=== PATIENT | female | born 1960 | race Caucasian/White ===

== ENCOUNTER 2017-02-11 13:47 | Outpatient (CLI) | payer MEDICARE, MEDICAID ==
--- NOTE | 2017-02-11 17:38 | Ultrasound Report ---
RIGHT BREAST ULTRASOUND: 02/11/2017 CLINICAL INDICATION: Right breast mass. TECHNIQUE: Real-time scanning was performed with compliance representative static images obtained. Ultrasound of the palpable abnormality in the right breast was performed. There is a large, heteroge neous mass, measuring greater than 5 cm in length. It demonstrates peripheral vascularity and hand kiss setter ior acoustic shadowing. There is overlying skin thickening, suspicious for dermal involvement. Scan wendy of the right axilla demonstrates multiple enlarged lymph nodes. IMPRESSION: LARGE RIGHT BREAST MASS WITH RIGHT AXILLARY ADENOPATHY, HIGHLY SUGGESTIVE OF MALIGNANCY. RECOMMENDATION: SURGICAL CONSULTATION FOR TREATMENT PLANNING. IF PREOPERATIVE CHEMOTHERAPY IS PLANN ED, BIOPSY COULD BE PERFORMED. BIRADS CATEGORY: 5, HIGHLY SUGGESTIVE OF MALIGNANCY. Results and recommendations discussed with the patient and her caregiver at the time of the examinati on, and called to Dr. Pack's office on 02/11/2017. JOB #: [id number] EXT JOB #:[id number]
--- NOTE | 2017-02-11 17:41 | Mammography Report ---
DIGITAL DIAGNOSTIC BILATERAL MAMMOGRAM: 02/11/2017 CLINICAL INDICATION: Right breast mass. TECHNIQUE: Bilateral CC and MLO views, right true lateral view. Positioning is markedly limited by the patient's general condition, with posterior breast tissue excluded on both sides. The breasts demonstrate scattered fibroglandular densities bilaterally. There is an approximately 13 cm mass in the right upper-outer quadrant, with pleomorphic calcifications within the mass. There i s overlying skin thickening as well. No suspicious masses, clustered microcalcifications, or regions of architectural distortion are identified within the left breast, in the imaged portions. Please a lso refer to right breast ultrasound of the same day. IMPRESSION: FINDINGS HIGHLY SUGGESTIVE OF MALIGNANCY, WITH A LARGE MASS ON ULTRASOUND CORRELATING WI TH THE MAMMOGRAPHIC ABNORMALITY, RIGHT AXILLARY ADENOPATHY ON ULTRASOUND, AND SKIN THICKENING SUSPICI OUS FOR DERMAL INVOLVEMENT. RECOMMENDATION: SURGICAL CONSULTATION FOR COORDINATION OF CARE. IF PREOPERATIVE CHEMOTHERAPY IS MERA NNED, WE WOULD BE HAPPY TO PERFORM A BIOPSY FOR TISSUE DIAGNOSIS. BIRADS CATEGORY: 5, HIGHLY SUGGESTIVE OF MALIGNANCY. Results and recommendations discussed with the patient and her caregiver at the time of the examinati on, and called to the office of Dr. Pack on 02/11/2017. STANDARD QUALIFYING STATEMENTS 1. This examination was reviewed with the aid of Computed-Aided Detection (CAD). 2. A negative or benign imaging report should not delay biopsy if clinically suspicious findings are present. Consider surgical consultation if warranted. More than 5% of cancers are not identified b y imaging. 3. Dense breasts may obscure an underlying neoplasm. JOB #: [id number] EXT JOB #:[id number]
== END 2017-02-11 13:48 | disposition home or self-care (01) ==
LOC: DI 13:47
PROVIDERS: ATTEND Internal Medicine
DX: N63 Unspecified lump in breast (principal); R59.0 Localized enlarged lymph nodes; R23.4 Changes in skin texture
CPT/HCPCS: 76642; G0204; 77066

== ENCOUNTER 2017-02-18 10:58 | Outpatient (CLI) | payer MEDICARE, MEDICAID | END 2017-02-18 10:59 | disposition critical access hospital (66) | LOC: EMS 10:58 | PROVIDERS: ATTEND Surgery | DX: M25.511 Pain in right shoulder (principal) | CPT/HCPCS: A0425; A0427 ==

== ENCOUNTER 2017-02-18 11:21 | Emergency (ER) | payer MEDICARE, MEDICAID ==
[2017-02-18] MEDS ORDERED: SODIUM CHLORIDE 0.9% 1,000 ML IV ONE ×2 (12:10→14:05)
[2017-02-18] MEDS ORDERED: BUPIVACAINE 0.5%-EPI 1:200000 PF 30 ML VIAL ONE (12:16)
--- NOTE | 2017-02-18 12:21 | ED Physician Documentation ---
History of Present Illness - Stated complaint Stated Complaint: SHOULDER INJ - Chief complaint Chief Complaint: General - History obtained from History obtained from: Patient, EMS - History of Present Illness Timing: Other (57-year-old woman with history of cerebral palsy with visiting caregivers. Last night I guess her wheelchair had been put away funny and she went to get it and slipped out from under her and she injured her Right shoulder. She does not have a history of right shoulder problems. She does have significant pain in the right shoulder but no other injuries. 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 - Present Medications Home Medications: Ambulatory Orders Medication Instructions Recorded Confirmed Ibuprofen [Motrin] 15 ml PO Q6H PRN #1 bottle 11/07/12 Baclofen 10 mg PO DAILY 06/30/13 06/30/13 raNITIdine [Zantac] 150 mg PO BID #30 tablet 06/30/13 - Allergies Allergies/Adverse Reactions: Allergies Allergy/AdvReac Type Severity Reaction Status Date / Time No Known Drug Allergies Allergy Verified 06/30/13 08:11 - Social History Does the pt smoke?: Yes Smoking Status: Former smoker Does the pt drink ETOH?: Yes Does the pt have substance abuse?: No - Family History Family history: reports: Non contributory - Immunizations Immunizations are current?: No - POLST Patient has POLST: No PD ED PE NORMAL - Vitals Vital signs reviewed: Yes - General General: Alert and oriented X 3, No acute distress - Neck Neck: Supple, no meningeal sign, No bony TTP - Cardiac Cardiac: RRR, No murmur - Respiratory Respiratory: No respiratory distress, Clear bilaterally - Abdomen Abdomen: Soft, Non tender - Extremities Extremities: Other (Right shoulder is obviously deformed with a divot in the glenohumeral joint and no range of motion. She does have normal sensation over the deltoid and in the hand with good radial pulses.) - Neuro Neuro: Alert and oriented X 3, Normal speech - Psych Psych: Normal mood, Normal affect Results - Vitals Vitals: Vital Signs - 24 hr 02/18/17 02/18/17 02/18/17 11:29 13:11 13:13 Temperature 36.7 C Heart Rate 89 70 70 Respiratory 16 100 H 17 Rate Blood Pressure 156/72 H 171/96 H 137/82 H O2 Saturation 100 15 L 100 02/18/17 02/18/17 02/18/17 13:15 13:18 13:21 Temperature Heart Rate 80 79 86 Respiratory 14 21 20 Rate Blood Pressure 145/98 H 154/88 H O2 Saturation 99 98 02/18/17 02/18/17 02/18/17 13:24 13:27 13:35 Temperature Heart Rate 86 80 82 Respiratory 18 20 21 Rate Blood Pressure 142/85 H 142/87 H 154/96 H O2 Saturation 98 100 100 02/18/17 02/18/17 02/18/17 13:45 13:50 13:57 Temperature Heart Rate 77 70 81 Respiratory 20 16 22 Rate Blood Pressure 156/90 H 149/86 H 153/96 H O2 Saturation 100 100 99 02/18/17 02/18/17 02/18/17 14:00 14:09 14:31 Temperature Heart Rate 72 72 82 Respiratory 17 14 18 Rate Blood Pressure 156/96 H 140/89 H 147/100 H O2 Saturation 100 100 100 02/18/17 02/18/17 19:51 21:39 Temperature 37.1 C Heart Rate 107 H 116 H Respiratory 22 Rate Blood Pressure 108/68 O2 Saturation 100 95 Oxygen O2 Source Room air - Labs Labs: Laboratory Tests 02/18/17 02/18/17 02/18/17 12:18 12:18 12:18 WBC 12.7 H RBC 4.80 Hgb 14.7 Hct 42.5 MCV 88.4 MCH 30.6 MCHC 34.6 RDW 12.9 Plt Count 274 MPV 7.6 L Neut # 11.0 H Lymph # 0.8 L Bladen # 0.9 Eos # 0.0 Baso # 0.0 Absolute Nucleated RBC 0.01 Nucleated RBCs 0.1 Sodium 140 Potassium 3.7 Chloride 105 Carbon Dioxide 25 Anion Gap 10.0 BUN 13 Creatinine 0.6 Estimated GFR (MDRD) 104 Glucose 115 H Calcium 9.2 Total Bilirubin 0.8 AST 56 H ALT 20 Alkaline Phosphatase 59 Total Creatine Kinase 1691 H* Total Protein 7.9 Albumin 4.2 Globulin 3.7 Albumin/Globulin Ratio 1.1 Lipase 21 L - Rads (name of study) R shoulder Radiology: EMP read contemporaneously (anterior dislocation with lg hill sachs) Procedures - Reduction Body part reduced: Right, Shoulder Fracture or dislocation: Dislocation Anesthesia: Marcaine (enter cc) (10ml), Conscious sedation Shoulder reduction technique: [place] / ext rotation Reduction aftercare: NV intact, Sling - Procedural sedation Sedation prep: Informed consent, Time out completed, AHA 2 - mild disease Sedation medications: propofol (50 then 20mg IVP) Patient status during sedation: Unresponsive, Vitals remained stable, Maintained airway. No: Hypoxia Sedation recovery: Recovered uneventfully PD MEDICAL DECISION MAKING - ED course ED course: 57-year-old woman with cerebral palsy presents with an anterior shoulder dislocation on the right, it was noted to be quite floppy during reduction, and easily popped in and out with a large Hill-Sachs deformity. She was successfully reduced so and placed in a sling. She does have very mild rhabdomyolysis which was treated with 2 L of IV fluids, this should be sufficient for this level of CK. Her caregiver arrived and they have concerns about her going home, she is alone most of the time and her usual locomotion is basically by crawling and she will be unable to do that now. Social work became involved and we are exploring the possibility of sending her to a [facility] for respite stay. I spoke with her primary care physician, Dr. Pack as a service I wrote the admission orders/transition orders for the [facility] as they are certainly not complicated, she is actually on no home medications right now. [facility] was unable to accept her that late in the day though in the current plan was for her to go in the morning. She will board in the ER until then. Departure - Departure Disposition: 01 Home, Self Care Clinical Impression: Anterior shoulder dislocation Qualifiers: Encounter type: initial encounter Laterality: right Qualified Code(s): S43.014A - Anterior dislocation of right humerus, initial encounter Rhabdomyolysis Qualifiers: Rhabdomyolysis type: non-traumatic Qualified Code(s): M62.82 - Rhabdomyolysis Condition: Good Record reviewed to determine appropriate education?: Yes Instructions: ED Dislocation Shoulder Redu, ED Rhabdomyolysis Follow-Up: [facility] [Provider Group] - Within 1 week Comments: Tylenol per package instructions as needed for pain. Return if worse. Drink plenty of fluids. Follow up with the orthopedic surgeon for reevaluation, keep the sling on until then. Follow-up within the week. Your blood pressure was elevated today on check into the emergency department. This does not mean that you have hypertension, it is a common phenomenon to come to the emergency department and have elevated blood pressure. I recommend that she see your primary care physician within the week to have it rechecked when you are feeling better.
[2017-02-18 12:23] LABS: BASOPHILS % (AUTO) 0.3 %; HCT - HEMATOCRIT 42.5 % (37.0-47.0); HGB - HEMOGLOBIN 14.7 g/dL (12.0-16.0); LYMPHOCYTES # (AUTO) 0.8 10^3/uL (1.5-3.5); MEAN CORPUSCULAR HEMOGLOBIN 30.6 pg (27.0-31.0); MEAN CORPUSCULAR HGB CONC 34.6 g/dL (32.0-36.0); MEAN CORPUSCULAR VOLUME 88.4 fL (81.0-99.0); MEAN PLATELET VOLUME 7.6 fL (7.9-10.8); MONOCYTES # (AUTO) 0.9 10^3/uL (0.0-1.0); MONOCYTES % (AUTO) 6.7 %; NUCLEATED RED BLOOD CELLS AUTO 0.1 /100WBC; RED CELL DISTRIBUTION WIDTH 12.9 % (12.0-15.0); UNCORRECTED WHITE BLOOD COUNT 12.7 x10^3/uL; WHITE BLOOD COUNT 12.7 x10^3/uL (4.8-10.8)
[2017-02-18] MEDS: HYDROmorphone 1 MG/ML SYRINGE IVP STA (12:23)
[2017-02-18] MEDS ORDERED: SODIUM CHLORIDE FLUSH 0.9% 10 ML SYRINGE IVP ONE (12:25)
[2017-02-18] MEDS ORDERED: HYDROmorphone 1 MG/ML SYRINGE ONE (12:25)
--- NOTE | 2017-02-18 12:32 | XRAY Preliminary Report ---
Exam: XR Shoulder 2 View RT IMPRESSION: 1. Acute anterior shoulder dislocation with associated large Hill-Sachs defect. [facility] SITE ID: [id number]
--- NOTE | 2017-02-18 12:34 | XRAY Report ---
EXAM: RIGHT SHOULDER RADIOGRAPHY EXAM DATE: 02/18/2017 12:13 PM. CLINICAL HISTORY: Limited ROM with pain after fall. COMPARISON: 11/07/2012. TECHNIQUE: 2 views. FINDINGS: Bones: Large Hill-Sachs defect. Joints: Interval anterior subcoracoid dislocation. Unremarkable acromioclavicular joint. Soft tissues: No periarticular calcification. IMPRESSION: 1. Acute anterior shoulder dislocation with associated large Hill-Sachs defect. [facility] Referring Provider Line: [phone] SITE ID: [id number]
[2017-02-18 12:36] LABS: ALBUMIN/GLOBULIN RATIO 1.1 (1.0-2.2); BILIRUBIN,TOTAL 0.8 mg/dL (0.2-1.0); CALCIUM 9.2 mg/dL (8.5-10.3); CREATININE 0.6 mg/dL (0.4-1.0); POTASSIUM 3.7 mmol/L (3.5-5.0); TOTAL PROTEIN 7.9 g/dL (6.7-8.2)
[2017-02-18] MEDS ORDERED: PROPOFOL 200 MG/20 ML VIAL IVP ONE (13:01)
[2017-02-18] MEDS: PROPOFOL 200 MG/20 ML VIAL IVP STA ×2 (14:00→14:01)
--- NOTE | 2017-02-18 14:21 | XRAY Preliminary Report ---
Exam: XR Shoulder 2 View RT IMPRESSION: The glenohumeral joint is in anatomic alignment status post reduction. [facility] SITE ID: [id number]
--- NOTE | 2017-02-18 14:24 | XRAY Report ---
EXAM: RIGHT SHOULDER RADIOGRAPHY EXAM DATE: 02/18/2017 01:54 PM. CLINICAL HISTORY: Post reduction. COMPARISON: Right shoulder radiograph dated 02/18/2017. TECHNIQUE: 2 views. FINDINGS: Bones: Hill-Sachs deformity along the posterior aspect of the right humeral head. Joints: The glenohumeral joint is in anatomic alignment. Soft tissues: The visualized hemithorax is unremarkable. No soft tissue swelling. IMPRESSION: The glenohumeral joint is in anatomic alignment status post reduction. NARGISA Referring Provider Line: [phone] SITE ID: [id number]
[2017-02-19] MEDS ORDERED: ACETAMINOPHEN 325 MG TABLET PO STA (12:00)
[2017-02-19] MEDS ORDERED: ACETAMINOPHEN 160 MG/5 ML SUSP UDC PO STA (12:23)
[2017-02-19] MEDS ORDERED: ACETAMINOPHEN 160 MG/5 ML SUSP UDC ONE (13:55)
[2017-02-19 14:15] VITALS: BP 129/86
== END 2017-02-19 13:55 | disposition home or self-care (01) ==
LOC: EDBD → EDUNIT# → ED 11:21
DX: S43.014A Anterior dislocation of right humerus, initial encounter (principal); W05.0XXA Fall from non-moving wheelchair, initial encounter; Y92.019 Unspecified place in single-family (private) house as the place of occurrence of the external cause; M62.82 Rhabdomyolysis; G80.9 Cerebral palsy, unspecified; Z98.2 Presence of cerebrospinal fluid drainage device; Z87.891 Personal history of nicotine dependence; R03.0 Elevated blood-pressure reading, without diagnosis of hypertension
CPT/HCPCS: 23650; 36415; 73030; 80053; 82550; 83690; 85025; 94770; 96361; 96374; 99152; 99284; 99285; A9270; J1170

== ENCOUNTER 2017-03-02 10:08 | Day surgery (SDC) | payer MEDICARE, MEDICAID ==
[2017-03-02] MEDS ORDERED: ceFAZolin 3 GM/20 ML SYRINGE IVP ONE (10:30)
[2017-03-02] MEDS ORDERED: LACTATED RINGERS 1,000 ML IV ONE ×2 (11:21→16:08)
[2017-03-02] MEDS ORDERED: ePHEDrine 50 MG/ML VIAL IVP ONE (14:45)
[2017-03-02] MEDS ORDERED: DEXAMETHASONE 4 MG/ML VIAL IVP ONE (14:45)
[2017-03-02] MEDS ORDERED: LIDOCAINE-MPF 2% 5 ML VIAL IM ONE (14:45)
[2017-03-02] MEDS ORDERED: ACETAMINOPHEN 1,000 MG/100 ML 100 ML IV ONE (14:45)
[2017-03-02] MEDS ORDERED: PROPOFOL 200 MG/20 ML VIAL IVP ONE (14:45)
[2017-03-02] MEDS ORDERED: KETOROLAC 30 MG/ML VIAL IVP ONE (14:45)
[2017-03-02] MEDS ORDERED: fentaNYL 100 MCG/2 ML VIAL IVP ONE (14:45)
[2017-03-02] MEDS ORDERED: MIDAZOLAM 2 MG/2 ML VIAL IVP ONE (14:45)
[2017-03-02] MEDS ORDERED: ONDANSETRON 4 MG/2 ML VIAL IVP ONE (14:45)
--- NOTE | 2017-03-02 16:19 | OPERATIVE REPORT ---
Operative Report - General Procedure Date: 03/02/17 Planned Procedure: Right modified radical mastectomy Pre-Op Diagnosis: Large right breast mass, strongly suspect cancer Procedure Performed: Right modified radical mastectomy Post Op Diagnosis: Same. - Procedure Note Primary Surgeon: Nathaniel Mao MD Anesthesia Provider: Demar Ayon Anesthesia Technique: General ET tube, Local (30 mL of half percent Marcaine) IV Fluids (mL): 1,600 Estimated Blood Loss (mL): 75 Drain/Tube Type: Marcelo drain (2 1 across chest wall and one in the axilla) Complications: None. - Other Other Information/Narrative: OPERATIVE DESCRIPTION/REPORT: After verbal and written informed consent was obtained detailing the risks of infection, bleeding requiring transfusion with its risks, nerve injury, and , and after I met with the patient confirming the surgery and the site of the surgery and after initialing the site of the surgery with a surgical marker , the patient was brought to the operative suite and placed supine on the operating table. Great care was taken to avoid pressure points to prevent pressure necrosis or nerve injury. Monitoring devices were applied along with TEDs and pneumatic compressive stockings (to prevent DVT). The patient received preoperative antibiotics for surgical prophylaxis. Demar Ayon sedated and anethetized the patient for the entire procedure. The patient was prepped and draped in the usual sterile manner. With the patient draped my initials were clearly visible. A "time in" then confirmed that the patient was identified with 3 identifiers (name, birthdate and medical record number), the history and physical was in the chart, the signed consent confirming the procedure was in the chart, the patient was in the correct position, the aforementioned prophylactic measures were in place or given, we had the correct personel and equipment to complete the procedure and that anesthesia, surgery and nursing were given an opportunity to express any concerns. With the agreement of everyone in the room, we proceeded with the operation. Great care was taken to ensure that the arm was placed in a relaxed manner away from the body to facilitate exposure and to avoid nerve injury. This was made difficult by the patient's previous shoulder injury but we did the best we could. An elliptical incision was made to incorporate the nipple-areolar complex as well as the peau d'orange in the area where the likely cancer eroded through the skin. This necessitated making the incision much larger than I normally make it. The skin incision was carried down to the subcutaneous fat, but no further. Using traction and counter traction, the upper flap was dissected from the chest wall, medially to the sternal border, superiorly to the clavicle , laterally to the anterior border of the latissimus dorsi muscle, and superolaterally to the insertion of the pectoralis major muscle. The lower flap was dissected in a similar manner down to the insertion of the pectoralis fascia overlying the fifth rib medially and laterally out to the latissimus dorsi. Bovie electrocautery was used for the majority of the dissection and hemostasis, tying only the large vessels with 2-0 Vicryl. The breast was dissected from the pectoralis muscle beginning medially and progressing laterally, removing the pectoralis fascia entirely. Once the lateral border of the pectoralis major muscle was identified, the pectoralis muscle was retracted medially and the interpectoral fat was removed with the specimen. The axillary dissection is then begun by incising the fascia overlying axilla proper, allowing visualization of the axillary vein. The axilla was then cleared of its contents by sharp dissection. The axilla was cleared down to the chest wall and dissection was continued laterally to the subscapular vein. The long thoracic nerve was clearly identified lying against the chest was and carefully preserved. The long thoracic nerve represented the posterior most aspect of the dissection. As the axillary contents were dissected in the posterolateral axilla the thoracodorsal nerve was identified and carefully preserved. The dissection continued caudally until the entire specimen was freed and delivered from the operative field. Copious water lavage was used to remove any debris, and meticulous hemostasis was obtained with Bovie electrocautery. Two Marcelo drains were inserted through separate stab incision below the initial incision and cut to fit. The most posterior of the two was directed into the axilla and the other directed anteriorly across the pectoralis major. These were secured to the skin using 3-0 Nylon which was Bebo-sandaled about each drain. The skin incision was approximated with 4-0 Monocryl in a running subcuticular manner. The incision in both drain sites were injected with half percent Marcaine for postoperative pain management. A dressing was applied. The drains were placed on ``grenade suction. At this point a time out was performed that confirmed that all the counts were correct, the procedure that was performed, the blood loss, the urine output, the IV fluids administered, and the patients condition. Having tolerated the procedure well, the patient was subsequently extubated and taken to recovery room in good and stable condition. Dragon disclaimer: This document was created in part using voice recognition technology. Because of the inherent limitations of the system ([employer]'s [employer] user manual states that the licensee understands that speech recognition is a statistical process and that recognition errors are inherent in the process), occasional same sounding word substitutions and grammatical errors do occur and persist despite proofreading. Please read this document for context.
[2017-03-02] MEDS ORDERED: HYDROmorphone 1 MG/ML CARPUJECT ONE (17:03)
[2017-03-02] MEDS ORDERED: HYDROcod/ACETAM 10 MG/325 MG TABLET PO PRN (19:55)
[2017-03-02] MEDS ORDERED: ONDANSETRON 4 MG/2 ML VIAL IVP PRN (19:55)
[2017-03-02] MEDS ORDERED: HYDROmorphone 1 MG/ML CARPUJECT IVP PRN ×2 (19:57→19:58)
[2017-03-03] MEDS: LACTATED RINGERS 1,000 ML IV SCH ×2 (03:24→08:33)
[2017-03-03 04:20] VITALS: BP 117/67
--- NOTE | 2017-03-03 13:05 | PROVIDER PROGRESS NOTE ---
Subjective - General Procedure Date: 03/02/17 Post Op Days: 1 Procedure Performed: Right modified radical mastectomy - Review of Systems Wound/Incisions: positive: Healing well Drain Type: 19 Fr Marcelo x2 Drain Output Description: Serosanguinous becoming more serous General: positive: No symptoms HEENT: positive: No symptoms Pulmonary: positive: No symptoms Cardiovascular: positive: No symptoms Gastrointestinal: positive: No symptoms Genitourinary: positive: No symptoms Musculoskeletal: positive: Shoulder pain (As a result of her right shoulder dislocation (pre-existing).) Skin: positive: No symptoms Psychiatric: positive: No symptoms Objective - Patient Data Reviewed Vital Signs: Yes Weight: Weight 03/01/17 03/02/17 03/03/17 23:59 23:59 23:59 Weight (kg) 65 kg Intake & Output: Intake and Output Totals x24h 03/01/17 03/02/17 03/03/17 23:59 23:59 23:59 Intake Total 1600 Output Total 450 Balance 1150 - Current Medications Current Medications: Current Medications Generic Name Dose Route Start Last Admin Trade Name Freq PRN Reason Stop Dose Admin Hydromorphone HCl 0.2 mg 03/02/17 19:57 03/03/17 00:47 Dilaudid Inj IVP 0.2 mg Q30M PRN Administration BREAKTHROUGH PAIN Lactated Ringer's 1,000 mls @ 83 mls/hr 03/02/17 20:00 03/03/17 08:33 Lr IV 83.3 mls/hr .Q12H3M BALBIR Administration - Physical Exam Wound/Incisions: positive: Healing well, Drainage (Coming through the 2 Marcelo drains is becoming more serous.) General Appearance: positive: No acute distress Eyes Bilateral: positive: No lid inflammation, Conjunctivae nml, No scleral icterus, Other (Continued episodic nystagmus.) Neck: positive: Trachea midline Respiratory: positive: Chest non-tender, No respiratory distress, Breath sounds nml Cardiovascular: positive: Regular rate & rhythm Skin: positive: Color nml Neurologic/Psychiatric: positive: Oriented x3 Impression/Plan - Problem List Problem List: D1 s/p RIGHT modified radical mastectomy for what will undoubtedly come back as advanced RIGHT breast cancer Discharge to [facility] with drains in place. Drain care (stripping and measuring output should be done every 8 hours but if not then AT LEAST every 12 hours) must be continued at [facility]. No tape on wound. Binder with soft gauze beneath to be changed as needed. No restrictions regarding diet. Follow up with me this Wednesday or earlier if necessary. Should also follow up with [facility] soon after she sees me and pathology is confirmed.
--- NOTE | 2017-03-03 13:23 | Discharge Plan ---
Discharge Plan Disposition: 03 [facility] DC/Xfer Prescriptions: Hydrocodone/Acetaminophen [Hydrocodon-Acetamin 7.5-325/15] 15 ml PO Q4HR PRN # 240 solution PRN Reason: Pain Diet: Regular Activity Restrictions: No Restrictions Shower Restrictions: No Driving Restrictions: Yes Assistance Devices: Wheelchair Weight Bearing: Other (As before.) Additional Instructions or Follow Up instructions: Drain stripping every 8 hours and record output and appearance of fluids. No tape on wound only fluffs and abdominal binder. No Smoking: If you smoke, Please STOP! Call for help. Follow-up with: Patricia Pack MD [Primary Care Provider] - Nathaniel Mao MD [Provider Admit Priv/Credential] -
== END 2017-03-03 15:06 ==
LOC: SDS 10:08 → OBS 18:43 → SDS 03-03 15:06
PROVIDERS: ATTEND Surgery
PROC: 07T50ZZ Resection of Right Axillary Lymphatic, Open Approach (ICD-10-PCS; 2017-03-02)
PROC: 0HTT0ZZ Resection of Right Breast, Open Approach (ICD-10-PCS; principal; 2017-03-02 11:45)
DX: C50.911 Malignant neoplasm of unspecified site of right female breast (principal); C77.3 Secondary and unspecified malignant neoplasm of axilla and upper limb lymph nodes; Z17.0 Estrogen receptor positive status [ER+]; F41.9 Anxiety disorder, unspecified; G80.9 Cerebral palsy, unspecified; Z87.891 Personal history of nicotine dependence
CPT/HCPCS: 19307; 93005; J0131; J1170; J7120

== ENCOUNTER 2017-03-23 08:21 | Outpatient (CLI) | payer MEDICARE, MEDICAID ==
--- NOTE | 2017-03-23 14:39 | Nuclear Medicine Report ---
EXAM: BONE SCAN EXAM DATE: 03/23/2017 12:33 PM. CLINICAL HISTORY: New diagnosis of very large right breast cancer. COMPARISON: None. TECHNIQUE: Following the intravenous administration of 32.6 mCi of technetium 99m MDP and an appropri ate delay, a whole-body scan was performed in anterior and posterior projections. Site-specific spot views of the region of interest were obtained in various projections. The patient was wearing a diaper, and refused to remove it. FINDINGS: Exam Quality: Normal overall osseous radiotracer uptake. Physiological tracer uptake in bilateral col lecting systems. Skull: No focal uptake. Thorax: There is no abnormal tracer uptake in the sternum, ribs or scapula. There is moderately increased tracer uptake in the right humeral head in keeping with the prior x-ray suggesting a fracture. Pelvis: No region of focal tracer uptake seen to suggest metastatic disease. The pelvis is partially obscured by the diaper. Spine: No focal uptake in the cervical or thoracic or lumbar spine. Moderately increased tracer uptake in the left knee consistent with osteoarthritis. IMPRESSION: 1. No evidence of metastatic disease. 2. Tracer uptake in the right humeral head consistent with the prior diagnosis of a fracture. [facility] Referring Provider Line: [phone] SITE ID: [id number]
== END 2017-03-23 08:22 | disposition home or self-care (01) ==
LOC: DI 08:21
PROVIDERS: ATTEND Surgery
DX: C50.911 Malignant neoplasm of unspecified site of right female breast (principal)
CPT/HCPCS: 78306; A9503

== ENCOUNTER 2017-03-24 07:40 | Outpatient (CLI) | payer MEDICARE, MEDICAID ==
[~2017-03-24 07:40] MED LIST: IOPAMIDOL-300 100 ML VIAL ONE; IOPAMIDOL-300 50 ML VIAL ONE
[2017-03-24 08:12] LABS: CREATININE 0.4 mg/dL (0.4-1.0)
[2017-03-24] MEDS ORDERED: IOPAMIDOL-300 50 ML VIAL PO ONE (09:28)
[2017-03-24] MEDS ORDERED: IOPAMIDOL-300 100 ML VIAL IVP ONE ×2 (09:28)
--- NOTE | 2017-03-24 10:08 | CT Report ---
CT OF THE CHEST WITH CONTRAST: 03/24/2017 CLINICAL INDICATION: Breast cancer. TECHNIQUE: Axial CT images of the chest were obtained with 90 mL of Isovue-300 intravenously. No prev ious chest CT is available for comparison. FINDINGS: The heart and great vessels are unremarkable. There is a moderate hiatal hernia present. N o hilar or mediastinal lymphadenopathy is seen. A [employer] shunt catheter is noted in the anterior subcutan eous fat of the left chest. Postoperative changes of right mastectomy and axillary node dissection ar e present. The lungs are clear. No effusion or pneumothorax is present. The osseous structures demons trate degenerative changes. IMPRESSION: NO EVIDENCE OF THORACIC METASTATIC DISEASE. In accordance with CT protocol optimization, one or more of the following dose reduction techniques w ere utilized for this exam: automated exposure control, adjustment of mA and/or KV based on patient size, or use of iterative reconstructive technique. :9 JOB #: [id number] EXT JOB #:[id number]
--- NOTE | 2017-03-24 10:10 | CT Report ---
CT ABDOMEN AND PELVIS WITH CONTRAST: 03/24/2017 CLINICAL INDICATION: Breast cancer staging. TECHNIQUE: Axial CT images of the abdomen and pelvis were obtained with 90 mL Isovue-300 intravenous ly as well as oral contrast. No previous CT is available for comparison. Please also refer to separate CT of the chest of the same day. FINDINGS: ABDOMEN: The liver, spleen, pancreas, kidneys and adrenal glands appear unremarkable. The gallbladd er is not dilated. CLIENT EXPERIENCE ADMINISTRATOR shunt catheter terminates in the upper mid abdomen. No bowel dilatation, free gas, or free fluid is present. No abdominal adenopathy is seen. PELVIS: The uterus is enlarged, with fluid and heterogeneous material within the endometrial canal. Assuming a negative test, the appearance is highly suspicious for endometrial cancer. Add itionally, there is a soft tissue mass with calcifications posterior to the distal rectum/anus, measu ring 7.5 x 3.7 x 4.8 cm. This may represent ovarian neoplasm, or possibly direct extension of an adina/rectal cancer. There is prominence of the rectum, filled with stool, suggestive of partial distal obstruction. Osseous structures demonstrate degenerative changes. IMPRESSION: 1. ENLARGED UTERUS, WITH HETEROGENEOUS MATERIAL WITHIN THE ENDOMETRIAL CANAL. ASSUMING A NEGATIVE P REGNANCY TEST, THE APPEARANCE IS SUSPICIOUS FOR ENDOMETRIAL CANCER. 2. SOFT TISSUE MASS POSTERIOR TO AND SURROUNDING THE DISTAL RECTUM/ANUS, SUSPICIOUS FOR NEOPLASM. 3. NO EVIDENCE OF HEPATIC OR ISABELL METASTATIC DISEASE. In accordance with CT protocol optimization, one or more of the following dose reduction techniques w ere utilized for this exam: automated exposure control, adjustment of mA and/or KV based on patient size, or use of iterative reconstructive technique. JOB #: [id number] EXT JOB #:[id number]
== END 2017-03-24 07:41 | disposition home or self-care (01) ==
LOC: DI 07:40
PROVIDERS: ATTEND Surgery
DX: C50.911 Malignant neoplasm of unspecified site of right female breast (principal); N85.2 Hypertrophy of uterus; K62.89 Other specified diseases of anus and rectum
CPT/HCPCS: 36415; 71260; 74177; 82565; Q9967

== ENCOUNTER 2017-04-26 08:20 | Day surgery (SDC) | payer MEDICARE, MEDICAID ==
--- NOTE | 2017-04-08 15:37 | PREOP HISTORY & PHYSICAL ---
DATE OF ADMISSION/SURGERY: 04/26/2017. IDENTIFICATION: A 57-year-old G1, P0-0-1-0. HISTORY OF PRESENT ILLNESS: This is a patient of Dr. Nathaniel Mao with whom I have been consulted on. She unfortunately was recently diagnosed with right breast cancer. She and her caretakers have been noticing that she was having an enlargement of her right breast over a year's time period. She underwent, on , a right modified radical mastectomy. Pathology revealed invasive adenocarcinoma with lobular growth pattern, intermediate grade. The base of cancer itself measured 13.6 x 9.8 x 5.9 cm, and 7/12 nodes were positive. She is also ER and TX positive. Further workup for metastasis showed a 03/23/2017 bone scan without any evidence of metastatic disease. However, a 03/24/2017 CT of the abdomen and pelvis showed a uterus that was enlarged with fluid and heterogeneous material within the endometrial canal. Initially soft tissue mass with calcifications posterior to the distal rectum/anus measuring 7.5 x 3.7 x 4.8 cm. Prominence of the rectum filled with stool suggestive of partial distal obstruction. She presents today for gynecological consultation. She currently denies any vaginal bleeding or specific pelvic pain. She does have urinary incontinence and consistently wears a diaper. She is not thrilled to be here today and would like to go home as soon as possible. Otherwise, she is denying any nausea, vomiting, fevers, chills, diarrhea or constipation. She is currently accompanied today by 2 caretakers, as well as her father figure, Nathaniel. PAST MEDICAL HISTORY 1. Cerebral palsy. 2. GERD. 3. Chronic musculoskeletal pain. 4. Anxiety. 5. Recent rhabdomyolysis secondary to the recent fall on her right shoulder. 6. Pathology proven, 02/21/2017. PAST SURGICAL HISTORY 1. ventriculoperitoneal shunt. 2. Multiple leg surgeries bilaterally. MEDICATIONS 1. Motrin 15 mL. 2. Baclofen 10 mg. 3. Zantac 150 mg b.i.d. Her pharmacy of choice is [facility] in [place]. ALLERGIES: NO KNOWN DRUG ALLERGIES. SOCIAL HISTORY: She is a former smoker. She does reside in her own household, but because of her recuperation from her recent mastectomy, is recovering at [facility]. She does have a sales promotion representative who occasionally visits her. She is wheelchair bound. PAST OBSTETRICAL HISTORY: One spontaneous . PAST GYNECOLOGICAL HISTORY: She denies any current vaginal bleeding. She denies any history of abnormal Pap smears, but does not have routine Pap smears. REVIEW OF SYSTEMS: Negative unless otherwise stated. OBJECTIVE VITAL SIGNS: Weight 189 pounds. Height is 63 inches. Vital signs are stable. She is afebrile. GENERAL: She is a female who does appear to have cerebral palsy with multiple contractures. She is wheelchair bound, but her mentation is intact and she is able to verbalize without difficulty. She does appear to be older than her stated age. HEENT: Within normal limits. CARDIOVASCULAR: Rate is regular, no murmurs or rubs. PULMONARY: Lungs clear to auscultation bilaterally. GENITOURINARY: Female EGBUS atrophic, but within normal limits. Vagina is atrophic. She does have a long vagina measuring approximately 7 cm. It is redundant. Cervix is nulliparous in the midline and mildly positioned to the left of the patient's pelvis. Uterus examination deferred. ASSESSMENT 1. A 57-year-old G1, P0-0-1-0 with right breast carcinoma and a pelvic mass, most likely coming from the intestines. 2. Enlarged uterus, very suspicious for endometrial carcinoma. She is very concerning for having Lara II. 3. Cerebral palsy. 4. Anxiety. PLAN 1. I discussed with the patient that we need a definitive diagnosis via endometrial biopsy. Although a passer has been obtained, this is not diagnostic of the endometrium. I discussed with her, she may even be able to return to see me here in the clinic and do another attempt of an endometrial biopsy or we may also proceed to biopsy under sedation. She stated that she was actually scheduled for a colonoscopy with Dr. Mao in order to evaluate the CT suggestion of a partial obstruction in her intestines. I have briefly spoken to Dr. Mao who is amenable for the patient having an endometrial biopsy, as well as the colonoscopy at the same time. We will go ahead and coordinate our plans to do this, hopefully on 04/26/2017. I will try to have the patient go at the beginning of Dr. Mao' surgical line-up in order to help facilitate this. I discussed with her the risks, benefits, alternatives, indications and expectations of endometrial biopsy. All of her questions were answered to her satisfaction. She verbalized her desire to proceed with surgery. Consents have been signed today. We will send over paperwork in order to get this procedure scheduled. 2. The patient is to see me for followup of her test results. I would anticipate sending her to Gynecological Oncology for further treatment as she does have a high risk for carcinoma. JOB #: [id number] EXT JOB #:[id number] MTDNorman
[2017-04-26] MEDS ORDERED: LACTATED RINGERS 1,000 ML IV ONE (09:37)
[2017-04-26] MEDS ORDERED: PROPOFOL 200 MG/20 ML VIAL IVP ONE (10:40)
[2017-04-26] MEDS ORDERED: fentaNYL 100 MCG/2 ML VIAL IVP ONE (10:40)
[2017-04-26] MEDS ORDERED: MIDAZOLAM 2 MG/2 ML VIAL IVP ONE (10:40)
[2017-04-26] MEDS ORDERED: ONDANSETRON 4 MG/2 ML VIAL IVP ONE (10:40)
[2017-04-26] MEDS ORDERED: LIDOCAINE-MPF 2% 5 ML VIAL IM ONE (10:40)
--- NOTE | 2017-04-26 10:55 | OPERATIVE REPORT ---
Operative Report - Other Other Information/Narrative: Date of Operation: 04/26/2017 Surgeon: Antonina Rizzo DO FACOG Cassandra Architect: None Hand Heel Seat Fitter: Dayne Sheppard CRNA Anesthesia: MAC Pre-op Dx: 1. 57 yo G0 2. Enlarged uterus Post-op Dx: 1. 57 yo G0 2. Enlarged uterus Procedure: Endometrial biopsy Findings: Normal atrophic vulva, vagina and cervix. Specimens: Endometrial biopsy Drains: None EBL: None Complications: None Dictation #: [id number]
[2017-04-26 12:14] VITALS: BP 140/93
--- NOTE | 2017-04-26 17:31 | OPERATIVE REPORT ---
DATE OF SURGERY: 04/26/2017 00:00:00 PREOPERATIVE DIAGNOSIS: 1. A 57-year-old G0. 2. Enlarged uterus. POSTOPERATIVE DIAGNOSIS: 1. A 57-year-old G0. 2. Enlarged uterus. NAME OF PROCEDURE: Endometrial biopsy. SURGEON: Antonina Rizzo DO ANESTHESIA: MAC. GROUND TRANSPORTATION OPERATOR: Horacio Sheppard CRNA FINDINGS: Normal atrophic vulva, vagina and cervix. SPECIMENS: Endometrial biopsy. DRAINS: None. ESTIMATED BLOOD LOSS: None. COMPLICATIONS: None. BRIEF HISTORY: This is a patient of Dr. Nathaniel Mao' office who unfortunately was diagnosed recentl y with right breast cancer. Workup for metastatic breast disease revealed that she had a pelvic mass which is suspected to come from the rectal area. With respect to the reproductive system, her uterus was found to be enlarged. Dr. Mao has asked me to evaluate her for uterine carcinoma. I saw the patient at [facility] on 04/08/2017. Though I was able to obtain a satisfactory Pap smear, due to the patient's cerebral palsy, she could not tolerate an endometrial biopsy. Because the patient was scheduled for a colonoscopy, I took the opportunity to perform an endometrial biopsy so that the patient would be comfortable. I did explain to the patient my recommendation to undergo an endometrial biopsy. I discussed with her that this procedure would be done in order to rule out endometrial carcinoma. I discussed with the p atient the risks, benefits, alternatives, indications and expectations of an endometrial biopsy. Afte r all her questions were answered to her satisfaction, she verbalized her desire to proceed with endo metrial biopsy. Consent forms have been signed. OPERATION IN DETAIL: The patient was taken to the operating room where IV access was already in place . She was then transferred to the operating room table where she was given satisfactory MAC anesthesi a per Horacio Sheppard. A timeout was performed, which correctly identified the patient, site of procedu re and procedure itself. The patient was frog-legged. An open-sided speculum was placed in the vagina. A single toothed tenacu lum was placed on the anterior lip of the cervix. Her cervix was then dilated with a 5-Wolof dilator . With a pipelle, a satisfactory endometrial biopsy was obtained after 2 passes. There was a small am ount of tissue coming out from the external cervical os, consistent grossly with endometrial polyp. T his specimen was grasped with ring forceps and then placed into the formalin bottle, along with the r est of the endometrial sampling. At this point in time, the procedure had been completed. All instrum ents were removed out of the vagina, and hemostasis was noted. Dr. Mao then proceeded with the c olonoscopy. Please see his documentation for further information. The patient is to see me at [facility] for followup. JOB #: [id number] EXT JOB #:[id number]
== END 2017-04-26 08:21 | disposition home or self-care (01) ==
LOC: SDS 08:20
PROVIDERS: ATTEND Surgery
PROC: 0UDB7ZX Extraction of Endometrium, Via Natural or Artificial Opening, Diagnostic (ICD-10-PCS; principal; 2017-04-26 07:30)
DX: N85.2 Hypertrophy of uterus (principal); C50.911 Malignant neoplasm of unspecified site of right female breast; Z17.0 Estrogen receptor positive status [ER+]; G80.9 Cerebral palsy, unspecified; F41.9 Anxiety disorder, unspecified
CPT/HCPCS: 58100; J7120

== ENCOUNTER 2017-05-27 07:21 | Day surgery (SDC) | payer MEDICARE, MEDICAID ==
[2017-05-27] MEDS ORDERED: LACTATED RINGERS 1,000 ML IV ONE (07:31)
[2017-05-27] MEDS ORDERED: ONDANSETRON 4 MG/2 ML VIAL IVP ONE (09:09)
[2017-05-27] MEDS ORDERED: fentaNYL 100 MCG/2 ML VIAL IVP ONE (09:09)
[2017-05-27] MEDS ORDERED: MIDAZOLAM 2 MG/2 ML VIAL IVP ONE (09:09)
[2017-05-27 09:43] VITALS: BP 102/85
== END 2017-05-27 07:22 | disposition home or self-care (01) ==
LOC: SDS 07:21
PROVIDERS: ATTEND Surgery
PROC: 0DJD8ZZ Inspection of Lower Intestinal Tract, Via Natural or Artificial Opening Endoscopic (ICD-10-PCS; principal; 2017-05-27 08:15)
DX: K57.30 Diverticulosis of large intestine without perforation or abscess without bleeding (principal); K64.8 Other hemorrhoids
CPT/HCPCS: 45378; J7120

== ENCOUNTER 2017-07-06 07:52 | Day surgery (SDC) | payer MEDICARE, MEDICAID ==
[~2017-07-06 07:52] MED LIST changes: -IOPAMIDOL-300 100 ML VIAL ONE; -IOPAMIDOL-300 50 ML VIAL ONE; +ceFAZolin 2 GM/50 ML 2 GM/50 ML BAG IV ONE
[2017-07-06] MEDS ORDERED: LACTATED RINGERS 1,000 ML IV ONE (08:45)
[2017-07-06] MEDS ORDERED: ceFAZolin 2 GM/50 ML 2 GM/50 ML BAG IV ONE (08:49)
[2017-07-06] MEDS ORDERED: PROPOFOL 200 MG/20 ML VIAL IVP ONE (09:30)
[2017-07-06] MEDS ORDERED: LIDOCAINE-MPF 2% 5 ML VIAL IM ONE (09:30)
[2017-07-06] MEDS ORDERED: BUPIVACAINE 0.5% PF 30 ML VIAL SUBQ ONE ×2 (09:31)
[2017-07-06] MEDS ORDERED: ACETAMINOPHEN 1,000 MG/100 ML 100 ML IV ONE (10:12)
[2017-07-06 11:52] VITALS: BP 144/97
--- NOTE | 2017-07-06 18:07 | XRAY Report ---
DATE OF SERVICE: 07/06/2017 FRONTAL CHEST: 07/06/2017 CLINICAL INDICATION: Port placement. Supine frontal view of the chest demonstrates a left subclavian port terminating in the right atrium. Left greater than right atelectasis is present. No pneumothorax is seen on the supine view. IMPRESSION: Left subclavian port tip in the right atrium. TD: 07/06/2017 19:06
== END 2017-07-06 07:53 | disposition home or self-care (01) ==
LOC: SDS 07:52
PROVIDERS: ATTEND Surgery
PROC: 05H633Z Insertion of Infusion Device into Left Subclavian Vein, Percutaneous Approach (ICD-10-PCS; principal; 2017-07-06 09:30)
DX: C50.911 Malignant neoplasm of unspecified site of right female breast (principal); C79.9 Secondary malignant neoplasm of unspecified site; Z87.891 Personal history of nicotine dependence
CPT/HCPCS: 36561; C1788; J0131; J0690; J7120; 93306

== ENCOUNTER 2017-07-06 15:22 | Outpatient (CLI) | payer MEDICARE, MEDICAID ==
--- NOTE | 2017-07-06 09:53 | OPERATIVE REPORT ---
Operative Report - General Procedure Date: 07/06/17 Planned Procedure: Portacath placement Pre-Op Diagnosis: Metastatic breast cancer Procedure Performed: LEFt subclavian Portacath placement Post Op Diagnosis: Same - Procedure Note Primary Surgeon: Nathaniel Mao MD Anesthesia Provider: Nathaniel Olivares MD Anesthesia Technique: Local (10 mL 1/2% marcaine), MAC IV Fluids (mL): 300 Estimated Blood Loss (mL): 2 Complications: None. - Other Other Information/Narrative: OPERATIVE DESCRIPTION/REPORT: After verbal and written informed consent was obtained detailing the risks of infection, bleeding requiring transfusion with its risks, nerve injury, and , and after I met with the patient confirming the surgery and the site of the surgery and after initialing the site of the surgery with a surgical marker , the patient was brought to the operative suite and placed supine on the operating table. Great care was taken to avoid pressure points to prevent pressure necrosis or nerve injury. Monitoring devices were applied along with TEDs and pneumatic compressive stockings (to prevent DVT). The patient received preoperative antibiotics for surgical prophylaxis. Dr. Nathaniel Olivares sedated and anethetized the patient for the entire procedure. The patient was prepped and draped in the usual sterile manner. With the patient draped my initials were clearly visible. A "time in" then confirmed that the patient was identified with 3 identifiers (name, date and medical record number), the history and physical was in the chart, the signed consent confirming the procedure was in the chart, the patient was in the correct position, the aforementioned prophylactic measures were in place or given, we had the correct personnel and equipment to complete the procedure and that anesthesia, surgery and nursing were given an opportunity to express any concerns. With the agreement of everyone in the room, we proceeded with the operation. After the subclavian region was anesthetized using % marcaine and the patient placed in Trendelenberg position, an Angiodynamics Smartport kit ( Catalog #[id number], Lot #[id number]) was opened. The finder needle was inserted into the subclavian vein taking great care to place it just under the clavicle in order to minimize the risk of pneumothorax. When good venous blood return was obtained, the wire was placed through the needle and into the vein without difficulty. Cardiac irritability confirmed that the catheter was correctly going down towards the heart. Below and lateral to the needle insertion site, the area was anesthetized again using % marcaine and a transverse incision was made just large enough to accommodate the port. This incision was taken down to the fascia using sharp dissection and the area for the port was created using blunt downward dissection. Meticulous hemostasis was obtained using Bovie electrocautery. A knife was inserted along the wire to widen the insertion site and this was further dilated using a Jenna. The port was flushed with heparinized saline and placed in the pouch and the catheter was then passed to the needle opening using the passer. The catheter was then measured against the patients anterior chest and cut so that the tip would lie 2 cm below the manubrial-sternal junction. The port was secured to the fascia using a 3-0 Prolene on the side of the opening of the port. The catheter was then wiped and wrapped with a heparinized soaked 4x4. The dilator and sheath were then carefully inserted over the wire and the dilator and wire withdrawn. The catheter was then inserted into the sheath and the sheath was broken away from the catheter leaving the catheter in place in the vein. An X-ray confirmed placement of the catheter tip in the right atrium/supracardiac vena cava without pneumothorax. Using a Hueber needle the port was accessed and good blood return as well as easy flush was noted. The subcutaneous tissue was approximated using 3-0 Vicryl and the skin incisions were approximated with 4-0 Monocryl in a subcuticular fashion. The skin prep was washed off and prepped with benzoin. Steristrips were applied. At this point a time out was performed that confirmed that all the counts were correct, the procedure that was performed, the blood loss, the IV fluids administered, and the patients condition. A dressing was placed on the wound. Having tolerated the procedure well, the patient was taken to short stay in good and stable condition. The patient was instructed that the Portacath could be used immediately. Stem disclaimer: This document was created in part using voice recognition technology. Because of the inherent limitations of the system ([employer]'s St[employer] Dictate user manual states that the licensee understands that speech recognition is a statistical process and that recognition errors are inherent in the process), occasional same sounding word substitutions and grammatical errors do occur and persist despite proofreading. Please read this document for context.
== END 2017-07-06 15:23 | disposition home or self-care (01) ==
LOC: DI 15:22
PROVIDERS: ATTEND Internal Medicine Hematology & Oncology
DX: C50.911 Malignant neoplasm of unspecified site of right female breast (principal)
CPT/HCPCS: 93306

== ENCOUNTER 2017-07-19 08:00 | Outpatient (CLI) | payer MEDICARE, MEDICAID ==
[2017-07-20 01:57] LABS: HGB - HEMOGLOBIN 13.7 g/dL (12.0-16.0); MEAN CORPUSCULAR HEMOGLOBIN 29.6 pg (27.0-31.0); MEAN CORPUSCULAR HGB CONC 34.1 g/dL (32.0-36.0); MEAN CORPUSCULAR VOLUME 86.9 fL (81.0-99.0); MEAN PLATELET VOLUME 8.4 fL (7.9-10.8); NEUTROPHILS % (AUTO) 64.7 %; RED BLOOD COUNT 4.63 10^6/uL (4.20-5.40); RED CELL DISTRIBUTION WIDTH 14.6 % (12.0-15.0); WHITE BLOOD COUNT 10.8 x10^3/uL (4.8-10.8)
[2017-07-20 02:07] LABS: ALBUMIN 4.1 g/dL (3.2-5.5); ALBUMIN/GLOBULIN RATIO 1.2 (1.0-2.2); BILIRUBIN,TOTAL 0.6 mg/dL (0.2-1.0); CALCIUM 9.6 mg/dL (8.5-10.3); CREATININE 0.6 mg/dL (0.4-1.0); TOTAL PROTEIN 7.4 g/dL (6.7-8.2)
== END 2017-07-19 23:59 | disposition home or self-care (01) ==
LOC: LAB.R 08:00
DX: C50.911 Malignant neoplasm of unspecified site of right female breast (principal)
CPT/HCPCS: 80053; 85027

== ENCOUNTER 2017-08-05 15:27 | Outpatient (CLI) | payer MEDICARE, MEDICAID | END 2017-08-05 15:28 | disposition critical access hospital (66) | LOC: EMS 15:27 | PROVIDERS: ATTEND Surgery | DX: R10.10 Upper abdominal pain, unspecified (principal); R11.2 Nausea with vomiting, unspecified; R06.02 Shortness of breath | CPT/HCPCS: A0425; A0429 ==

== ENCOUNTER 2017-08-05 15:33 | Inpatient (IN) | payer MEDICARE, MEDICAID ==
[2017-08-05] MEDS ORDERED: HYDROmorphone 1 MG/ML SYRINGE IVP STA (15:49)
[2017-08-05] MEDS ORDERED: SODIUM CHLORIDE 0.9% 1,000 ML IV ONE (15:49)
[2017-08-05] MEDS ORDERED: ONDANSETRON 4 MG/2 ML VIAL IVP STA (15:49)
--- NOTE | 2017-08-05 15:53 | ED Physician Documentation ---
PD HPI ABD PAIN - Stated complaint Stated Complaint: ABD PX - Chief complaint Chief Complaint: Abd Pain - History obtained from History obtained from: Patient, EMS - History of Present Illness Timing - onset: Other (This is a 57-year-old woman with history of cerebral palsy, FUNCTIONAL TESTER TYPEWRITERS shunt in place, and undergoing chemotherapy for breast cancer who presents with vomiting since yesterday which preceded upper abdominal pain which is now severe associated with a fever to 100.7 at the detention.) Review of Systems Ten Systems: 10 systems reviewed and negative Constitutional: reports: Fever, Chills Nose: denies: Rhinorrhea / runny nose, Congestion Cardiac: denies: Chest pain / pressure Respiratory: reports: Dyspnea GI: reports: Abdominal Pain, Nausea, Vomiting, Constipation (Chronically, her usual is that she poops every third day.). denies: Diarrhea Neurologic: denies: Headache PD PAST MEDICAL HISTORY - Past Medical History Cardiovascular: None Respiratory: None Neuro: Cerebral palsy Endocrine/Autoimmune: Other GI: GERD : Incontinence HEENT: Chronic vision loss Psych: Anxiety Musculoskeletal: Other Derm: Other - Past Surgical History Past Surgical History: Yes General: Colonoscopy Ortho: Other Neuro: FUNCTIONAL TESTER TYPEWRITERS shunt - Present Medications Home Medications: Ambulatory Orders Medication Instructions Recorded Confirmed Calcium Carbonate [Tums (Calcium 1,000 mg PO AC PRN 04/02/17 07/02/17 Carbonate 500mg)] Dexamethasone 2 tab PO DAILY #24 tablet 06/17/17 07/06/17 LORazepam [Lorazepam] 0.5 mg PO Q6H PRN #30 tablet 06/17/17 07/06/17 Omeprazole [PriLOSEC] 20 mg PO DAILY #1 capsule 06/17/17 07/06/17 Ondansetron [Zofran Odt] 8 mg PO Q8H PRN #30 tab.rapdis 06/17/17 07/02/17 Prochlorperazine Maleate 10 mg PO Q6H PRN #30 tablet 06/17/17 07/06/17 [Compazine] Calcium Carbonate 600 mg PO DAILY 07/02/17 07/06/17 Cholecalciferol (Vitamin D3) 4,000 unit PO DAILY 07/02/17 07/06/17 [Vitamin D3] - Allergies Allergies/Adverse Reactions: Allergies Allergy/AdvReac Type Severity Reaction Status Date / Time No Known Drug Allergies Allergy Verified 07/02/17 13:11 - Social History Does the pt smoke?: Yes Smoking Status: Former smoker Does the pt drink ETOH?: Yes Does the pt have substance abuse?: No - Immunizations Immunizations are current?: No - POLST Patient has POLST: No PD ED PE NORMAL - Vitals Vital signs reviewed: Yes - General General: Alert and oriented X 3, No acute distress - HEENT HEENT: PERRL, Other (Chronic nystagmus from cerebral palsy) - Neck Neck: Supple, no meningeal sign, No bony TTP - Cardiac Cardiac: RRR (Tachycardic but no murmur) - Respiratory Respiratory: No respiratory distress, Clear bilaterally - Abdomen Abdomen: Other (Quite tender in the upper abdomen with diminished but not absent bowel tones, no surgical signs.) - Derm Derm: Normal color, Warm and dry - Extremities Extremities: No edema, No calf tenderness / cord - Neuro Neuro: Alert and oriented X 3, Normal speech - Psych Psych: Normal mood, Normal affect Results - Vitals Vitals: Vital Signs - 24 hr 08/05/17 08/05/17 08/05/17 15:51 16:26 19:27 Temperature 37.3 C Heart Rate 108 H 97 113 H Respiratory 24 20 16 Rate Blood Pressure 107/89 H 95/50 L 142/91 H O2 Saturation 96 96 96 Oxygen O2 Source Room air Oxygen Flow Rate 3 - EKG (time done) 1609 Rate: Rate (enter#) (103) Rhythm: Sinus tachycardia Murray: Normal Intervals: Normal TX QRS: Normal Ischemia: Normal ST segments Computer interpretation: Agree with computer - Labs Labs: Laboratory Tests 08/05/17 08/05/17 08/05/17 15:55 15:55 15:55 WBC 24.3 H RBC 4.74 Hgb 13.5 Hct 40.7 MCV 85.8 MCH 28.6 MCHC 33.3 RDW 13.8 Plt Count 349 MPV 6.9 L Neut # Not Reportable Lymph # Not Reportable Elliott # Not Reportable Eos # Not Reportable Baso # Not Reportable Absolute Nucleated RBC Not Reportable Total Counted 100 Band Neuts % (Manual) 1 Abnorm Lymph % (Manual) 0 Nucleated RBC % Not Reportable Neutrophils # (Manual) 21.9 H Lymphocytes # (Manual) 1.2 L Monocytes # (Manual) 0.7 Eosinophils # (Manual) 0.0 Basophils # (Manual) 0.5 H Differential Comment MANUAL DIFFERENTIAL Platelet Estimate NORMAL (130-450,000) Platelet Morphology 1+ LARGE PLATELETS RBC Morph Micro Appear NORMAL APPEARANCE PT INR Sodium 134 L Potassium 3.4 L Chloride 100 L Carbon Dioxide 21 Anion Gap 13.0 BUN 7 Creatinine 0.4 Estimated GFR (MDRD) 166 Glucose 163 H Lactic Acid Calcium 9.3 Total Bilirubin 1.6 H AST 158 H ALT 150 H Alkaline Phosphatase 180 H Troponin I < 0.04 Total Protein 7.6 Albumin 3.7 Globulin 3.9 Albumin/Globulin Ratio 0.9 L Lipase 16 L 08/05/17 08/05/17 15:55 15:55 WBC RBC Hgb Hct MCV MCH MCHC RDW Plt Count MPV Neut # Lymph # Elliott # Eos # Baso # Absolute Nucleated RBC Total Counted Band Neuts % (Manual) Abnorm Lymph % (Manual) Nucleated RBC % Neutrophils # (Manual) Lymphocytes # (Manual) Monocytes # (Manual) Eosinophils # (Manual) Basophils # (Manual) Differential Comment Platelet Estimate Platelet Morphology RBC Morph Micro Appear PT 13.2 H INR 1.2 Sodium Potassium Chloride Carbon Dioxide Anion Gap BUN Creatinine Estimated GFR (MDRD) Glucose Lactic Acid 1.5 Calcium Total Bilirubin AST ALT Alkaline Phosphatase Troponin I Total Protein Albumin Globulin Albumin/Globulin Ratio Lipase - Rads (name of study) CT Angio chest and A/P Radiology: EMP read contemporaneously (No PE, BLL consolidation. Dilated gallbladder with gallstones and thickening suspicious for acute cholecystitis and intra-and extrahepatic biliary dilatation. There is a new T12 vertebral body sclerotic lesion and perianal mass and uterine mass.) Abd sono Radiology: EMP read contemporaneously (Consistent with cholecystitis, 9 mm common duct without obvious choledocholithiasis.) PD MEDICAL DECISION MAKING - ED course ED course: 57-year-old woman presents with acute abdominal pain. She is pretty tender, has a history of cerebral palsy. CT imaging shows pretty ugly looking gallbladder. Dr. Mao was consulted. He recommends admission to medicine on [facility] for an MRCP in the morning. Spoke with Dr. Garcia for admission at 7:56 PM. Departure - Departure Disposition: [facility] DC/Xfer Clinical Impression: Cholecystitis Breast cancer Qualifiers: Breast location: unspecified site of breast Estrogen receptor status: unspecified Patient sex: female Laterality: unspecified laterality Qualified Code(s): C50.919 - Malignant neoplasm of unspecified site of unspecified female breast Condition: Serious
[2017-08-05 16:06] LABS: BASOPHILS % (AUTO) 0.3 %; HGB - HEMOGLOBIN 13.5 g/dL (12.0-16.0); LYMPHOCYTES % (AUTO) 2.9 %; MEAN CORPUSCULAR HEMOGLOBIN 28.6 pg (27.0-31.0); MEAN CORPUSCULAR HGB CONC 33.3 g/dL (32.0-36.0); MEAN CORPUSCULAR VOLUME 85.8 fL (81.0-99.0); MEAN PLATELET VOLUME 6.9 fL (7.9-10.8); MONOCYTES % (AUTO) 6.7 %; NEUTROPHILS % (AUTO) 90.1 %; PLT - PLATELET COUNT 349 10^3/uL (130-450); RED BLOOD COUNT 4.74 10^6/uL (4.20-5.40); RED CELL DISTRIBUTION WIDTH 13.8 % (12.0-15.0); WHITE BLOOD COUNT 24.3 x10^3/uL (4.8-10.8)
[2017-08-05] MEDS ORDERED: IOPAMIDOL-300 100 ML VIAL ONE (16:09)
[2017-08-05 16:19] LABS: ALBUMIN 3.7 g/dL (3.2-5.5); ALBUMIN/GLOBULIN RATIO 0.9 (1.0-2.2); BILIRUBIN,TOTAL 1.6 mg/dL (0.2-1.0); CALCIUM 9.3 mg/dL (8.5-10.3); CREATININE 0.4 mg/dL (0.4-1.0); TOTAL PROTEIN 7.6 g/dL (6.7-8.2)
[2017-08-05 16:28] LABS: ABNORMAL LYMPHS % (MANUAL) 0 %
[2017-08-05 16:30] LABS: BAND NEUTROPHILS % (MANUAL) 1 %; BASOPHILS # (MANUAL) 0.5 10^3/uL (0-0.1); BASOPHILS % (MANUAL) 2 %; LYMPHOCYTES # (MANUAL) 1.2 10^3/uL (1.5-3.5); LYMPHOCYTES % (MANUAL) 5 %; MONOCYTES # (MANUAL) 0.7 10^3/uL (0.0-1.0); NEUTROPHILS # (MANUAL) 21.9 10^3/uL (1.5-6.6); NEUTROPHILS % (MANUAL) 89 %
[2017-08-05 16:32] LABS: PLATELET MORPHOLOGY 1+ LARGE PLATELETS (NORMAL); RBC MORPHOLOGY (MULTIPLE) NORMAL APPEARANCE (NORMAL)
[2017-08-05 16:33] LABS: DIFFERENTIAL COMMENT MANUAL DIFFERENTIAL; PLATELET ESTIMATE, MANUAL NORMAL (130-450,000) (NORMAL)
[2017-08-05] MEDS ORDERED: IOPAMIDOL-300 100 ML VIAL IVP ONE (18:09)
--- NOTE | 2017-08-05 18:27 | CT Preliminary Report ---
Exam: CT CHEST ANGIO (PE) IMPRESSION: 1. Negative for acute pulmonary embolism. 2. Low lung volumes with bilateral lower lobe consolidation. Differential includes dependent atelecta sis, dependent edema, or basilar pneumonia. 3. Moderate-sized hiatal hernia. RADIA SITE ID: [id number]
--- NOTE | 2017-08-05 18:27 | CT Report ---
EXAM: CT ANGIOGRAM CHEST EXAM DATE: 08/05/2017 05:40 PM. CLINICAL HISTORY: DYSPNEA. COMPARISON: 03/24/2017. TECHNIQUE: Routine helical imaging was performed through the chest in the pulmonary arterial phase. I V Contrast: 100 cc Isovue-370 IV. Reconstructions: Maximum intensity projection and MPR..Sagittal and coronal. In accordance with CT protocol optimization, one or more of the following dose reduction techniques w ere utilized for this exam: automated exposure control, adjustment of mA and/or KV based on patient s ize, or use of iterative reconstructive technique. FINDINGS: Pulmonary Arteries: Diagnostic quality: Adequate through the segmental arteries. No evidence for acute or chronic pulmona ry emboli. Lungs/Pleura: There is consolidation with air bronchograms in the right lower lobe. There is left low er lobe consolidation associated with volume loss. Lung volumes are low. Negative for pneumothorax. Mediastinum: There is a moderate to large hiatal hernia. Heart size is normal. No pericardial effusio n. The esophagus is gas-filled and mildly dilated. Thoracic Aorta: Unremarkable. Upper Abdomen: Dictated in a separate report. Other: None. IMPRESSION: 1. Negative for acute pulmonary embolism. 2. Low lung volumes with bilateral lower lobe consolidation. Differential includes dependent atelecta sis, dependent edema, or basilar pneumonia. 3. Moderate-sized hiatal hernia. [facility] Referring Provider Line: [phone] SITE ID: [id number]
[2017-08-05] MEDS ORDERED: AMPICILLIN/SULBACTAM 3 GM in SODIUM CHLORIDE 0.9% MINIBAG 100 ML IV STA (18:35)
[2017-08-05 18:42] LABS: INR 1.2 (0.8-1.2); PT - PROTHROMBIN TIME 13.2 secs (9.9-12.6)
--- NOTE | 2017-08-05 18:45 | CT Report ---
EXAM: CT ABDOMEN AND PELVIS EXAM DATE: 08/05/2017 06:06 PM. CLINICAL HISTORY: ABD PAIN, IV ONLY. COMPARISONS: 03/24/2017. TECHNIQUE: Routine helical CT imaging was performed through the abdomen and pelvis. IV contrast: 100 ML ISOVUE 300. Enteric contrast: No. Reconstructions: Coronal and sagittal. In accordance with CT protocol optimization, one or more of the following dose reduction techniques w ere utilized for this exam: automated exposure control, adjustment of mA and/or KV based on patient s ize, or use of iterative reconstructive technique. FINDINGS: Lung Bases: There are bilateral lower lobe consolidative opacities without pleural effusion. Liver: There is moderate intrahepatic biliary dilatation. There is no focal liver mass identified. Th e liver vessels are patent. Gallbladder/Bile Ducts: The gallbladder appears distended. There is pericholecystic fluid versus gall bladder thickening. There are ill-defined stones in the gallbladder. The common bile duct is dilated. At the pancreatic head that common bile duct measures up to 13 mm and is dilated down to the level o f the ampulla. There is fat stranding in the right upper quadrant. Spleen: Normal. Pancreas: No pancreatic head mass visualized. Adrenal Glands: Normal. Kidneys: No renal mass or hydronephrosis. Peritoneal Cavity/Bowel: No dilated bowel or bowel obstruction. No abnormal fluid or gas collection. Pelvic Organs: There is a heterogeneously enhancing mass in the fundus of the uterus measuring 5.6 x 5 x 6.2 cm. There is a soft tissue mass containing calcifications in the low pelvis surrounding the d istal rectum and anus which appears without significant change in size. This mass measures 7.3 cm tra nsverse by 4.2 cm AP by 4.7 cm cranial caudal. Vasculature: No aneurysms or other significant abnormality. Bones: There is a new sclerotic lesion in the left T12 vertebral body measuring 1.6 cm in diameter. Other: None. IMPRESSION: 1. Dilated gallbladder with gallstones and thickened gallbladder wall with surrounding inflammation. Suspicious for acute cholecystitis. 2. Intrahepatic and extrahepatic biliary dilatation concerning for distal biliary obstruction such as choledocholithiasis. 3. New T12 vertebral body sclerotic lesion, concerning for sclerotic metastasis. 4. Heterogeneously enhancing uterine fundal mass may represent fibroid or malignancy, similar to prev ious. 5. Bulky low pelvic perirectal perianal mass appears similar to previous exam, suspicious for maligna ncy. Not significantly changed. [facility] Referring Provider Line: [phone] SITE ID: [id number]
--- NOTE | 2017-08-05 19:46 | Ultrasound Report ---
EXAM: ABDOMEN ULTRASOUND LIMITED, RUQ EXAM DATE: 08/05/2017 07:35 PM. CLINICAL HISTORY: Cholecystitis. COMPARISON: None. TECHNIQUE: Real-time scanning was performed with static images obtained. FINDINGS: Liver: Normal in size and echotexture. 14.4 cm. Main portal vein flow: Hepatopetal. Gallbladder: There is a stone in the neck of the gallbladder. There is gallbladder wall thickening me asuring up to 9 mm and pericholecystic fluid present. Patient was medicated so the presence of a sono graphic Penn sign could not be evaluated. Biliary System: CBD measures 9 mm. There is extrahepatic and intrahepatic biliary ductal dilatation. Other: There is a possible 4 mm stone in the mid right kidney with no hydronephrosis. IMPRESSION: 1. Findings consistent with acute cholecystitis. 2. Nonobstructing 4 mm stone in the right kidney. [facility] Referring Provider Line: [phone] SITE ID: [id number]
[2017-08-05] MEDS ORDERED: LORazepam 0.5 MG TABLET PO PRN (20:21)
[2017-08-05] MEDS ORDERED: PROCHLORPERAZINE 5 MG TABLET PO PRN (20:26)
[2017-08-05] MEDS ORDERED: ONDANSETRON ODT 4 MG TABLET PO PRN (20:26)
[2017-08-05] MEDS: D5.45NS W/20 MEQ KCL 1,000 ML IV SCH (21:13)
[2017-08-05] MEDS: SODIUM CHLORIDE FLUSH 0.9% 10 ML SYRINGE IVP PRN (21:13)
--- NOTE | 2017-08-05 22:54 | HISTORY & PHYSICAL EXAMINATION ---
Chief Complaint - Chief Complaint Chief Complaint: Abdominal pain History of Present Illness - Admitted From Admitted From:: home - History Obtained From Records Reviewed: yes History obtained from: patient, Dr Belcher - History of Present Illness HPI Comment/Other: Ms. Kim Tran is a pleasant 57-year-old female with multiple medical issues including cerebral palsy and breast cancer. She has been having upper abdominal pain and shortness of breath and so came to the [facility] emergency department where she was found to have white blood cell count of 24, 000 and subsequent testing found the patient having acute cholecystitis. She will be admitted to medical surgical bed and given IV antibiotics and her comorbidities will be treated as well. 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 Living arrangement: group home Living Situation: With caregiver(s) - Substance History Use: Uses substance without health or social issues: NONE Abuse: Recurrent use of substance despite neg consequences: NONE Dependence: Experiences withdrawal or developed tolerances: NONE - POLST Patient has POLST: No POLST Status: Full Code Meds/Allgy - Home Medications Home Medications: Ambulatory Orders Medication Instructions Recorded Confirmed Calcium Carbonate [Tums (Calcium 1,000 mg PO AC PRN 04/02/17 07/02/17 Carbonate 500mg)] Dexamethasone 2 tab PO DAILY #24 tablet 06/17/17 07/06/17 LORazepam [Lorazepam] 0.5 mg PO Q6H PRN #30 tablet 06/17/17 07/06/17 Omeprazole [PriLOSEC] 20 mg PO DAILY #1 capsule 06/17/17 07/06/17 Ondansetron [Zofran Odt] 8 mg PO Q8H PRN #30 tab.rapdis 06/17/17 07/02/17 Prochlorperazine Maleate 10 mg PO Q6H PRN #30 tablet 06/17/17 07/06/17 [Compazine] Calcium Carbonate 600 mg PO DAILY 07/02/17 07/06/17 Cholecalciferol (Vitamin D3) 4,000 unit PO DAILY 07/02/17 07/06/17 [Vitamin D3] - Allergies Allergies/Adverse Reactions: Allergies Allergy/AdvReac Type Severity Reaction Status Date / Time No Known Drug Allergies Allergy Verified 07/02/17 13:11 Review of Systems - Constitutional Constitutional: reports: Weakness, Poor appetite. denies: Fatigue, Fever, Chills, Night sweats - Eyes Eyes: reports: Vision loss. denies: Pain, Irritation, Blurred vision, Dipolpia - Ears, Nose & Throat Ears, Nose & Throat: denies: Ear pain, Hearing loss, Hearing aids, Tinnitus, Vertigo, Nosebleeds, Dentures - Cardiovascular Cariovascular: denies: Irregular heart rate, Palpitations, Chest pain, Edema, Syncope - Gastrointestinal Gastrointestinal: denies: Abdominal pain, Abdominal distention, Constipation, Diarrhea, Change in bowel habits, Rectal bleeding - Genitourinary Genitourinary: denies: Dysuria, Frequency, Urgency, Hematuria - Musculoskeletal Musculoskeletal: reports: Back pain. denies: Muscle pain, Muscle aches, Stiffness - Integumentary Integumentary: denies: Rash, Pruritis, Lesions, Dryness - Neurological Neurological: denies: General weakness, Focal weakness, Headache, Dizziness - Psychiatric Psychiatric: reports: Depression, Anxiety. denies: Suicidal, Hallucinations - Endocrine Endocrine: denies: Polyuria, Polydypsia, Polyphagia - Hematologic/Lymphatic Hematologic/Lymphatic: denies: Anemia, Bruising, Lymphadenopathy - All Other Systems All Other Systems: reports: Reviewed and negative Exam - Vital Signs Reviewed Vital Signs: Yes Vital Signs: Vital Signs x48h Temp Pulse Pulse Resp BP BP Pulse Ox 08/05/17 21:07 36.7 C 115 H 20 121/84 H 96 08/05/17 20:29 37.4 C 117 H 24 147/96 H 93 - Physical Exam General Appearance: positive: Alert, Mild distress Eyes Bilateral: positive: Normal inspection, PERRL, EOMI, No lid inflammation, Conjunctivae nml, No scleral icterus ENT: positive: ENT inspection nml, Pharynx nml, No signs of dehydration Neck: positive: Nml inspection, Thyroid nml, No JVD, Trachea midline. negative : Thyromegaly Respiratory: positive: Chest non-tender, No respiratory distress, Breath sounds nml. negative: Wheezes, Rales, Rhonchi Cardiovascular: positive: Regular rate & rhythm, No murmur, No gallop Peripheral Pulses: positive: 2+ Abdomen: positive: No organomegaly, Nml bowel sounds, No distention, Tenderness , Guarding. negative: Rebound Back: positive: Nml inspection. negative: CVA tenderness (R), CVA tenderness (L ) Skin: positive: Color nml, No rash, Warm, Dry. negative: Cyanosis Extremities: positive: Non-tender. negative: Full ROM, Nml appearance Neurologic/Psychiatric: positive: Oriented x3, CN's nml (2-12), Motor nml, Sensation nml, Mood/affect nml Conclusion/Plan - Problem List (1) Cholecystitis Conclusion/Plan: The patient has acute cholecystitis. We will start her on Zosyn and Flagyl and try to cool down her belly before she has surgery. I have discussed the case at length with Dr. Mao. (2) Breast cancer Conclusion/Plan: Stage IV with widespread metastasis. We will continue the patient on her current pain medication and she will follow-up with her oncologist as previously scheduled. Qualifiers: Breast location: unspecified site of breast Estrogen receptor status: unspecified Patient sex: female Laterality: unspecified laterality Qualified Code(s): C50.919 - Malignant neoplasm of unspecified site of unspecified female breast (3) Chronic back pain Conclusion/Plan: Fairly well-managed, the patient's complaints are more about her belly than her back. We will continue her on her home medication regimen. (4) Anxiety Conclusion/Plan: Well-managed, continue Lorazepam as needed. - Lab Results Fish Bones: 08/05/17 15:55 08/05/17 15:55 - Diagnostic Imaging Results Diagnostic Imaging Results: positive: Final report reviewed Diagnostic Imaging Results Comments: EXAM: CT ABDOMEN AND PELVIS EXAM DATE: 08/05/2017 06:06 PM. CLINICAL HISTORY: ABD PAIN, IV ONLY. COMPARISONS: 03/24/2017. TECHNIQUE: Routine helical CT imaging was performed through the abdomen and pelvis. IV contrast: 100 ML ISOVUE 300. Enteric contrast: No. Reconstructions: Coronal and sagittal. In accordance with CT protocol optimization, one or more of the following dose reduction techniques were utilized for this exam: automated exposure control, adjustment of mA and/or KV based on patient size, or use of iterative reconstructive technique. FINDINGS: Lung Bases: There are bilateral lower lobe consolidative opacities without pleural effusion. Liver: There is moderate intrahepatic biliary dilatation. There is no focal liver mass identified. The liver vessels are patent. Gallbladder/Bile Ducts: The gallbladder appears distended. There is pericholecystic fluid versus gallbladder thickening. There are ill-defined stones in the gallbladder. The common bile duct is dilated. At the pancreatic head that common bile duct measures up to 13 mm and is dilated down to the level of the ampulla. There is fat stranding in the right upper quadrant. Spleen: Normal. Pancreas: No pancreatic head mass visualized. Adrenal Glands: Normal. Kidneys: No renal mass or hydronephrosis. Peritoneal Cavity/Bowel: No dilated bowel or bowel obstruction. No abnormal fluid or gas collection. Pelvic Organs: There is a heterogeneously enhancing mass in the fundus of the uterus measuring 5.6 x 5 x 6.2 cm. There is a soft tissue mass containing calcifications in the low pelvis surrounding the distal rectum and anus which appears without significant change in size. This mass measures 7.3 cm transverse by 4.2 cm AP by 4.7 cm cranial caudal. Vasculature: No aneurysms or other significant abnormality. Bones: There is a new sclerotic lesion in the left T12 vertebral body measuring 1.6 cm in diameter. Other: None. IMPRESSION: 1. Dilated gallbladder with gallstones and thickened gallbladder wall with surrounding inflammation. Suspicious for acute cholecystitis. 2. Intrahepatic and extrahepatic biliary dilatation concerning for distal biliary obstruction such as choledocholithiasis. 3. New T12 vertebral body sclerotic lesion, concerning for sclerotic metastasis. 4. Heterogeneously enhancing uterine fundal mass may represent fibroid or malignancy, similar to previous. 5. Bulky low pelvic perirectal perianal mass appears similar to previous exam, suspicious for malignancy. Not significantly changed. EXAM: CT ANGIOGRAM CHEST EXAM DATE: 08/05/2017 05:40 PM. CLINICAL HISTORY: DYSPNEA. COMPARISON: 03/24/2017. TECHNIQUE: Routine helical imaging was performed through the chest in the pulmonary arterial phase. IV Contrast: 100 cc Isovue-370 IV. Reconstructions: Maximum intensity projection and MPR..Sagittal and coronal. In accordance with CT protocol optimization, one or more of the following dose reduction techniques were utilized for this exam: automated exposure control, adjustment of mA and/or KV based on patient size, or use of iterative reconstructive technique. FINDINGS: Pulmonary Arteries: Diagnostic quality: Adequate through the segmental arteries. No evidence for acute or chronic pulmonary emboli. Lungs/Pleura: There is consolidation with air bronchograms in the right lower lobe. There is left lower lobe consolidation associated with volume loss. Lung volumes are low. Negative for pneumothorax. Mediastinum: There is a moderate to large hiatal hernia. Heart size is normal. No pericardial effusion. The esophagus is gas-filled and mildly dilated. Thoracic Aorta: Unremarkable. Upper Abdomen: Dictated in a separate report. Other: None. IMPRESSION: 1. Negative for acute pulmonary embolism. 2. Low lung volumes with bilateral lower lobe consolidation. Differential includes dependent atelectasis, dependent edema, or basilar pneumonia. 3. Moderate-sized hiatal hernia. EXAM: ABDOMEN ULTRASOUND LIMITED, RUQ EXAM DATE: 08/05/2017 07:35 PM. CLINICAL HISTORY: Cholecystitis. COMPARISON: None. TECHNIQUE: Real-time scanning was performed with static images obtained. FINDINGS: Liver: Normal in size and echotexture. 14.4 cm. Main portal vein flow: Hepatopetal. Gallbladder: There is a stone in the neck of the gallbladder. There is gallbladder wall thickening measuring up to 9 mm and pericholecystic fluid present. Patient was medicated so the presence of a sonographic Penn sign could not be evaluated. Biliary System: CBD measures 9 mm. There is extrahepatic and intrahepatic biliary ductal dilatation. Other: There is a possible 4 mm stone in the mid right kidney with no hydronephrosis. IMPRESSION: 1. Findings consistent with acute cholecystitis. 2. Nonobstructing 4 mm stone in the right kidney. Core Measures - Anticipated LOS I expect patient to be DC'd or transferred within 96 hours.: Yes - DVT/VTE - Prophylaxis VTE/DVT Device ordered at admit?: Yes
[2017-08-05] MEDS ORDERED: HYDROmorphone 1 MG/ML SYRINGE IVP SCH (23:45)
[2017-08-06] MEDS: HYDROmorphone 1 MG/ML SYRINGE IVP PRN (00:11)
[2017-08-06] MEDS: SODIUM CHLORIDE FLUSH 0.9% 10 ML SYRINGE IVP SCH ×3 (00:16→21:14)
[2017-08-06 06:01] LABS: MEAN CORPUSCULAR HEMOGLOBIN 28.3 pg (27.0-31.0); MEAN CORPUSCULAR HGB CONC 32.1 g/dL (32.0-36.0); RED BLOOD COUNT 4.25 10^6/uL (4.20-5.40); RED CELL DISTRIBUTION WIDTH 14.2 % (12.0-15.0); WHITE BLOOD COUNT 28.9 x10^3/uL (4.8-10.8)
[2017-08-06 06:08] LABS: CALCIUM 8.8 mg/dL (8.5-10.3); CREATININE 0.4 mg/dL (0.4-1.0)
[2017-08-06] MEDS: PANTOPRAZOLE 40 MG TABLET PO SCH (06:08)
[2017-08-06] MEDS: D5.45NS W/20 MEQ KCL 1,000 ML IV SCH ×2 (06:33→21:13)
[2017-08-06] MEDS: metroNIDAZOLE 500 MG/100 ML 500 MG/100 ML BAG IV SCH ×3 (06:34→21:19)
[2017-08-06] MEDS: POLYETHYLENE GLYCOL 3350 17 GM PACKET PO SCH (08:10)
[2017-08-06] MEDS ORDERED: DEXAMETHASONE 4 MG TABLET PO SCH (09:00)
[2017-08-06] MEDS ORDERED: NON FORMULARY MED (Omeprazole [Prilosec] 20 MG) PO SCH (09:00)
[2017-08-06] MEDS: PIPERACILLIN/TAZOBACTAM 3.375 GM in SODIUM CHLORIDE 0.9% MINIBAG 100 ML IV SCH ×3 (09:07→19:56)
[2017-08-06] MEDS ORDERED: methylPREDNISolone SUCCINATE 40 MG/ML VIAL IVP SCH (12:00)
--- NOTE | 2017-08-06 13:50 | CONSULTATION NOTE ---
Referring Provider Name of Referring Provider:: MD Mirlande Alejandro MD Consult Date: 08/06/17 Chief Complaint - Chief Complaint Chief Complaint: Acute cholecystitis with enlarged CBD History of Present Illness - Admitted From Admitted From:: ED - History Obtained From Records Reviewed: Yes History obtained from: Patient and chart Exam Limitations: None - History of Present Illness HPI Comment/Other: This sometimes pleasant and sometimes profane 57 year old female is well known to me. I performed her right modified radical mastectomy in February 2017 for a [id number] cm breast cancer with at least 7/12 lymph nodes positive for cancer. Subsequently I placed a Portacath and performed a colonoscopy that did not elucidate the perirectal mass seen on CT scan. She now presents with intractable RUQ pain with labs and ultrasound results that are highly suspicious for acute cholecystitis. The pain is described in the RUQ and very sharp. It is associated with nausea. 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 Living arrangement: intermediate Living Situation: With caregiver(s) - Substance History Use: Uses substance without health or social issues: NONE Abuse: Recurrent use of substance despite neg consequences: NONE Dependence: Experiences withdrawal or developed tolerances: NONE - POLST Patient has POLST: No POLST Status: Full Code Meds/Allgy - Home Medications Home Medications: Ambulatory Orders Medication Instructions Recorded Confirmed Calcium Carbonate [Tums (Calcium 1,000 mg PO TIDWM PRN 04/02/17 08/06/17 Carbonate 500mg)] Omeprazole [PriLOSEC] 20 mg PO DAILY #1 capsule 06/17/17 08/06/17 Ondansetron [Zofran Odt] 8 mg PO Q8H PRN #30 tab.rapdis 06/17/17 08/06/17 Calcium Carbonate 600 mg PO DAILY 07/02/17 08/06/17 Cholecalciferol (Vitamin D3) 4,000 unit PO DAILY 07/02/17 08/06/17 [Vitamin D3] Acetaminophen [Tylenol] 650 mg PO Q6H PRN 08/05/17 08/06/17 Promethazine Sup [Phenergan Supp] 12.5 mg GA Q4H PRN 08/05/17 08/06/17 Prochlorperazine Maleate 10 mg PO Q6H PRN 08/06/17 08/06/17 Prochlorperazine Supp [Compazine 25 mg PO QPM PRN 08/06/17 08/06/17 Supp] - Allergies Allergies/Adverse Reactions: Allergies Allergy/AdvReac Type Severity Reaction Status Date / Time No Known Drug Allergies Allergy Verified 07/02/17 13:11 Review of Systems - Constitutional Constitutional: reports: Chills. denies: Fatigue, Fever, Malaise - Eyes Eyes: denies: Pain - Ears, Nose & Throat Ears, Nose & Throat: denies: Ear pain, Hearing loss - Respiratory Respiratory: reports: Cough - Gastrointestinal Gastrointestinal: reports: Abdominal pain, Nausea. denies: Diarrhea, Rectal bleeding, Black stools, Bloody stools, Vomiting, Garry blood emesis, Coffee grounds emesis - Genitourinary Genitourinary: denies: Dysuria - Musculoskeletal Musculoskeletal: reports: Muscle pain (Especially her shoulder.) - Psychiatric Psychiatric: denies: Depression, Anxiety, Suicidal - Hematologic/Lymphatic Hematologic/Lymphatic: denies: Anemia, Bruising, Petechiae Exam - Vital Signs Reviewed Vital Signs: Yes Vital Signs: Vital Signs x48h Temp Pulse Resp BP Pulse Ox 08/06/17 13:00 36.9 C 70 20 112/77 98 08/06/17 07:44 36.8 C 96 20 94/60 94 - Physical Exam General Appearance: positive: Mild distress Eyes Bilateral: positive: No lid inflammation, Conjunctivae nml, No scleral icterus Neck: positive: Trachea midline Respiratory: positive: Chest non-tender Cardiovascular: positive: Tachycardia (Likely secondary to pain.) Abdomen: positive: Nml bowel sounds, Tenderness (In RUQ.) Skin: positive: Color nml Neurologic/Psychiatric: positive: Oriented x3 Conclusion/Plan - Diagnosis Diagnosis: Acute cholecystitis with dilated common bile duct. - Plan Plan: Obtain an MRCP in preparation for a laparoscopic cholecystectomy. Knowing the reason for the enlarged common bile duct is very important. If it is stones then attempts to clear the stones should be performed. If it is tumor then transfer for placement of a stent (and biopsies). If it is extrinsic then stent. If it is a stricture then consider stenting (again at a different institution. To recap the plan is MRCP and depending on the result expedited lap cholecystectomy or transfer. Will follow - thanks for the consult. - Lab Results Lab results reviewed: Yes Fish Bones: 08/09/17 05:05 08/09/17 05:05
[2017-08-06] MEDS: CALCIUM CARBONATE CHEW 500 MG TABLET PO SCH (21:19)
--- NOTE | 2017-08-06 21:32 | PROVIDER PROGRESS NOTE ---
Subjective - Prog Note Date Prog Note Date: 08/06/17 Prog Note Time: 10:00 - Subjective Pt reports feeling: Improved Subjective: Christy complains about not seeing the surgeon yet, and otherwise has no other complaints. She denies Chest pain or shortness of breath. Current Medications - Current Medications Current Medications: Active Medications Calcium Carbonate/Glycine (Tums) 500 mg PO TID [facility] Calcium Carbonate/Glycine (Tums) 500 mg PO Q4H PRN PRN Reason: Heartburn Last Admin: 08/07/17 18:03 Dose: 500 mg Hydromorphone HCl (Dilaudid Inj Syringe) 1 mg IVP Q2H PRN PRN Reason: PAIN Last Admin: 08/06/17 00:11 Dose: 1 mg Potassium Chloride/Dextrose/Sod Cl (D5.45ns W/20 Meq Kcl) 1,000 mls @ 100 mls/ hr IV .Q10H [facility] Last Admin: 08/07/17 19:24 Dose: 131.667 mls/hr Metronidazole (Flagyl 500 Mg/100 Ml) 500 mg in 100 mls @ 100 mls/hr IV Q6HR [facility] Last Admin: 08/07/17 17:29 Dose: 100 mls/hr Piperacillin Sod/Tazobactam (Sod 3.375 gm/ Sodium Chloride) 100 mls @ 200 mls/ hr IV Q6H [facility] Last Admin: 08/07/17 19:36 Dose: 200 mls/hr Lorazepam (Ativan) 0.5 mg PO Q6H PRN PRN Reason: Nausea / Vomiting Multi-Ingredient Mouthwash/Gargle () 30 ml PO Q4H PRN PRN Reason: Heartburn Ondansetron HCl (Zofran Odt) 8 mg PO Q8H PRN PRN Reason: Nausea / Vomiting Ondansetron HCl (Zofran Inj) 4 mg IVP Q6HR PRN PRN Reason: Nausea / Vomiting Last Admin: 08/07/17 03:02 Dose: 4 mg Pantoprazole Sodium (Protonix) 40 mg PO QDAC [facility] Last Admin: 08/07/17 05:53 Dose: Not Given Polyethylene Glycol (Miralax) 17 gm PO DAILY [facility] Last Admin: 08/07/17 07:36 Dose: Not Given Prochlorperazine Maleate (Compazine) 10 mg PO Q6H PRN PRN Reason: Nausea / Vomiting Sodium Chloride (Normal Saline Flush 0.9%) 10 ml IVP PRN PRN PRN Reason: NEEDED PER PROVIDER ORDERS Last Admin: 08/05/17 21:13 Dose: 10 ml Sodium Chloride (Normal Saline Flush 0.9%) 10 ml IVP 0100,0900,1700 [facility] Last Admin: 08/07/17 14:11 Dose: Not Given Calcium Carbonate [Tums (Calcium Carbonate 500mg)] 1,000 mg PO TIDWM PRN Calcium Carbonate 600 mg PO DAILY 07/02/17 Cholecalciferol (Vitamin D3) [Vitamin D3] 4,000 unit PO DAILY 07/02/17 Acetaminophen [Tylenol] 650 mg PO Q6H PRN 08/05/17 Promethazine Sup [Phenergan Supp] 12.5 mg MO Q4H PRN 08/05/17 Prochlorperazine Maleate 10 mg PO Q6H PRN 08/06/17 Prochlorperazine Supp [Compazine Supp] 25 mg PO QPM PRN 08/06/17 Objective - Vital Signs/Intake & Output Reviewed Vital Signs: Yes Vital Signs: Vital Signs x48h Temp Pulse Resp BP Pulse Ox 08/06/17 15:25 36.8 C 94 20 102/62 95 Intake & Output: Intake & Output 08/03/17 08/04/17 08/05/17 08/06/17 23:59 23:59 23:59 23:59 Intake Total 130 2333.333 Output Total 200 Balance 130 2133.333 - Objective General Appearance: positive: Alert, Moderate distress, Anxious Eyes Bilateral: positive: Normal inspection Eyes: OU Conjunctivae pale ENT: positive: ENT inspection nml, Pharynx nml, Dry mucous membranes Neck: positive: Nml inspection, Thyroid nml, Stiff neck Respiratory: positive: Chest non-tender, No respiratory distress, Wheezes Cardiovascular: positive: Irregularly irregular, Systolic murmur, Decreased pulse(s) Peripheral Pulses: 1+ Radial (R), 1+ Radial (L) Abdomen: positive: Tenderness, Guarding, Abnml bowel sounds Back: positive: Nml inspection Skin: positive: No rash, Warm, Dry, Pallor Extremities: positive: Non-tender, Full ROM, Pedal edema, Joint swelling Neurologic/Psychiatric: positive: Oriented x3, CN's nml (2-12), Motor nml, Weakness, Sensory loss, Depressed mood/affect Reflexes: Bicep (R): 1+, Bicep (L): 1+ - Lab Results Fish Bones: 08/07/17 06:31 08/07/17 06:31 Other Labs: Lab Results x24hrs 08/06/17 08/06/17 Range/Units 05:44 05:44 WBC 28.9 H (4.8-10.8) x10^3/uL RBC 4.25 (4.20-5.40) 10^6/uL Hgb 12.0 (12.0-16.0) g/dL Hct 37.4 (37.0-47.0) % MCV 88.0 (81.0-99.0) fL MCH 28.3 (27.0-31.0) pg MCHC 32.1 (32.0-36.0) g/dL RDW 14.2 (12.0-15.0) % Plt Count 334 (130-450) 10^3/uL MPV 7.0 L (7.9-10.8) fL Sodium 135 (135-145) mmol/L Potassium 4.2 (3.5-5.0) mmol/L Chloride 103 (101-111) mmol/L Carbon Dioxide 24 (21-32) mmol/L Anion Gap 8.0 (6-13) BUN 6 (6-20) mg/dL Creatinine 0.4 (0.4-1.0) mg/dL Estimated GFR (MDRD) 166 (>89) Glucose 97 (70-100) mg/dL Calcium 8.8 (8.5-10.3) mg/dL - Diagnostic Imaging Diagnostic Imaging Results: positive: Final report reviewed Assessment/Plan - Problem List (1) Anxiety Impression: Patient is anxious about events surrounding possible surgery to remove her gallbladder. Plan: Continue frequent nursing cares and control symptoms. (2) Cholecystitis Impression: Upon admission, patient underwent an abdominal US that shows acute cholecystitis. General surgery Dr. Mao has ordered a STAT MRCP. Plan: Await results and treat pain. (3) Gastroesophageal reflux disease Impression: Patient generally takes TUMS over the counter at home for this and has for several years. Plan: Continue home routine. (4) S/P BONDING MACHINE SETTER shunt Impression: Patient originally had a BONDING MACHINE SETTER shunt placed in 1999, removed in 2000 and finally re -inserted some time shortly after. Plan: Monitor.
[2017-08-07] MEDS: metroNIDAZOLE 500 MG/100 ML 500 MG/100 ML BAG IV SCH ×4 (00:25→17:29)
[2017-08-07] MEDS: CALCIUM CARBONATE CHEW 500 MG TABLET PO SCH ×3 (00:25→23:08)
[2017-08-07] MEDS: SODIUM CHLORIDE FLUSH 0.9% 10 ML SYRINGE IVP SCH ×3 (00:26→14:11)
[2017-08-07] MEDS: PIPERACILLIN/TAZOBACTAM 3.375 GM in SODIUM CHLORIDE 0.9% MINIBAG 100 ML IV SCH ×4 (03:01→19:36)
[2017-08-07] MEDS: ONDANSETRON 4 MG/2 ML VIAL IVP PRN (03:02)
[2017-08-07] MEDS: D5.45NS W/20 MEQ KCL 1,000 ML IV SCH ×2 (03:07→19:24)
[2017-08-07] MEDS: PANTOPRAZOLE 40 MG TABLET PO SCH (05:53)
[2017-08-07 06:41] LABS: BASOPHILS # (AUTO) 0.1 10^3/uL (0.0-0.1); BASOPHILS % (AUTO) 0.6 %; EOSINOPHILS % (AUTO) 0.1 %; HGB - HEMOGLOBIN 11.2 g/dL (12.0-16.0); LYMPHOCYTES # (AUTO) 0.9 10^3/uL (1.5-3.5); LYMPHOCYTES % (AUTO) 7.2 %; MEAN CORPUSCULAR HEMOGLOBIN 28.2 pg (27.0-31.0); MEAN CORPUSCULAR HGB CONC 32.4 g/dL (32.0-36.0); MEAN CORPUSCULAR VOLUME 87.1 fL (81.0-99.0); MEAN PLATELET VOLUME 7.1 fL (7.9-10.8); MONOCYTES # (AUTO) 0.8 10^3/uL (0.0-1.0); MONOCYTES % (AUTO) 6.9 %; NEUTROPHILS # (AUTO) 10.3 10^3/uL (1.5-6.6); NEUTROPHILS % (AUTO) 85.2 %; PLT - PLATELET COUNT 390 10^3/uL (130-450); RED BLOOD COUNT 3.98 10^6/uL (4.20-5.40); RED CELL DISTRIBUTION WIDTH 14.8 % (12.0-15.0); WHITE BLOOD COUNT 12.1 x10^3/uL (4.8-10.8)
[2017-08-07 06:54] LABS: ALBUMIN 2.8 g/dL (3.2-5.5); ALBUMIN/GLOBULIN RATIO 0.8 (1.0-2.2); BILIRUBIN,TOTAL 2.4 mg/dL (0.2-1.0); CALCIUM 8.5 mg/dL (8.5-10.3); CREATININE 0.4 mg/dL (0.4-1.0); MAGNESIUM 1.9 mg/dL (1.7-2.8); TOTAL PROTEIN 6.2 g/dL (6.7-8.2)
[2017-08-07] MEDS: POLYETHYLENE GLYCOL 3350 17 GM PACKET PO SCH (07:36)
--- NOTE | 2017-08-07 12:23 | PROVIDER PROGRESS NOTE ---
Subjective - Prog Note Date Prog Note Date: 08/07/17 Prog Note Time: 12:20 - Subjective Pt reports feeling: No change Subjective: Christy complains of ongoing "heart burn", so additional TUMs will be ordered. She is pleased with the recent order for a head CT. Current Medications - Current Medications Current Medications: Active Medications Calcium Carbonate/Glycine (Tums) 500 mg PO BID [facility] Last Admin: 08/07/17 12:22 Dose: 500 mg Hydromorphone HCl (Dilaudid Inj Syringe) 1 mg IVP Q2H PRN PRN Reason: PAIN Last Admin: 08/06/17 00:11 Dose: 1 mg Potassium Chloride/Dextrose/Sod Cl (D5.45ns W/20 Meq Kcl) 1,000 mls @ 100 mls/ hr IV .Q10H [facility] Last Infusion: 08/07/17 12:26 Dose: 100 mls/hr Metronidazole (Flagyl 500 Mg/100 Ml) 500 mg in 100 mls @ 100 mls/hr IV Q6HR [facility] Last Admin: 08/07/17 12:26 Dose: 100 mls/hr Piperacillin Sod/Tazobactam (Sod 3.375 gm/ Sodium Chloride) 100 mls @ 200 mls/ hr IV Q6H [facility] Last Infusion: 08/07/17 10:08 Dose: Infused Lorazepam (Ativan) 0.5 mg PO Q6H PRN PRN Reason: Nausea / Vomiting Ondansetron HCl (Zofran Odt) 8 mg PO Q8H PRN PRN Reason: Nausea / Vomiting Ondansetron HCl (Zofran Inj) 4 mg IVP Q6HR PRN PRN Reason: Nausea / Vomiting Last Admin: 08/07/17 03:02 Dose: 4 mg Pantoprazole Sodium (Protonix) 40 mg PO QDAC [facility] Last Admin: 08/07/17 05:53 Dose: Not Given Polyethylene Glycol (Miralax) 17 gm PO DAILY [facility] Last Admin: 08/07/17 07:36 Dose: Not Given Prochlorperazine Maleate (Compazine) 10 mg PO Q6H PRN PRN Reason: Nausea / Vomiting Sodium Chloride (Normal Saline Flush 0.9%) 10 ml IVP PRN PRN PRN Reason: NEEDED PER PROVIDER ORDERS Last Admin: 08/05/17 21:13 Dose: 10 ml Sodium Chloride (Normal Saline Flush 0.9%) 10 ml IVP 0100,0900,1700 [facility] Last Admin: 08/07/17 07:36 Dose: Not Given Calcium Carbonate [Tums (Calcium Carbonate 500mg)] 1,000 mg PO TIDWM PRN Calcium Carbonate 600 mg PO DAILY 07/02/17 Cholecalciferol (Vitamin D3) [Vitamin D3] 4,000 unit PO DAILY 07/02/17 Acetaminophen [Tylenol] 650 mg PO Q6H PRN 08/05/17 Promethazine Sup [Phenergan Supp] 12.5 mg GA Q4H PRN 08/05/17 Prochlorperazine Maleate 10 mg PO Q6H PRN 08/06/17 Prochlorperazine Supp [Compazine Supp] 25 mg PO QPM PRN 08/06/17 Objective - Vital Signs/Intake & Output Vital Signs: Vital Signs x48h Temp Pulse Resp BP Pulse Ox 08/07/17 08:51 36.5 C 95 20 122/69 98 Intake & Output: Intake & Output 08/04/17 08/05/17 08/06/17 08/07/17 23:59 23:59 23:59 23:59 Intake Total 130 2533.333 1228.333 Output Total 1000 600 Balance 130 1533.333 628.333 - Objective General Appearance: positive: Alert, Moderate distress, Anxious Eyes Bilateral: positive: Normal inspection, PERRL ENT: positive: ENT inspection nml, Pharynx nml, No signs of dehydration Neck: positive: Thyroid nml, No JVD, Trachea midline Respiratory: positive: Chest non-tender, No respiratory distress Cardiovascular: positive: No gallop, Systolic murmur, Decreased pulse(s) Peripheral Pulses: 1+ Radial (R), 1+ Radial (L) Abdomen: positive: Tenderness, Guarding, Abnml bowel sounds Back: positive: Nml inspection Skin: positive: No rash, Warm, Dry, Pallor Extremities: positive: Non-tender, Pedal edema, Joint swelling Reflexes: Bicep (R): 1+, Bicep (L): 1+ - Lab Results Fish Bones: 08/07/17 06:31 08/07/17 06:31 Other Labs: Lab Results x24hrs 08/07/17 08/07/17 08/07/17 Range/Units 06:31 06:31 06:31 WBC 12.1 H (4.8-10.8) x10^3/uL RBC 3.98 L (4.20-5.40) 10^6/uL Hgb 11.2 L (12.0-16.0) g/dL Hct 34.7 L (37.0-47.0) % MCV 87.1 (81.0-99.0) fL MCH 28.2 (27.0-31.0) pg MCHC 32.4 (32.0-36.0) g/dL RDW 14.8 (12.0-15.0) % Plt Count 390 (130-450) 10^3/uL MPV 7.1 L (7.9-10.8) fL Neut # 10.3 H (1.5-6.6) 10^3/uL Lymph # 0.9 L (1.5-3.5) 10^3/uL Reeves # 0.8 (0.0-1.0) 10^3/uL Eos # 0.0 (0.0-0.7) 10^3/uL Baso # 0.1 (0.0-0.1) 10^3/uL Absolute Nucleated RBC 0.00 x10^3/uL Nucleated RBC % 0.0 /100WBC Sodium 138 (135-145) mmol/L Potassium 3.5 (3.5-5.0) mmol/L Chloride 111 (101-111) mmol/L Carbon Dioxide 22 (21-32) mmol/L Anion Gap 5.0 L (6-13) BUN 6 (6-20) mg/dL Creatinine 0.4 (0.4-1.0) mg/dL Estimated GFR (MDRD) 166 (>89) Glucose 97 (70-100) mg/dL Lactic Acid 0.7 (0.5-2.2) mmol/L Calcium 8.5 (8.5-10.3) mg/dL Magnesium 1.9 (1.7-2.8) mg/dL Total Bilirubin 2.4 H (0.2-1.0) mg/dL AST 40 (10-42) IU/L ALT 91 H (10-60) IU/L Alkaline Phosphatase 215 H (42-121) IU/L Total Protein 6.2 L (6.7-8.2) g/dL Albumin 2.8 L (3.2-5.5) g/dL Globulin 3.4 (2.1-4.2) g/dL Albumin/Globulin Ratio 0.8 L (1.0-2.2) - Diagnostic Imaging Diagnostic Imaging Results: positive: Final report reviewed Diagnostic Imaging Comments: EXAM: CT ANGIOGRAM CHEST EXAM DATE: 08/05/2017 05:40 PM. CLINICAL HISTORY: DYSPNEA. COMPARISON: 03/24/2017. TECHNIQUE: Routine helical imaging was performed through the chest in the pulmonary arterial phase. IV Contrast: 100 cc [id number] IV. Reconstructions: Maximum intensity projection and MPR..Sagittal and coronal. In accordance with CT protocol optimization, one or more of the following dose reduction techniques were utilized for this exam: automated exposure control, adjustment of mA and/or KV based on patient size, or use of iterative reconstructive technique. FINDINGS: Pulmonary Arteries: Diagnostic quality: Adequate through the segmental arteries. No evidence for acute or chronic pulmonary emboli. Lungs/ Pleura: There is consolidation with air bronchograms in the right lower lobe. There is left lower lobe consolidation associated with volume loss. Lung volumes are low. Negative for pneumothorax. Mediastinum: There is a moderate to large hiatal hernia. Heart size is normal. No pericardial effusion. The esophagus is gas-filled and mildly dilated. Thoracic Aorta: Unremarkable. Upper Abdomen: Dictated in a separate report. IMPRESSION: 1. Negative for acute pulmonary embolism. 2. Low lung volumes with bilateral lower lobe consolidation. Differential includes dependent atelectasis, dependent edema, or basilar pneumonia. 3. Moderate-sized hiatal hernia. Assessment/Plan - Problem List (1) S/P ESE TEACHER shunt Impression: Patient originally had a ESE TEACHER shunt placed in 1999, removed in 2000 and finally re -inserted some time shortly after. Plan: Monitor. (2) Anxiety Impression: Patient is anxious about events surrounding possible surgery to remove her gallbladder. Plan: Continue frequent nursing cares and control symptoms. (3) Breast cancer Impression: Dr. Mao performed patient's mastectomy. Plan: Monitor. Qualifiers: Breast location: unspecified site of breast Estrogen receptor status: unspecified Patient sex: female Laterality: unspecified laterality Qualified Code(s): C50.919 - Malignant neoplasm of unspecified site of unspecified female breast (4) Cholecystitis Impression: Imaging that was completed on admission shows probable acute cholecystitis. Plan: Continue antibiotics and IVFs, await MRCP and plan cholecystectomy depending on findings of MRCP, that may be delayed until Wednesday due to lack of staffing. (5) Chronic back pain Impression: Patient has suffered from pain likely due to a history CP. Patient remains spiteful in nature. Plan: Continue to control pain. Qualifiers: Back pain laterality: unspecified
--- NOTE | 2017-08-07 16:28 | CT Report ---
EXAM: CT HEAD EXAM DATE: 08/07/2017 02:55 PM. 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 COMPARISON: 05/27/2012. TECHNIQUE: Multiaxial CT images were obtained from the foramen magnum to the vertex. Reformats: Coron al. IV contrast: None. In accordance with CT protocol optimization, one or more of the following dose reduction techniques w ere utilized for this exam: automated exposure control, adjustment of mA and/or KV based on patient s ize, or use of iterative reconstructive technique. FINDINGS: Parenchyma: There is an anterior left ventriculostomy catheter. The tip of the catheter is at midline and unchanged in position. Negative for acute intracranial hemorrhage. The right cerebellum is atrop hic. Extraaxial Spaces: No abnormal subdural or epidural fluid collection. Ventricles: The ventricles are extremely small in size and the lateral ventricles are decompressed. C orpus callosum not well seen. Sinuses and Orbits: Imaged paranasal sinuses, orbits, and mastoids show no significant abnormality. Bones: No evidence of fracture or calvarial defect. Other: No orbital metal fragments or other intracranial metallic fragments. IMPRESSION: 1. Left ventriculostomy catheter unchanged in location. 2. Ventricles are decompressed. 3. Chronic right cerebellar atrophy. 4. Negative for intracranial hemorrhage 4. No orbital metal or other unexpected intracranial metallic foreign body which would prohibit MRI. Unable to determine the make or model of ventriculoperitoneal shunt by CT scan. [facility] Referring Provider Line: [phone] SITE ID: [id number]
[2017-08-07] MEDS: CALCIUM CARBONATE CHEW 500 MG TABLET PO PRN (18:03)
--- NOTE | 2017-08-07 18:51 | PROVIDER PROGRESS NOTE ---
Subjective - General Admit Date: 08/05/17 - Review of Systems General: positive: Other (Improved with less pain.) Pulmonary: positive: No symptoms Cardiovascular: positive: No symptoms Gastrointestinal: positive: No symptoms, Abdominal pain (Minimal now.). negative: Nausea, Vomiting, Difficulty swallowing Skin: positive: No symptoms Psychiatric: positive: No symptoms All Other Systems: positive: Reviewed and negative Objective - Patient Data Reviewed Vital Signs: Yes Vital Signs: Vital Signs x48h Temp Pulse Resp BP Pulse Ox 08/07/17 16:30 37.4 C 83 20 119/67 97 08/07/17 12:49 37.1 C 79 18 128/85 H 98 Weight: Weight 08/05/17 08/06/17 08/07/17 23:59 23:59 23:59 Weight (kg) 70 kg 70 kg Intake & Output: Intake and Output Totals x24h 08/05/17 08/06/17 08/07/17 23:59 23:59 23:59 Intake Total 130 2533.333 1431.666 Output Total 1000 600 Balance 130 1533.333 831.666 - Lab Results Lab Results: 08/07/17 06:31 08/07/17 06:31 Other Lab Results: Lab Results x24hrs 08/07/17 08/07/17 08/07/17 Range/Units 06:31 06:31 06:31 WBC 12.1 H (4.8-10.8) x10^3/uL RBC 3.98 L (4.20-5.40) 10^6/uL Hgb 11.2 L (12.0-16.0) g/dL Hct 34.7 L (37.0-47.0) % MCV 87.1 (81.0-99.0) fL MCH 28.2 (27.0-31.0) pg MCHC 32.4 (32.0-36.0) g/dL RDW 14.8 (12.0-15.0) % Plt Count 390 (130-450) 10^3/uL MPV 7.1 L (7.9-10.8) fL Neut # 10.3 H (1.5-6.6) 10^3/uL Lymph # 0.9 L (1.5-3.5) 10^3/uL Vernon # 0.8 (0.0-1.0) 10^3/uL Eos # 0.0 (0.0-0.7) 10^3/uL Baso # 0.1 (0.0-0.1) 10^3/uL Absolute Nucleated RBC 0.00 x10^3/uL Nucleated RBC % 0.0 /100WBC Sodium 138 (135-145) mmol/L Potassium 3.5 (3.5-5.0) mmol/L Chloride 111 (101-111) mmol/L Carbon Dioxide 22 (21-32) mmol/L Anion Gap 5.0 L (6-13) BUN 6 (6-20) mg/dL Creatinine 0.4 (0.4-1.0) mg/dL Estimated GFR (MDRD) 166 (>89) Glucose 97 (70-100) mg/dL Lactic Acid 0.7 (0.5-2.2) mmol/L Calcium 8.5 (8.5-10.3) mg/dL Magnesium 1.9 (1.7-2.8) mg/dL Total Bilirubin 2.4 H (0.2-1.0) mg/dL AST 40 (10-42) IU/L ALT 91 H (10-60) IU/L Alkaline Phosphatase 215 H (42-121) IU/L Total Protein 6.2 L (6.7-8.2) g/dL Albumin 2.8 L (3.2-5.5) g/dL Globulin 3.4 (2.1-4.2) g/dL Albumin/Globulin Ratio 0.8 L (1.0-2.2) - Current Medications Current Medications: Current Medications Generic Name Dose Route Start Last Admin Trade Name Freq PRN Reason Stop Dose Admin Calcium Carbonate/Glycine 500 mg 08/07/17 17:33 08/07/17 18:03 Tums PO 500 mg Q4H PRN Administration Heartburn Hydromorphone HCl 1 mg 08/05/17 23:45 08/06/17 00:11 Dilaudid Inj Syringe IVP 1 mg Q2H PRN Administration PAIN Potassium Chloride/Dextrose/Sod Cl 1,000 mls @ 100 mls/hr 08/05/17 21:00 08/22 12:50 D5.45ns W/20 Meq Kcl IV 0 mls/hr .Q10H [facility] Infusion Metronidazole 500 mg in 100 mls @ 100 mls/hr 08/06/17 06:00 08/07/17 17:29 Flagyl 500 Mg/100 Ml IV 100 mls/hr Q6HR [facility] Administration Piperacillin Sod/Tazobactam 100 mls @ 200 mls/hr 08/06/17 07:00 08/07/17 14: 30 Sod 3.375 gm/ Sodium Chloride IV 0 mls/hr Q6H [facility] Infusion Ondansetron HCl 4 mg 08/07/17 02:29 08/07/17 03:02 Zofran Inj IVP 4 mg Q6HR PRN Administration Nausea / Vomiting Pantoprazole Sodium 40 mg 08/06/17 07:00 08/07/17 05:53 Protonix PO Not Given QDAC [facility] Polyethylene Glycol 17 gm 08/06/17 09:00 08/07/17 07:36 Miralax PO Not Given DAILY [facility] Sodium Chloride 10 ml 08/05/17 20:17 08/05/17 21:13 Normal Saline Flush 0.9% IVP 10 ml PRN PRN Administration NEEDED PER PROVIDER ORDERS Sodium Chloride 10 ml 08/06/17 01:00 08/07/17 14:11 Normal Saline Flush 0.9% IVP Not Given 0100,0900,1700 [facility] - Physical Exam General Appearance: positive: Alert Eyes Bilateral: positive: No lid inflammation, Conjunctivae nml, No scleral icterus Neck: positive: Trachea midline Respiratory: positive: Chest non-tender, No respiratory distress, Breath sounds nml Cardiovascular: positive: Regular rate & rhythm Abdomen: positive: Tenderness (Minimal in RUQ.) Neurologic/Psychiatric: positive: Oriented x3 Impression/Plan - Problem List Problem List: Hospital day 2 For reasons that I cannot fathom the MRCP that I ordered yesterday STAT was cancelled due to the possibility that there was metal in her head. There never has been metal in her head and we had to order a CT of her head today to prove that. Now, of course we cannot get an MRCP done on the weekend so the patient is waiting to get the test prior to her cholecystectomy. The question is why is her CBD so large? Stone, stricture, or malignancy? It will change what operation is done and where it should be done. Patient has responded well to antibiotics. Bottom line continue antibiotics and IVFs, await MRCP and plan cholecystectomy dependiong on findings of MRCP.
[2017-08-07] MEDS: GI COCKTAIL 120 ML BOTTLE PO PRN (19:50)
[2017-08-08] MEDS: metroNIDAZOLE 500 MG/100 ML 500 MG/100 ML BAG IV SCH ×5 (00:38→23:53)
[2017-08-08] MEDS: SODIUM CHLORIDE FLUSH 0.9% 10 ML SYRINGE IVP SCH ×3 (00:39→18:24)
[2017-08-08] MEDS: D5.45NS W/20 MEQ KCL 1,000 ML IV SCH ×2 (00:39→12:01)
[2017-08-08] MEDS: ONDANSETRON 4 MG/2 ML VIAL IVP PRN ×2 (01:36→11:28)
[2017-08-08] MEDS: SODIUM CHLORIDE FLUSH 0.9% 10 ML SYRINGE IVP PRN (01:36)
[2017-08-08] MEDS: HYDROmorphone 1 MG/ML SYRINGE IVP PRN ×2 (01:36→11:30)
[2017-08-08] MEDS: PIPERACILLIN/TAZOBACTAM 3.375 GM in SODIUM CHLORIDE 0.9% MINIBAG 100 ML IV SCH ×4 (01:39→19:37)
[2017-08-08] MEDS: CALCIUM CARBONATE CHEW 500 MG TABLET PO SCH ×4 (04:59→21:48)
[2017-08-08] MEDS: PANTOPRAZOLE 40 MG TABLET PO SCH (07:05)
[2017-08-08] MEDS: POLYETHYLENE GLYCOL 3350 17 GM PACKET PO SCH (08:05)
[2017-08-08] MEDS: CALCIUM CARBONATE CHEW 500 MG TABLET PO PRN (09:58)
[2017-08-08] MEDS: PANTOPRAZOLE 40 MG VIAL IVP SCH (11:26)
--- NOTE | 2017-08-08 11:59 | PROVIDER PROGRESS NOTE ---
Subjective - Prog Note Date Prog Note Date: 08/08/17 Prog Note Time: 08:40 - Subjective Pt reports feeling: No change Subjective: Patient reports she is "feeling fine", "I just want to have the surgery and get this over with". She denies nausea or diarrhea/constipation. She denies abdominal pain. She is very hungry, wants to eat. Denies fever/chills. === Called to bedside 1130 by RN, patient complaining of epigastric pain. She had refused AM TUMS and protonix. TUMS given w/o immeidate relief. D/w patient, protonix pill hard to swallow. Switched to IV, she is agreeable to take now. Current Medications - Current Medications Current Medications: Active Medications Calcium Carbonate/Glycine (Tums) 500 mg PO TID [facility] Last Admin: 08/08/17 07:07 Dose: Not Given Calcium Carbonate/Glycine (Tums) 500 mg PO Q4H PRN PRN Reason: Heartburn Last Admin: 08/08/17 09:58 Dose: 500 mg Hydromorphone HCl (Dilaudid Inj Syringe) 1 mg IVP Q2H PRN PRN Reason: PAIN Last Admin: 08/08/17 11:30 Dose: 1 mg Potassium Chloride/Dextrose/Sod Cl (D5.45ns W/20 Meq Kcl) 1,000 mls @ 100 mls/ hr IV .Q10H [facility] Last Infusion: 08/08/17 09:25 Dose: 100 mls/hr Metronidazole (Flagyl 500 Mg/100 Ml) 500 mg in 100 mls @ 100 mls/hr IV Q6HR [facility] Last Infusion: 08/08/17 07:06 Dose: Infused Piperacillin Sod/Tazobactam (Sod 3.375 gm/ Sodium Chloride) 100 mls @ 200 mls/ hr IV Q6H [facility] Last Infusion: 08/08/17 10:16 Dose: Infused Lorazepam (Ativan) 0.5 mg PO Q6H PRN PRN Reason: Nausea / Vomiting Multi-Ingredient Mouthwash/Gargle () 30 ml PO Q4H PRN PRN Reason: Heartburn Last Admin: 08/07/17 19:50 Dose: 30 ml Ondansetron HCl (Zofran Odt) 8 mg PO Q8H PRN PRN Reason: Nausea / Vomiting Ondansetron HCl (Zofran Inj) 4 mg IVP Q6HR PRN PRN Reason: Nausea / Vomiting Last Admin: 08/08/17 11:28 Dose: 4 mg Pantoprazole Sodium (Protonix) 40 mg IVP QDAC [facility] Last Admin: 08/08/17 11:26 Dose: 40 mg Polyethylene Glycol (Miralax) 17 gm PO DAILY [facility] Last Admin: 08/08/17 08:05 Dose: Not Given Prochlorperazine Maleate (Compazine) 10 mg PO Q6H PRN PRN Reason: Nausea / Vomiting Sodium Chloride (Normal Saline Flush 0.9%) 10 ml IVP PRN PRN PRN Reason: NEEDED PER PROVIDER ORDERS Last Admin: 08/08/17 01:36 Dose: 10 ml Sodium Chloride (Normal Saline Flush 0.9%) 10 ml IVP 0100,0900,1700 [facility] Last Admin: 08/08/17 08:05 Dose: Not Given HOME MEDS: Calcium Carbonate [Tums (Calcium Carbonate 500mg)] 1,000 mg PO TIDWM PRN Calcium Carbonate 600 mg PO DAILY 07/02/17 Cholecalciferol (Vitamin D3) [Vitamin D3] 4,000 unit PO DAILY 07/02/17 Acetaminophen [Tylenol] 650 mg PO Q6H PRN 08/05/17 Promethazine Sup [Phenergan Supp] 12.5 mg [place] Q4H PRN 08/05/17 Prochlorperazine Maleate 10 mg PO Q6H PRN 08/06/17 Prochlorperazine Supp [Compazine Supp] 25 mg PO QPM PRN 08/06/17 Objective - Vital Signs/Intake & Output Reviewed Vital Signs: Yes Vital Signs: Vital Signs x48h Temp Pulse Resp BP BP Pulse Ox 08/08/17 10:55 70 20 117/79 08/08/17 09:05 36.7 C 77 16 119/73 95 Intake & Output: Intake & Output 08/05/17 08/06/17 08/07/17 08/08/17 23:59 23:59 23:59 23:59 Intake Total 130 2533.333 7181.692 2734.863 Output Total 4054 800 5303 Balance 130 8448.802 2930.666 221.863 - Objective General Appearance: positive: No acute distress, Alert Eyes Bilateral: positive: Normal inspection ENT: positive: No signs of dehydration Neck: positive: No JVD Respiratory: positive: Chest non-tender, No respiratory distress, Breath sounds nml Cardiovascular: positive: Regular rate & rhythm Peripheral Pulses: 2+ Radial (R), 2+ Radial (L) Abdomen: positive: Non-tender, Nml bowel sounds, No distention Skin: positive: Color nml, No rash, Warm, Dry Extremities: positive: Non-tender. negative: Full ROM (CP), Calf tenderness Neurologic/Psychiatric: positive: Oriented x3, Motor nml, Sensation nml, Mood/ affect nml, Weakness (due to CP) - Lab Results Fish Bones: 08/07/17 06:31 08/07/17 06:31 Assessment/Plan - Problem List (1) Choledocholithiasis with acute cholecystitis Impression: P/w upper abd pain + WBC 24k. CT abd/pelvis s/w acute cholecystitis, abd US revealed GB wall thickening and CBD 9mm with intra/extrahepatic ductal dilation. NPO, and given empiric antibiotics and WBC improved to 12 today. MRCP planned (no polysomnography tech tilll Wednesday) prior to surgery. -Dr Mao following, appreciate his expertise -NPO -Continue zosyn and flagyl -MRCP rudy (2) Pneumonia Impression: P/w SOB and concern for PE so CTA chest obtained. Revealed bilateral lower lobe consolidation, ?atelectasis, pneumonia. No cough or congestion and lungs clear now. I suspect more so atelectasis from abdominal pain inhibiting deep breathing. -ICS q1h -Zosyn and flagyl for GI issues will cover for CAP as well (3) GERD (gastroesophageal reflux disease) Impression: Epigastric pain, on tums and protonix at home. Pain worse today after skipping doses. -Switch protonix to IV (unable to swallow pills) -PRN maalox (4) Elevated LFTs Impression: Overall improving, likely from congestion related to #1 -Trend 08/05/17 08/07/17 15:55 06:31 Total Bilirubin 1.6 H 2.4 H AST 158 H 40 ALT 150 H 91 H Alkaline Phosphatase 180 H 215 H (5) Cerebral palsy Impression: Chronic, WC bound since childhood. Stabel. CT head obtained, [employer] shunt w/o complication. (6) Cancer Impression: Hx stage IIIB right breast cancer diagnosed in , underwent mastectomy and now undergoing systemic chemo. Complicated by neutropenia, treated with neurlasta. CT here revelaed NEW T12 sclerotic lesion concerning for metastasis. She also has chronic fundal mass and perianal mass (both possible malignancy as well.) -Follow-up with oncology DC PLAN: MRCP then surgery, then home 1-2d post-op if no complications
--- NOTE | 2017-08-08 16:16 | PROVIDER PROGRESS NOTE ---
Subjective - General Admit Date: 08/05/17 - Review of Systems General: positive: No symptoms, Other (Improved with less pain.) HEENT: positive: No symptoms Pulmonary: positive: No symptoms Cardiovascular: positive: No symptoms Gastrointestinal: positive: No symptoms, Abdominal pain (Minimal now.). negative: Nausea, Vomiting, Difficulty swallowing Skin: positive: No symptoms Psychiatric: positive: No symptoms All Other Systems: positive: Reviewed and negative Objective - Patient Data Reviewed Vital Signs: Yes Vital Signs: Vital Signs x48h Temp Pulse Resp BP BP Pulse Ox 08/08/17 16:01 36.7 C 71 16 121/93 H 98 08/08/17 10:55 70 20 117/79 08/08/17 09:05 36.7 C 77 16 119/73 95 Weight: Weight 08/06/17 08/07/17 08/08/17 23:59 23:59 23:59 Weight (kg) 70 kg Intake & Output: Intake and Output Totals x24h 08/06/17 08/07/17 08/08/17 23:59 23:59 23:59 Intake Total 2533.333 0763.464 3774.000 Output Total 5327 248 7258 Balance 9186.643 6491.666 560.000 - Lab Results Lab Results: 08/07/17 06:31 08/07/17 06:31 - Current Medications Current Medications: Current Medications Generic Name Dose Route Start Last Admin Trade Name Freq PRN Reason Stop Dose Admin Calcium Carbonate/Glycine 500 mg 08/07/17 22:00 08/08/17 14:47 Tums PO 500 mg TID [facility] Administration Calcium Carbonate/Glycine 500 mg 08/07/17 17:33 08/08/17 09:58 Tums PO 500 mg Q4H PRN Administration Heartburn Hydromorphone HCl 1 mg 08/05/17 23:45 08/08/17 11:30 Dilaudid Inj Syringe IVP 1 mg Q2H PRN Administration PAIN Potassium Chloride/Dextrose/Sod Cl 1,000 mls @ 100 mls/hr 08/05/17 21:00 09/22 14:40 D5.45ns W/20 Meq Kcl IV 0 mls/hr .Q10H [facility] Infusion Metronidazole 500 mg in 100 mls @ 100 mls/hr 08/06/17 06:00 08/08/17 13:35 Flagyl 500 Mg/100 Ml IV Infused Q6HR [facility] Infusion Piperacillin Sod/Tazobactam 100 mls @ 200 mls/hr 08/06/17 07:00 08/08/17 14: 40 Sod 3.375 gm/ Sodium Chloride IV 200 mls/hr Q6H [facility] Administration Multi-Ingredient Mouthwash/Gargle 30 ml 08/07/17 17:34 08/07/17 19:50 PO 30 ml Q4H PRN Administration Heartburn Ondansetron HCl 4 mg 08/07/17 02:29 08/08/17 11:28 Zofran Inj IVP 4 mg Q6HR PRN Administration Nausea / Vomiting Pantoprazole Sodium 40 mg 08/08/17 12:00 08/08/17 11:26 Protonix IVP 40 mg QDAC [facility] Administration Polyethylene Glycol 17 gm 08/06/17 09:00 08/08/17 08:05 Miralax PO Not Given DAILY [facility] Sodium Chloride 10 ml 08/05/17 20:17 08/08/17 01:36 Normal Saline Flush 0.9% IVP 10 ml PRN PRN Administration NEEDED PER PROVIDER ORDERS Sodium Chloride 10 ml 08/06/17 01:00 08/08/17 08:05 Normal Saline Flush 0.9% IVP Not Given 0100,0900,1700 [facility] - Physical Exam General Appearance: positive: No acute distress Eyes Bilateral: positive: No lid inflammation, Conjunctivae nml, No scleral icterus Neck: positive: Trachea midline Respiratory: positive: Chest non-tender, No respiratory distress, Breath sounds nml Cardiovascular: positive: Regular rate & rhythm Abdomen: positive: Non-tender (Minimally in RUQ.) Skin: positive: Color nml Neurologic/Psychiatric: positive: Oriented x3 Impression/Plan - Problem List Problem List: Again awaiting MRCP that could have been done on Wednesday in preparation of surgery. Again the question is stenosis, stone, or malignancy. This should be known before surgery. Gratefully patient is aymptomatic to minimally symptomatic. I will order clear liquids for comfort. Repeat CMP and CBC in AM. Asked me whether her surgery would interfere with chemotherapy and I am sure that it will but to what extent we will need to talk with Dr. Anguiano.
[2017-08-09] MEDS: D5.45NS W/20 MEQ KCL 1,000 ML IV SCH ×3 (00:09→18:35)
[2017-08-09] MEDS: SODIUM CHLORIDE FLUSH 0.9% 10 ML SYRINGE IVP SCH ×3 (00:10→17:11)
[2017-08-09] MEDS: PIPERACILLIN/TAZOBACTAM 3.375 GM in SODIUM CHLORIDE 0.9% MINIBAG 100 ML IV SCH ×4 (02:26→19:24)
[2017-08-09 05:40] LABS: BASOPHILS % (AUTO) 2.1 %; EOSINOPHILS % (AUTO) 0.1 %; HGB - HEMOGLOBIN 11.2 g/dL (12.0-16.0); LYMPHOCYTES % (AUTO) 12.5 %; MEAN CORPUSCULAR HEMOGLOBIN 28.9 pg (27.0-31.0); MEAN CORPUSCULAR HGB CONC 32.6 g/dL (32.0-36.0); MEAN CORPUSCULAR VOLUME 88.4 fL (81.0-99.0); MONOCYTES % (AUTO) 8.5 %; NEUTROPHILS % (AUTO) 76.8 %; PLT - PLATELET COUNT 455 10^3/uL (130-450); RED BLOOD COUNT 3.89 10^6/uL (4.20-5.40); RED CELL DISTRIBUTION WIDTH 15.1 % (12.0-15.0); WHITE BLOOD COUNT 7.2 x10^3/uL (4.8-10.8)
[2017-08-09 05:45] LABS: ABNORMAL LYMPHS % (MANUAL) 0 %
[2017-08-09 06:05] LABS: BAND NEUTROPHILS % (MANUAL) 3 %; BASOPHILS # (MANUAL) 0.1 10^3/uL (0-0.1); BASOPHILS % (MANUAL) 1 %; EOSINOPHILS # (MANUAL) 0.1 10^3/uL (0-0.7); LYMPHOCYTES # (MANUAL) 0.6 10^3/uL (1.5-3.5); LYMPHOCYTES % (MANUAL) 4 %; MONOCYTES # (MANUAL) 0.4 10^3/uL (0.0-1.0); NEUTROPHILS % (MANUAL) 81 %
[2017-08-09 06:06] LABS: DIFFERENTIAL COMMENT MANUAL DIFFERENTIAL; PLATELET ESTIMATE, MANUAL NORMAL (130-450,000) (NORMAL); PLATELET MORPHOLOGY 1+ LARGE PLATELETS (NORMAL)
[2017-08-09 06:10] LABS: ALBUMIN 2.7 g/dL (3.2-5.5); ALBUMIN/GLOBULIN RATIO 0.8 (1.0-2.2); ALKALINE PHOSPHATASE 221 IU/L (42-121); ALT ALANINE AMINOTRANSFERASE 45 IU/L (10-60); AST ASPARTATE AMINOTRANSFERASE 15 IU/L (10-42); BILIRUBIN,TOTAL 0.6 mg/dL (0.2-1.0); BUN - BLOOD UREA NITROGEN < 5 mg/dL (6-20); CALCIUM 8.4 mg/dL (8.5-10.3); CARBON DIOXIDE - CO2 24 mmol/L (21-32); CHLORIDE 110 mmol/L (101-111); CREATININE 0.5 mg/dL (0.4-1.0); GFR - MDRD 128 (>89); GLUCOSE 119 mg/dL (70-100); SODIUM 140 mmol/L (135-145); TOTAL PROTEIN 5.9 g/dL (6.7-8.2)
[2017-08-09] MEDS: metroNIDAZOLE 500 MG/100 ML 500 MG/100 ML BAG IV SCH ×3 (06:10→17:10)
[2017-08-09] MEDS: PANTOPRAZOLE 40 MG VIAL IVP SCH (06:10)
[2017-08-09] MEDS: SODIUM CHLORIDE FLUSH 0.9% 10 ML SYRINGE IVP PRN ×2 (06:11→06:20)
[2017-08-09] MEDS: CALCIUM CARBONATE CHEW 500 MG TABLET PO SCH ×3 (06:20→23:16)
[2017-08-09] MEDS: HYDROmorphone 1 MG/ML SYRINGE IVP PRN (08:06)
[2017-08-09] MEDS: POLYETHYLENE GLYCOL 3350 17 GM PACKET PO SCH (09:28)
[2017-08-09] MEDS: SENNA 8.6 MG TABLET PO SCH (09:28)
[2017-08-09] MEDS: DOCUSATE SODIUM 250 MG CAPSULE PO SCH (09:28)
--- NOTE | 2017-08-09 12:22 | MRI Report ---
EXAM: MR ABDOMEN WITHOUT CONTRAST (MR CHOLANGIOPANCREATOGRAPHY) EXAM DATE: 08/09/2017 11:41 AM. CLINICAL HISTORY: Dilated CBD in patient with metastatic cancer. COMPARISON: Abdominal CT and ultrasound 08/05/2017. TECHNIQUE: Multiplanar breath-hold T1 and T2 sequences obtained through the abdomen on an MR scanner. Dedicated 2D and 3D MRCP sequences obtained through the biliary and pancreatic ducts. No intravenous contrast given. FINDINGS: Lung Bases: The lung bases are clear. Liver: The liver has normal size, morphology and signal. No evidence of mass. The intrahepatic bile d ucts appear normal. CBD: 10 mm common bile duct. Several 2-4 mm common bile duct stones. These are dependently positioned on axial T2-weighted series. Please see series 1101 image 5. Gallbladder: Gallbladder contains numerous predominantly tiny dependent stones. 4 mm gallbladder wall thickening, previously 7 mm. Pancreas: The pancreas appears normal with no mass. The pancreatic duct measures 1 mm in diameter and appears normal with no stone or stricture. Spleen: The spleen appears normal. Kidneys and Adrenals: The kidneys appear normal with no mass or hydronephrosis. The adrenals appear n ormal. Bowel: The small bowel and colon appear normal with no inflammation or obstruction. Retroperitoneum: The retroperitoneal structures appear normal with no mass or lymphadenopathy. Moderate hiatal hernia. IMPRESSION: 1. Decreasing common bile duct dilatation from 1.3 cm to [address] 08/05/2017. Resolution o f prior intrahepatic biliary ductal dilatation. Choledocholithiasis with multiple small 2-4 mm depend ent stones within common bile duct. 2. Gallbladder contains numerous stones. Decreasing gallbladder wall thickening from 7 mm to 4 mm. PAULINA Referring Provider Line: [phone] SITE ID: [id number]
--- NOTE | 2017-08-09 16:34 | PROVIDER PROGRESS NOTE ---
Subjective - Prog Note Date Prog Note Date: 08/09/17 Prog Note Time: 08:10 - Subjective Pt reports feeling: Improved Subjective: No pain, eager to get MRCP so she can get GB out. No new complaints. No nausea. Requesting special mouth wash. Current Medications - Current Medications Current Medications: Active Medications Calcium Carbonate/Glycine (Tums) 500 mg PO TID [facility] Last Admin: 08/09/17 14:04 Dose: 500 mg Calcium Carbonate/Glycine (Tums) 500 mg PO Q4H PRN PRN Reason: Heartburn Last Admin: 08/08/17 09:58 Dose: 500 mg Docusate Sodium (Colace 250mg Capsule) 250 - 500 mg PO DAILY [facility] Last Admin: 08/09/17 09:28 Dose: Not Given Hydromorphone HCl (Dilaudid Inj Syringe) 1 mg IVP Q2H PRN PRN Reason: PAIN Last Admin: 08/09/17 08:06 Dose: 1 mg Potassium Chloride/Dextrose/Sod Cl (D5.45ns W/20 Meq Kcl) 1,000 mls @ 100 mls/ hr IV .Q10H [facility] Last Infusion: 08/09/17 14:35 Dose: 100 mls/hr Metronidazole (Flagyl 500 Mg/100 Ml) 500 mg in 100 mls @ 100 mls/hr IV Q6HR [facility] Last Infusion: 08/09/17 14:04 Dose: Infused Piperacillin Sod/Tazobactam (Sod 3.375 gm/ Sodium Chloride) 100 mls @ 200 mls/ hr IV Q6H [facility] Last Infusion: 08/09/17 14:44 Dose: Infused Lorazepam (Ativan) 0.5 mg PO Q6H PRN PRN Reason: Nausea / Vomiting Multi-Ingredient Mouthwash/Gargle () 30 ml PO Q4H PRN PRN Reason: Heartburn Last Admin: 08/07/17 19:50 Dose: 30 ml Ondansetron HCl (Zofran Odt) 8 mg PO Q8H PRN PRN Reason: Nausea / Vomiting Ondansetron HCl (Zofran Inj) 4 mg IVP Q6HR PRN PRN Reason: Nausea / Vomiting Last Admin: 08/08/17 11:28 Dose: 4 mg Pantoprazole Sodium (Protonix) 40 mg IVP QDAC [facility] Last Admin: 08/09/17 06:10 Dose: 40 mg Polyethylene Glycol (Miralax) 17 gm PO DAILY [facility] Last Admin: 08/09/17 09:28 Dose: Not Given Prochlorperazine Maleate (Compazine) 10 mg PO Q6H PRN PRN Reason: Nausea / Vomiting Senna (Senokot) 8.6 - 17.2 mg PO DAILY [facility] Last Admin: 08/09/17 09:28 Dose: Not Given Sodium Chloride (Normal Saline Flush 0.9%) 10 ml IVP PRN PRN PRN Reason: NEEDED PER PROVIDER ORDERS Last Admin: 08/09/17 06:20 Dose: 10 ml Sodium Chloride (Normal Saline Flush 0.9%) 10 ml IVP 0100,0900,1700 [facility] Last Admin: 08/09/17 09:28 Dose: Not Given Calcium Carbonate [Tums (Calcium Carbonate 500mg)] 1,000 mg PO TIDWM PRN Calcium Carbonate 600 mg PO DAILY 07/02/17 Cholecalciferol (Vitamin D3) [Vitamin D3] 4,000 unit PO DAILY 07/02/17 Acetaminophen [Tylenol] 650 mg PO Q6H PRN 08/05/17 Promethazine Sup [Phenergan Supp] 12.5 mg [place] Q4H PRN 08/05/17 Prochlorperazine Maleate 10 mg PO Q6H PRN 08/06/17 Prochlorperazine Supp [Compazine Supp] 25 mg PO QPM PRN 08/06/17 Objective - Vital Signs/Intake & Output Reviewed Vital Signs: Yes Vital Signs: Vital Signs x48h Temp Pulse Resp Pulse Ox 08/09/17 16:18 37.2 C 69 16 99 Intake & Output: Intake & Output 08/06/17 08/07/17 08/08/17 08/09/17 23:59 23:59 23:59 23:59 Intake Total 2533.333 7268.598 5120.000 2035.001 Output Total 1238 771 4755 300 Balance 6694.136 0962.666 270.089 0799.001 - Objective General Appearance: positive: No acute distress, Alert ENT: positive: No signs of dehydration Neck: positive: No JVD Respiratory: positive: Chest non-tender, No respiratory distress, Breath sounds nml Cardiovascular: positive: Regular rate & rhythm, No murmur Peripheral Pulses: 2+ Radial (R), 2+ Radial (L), 2+ Dorsalis pedis (R), 2+ Dorsalis pedis (L) Abdomen: positive: Non-tender, No distention. negative: Nml bowel sounds ( hypoactive) Skin: positive: Color nml, Warm, Dry Extremities: positive: Non-tender, Full ROM, Nml appearance. negative: Pedal edema, Calf tenderness Neurologic/Psychiatric: positive: Oriented x3, Mood/affect nml. negative: Motor nml (spasticity from CP) - Lab Results Fish Bones: 08/09/17 05:05 08/09/17 05:05 Other Labs: Lab Results x24hrs 08/09/17 08/09/17 Range/Units 05:05 05:05 WBC 7.2 (4.8-10.8) x10^3/uL RBC 3.89 L (4.20-5.40) 10^6/uL Hgb 11.2 L (12.0-16.0) g/dL Hct 34.4 L (37.0-47.0) % MCV 88.4 (81.0-99.0) fL MCH 28.9 (27.0-31.0) pg MCHC 32.6 (32.0-36.0) g/dL RDW 15.1 H (12.0-15.0) % Plt Count 455 H (130-450) 10^3/uL MPV 7.0 L (7.9-10.8) fL Neut # Not Reportable Lymph # Not Reportable Routt # Not Reportable Eos # Not Reportable Baso # Not Reportable Absolute Nucleated RBC Not Reportable Total Counted 100 Band Neuts % (Manual) 3 (0 - 10) % Reactive Lymphs % (Man) 4 % Abnorm Lymph % (Manual) 0 % Nucleated RBC % Not Reportable Neutrophils # (Manual) 6.0 (1.5-6.6) 10^3/uL Lymphocytes # (Manual) 0.6 L (1.5-3.5) 10^3/uL Monocytes # (Manual) 0.4 (0.0-1.0) 10^3/uL Eosinophils # (Manual) 0.1 (0-0.7) 10^3/uL Basophils # (Manual) 0.1 (0-0.1) 10^3/uL Differential Comment MANUAL DIFFERENTIAL Platelet Estimate NORMAL (130-450,000) (NORMAL) Platelet Morphology 1+ LARGE PLATELETS (NORMAL) RBC Morph Micro Appear 1+ HYPOCHROMASIA (NORMAL) Sodium 140 (135-145) mmol/L Potassium 3.4 L (3.5-5.0) mmol/L Chloride 110 (101-111) mmol/L Carbon Dioxide 24 (21-32) mmol/L Anion Gap 6.0 (6-13) BUN < 5 L (6-20) mg/dL Creatinine 0.5 (0.4-1.0) mg/dL Estimated GFR (MDRD) 128 (>89) Glucose 119 H (70-100) mg/dL Calcium 8.4 L (8.5-10.3) mg/dL Total Bilirubin 0.6 (0.2-1.0) mg/dL AST 15 (10-42) IU/L ALT 45 (10-60) IU/L Alkaline Phosphatase 221 H (42-121) IU/L Total Protein 5.9 L (6.7-8.2) g/dL Albumin 2.7 L (3.2-5.5) g/dL Globulin 3.2 (2.1-4.2) g/dL Albumin/Globulin Ratio 0.8 L (1.0-2.2) - Diagnostic Imaging Diagnostic Imaging Comments: Reviewed MRCP report, improving cholecystitis Assessment/Plan - Problem List (1) Choledocholithiasis with acute cholecystitis Impression: P/w upper abd pain + WBC 24k. CT abd/pelvis s/w acute cholecystitis, abd US revealed GB wall thickening and CBD 9mm with intra/extrahepatic ductal dilation. NPO, and given empiric antibiotics and WBC improved to 7 today. MRCP with improving cholecystitis. -Dr Mao following, appreciate his expertise -NPO for surgery tomorrow -Continue zosyn and flagyl (2) Pneumonia, ruled out Impression: P/w SOB and concern for PE so CTA chest obtained. Revealed bilateral lower lobe consolidation, ?atelectasis, pneumonia. No cough or congestion and lungs clear now. I suspect more so atelectasis from abdominal pain inhibiting deep breathing. -ICS q1h -Zosyn and flagyl for GI issues will cover for CAP as well (3) GERD (gastroesophageal reflux disease) Impression: Epigastric pain, on tums and protonix at home. Pain worse 3/4 after skipping doses. -Switch protonix to IV (unable to swallow pills) -PRN maalox (4) Elevated LFTs Impression: Overall improving, likely from congestion related to #1 -Trend 08/05/17 08/07/17 15:55 06:31 Total Bilirubin 1.6 H 2.4 H AST 158 H 40 ALT 150 H 91 H Alkaline Phosphatase 180 H 215 H (5) Cerebral palsy Impression: Chronic, WC bound since childhood. Stable. CT head obtained, [employer] shunt w/o complication. (6) Cancer Impression: Hx stage IIIB right breast cancer diagnosed in , underwent mastectomy and now undergoing systemic chemo. Complicated by neutropenia, treated with neurlasta. CT here revelaed NEW T12 sclerotic lesion concerning for metastasis. She also has chronic fundal mass and perianal mass (both possible malignancy as well.) -Follow-up with oncology DC PLAN: Surgery tomorrow, then home 1-2d post-op if no complications
[2017-08-09] MEDS: GI COCKTAIL 120 ML BOTTLE PO PRN (16:54)
[2017-08-09] MEDS ORDERED: MAGNESIUM CITRATE 296 ML BOTTLE PO SCH (19:45)
[2017-08-09] MEDS ORDERED: GLYCERIN ADULT SUPP PR SCH (19:45)
[2017-08-10] MEDS: metroNIDAZOLE 500 MG/100 ML 500 MG/100 ML BAG IV SCH ×4 (00:07→21:56)
[2017-08-10] MEDS: SODIUM CHLORIDE FLUSH 0.9% 10 ML SYRINGE IVP SCH ×3 (00:09→20:11)
[2017-08-10] MEDS: D5.45NS W/20 MEQ KCL 1,000 ML IV SCH ×3 (00:09→20:12)
--- NOTE | 2017-08-10 00:11 | PROVIDER PROGRESS NOTE ---
Subjective - General Admit Date: 08/05/17 Procedure Date: 08/10/17 Post Op Days: 0 - Review of Systems General: positive: No symptoms, Other (Improved with less pain.) HEENT: positive: No symptoms Pulmonary: positive: No symptoms Cardiovascular: positive: No symptoms Gastrointestinal: positive: No symptoms, Abdominal pain (Minimal now.). negative: Nausea, Vomiting, Difficulty swallowing Skin: positive: No symptoms Psychiatric: positive: No symptoms All Other Systems: positive: Reviewed and negative Objective - Patient Data Reviewed Vital Signs: Yes Vital Signs: Vital Signs x48h Temp Pulse Resp BP Pulse Ox 08/10/17 00:05 36.9 C 77 18 129/73 99 08/09/17 16:18 37.2 C 69 16 99 Intake & Output: Intake and Output Totals x24h 08/08/17 08/09/17 08/10/17 23:59 23:59 23:59 Intake Total 2360.000 3101.667 Output Total 1550 500 Balance 113.966 0678.667 - Lab Results Lab Results: 08/09/17 05:05 08/09/17 05:05 Other Lab Results: Lab Results x24hrs 08/09/17 08/09/17 Range/Units 05:05 05:05 WBC 7.2 (4.8-10.8) x10^3/uL RBC 3.89 L (4.20-5.40) 10^6/uL Hgb 11.2 L (12.0-16.0) g/dL Hct 34.4 L (37.0-47.0) % MCV 88.4 (81.0-99.0) fL MCH 28.9 (27.0-31.0) pg MCHC 32.6 (32.0-36.0) g/dL RDW 15.1 H (12.0-15.0) % Plt Count 455 H (130-450) 10^3/uL MPV 7.0 L (7.9-10.8) fL Neut # Not Reportable Lymph # Not Reportable [place] # Not Reportable Eos # Not Reportable Baso # Not Reportable Absolute Nucleated RBC Not Reportable Total Counted 100 Band Neuts % (Manual) 3 (0 - 10) % Reactive Lymphs % (Man) 4 % Abnorm Lymph % (Manual) 0 % Nucleated RBC % Not Reportable Neutrophils # (Manual) 6.0 (1.5-6.6) 10^3/uL Lymphocytes # (Manual) 0.6 L (1.5-3.5) 10^3/uL Monocytes # (Manual) 0.4 (0.0-1.0) 10^3/uL Eosinophils # (Manual) 0.1 (0-0.7) 10^3/uL Basophils # (Manual) 0.1 (0-0.1) 10^3/uL Differential Comment MANUAL DIFFERENTIAL Platelet Estimate NORMAL (130-450,000) (NORMAL) Platelet Morphology 1+ LARGE PLATELETS (NORMAL) RBC Morph Micro Appear 1+ HYPOCHROMASIA (NORMAL) Sodium 140 (135-145) mmol/L Potassium 3.4 L (3.5-5.0) mmol/L Chloride 110 (101-111) mmol/L Carbon Dioxide 24 (21-32) mmol/L Anion Gap 6.0 (6-13) BUN < 5 L (6-20) mg/dL Creatinine 0.5 (0.4-1.0) mg/dL Estimated GFR (MDRD) 128 (>89) Glucose 119 H (70-100) mg/dL Calcium 8.4 L (8.5-10.3) mg/dL Total Bilirubin 0.6 (0.2-1.0) mg/dL AST 15 (10-42) IU/L ALT 45 (10-60) IU/L Alkaline Phosphatase 221 H (42-121) IU/L Total Protein 5.9 L (6.7-8.2) g/dL Albumin 2.7 L (3.2-5.5) g/dL Globulin 3.2 (2.1-4.2) g/dL Albumin/Globulin Ratio 0.8 L (1.0-2.2) - Current Medications Current Medications: Current Medications Generic Name Dose Route Start Last Admin Trade Name Freq PRN Reason Stop Dose Admin Calcium Carbonate/Glycine 500 mg 08/07/17 22:00 08/09/17 23:16 Tums PO Not Given TID BALBIR Calcium Carbonate/Glycine 500 mg 08/07/17 17:33 08/08/17 09:58 Tums PO 500 mg Q4H PRN Administration Heartburn Docusate Sodium 250 - 500 mg 08/09/17 09:00 08/09/17 09:28 Colace 250mg Capsule PO Not Given DAILY REPLACED BY [facility] Hydromorphone HCl 1 mg 08/05/17 23:45 08/09/17 08:06 Dilaudid Inj Syringe IVP 1 mg Q2H PRN Administration PAIN Potassium Chloride/Dextrose/Sod Cl 1,000 mls @ 100 mls/hr 08/05/17 21:00 10/22 18:35 D5.45ns W/20 Meq Kcl IV 100 mls/hr .Q10H BALBIR Administration Metronidazole 500 mg in 100 mls @ 100 mls/hr 08/06/17 06:00 08/09/17 19:25 Flagyl 500 Mg/100 Ml IV Infused Q6HR BALBIR Infusion Piperacillin Sod/Tazobactam 100 mls @ 200 mls/hr 08/06/17 07:00 08/09/17 22: 55 Sod 3.375 gm/ Sodium Chloride IV Infused Q6H BALBIR Infusion Multi-Ingredient Mouthwash/Gargle 30 ml 08/07/17 17:34 08/09/17 16:54 PO 30 ml Q4H PRN Administration Heartburn Ondansetron HCl 4 mg 08/07/17 02:29 08/08/17 11:28 Zofran Inj IVP 4 mg Q6HR PRN Administration Nausea / Vomiting Pantoprazole Sodium 40 mg 08/08/17 12:00 08/09/17 06:10 Protonix IVP 40 mg QDAC BALBIR Administration Polyethylene Glycol 17 gm 08/06/17 09:00 08/09/17 09:28 Miralax PO Not Given DAILY REPLACED BY [facility] Senna 8.6 - 17.2 mg 08/09/17 09:00 08/09/17 09:28 Senokot PO Not Given DAILY REPLACED BY [facility] Sodium Chloride 10 ml 08/05/17 20:17 08/09/17 06:20 Normal Saline Flush 0.9% IVP 10 ml PRN PRN Administration NEEDED PER PROVIDER ORDERS Sodium Chloride 10 ml 08/06/17 01:00 08/09/17 17:11 Normal Saline Flush 0.9% IVP 10 ml 0100,0900,1700 BALBIR Administration - Physical Exam General Appearance: positive: No acute distress Eyes Bilateral: positive: No lid inflammation, Conjunctivae nml, No scleral icterus Neck: positive: Trachea midline Respiratory: positive: Chest non-tender, No respiratory distress, Breath sounds nml Cardiovascular: positive: Regular rate & rhythm Abdomen: positive: Nml bowel sounds, Tenderness (Minimal in right upper quadrant.) Skin: positive: Color nml Neurologic/Psychiatric: positive: Oriented x3 Impression/Plan - Problem List Problem List: Laparoscopic cholecystectomy, possible open cholecystectomy, probable intraoperative cholangiogran, possible common bile duct exploration. The indications, procedure, alternatives including no surgery, ingestion of Actigall , possible risks including infection (deep or superficial), bleeding requiring transfusion (with all of its risks), common bile duct injury requring repair and additional surgery, and were fully explained to the patient and all questions answered. I also explained the pathophysiology. I explained that following the surgery I did not want her lifting anything over 15 pounds for 6 weeks to allow for optimal healing and to decrease the likelihood that a hernia would occur. All questions were fully answered. Verbal consent was obtained. Written will be obtained on the day of surgery. The patient, in preparation for surgery will be nothing by mouth, and receive 2 gm of Cephalexin with induction. I asked her to contact me with any surgical questions and her concerns and she stated that she would. I asked her to let me know if there is any way we can make her stay at [facility] more comfortable and she stated that she would let me know. I went over the results of the MRCP with her and explained that the common bile duct was smaller and that there were small stones seen in the duct but that these would likely pass.
[2017-08-10] MEDS: PIPERACILLIN/TAZOBACTAM 3.375 GM in SODIUM CHLORIDE 0.9% MINIBAG 100 ML IV SCH ×4 (02:13→20:41)
[2017-08-10] MEDS: CALCIUM CARBONATE CHEW 500 MG TABLET PO SCH ×3 (05:32→21:56)
[2017-08-10] MEDS: PANTOPRAZOLE 40 MG VIAL IVP SCH (05:53)
[2017-08-10] MEDS: SODIUM CHLORIDE FLUSH 0.9% 10 ML SYRINGE IVP PRN ×2 (05:53→05:56)
[2017-08-10 06:07] LABS: BASOPHILS # (AUTO) 0.2 10^3/uL (0.0-0.1); BASOPHILS % (AUTO) 2.3 %; EOSINOPHILS % (AUTO) 0.1 %; HGB - HEMOGLOBIN 12.2 g/dL (12.0-16.0); LYMPHOCYTES % (AUTO) 13.8 %; MEAN CORPUSCULAR HEMOGLOBIN 28.9 pg (27.0-31.0); MEAN CORPUSCULAR HGB CONC 33.1 g/dL (32.0-36.0); MEAN CORPUSCULAR VOLUME 87.4 fL (81.0-99.0); MEAN PLATELET VOLUME 7.1 fL (7.9-10.8); MONOCYTES # (AUTO) 0.7 10^3/uL (0.0-1.0); MONOCYTES % (AUTO) 10.4 %; NEUTROPHILS # (AUTO) 5.2 10^3/uL (1.5-6.6); NEUTROPHILS % (AUTO) 73.4 %; PLT - PLATELET COUNT 524 10^3/uL (130-450); RED BLOOD COUNT 4.23 10^6/uL (4.20-5.40); RED CELL DISTRIBUTION WIDTH 15.2 % (12.0-15.0); WHITE BLOOD COUNT 7.1 x10^3/uL (4.8-10.8)
[2017-08-10 06:17] LABS: ALBUMIN/GLOBULIN RATIO 0.9 (1.0-2.2); ALKALINE PHOSPHATASE 199 IU/L (42-121); ALT ALANINE AMINOTRANSFERASE 48 IU/L (10-60); AST ASPARTATE AMINOTRANSFERASE 35 IU/L (10-42); BILIRUBIN,TOTAL 0.8 mg/dL (0.2-1.0); BUN - BLOOD UREA NITROGEN < 5 mg/dL (6-20); CALCIUM 8.9 mg/dL (8.5-10.3); CARBON DIOXIDE - CO2 23 mmol/L (21-32); CHLORIDE 108 mmol/L (101-111); CREATININE 0.5 mg/dL (0.4-1.0); GFR - MDRD 128 (>89); GLUCOSE 119 mg/dL (70-100); SODIUM 139 mmol/L (135-145); TOTAL PROTEIN 6.5 g/dL (6.7-8.2)
[2017-08-10 06:31] LABS: PLATELET ESTIMATE, MANUAL INCREASED (>450,000) (NORMAL); PLATELET MORPHOLOGY NORMAL APPEARANCE (NORMAL)
[2017-08-10] MEDS ORDERED: POTASSIUM CHLOR 20 MEQ/100 ML 20 MEQ/100 ML BAG IV SCH (08:08)
[2017-08-10] MEDS: SENNA 8.6 MG TABLET PO SCH (08:41)
[2017-08-10] MEDS: DOCUSATE SODIUM 250 MG CAPSULE PO SCH (08:41)
[2017-08-10] MEDS: POLYETHYLENE GLYCOL 3350 17 GM PACKET PO SCH (08:42)
[2017-08-10] MEDS ORDERED: POTASSIUM CHLOR 10 MEQ/100 ML 10 MEQ/100 ML BAG IV SCH ×2 (09:00→11:00)
[2017-08-10] MEDS ORDERED: BUPIVACAINE 0.5% PF 10 ML VIAL ONE (13:00)
--- NOTE | 2017-08-10 14:47 | PROVIDER PROGRESS NOTE ---
Subjective - Prog Note Date Prog Note Date: 08/10/17 - Subjective Pt reports feeling: No change Subjective: pt report her pain is good control with pain meds, denies fever, chill, nausea, vomiting, chest pain, and shortness of breath. pt will have lapo to remove gallbladder on this afternoon. Current Medications - Current Medications Current Medications: Active Medications Calcium Carbonate/Glycine (Tums) 500 mg PO TID [facility] Last Admin: 08/10/17 05:32 Dose: 500 mg Calcium Carbonate/Glycine (Tums) 500 mg PO Q4H PRN PRN Reason: Heartburn Last Admin: 08/08/17 09:58 Dose: 500 mg Docusate Sodium (Colace 250mg Capsule) 250 - 500 mg PO DAILY [facility] Last Admin: 08/10/17 08:41 Dose: Not Given Hydromorphone HCl (Dilaudid Inj Syringe) 1 mg IVP Q2H PRN PRN Reason: PAIN Last Admin: 08/09/17 08:06 Dose: 1 mg Potassium Chloride/Dextrose/Sod Cl (D5.45ns W/20 Meq Kcl) 1,000 mls @ 100 mls/ hr IV .Q10H [facility] Last Admin: 08/10/17 06:52 Dose: 100 mls/hr Metronidazole (Flagyl 500 Mg/100 Ml) 500 mg in 100 mls @ 100 mls/hr IV Q6HR [facility] Last Infusion: 08/10/17 14:19 Dose: Infused Piperacillin Sod/Tazobactam (Sod 3.375 gm/ Sodium Chloride) 100 mls @ 200 mls/ hr IV Q6H [facility] Last Infusion: 08/10/17 09:05 Dose: Infused Lorazepam (Ativan) 0.5 mg PO Q6H PRN PRN Reason: Nausea / Vomiting Multi-Ingredient Mouthwash/Gargle () 30 ml PO Q4H PRN PRN Reason: Heartburn Last Admin: 08/09/17 16:54 Dose: 30 ml Ondansetron HCl (Zofran Odt) 8 mg PO Q8H PRN PRN Reason: Nausea / Vomiting Ondansetron HCl (Zofran Inj) 4 mg IVP Q6HR PRN PRN Reason: Nausea / Vomiting Last Admin: 08/08/17 11:28 Dose: 4 mg Pantoprazole Sodium (Protonix) 40 mg IVP QDAC [facility] Last Admin: 08/10/17 05:53 Dose: 40 mg Polyethylene Glycol (Miralax) 17 gm PO DAILY [facility] Last Admin: 08/10/17 08:42 Dose: Not Given Prochlorperazine Maleate (Compazine) 10 mg PO Q6H PRN PRN Reason: Nausea / Vomiting Senna (Senokot) 8.6 - 17.2 mg PO DAILY [facility] Last Admin: 08/10/17 08:41 Dose: Not Given Sodium Chloride (Normal Saline Flush 0.9%) 10 ml IVP PRN PRN PRN Reason: NEEDED PER PROVIDER ORDERS Last Admin: 08/10/17 05:56 Dose: 10 ml Sodium Chloride (Normal Saline Flush 0.9%) 10 ml IVP 0100,0900,1700 [facility] Last Admin: 08/10/17 08:41 Dose: Not Given Calcium Carbonate [Tums (Calcium Carbonate 500mg)] 1,000 mg PO TIDWM PRN Calcium Carbonate 600 mg PO DAILY 07/02/17 Cholecalciferol (Vitamin D3) [Vitamin D3] 4,000 unit PO DAILY 07/02/17 Acetaminophen [Tylenol] 650 mg PO Q6H PRN 08/05/17 Promethazine Sup [Phenergan Supp] 12.5 mg NC Q4H PRN 08/05/17 Prochlorperazine Maleate 10 mg PO Q6H PRN 08/06/17 Prochlorperazine Supp [Compazine Supp] 25 mg PO QPM PRN 08/06/17 Objective - Vital Signs/Intake & Output Vital Signs: Vital Signs x48h Temp Pulse Resp BP Pulse Ox 08/10/17 08:28 37.1 C 77 18 131/88 H 99 Intake & Output: Intake & Output 08/07/17 08/08/17 08/09/17 08/10/17 23:59 23:59 23:59 23:59 Intake Total 1239.599 0513.000 3101.667 1720.000 Output Total 600 3601 699 2243 Balance 1031.666 608.055 2679.667 -1680.000 - Objective General Appearance: positive: No acute distress, Alert. negative: Lethargic Eyes Bilateral: positive: Normal inspection, PERRL, No lid inflammation, Conjunctivae nml ENT: positive: ENT inspection nml, Pharynx nml, No signs of dehydration. negative: Purulent nasal drainage, Pharyngeal erythema, Oral lesions Neck: positive: Nml inspection, Thyroid nml, No JVD, Trachea midline. negative : Thyromegaly, Lymphadenopathy (R), Lymphadenopathy (L), Stiff neck, Carotid bruit, Swelling/bruising, Tracheal deviation Respiratory: positive: Chest non-tender, No respiratory distress, Breath sounds nml. negative: Wheezes, Rales, Rhonchi Cardiovascular: positive: Regular rate & rhythm, No murmur, No gallop. negative : Irregularly irregular, Extrasystoles, Tachycardia, Bradycardia, Systolic murmur, Diastolic murmur Peripheral Pulses: 2+ Radial (R), 2+ Radial (L), 2+ Dorsalis pedis (R), 2+ Dorsalis pedis (L) Abdomen: positive: No organomegaly, Nml bowel sounds, No distention, Tenderness. negative: Guarding, Rebound Back: positive: Nml inspection. negative: CVA tenderness (R), CVA tenderness (L ) Skin: positive: Color nml, No rash, Warm, Dry. negative: Cyanosis, Diaphoresis , Pallor Extremities: positive: Non-tender, Full ROM, Nml appearance. negative: Calf tenderness, Joint swelling, Chaparro's sign/cords Neurologic/Psychiatric: positive: Sensation nml, Mood/affect nml. negative: Sensory loss, Facial droop, Slurred/abnml speech, Depressed mood/affect - Lab Results Fish Bones: 08/10/17 05:37 08/10/17 05:37 Other Labs: Lab Results x24hrs 08/10/17 08/10/17 Range/Units 05:37 05:37 WBC 7.1 (4.8-10.8) x10^3/uL RBC 4.23 (4.20-5.40) 10^6/uL Hgb 12.2 (12.0-16.0) g/dL Hct 36.9 L (37.0-47.0) % MCV 87.4 (81.0-99.0) fL MCH 28.9 (27.0-31.0) pg MCHC 33.1 (32.0-36.0) g/dL RDW 15.2 H (12.0-15.0) % Plt Count 524 H (130-450) 10^3/uL MPV 7.1 L (7.9-10.8) fL Neut # 5.2 (1.5-6.6) 10^3/uL Lymph # 1.0 L (1.5-3.5) 10^3/uL [place] # 0.7 (0.0-1.0) 10^3/uL Eos # 0.0 (0.0-0.7) 10^3/uL Baso # 0.2 H (0.0-0.1) 10^3/uL Absolute Nucleated RBC 0.00 x10^3/uL Nucleated RBC % 0.0 /100WBC Manual Slide Review Indicated Platelet Estimate INCREASED (>450,000) (NORMAL) Platelet Morphology NORMAL APPEARANCE (NORMAL) RBC Morph Micro Appear 1+ HYPOCHROMASIA (NORMAL) Sodium 139 (135-145) mmol/L Potassium 3.1 L (3.5-5.0) mmol/L Chloride 108 (101-111) mmol/L Carbon Dioxide 23 (21-32) mmol/L Anion Gap 8.0 (6-13) BUN < 5 L (6-20) mg/dL Creatinine 0.5 (0.4-1.0) mg/dL Estimated GFR (MDRD) 128 (>89) Glucose 119 H (70-100) mg/dL Calcium 8.9 (8.5-10.3) mg/dL Total Bilirubin 0.8 (0.2-1.0) mg/dL AST 35 (10-42) IU/L ALT 48 (10-60) IU/L Alkaline Phosphatase 199 H (42-121) IU/L Total Protein 6.5 L (6.7-8.2) g/dL Albumin 3.0 L (3.2-5.5) g/dL Globulin 3.5 (2.1-4.2) g/dL Albumin/Globulin Ratio 0.9 L (1.0-2.2) Assessment/Plan - Problem List (1) Choledocholithiasis with acute cholecystitis Impression: (1) Choledocholithiasis with acute cholecystitis Impression: pt will have surgery on this afternoon, will follow up P/w upper abd pain + WBC 24k. CT abd/pelvis s/w acute cholecystitis, abd US revealed GB wall thickening and CBD 9mm with intra/extrahepatic ductal dilation. NPO, and given empiric antibiotics and WBC improved to 7 today. MRCP with improving cholecystitis. -Dr Mao following, appreciate his expertise -NPO for surgery tomorrow -Continue zosyn and flagyl (2) Pneumonia, ruled out Impression: continue zosyn and flagyl P/w SOB and concern for PE so CTA chest obtained. Revealed bilateral lower lobe consolidation, ?atelectasis, pneumonia. No cough or congestion and lungs clear now. I suspect more so atelectasis from abdominal pain inhibiting deep breathing. -ICS q1h -Zosyn and flagyl for GI issues will cover for CAP as well (3) GERD (gastroesophageal reflux disease) Impression: Epigastric pain, on tums and protonix at home. Pain worse 3/4 after skipping doses. -Switch protonix to IV (unable to swallow pills) -PRN maalox (4) Elevated LFTs Impression: improved, continue lab test monitor Overall improving, likely from congestion related to #1 -Trend 08/05/17 08/07/17 15:55 06:31 Total Bilirubin 1.6 H 2.4 H AST 158 H 40 ALT 150 H 91 H Alkaline Phosphatase 180 H 215 H (5) Cerebral palsy Impression: Chronic, WC bound since childhood. Stable. CT head obtained, [employer] shunt w/o complication. (6) Cancer Impression: Hx stage IIIB right breast cancer diagnosed in , underwent mastectomy and now undergoing systemic chemo. Complicated by neutropenia, treated with neurlasta. CT here revelaed NEW T12 sclerotic lesion concerning for metastasis. She also has chronic fundal mass and perianal mass (both possible malignancy as well.) -Follow-up with oncology
[2017-08-10] MEDS ORDERED: LACTATED RINGERS 1,000 ML IV ONE ×3 (16:06→17:18)
[2017-08-10] MEDS ORDERED: BUPIVACAINE 0.5% PF 10 ML VIAL IM ONE ×4 (16:28→16:31)
--- NOTE | 2017-08-10 18:33 | OPERATIVE REPORT ---
Operative Report - General Admit Date: 08/05/17 Procedure Date: 08/10/17 Planned Procedure: Laparoscopic cholecystectomy Pre-Op Diagnosis: Acute cholecystitis with choledocholithiasis Procedure Performed: Laparoscopic cholecystectomy with extensive adhesiolysis, non-standard Port placement, umbilical herniorrhaphy (Modifier 22 should be appended as procedure took over 2.5 hours to accomplish) Post Op Diagnosis: [place] adherent intra-hepatic gallbladder, umbilical hernia - Procedure Note Primary Surgeon: Nathaniel Mao MD Anesthesia Provider: Belen Evans CRNA Anesthesia Technique: General ET tube, Local (30 mL 1/2% marcaine) IV Fluids (mL): 1,200 Estimated Blood Loss (mL): 200 Complications: None. - Other Other Information/Narrative: OPERATIVE DESCRIPTION/REPORT: After verbal and written informed consent was obtained detailing the risks of infection, bleeding with all of its risks including transfusion, common bile duct injury, and the patient was brought to the operative suite and placed in the supine position on the operating room table. Monitoring devices were applied along with TEDs and pneumatic compressive stockings. Care was taken to avoid pressure points. Prophylactic antibiotics were given. An adequate level of general endotracheal anesthesia was established by Axel Evans. The abdomen was then prepped with ChloraPrep and draped in a sterile fashion. A "time in" then confirmed that the patient was identified with 3 identifiers (name, date and medical record number), the history and physical was in the chart, the signed consent confirming the procedure was in the chart, the patient was in the correct position, the aforementioned prophylactic measures were in place or given, we had the correct personnel and equipment to complete the procedure and that anesthesia, surgery and nursing were given an opportunity to express any concerns. The initial incision was at the umbilicus and dissection to the umbilical hernia sac was completed using sharp and blunt dissection. The hernia sac was excised using Bovie electrocautery. In this location, a 12 mm blunt tipped, balloon tipped port was placed and the balloon was inflated to keep the port in position. The abdominal cavity was insufflated with carbon dioxide to steady- state pressure of 12 mmHg. It was immediately apparent that this operation would not be able to be accomplished in the standard manner. Due to numerous previous operations for [employer] shunts and likely due to the extreme inflammation in the RUQ there were dense adhesions that prevented visualization. The only area that had no adhesions was the left upper quadrant. I placed a 5 mm port in the left upper quadrant under direct vision and without incident. This allowed me to see beyond the wall of adherent omentum that was between the umbilicus and the right upper quadrant. With a 30 scope I was able to take down some adhesions in the right upper quadrant and allow for placement of a 5 mm port in the subxiphoid position. With this port in place I was able to move the camera up to the left upper quadrant port and work through the subxiphoid port taking down additional adhesions on right upper quadrant until I could place 2 additional 5 mm ports in the standard subcostal positions in the right upper quadrant. At no time did I take down the wall of omentum between the umbilical port in the right upper quadrant as I could work around it. The patient was then placed in reverse Trendelenburg position and was rotated slightly to their left. There were dense adhesions to the gallbladder that could not be taken down by strict traction countertraction and stent had to be bovied to start an edge then used traction countertraction to enable me to see the gallbladder. Once I was able to see the fundus the gallbladder it was clear that the gallbladder was distended and that I would not be able to grasp it. Because of this I opted to drain the gallbladder for approximately 80 cc of clear light (very light) green bile. It did not smell like pus and it did not look like pus. I then grasped the fundus of the gallbladder but even with the drainage it was clear that the gallbladder was full of stones. Eventually, we identified the infundibulum, and this was then grasped and retracted inferior and laterally. During this retraction the gallbladder was inadvertently opened with the leakage of additional bile and stones. There were clearly hundreds of stones. Dissection was then begun in the angle of [place]. The cystic duct and (slightly laterally and posteriorly) cystic artery were clearly identified. The critical view was obtained. The cystic duct was quite large and short the common bile duct could clearly be seen. Due to the large size of the cystic duct I obtained the 10 mm clip minister and doubly clipped the cystic duct proximally and distally. When I transected the cystic duct a stone was present in the duct and fell out. The cystic artery was similarly controlled proximally and distally and transected with laparoscopic larry. The gallbladder was then removed from its fossa in a retrograde fashion using electrocautery as well as traction and countertraction. The gallbladder was intrahepatic and there was significant edema around it. This coupled with the large size of the gallbladder and the fact that it was full of stones made the dissection exceedingly difficult. With the 30 degree 5 mm scope in the subxiphoid position, the gallbladder was placed in an EndoCatch bag to be extracted through the 12 mm port site. I irrigated the right upper quadrant with a liter of warm sterile saline, and the area was aspirated dry. I inspected the gallbladder fossa and there was no bleeding or bile leak. Clips on the cystic duct and cystic artery appeared to be secure. I briefly visually explored the abdomen. There was no other evidence of overt pathology. I injected the port sites at the peritoneal, fascial, and skin levels under direct vision with 0.5% Marcaine. All ports and the EndoCatch containing the gallbladder were removed. Following gallbladder removal, the remaining carbon dioxide was expelled from the abdomen. The fascia at the umbilicus was reapproximated using 2 [id number] 0 Vicryl sutures. The skin at each port site was approximated using a subcuticular 4-0 Monocryl. The surgical count of instruments, needles and sponges was reported as correct twice. Mastisol, Steri-Strips and sterile surgical dressings were applied. The patient was then awakened from anesthesia, extubated, and having tolerated the procedure well, was transported to the recovery room. No complications were encountered. A "time out" confirmed the operation performed , the fluids given, the estimated blood loss and anesthesia, surgery and nursing were given an opportunity to express any concerns. Again a modifier 22 should be appended as this operation took over 2.5 hours and was particularly difficult.
[2017-08-10] MEDS ORDERED: PROPOFOL 200 MG/20 ML VIAL IVP ONE (18:35)
[2017-08-10] MEDS ORDERED: GLYCOPYRROLATE 1 MG/5 ML VIAL IVP ONE (18:35)
[2017-08-10] MEDS ORDERED: ePHEDrine 50 MG/ML AMP IVP ONE (18:35)
[2017-08-10] MEDS ORDERED: ROCURONIUM 50 MG/5 ML VIAL IVP ONE (18:35)
[2017-08-10] MEDS ORDERED: ONDANSETRON 4 MG/2 ML VIAL IVP ONE (18:35)
[2017-08-10] MEDS ORDERED: MIDAZOLAM 2 MG/2 ML VIAL IVP ONE (18:35)
[2017-08-10] MEDS ORDERED: fentaNYL 100 MCG/2 ML VIAL IVP ONE (18:35)
[2017-08-10] MEDS ORDERED: NEOSTIGMINE 1 MG/1 ML 10 ML MDV IVP ONE (18:35)
[2017-08-10] MEDS ORDERED: ESMOLOL 100 MG/10 ML VIAL IVP ONE (18:35)
[2017-08-10] MEDS ORDERED: SODIUM CHLORIDE FLUSH 0.9% 10 ML SYRINGE IVP PRN (19:04)
[2017-08-10 20:06] LABS: BASOPHILS % (AUTO) 1.1 %; LYMPHOCYTES % (AUTO) 2.8 %; MEAN CORPUSCULAR HEMOGLOBIN 28.9 pg (27.0-31.0); MEAN CORPUSCULAR HGB CONC 32.7 g/dL (32.0-36.0); MEAN CORPUSCULAR VOLUME 88.4 fL (81.0-99.0); MEAN PLATELET VOLUME 6.6 fL (7.9-10.8); MONOCYTES % (AUTO) 4.8 %; NEUTROPHILS % (AUTO) 91.3 %; PLT - PLATELET COUNT 553 10^3/uL (130-450); RED BLOOD COUNT 4.14 10^6/uL (4.20-5.40); RED CELL DISTRIBUTION WIDTH 15.1 % (12.0-15.0); WHITE BLOOD COUNT 22.8 x10^3/uL (4.8-10.8)
[2017-08-10 20:10] LABS: ABNORMAL LYMPHS % (MANUAL) 0 %; BAND NEUTROPHILS % (MANUAL) 0 %
[2017-08-10] MEDS: ACETAMINOPHEN 1,000 MG/100 ML 100 ML IV SCH (20:11)
[2017-08-10 20:27] LABS: ALBUMIN 2.9 g/dL (3.2-5.5); ALKALINE PHOSPHATASE 165 IU/L (42-121); ALT ALANINE AMINOTRANSFERASE 49 IU/L (10-60); AST ASPARTATE AMINOTRANSFERASE 61 IU/L (10-42); BILIRUBIN,TOTAL 0.6 mg/dL (0.2-1.0); BUN - BLOOD UREA NITROGEN < 5 mg/dL (6-20); CALCIUM 8.6 mg/dL (8.5-10.3); CARBON DIOXIDE - CO2 22 mmol/L (21-32); CHLORIDE 110 mmol/L (101-111); CREATININE 0.6 mg/dL (0.4-1.0); GFR - MDRD 104 (>89); GLUCOSE 123 mg/dL (70-100); SODIUM 140 mmol/L (135-145); TOTAL PROTEIN 5.9 g/dL (6.7-8.2)
[2017-08-10 20:46] LABS: LYMPHOCYTES # (MANUAL) 0.5 10^3/uL (1.5-3.5); LYMPHOCYTES % (MANUAL) 2 %; METAMYELOCYTES % (MANUAL) 1 %; MONOCYTES # (MANUAL) 0.7 10^3/uL (0.0-1.0); NEUTROPHILS # (MANUAL) 21.4 10^3/uL (1.5-6.6); NEUTROPHILS % (MANUAL) 94 %; PLATELET MORPHOLOGY 1+ GIANT PLATELETS (NORMAL); RBC MORPHOLOGY (MULTIPLE) NORMAL APPEARANCE (NORMAL)
[2017-08-10 20:47] LABS: DIFFERENTIAL COMMENT MANUAL DIFFERENTIAL; PLATELET ESTIMATE, MANUAL INCREASED (>450,000) (NORMAL)
[2017-08-10] MEDS ORDERED: POTASSIUM CHLORIDE 20 MEQ TABLET PO ONE (23:07)
[2017-08-10] MEDS: POTASSIUM CHLOR 10 MEQ/100 ML 10 MEQ/100 ML BAG IV SCH (23:45)
[2017-08-11] MEDS: POTASSIUM CHLOR 10 MEQ/100 ML 10 MEQ/100 ML BAG IV SCH (00:45)
[2017-08-11] MEDS: SODIUM CHLORIDE FLUSH 0.9% 10 ML SYRINGE IVP SCH ×6 (00:48→17:40)
[2017-08-11] MEDS: ACETAMINOPHEN 1,000 MG/100 ML 100 ML IV SCH ×4 (01:39→19:35)
[2017-08-11] MEDS: PIPERACILLIN/TAZOBACTAM 3.375 GM in SODIUM CHLORIDE 0.9% MINIBAG 100 ML IV SCH ×4 (01:56→19:54)
[2017-08-11] MEDS: metroNIDAZOLE 500 MG/100 ML 500 MG/100 ML BAG IV SCH ×4 (02:35→20:42)
[2017-08-11] MEDS: HYDROmorphone 1 MG/ML SYRINGE IVP PRN (05:38)
[2017-08-11 06:10] LABS: BASOPHILS # (AUTO) 0.1 10^3/uL (0.0-0.1); BASOPHILS % (AUTO) 0.7 %; HGB - HEMOGLOBIN 11.8 g/dL (12.0-16.0); LYMPHOCYTES # (AUTO) 0.9 10^3/uL (1.5-3.5); LYMPHOCYTES % (AUTO) 5.2 %; MEAN CORPUSCULAR HEMOGLOBIN 28.8 pg (27.0-31.0); MEAN CORPUSCULAR HGB CONC 32.3 g/dL (32.0-36.0); MEAN CORPUSCULAR VOLUME 89.2 fL (81.0-99.0); MONOCYTES # (AUTO) 1.3 10^3/uL (0.0-1.0); MONOCYTES % (AUTO) 7.5 %; NEUTROPHILS # (AUTO) 14.5 10^3/uL (1.5-6.6); NEUTROPHILS % (AUTO) 86.6 %; PLT - PLATELET COUNT 558 10^3/uL (130-450); RED CELL DISTRIBUTION WIDTH 15.3 % (12.0-15.0); WHITE BLOOD COUNT 16.8 x10^3/uL (4.8-10.8)
[2017-08-11] MEDS: PANTOPRAZOLE 40 MG VIAL IVP SCH (06:13)
[2017-08-11] MEDS: SODIUM CHLORIDE FLUSH 0.9% 10 ML SYRINGE IVP PRN (06:14)
[2017-08-11 06:27] LABS: ALBUMIN 2.9 g/dL (3.2-5.5); ALBUMIN/GLOBULIN RATIO 0.9 (1.0-2.2); ALKALINE PHOSPHATASE 152 IU/L (42-121); ALT ALANINE AMINOTRANSFERASE 48 IU/L (10-60); AST ASPARTATE AMINOTRANSFERASE 50 IU/L (10-42); BILIRUBIN,TOTAL 0.8 mg/dL (0.2-1.0); BUN - BLOOD UREA NITROGEN < 5 mg/dL (6-20); CALCIUM 8.7 mg/dL (8.5-10.3); CARBON DIOXIDE - CO2 23 mmol/L (21-32); CHLORIDE 107 mmol/L (101-111); CREATININE 0.5 mg/dL (0.4-1.0); GFR - MDRD 128 (>89); GLUCOSE 131 mg/dL (70-100); MAGNESIUM 1.7 mg/dL (1.7-2.8); PHOSPHORUS 3.4 mg/dL (2.5-4.6); SODIUM 140 mmol/L (135-145); TOTAL PROTEIN 6.2 g/dL (6.7-8.2)
[2017-08-11] MEDS: CALCIUM CARBONATE CHEW 500 MG TABLET PO SCH ×3 (08:02→21:19)
[2017-08-11] MEDS: POLYETHYLENE GLYCOL 3350 17 GM PACKET PO SCH (08:38)
[2017-08-11] MEDS: DOCUSATE SODIUM 250 MG CAPSULE PO SCH (08:38)
[2017-08-11] MEDS: SENNA 8.6 MG TABLET PO SCH (08:39)
[2017-08-11] MEDS: D5.45NS W/20 MEQ KCL 1,000 ML IV SCH (09:41)
--- NOTE | 2017-08-11 12:32 | PROVIDER PROGRESS NOTE ---
Subjective - Prog Note Date Prog Note Date: 08/11/17 - Subjective Pt reports feeling: Improved Subjective: pt state her upper right quadrant pain is much better. pt denies fever, chill, cough, chest pain, shortness of breath. Current Medications - Current Medications Current Medications: Active Medications Calcium Carbonate/Glycine (Tums) 500 mg PO TID [facility] Last Admin: 08/11/17 08:02 Dose: Not Given Calcium Carbonate/Glycine (Tums) 500 mg PO Q4H PRN PRN Reason: Heartburn Last Admin: 08/08/17 09:58 Dose: 500 mg Docusate Sodium (Colace 250mg Capsule) 250 - 500 mg PO DAILY [facility] Last Admin: 08/11/17 08:38 Dose: Not Given Hydromorphone HCl (Dilaudid Inj Syringe) 1 mg IVP Q2H PRN PRN Reason: PAIN Last Admin: 08/11/17 05:38 Dose: 1 mg Potassium Chloride/Dextrose/Sod Cl (D5.45ns W/20 Meq Kcl) 1,000 mls @ 100 mls/ hr IV .Q10H [facility] Last Infusion: 08/11/17 10:41 Dose: 100 mls/hr Piperacillin Sod/Tazobactam (Sod 3.375 gm/ Sodium Chloride) 100 mls @ 200 mls/ hr IV Q6H [facility] Last Infusion: 08/11/17 09:20 Dose: Infused Acetaminophen (Ofirmev) 100 mls @ 400 mls/hr IV Q6H [facility] Last Infusion: 08/11/17 08:38 Dose: Infused Metronidazole (Flagyl 500 Mg/100 Ml) 500 mg in 100 mls @ 100 mls/hr IV Q6H [facility] Last Infusion: 08/11/17 10:41 Dose: Infused Lorazepam (Ativan) 0.5 mg PO Q6H PRN PRN Reason: Nausea / Vomiting Multi-Ingredient Mouthwash/Gargle () 30 ml PO Q4H PRN PRN Reason: Heartburn Last Admin: 08/09/17 16:54 Dose: 30 ml Ondansetron HCl (Zofran Odt) 8 mg PO Q8H PRN PRN Reason: Nausea / Vomiting Ondansetron HCl (Zofran Inj) 4 mg IVP Q6HR PRN PRN Reason: Nausea / Vomiting Last Admin: 08/08/17 11:28 Dose: 4 mg Pantoprazole Sodium (Protonix) 40 mg IVP QDAC [facility] Last Admin: 08/11/17 06:13 Dose: 40 mg Polyethylene Glycol (Miralax) 17 gm PO DAILY [facility] Last Admin: 08/11/17 08:38 Dose: Not Given Prochlorperazine Maleate (Compazine) 10 mg PO Q6H PRN PRN Reason: Nausea / Vomiting Senna (Senokot) 8.6 - 17.2 mg PO DAILY [facility] Last Admin: 08/11/17 08:39 Dose: Not Given Sodium Chloride (Normal Saline Flush 0.9%) 10 ml IVP PRN PRN PRN Reason: NEEDED PER PROVIDER ORDERS Last Admin: 08/11/17 06:14 Dose: 10 ml Sodium Chloride (Normal Saline Flush 0.9%) 10 ml IVP 0100,0900,1700 [facility] Last Admin: 08/11/17 08:39 Dose: Not Given Sodium Chloride (Normal Saline Flush 0.9%) 10 ml IVP 0100,0900,1700 [facility] Last Admin: 08/11/17 08:39 Dose: Not Given Sodium Chloride (Normal Saline Flush 0.9%) 10 ml IVP PRN PRN PRN Reason: NEEDED PER PROVIDER ORDERS Calcium Carbonate [Tums (Calcium Carbonate 500mg)] 1,000 mg PO TIDWM PRN Calcium Carbonate 600 mg PO DAILY 07/02/17 Cholecalciferol (Vitamin D3) [Vitamin D3] 4,000 unit PO DAILY 07/02/17 Acetaminophen [Tylenol] 650 mg PO Q6H PRN 08/05/17 Promethazine Sup [Phenergan Supp] 12.5 mg OR Q4H PRN 08/05/17 Prochlorperazine Maleate 10 mg PO Q6H PRN 08/06/17 Prochlorperazine Supp [Compazine Supp] 25 mg PO QPM PRN 08/06/17 Objective - Vital Signs/Intake & Output Vital Signs: Vital Signs x48h Temp Pulse Resp BP Pulse Ox 08/11/17 09:00 36.9 C 75 20 105/60 98 Intake & Output: Intake & Output 08/08/17 08/09/17 08/10/17 08/11/17 23:59 23:59 23:59 23:59 Intake Total 2360.000 3101.667 3090.000 2100 Output Total 4796 031 4054 800 Balance 897.044 0800.667 -7883.913 7093 - Objective General Appearance: positive: No acute distress, Alert. negative: Lethargic Eyes Bilateral: positive: Normal inspection, PERRL, No lid inflammation, Conjunctivae nml ENT: positive: ENT inspection nml, Pharynx nml, No signs of dehydration. negative: Purulent nasal drainage, Pharyngeal erythema, Oral lesions Neck: positive: Nml inspection, Thyroid nml, No JVD, Trachea midline. negative : Thyromegaly, Lymphadenopathy (R), Lymphadenopathy (L), Stiff neck, Carotid bruit, Swelling/bruising, Tracheal deviation Respiratory: positive: Chest non-tender, No respiratory distress, Breath sounds nml. negative: Wheezes, Rales, Rhonchi Cardiovascular: positive: Regular rate & rhythm, No murmur, No gallop. negative : Irregularly irregular, Extrasystoles, Tachycardia, Bradycardia, Systolic murmur, Diastolic murmur Peripheral Pulses: 2+ Radial (R), 2+ Radial (L), 2+ Dorsalis pedis (R), 2+ Dorsalis pedis (L) Abdomen: positive: Non-tender, No organomegaly, Nml bowel sounds, No distention. negative: Tenderness, Guarding, Rebound Back: positive: Nml inspection. negative: CVA tenderness (R), CVA tenderness (L ) Skin: positive: Color nml, No rash, Warm, Dry. negative: Cyanosis, Diaphoresis , Pallor Extremities: positive: Non-tender, Full ROM, Nml appearance. negative: Calf tenderness, Joint swelling, Chaparro's sign/cords Neurologic/Psychiatric: positive: Sensation nml. negative: Sensory loss, Facial droop, Slurred/abnml speech, Depressed mood/affect - Lab Results Fish Bones: 08/11/17 05:31 08/11/17 05:31 Other Labs: Lab Results x24hrs 08/11/17 08/11/1718 Range/Units 05:31 05:31 20:01 WBC 16.8 H (4.8-10.8) x10^3/uL RBC 4.10 L (4.20-5.40) 10^6/uL Hgb 11.8 L (12.0-16.0) g/dL Hct 36.5 L (37.0-47.0) % MCV 89.2 (81.0-99.0) fL MCH 28.8 (27.0-31.0) pg MCHC 32.3 (32.0-36.0) g/dL RDW 15.3 H (12.0-15.0) % Plt Count 558 H (130-450) 10^3/uL MPV 7.0 L (7.9-10.8) fL Neut # 14.5 H Lymph # 0.9 L [place] # 1.3 H Eos # 0.0 Baso # 0.1 Absolute Nucleated RBC 0.01 Total Counted Band Neuts % (Manual) (0 - 10) % Abnorm Lymph % (Manual) % Metamyelocytes % ( - 0) % Nucleated RBC % 0.0 Neutrophils # (Manual) (1.5-6.6) 10^3/uL Lymphocytes # (Manual) (1.5-3.5) 10^3/uL Monocytes # (Manual) (0.0-1.0) 10^3/uL Eosinophils # (Manual) (0-0.7) 10^3/uL Basophils # (Manual) (0-0.1) 10^3/uL Differential Comment Platelet Estimate (NORMAL) Platelet Morphology (NORMAL) RBC Morph Micro Appear (NORMAL) Sodium 140 140 (135-145) mmol/L Potassium 3.5 3.1 L (3.5-5.0) mmol/L Chloride 107 110 (101-111) mmol/L Carbon Dioxide 23 22 (21-32) mmol/L Anion Gap 10.0 8.0 (6-13) BUN < 5 L < 5 L (6-20) mg/dL Creatinine 0.5 0.6 (0.4-1.0) mg/dL Estimated GFR (MDRD) 128 104 (>89) Glucose 131 H 123 H (70-100) mg/dL Calcium 8.7 8.6 (8.5-10.3) mg/dL Ionized Calcium NO Phosphorus 3.4 (2.5-4.6) mg/dL Magnesium 1.7 (1.7-2.8) mg/dL Total Bilirubin 0.8 0.6 (0.2-1.0) mg/dL AST 50 H 61 H (10-42) IU/L ALT 48 49 (10-60) IU/L Alkaline Phosphatase 152 H 165 H (42-121) IU/L Total Protein 6.2 L 5.9 L (6.7-8.2) g/dL Albumin 2.9 L 2.9 L (3.2-5.5) g/dL Globulin 3.3 3.0 (2.1-4.2) g/dL Albumin/Globulin Ratio 0.9 L 1.0 (1.0-2.2) 08/10/17 Range/Units 20:01 WBC 22.8 H (4.8-10.8) x10^3/uL RBC 4.14 L (4.20-5.40) 10^6/uL Hgb 12.0 (12.0-16.0) g/dL Hct 36.6 L (37.0-47.0) % MCV 88.4 (81.0-99.0) fL MCH 28.9 (27.0-31.0) pg MCHC 32.7 (32.0-36.0) g/dL RDW 15.1 H (12.0-15.0) % Plt Count 553 H (130-450) 10^3/uL MPV 6.6 L (7.9-10.8) fL Neut # Not Reportable Lymph # Not Reportable [place] # Not Reportable Eos # Not Reportable Baso # Not Reportable Absolute Nucleated RBC Not Reportable Total Counted 100 Band Neuts % (Manual) 0 (0 - 10) % Abnorm Lymph % (Manual) 0 % Metamyelocytes % 1 H ( - 0) % Nucleated RBC % Not Reportable Neutrophils # (Manual) 21.4 H (1.5-6.6) 10^3/uL Lymphocytes # (Manual) 0.5 L (1.5-3.5) 10^3/uL Monocytes # (Manual) 0.7 (0.0-1.0) 10^3/uL Eosinophils # (Manual) 0.0 (0-0.7) 10^3/uL Basophils # (Manual) 0.0 (0-0.1) 10^3/uL Differential Comment MANUAL DIFFERENTIAL Platelet Estimate INCREASED (>450,000) (NORMAL) Platelet Morphology 1+ GIANT PLATELETS (NORMAL) RBC Morph Micro Appear NORMAL APPEARANCE (NORMAL) Sodium (135-145) mmol/L Potassium (3.5-5.0) mmol/L Chloride (101-111) mmol/L Carbon Dioxide (21-32) mmol/L Anion Gap (6-13) BUN (6-20) mg/dL Creatinine (0.4-1.0) mg/dL Estimated GFR (MDRD) (>89) Glucose (70-100) mg/dL Calcium (8.5-10.3) mg/dL Ionized Calcium Phosphorus (2.5-4.6) mg/dL Magnesium (1.7-2.8) mg/dL Total Bilirubin (0.2-1.0) mg/dL AST (10-42) IU/L ALT (10-60) IU/L Alkaline Phosphatase (42-121) IU/L Total Protein (6.7-8.2) g/dL Albumin (3.2-5.5) g/dL Globulin (2.1-4.2) g/dL Albumin/Globulin Ratio (1.0-2.2) Assessment/Plan - Problem List (1) Choledocholithiasis with acute cholecystitis Impression: (1) Choledocholithiasis with acute cholecystitis Impression: status post day one after surgery. pt tolerate the procedure well. pt state her pain is much better. pt tolerate the diet well WBC decrease to 16.8 from 23, alkaline phosphate decrease to 152. discuss with surgeon, plan to be d/c to [facility] tomorrow pt will have surgery on this afternoon, will follow up P/w upper abd pain + WBC 24k. CT abd/pelvis s/w acute cholecystitis, abd US revealed GB wall thickening and CBD 9mm with intra/extrahepatic ductal dilation. NPO, and given empiric antibiotics and WBC improved to 7 today. MRCP with improving cholecystitis. -Dr Mao following, appreciate his expertise -NPO for surgery tomorrow -Continue zosyn and flagyl (2) Pneumonia, ruled out Impression: no fever, chill, cough, SOB continue antibiotics plan D/C tomorrow with antibiotics oral continue zosyn and flagyl P/w SOB and concern for PE so CTA chest obtained. Revealed bilateral lower lobe consolidation, ?atelectasis, pneumonia. No cough or congestion and lungs clear now. I suspect more so atelectasis from abdominal pain inhibiting deep breathing. -ICS q1h -Zosyn and flagyl for GI issues will cover for CAP as well (3) GERD (gastroesophageal reflux disease) Impression: no new complains continue protonix IV and PRN Maalox Epigastric pain, on tums and protonix at home. Pain worse 3/4 after skipping doses. -Switch protonix to IV (unable to swallow pills) -PRN maalox (4) Elevated LFTs Impression: great improved after procedure continue monitor improved, continue lab test monitor Overall improving, likely from congestion related to #1 -Trend 08/05/17 08/07/17 15:55 06:31 Total Bilirubin 1.6 H 2.4 H AST 158 H 40 ALT 150 H 91 H Alkaline Phosphatase 180 H 215 H (5) Cerebral palsy Impression: Chronic, WC bound since childhood. Stable. CT head obtained, [employer] shunt w/o complication. (6) Cancer Impression: Hx stage IIIB right breast cancer diagnosed in , underwent mastectomy and now undergoing systemic chemo. Complicated by neutropenia, treated with neurlasta. CT here revelaed NEW T12 sclerotic lesion concerning for metastasis. She also has chronic fundal mass and perianal mass (both possible malignancy as well.) -Follow-up with oncology
--- NOTE | 2017-08-11 12:39 | PROVIDER PROGRESS NOTE ---
Subjective - General Admit Date: 08/05/17 Procedure Date: 08/10/17 Post Op Days: 1 Procedure Performed: Laparoscopic cholecystectomy with extensive adhesiolysis and umbilical perry - Review of Systems Wound/Incisions: positive: Dressing dry and intact General: positive: No symptoms (Patient is hungry and wants to be advanced to regular diet.), Other (Improved with less pain.) HEENT: positive: No symptoms Pulmonary: positive: No symptoms Cardiovascular: positive: No symptoms Gastrointestinal: positive: No symptoms, Abdominal pain (Minimal now patient describes it as much worse last night.). negative: Nausea, Vomiting, Difficulty swallowing Skin: positive: No symptoms Psychiatric: positive: No symptoms All Other Systems: positive: Reviewed and negative Objective - Patient Data Reviewed Vital Signs: Yes Vital Signs: Vital Signs x48h Temp Pulse Resp BP Pulse Ox 08/11/17 09:00 36.9 C 75 20 105/60 98 Intake & Output: Intake and Output Totals x24h 08/09/17 08/10/17 08/11/17 23:59 23:59 23:59 Intake Total 3101.667 3090.000 2100 Output Total 500 4550 800 Balance 2601.667 -1453.178 5144 - Lab Results Lab Results: 08/11/17 05:31 08/11/17 05:31 Other Lab Results: Lab Results x24hrs 08/11/17 08/11/17 08/10/17 Range/Units 05:31 05:31 20:01 WBC 16.8 H (4.8-10.8) x10^3/uL RBC 4.10 L (4.20-5.40) 10^6/uL Hgb 11.8 L (12.0-16.0) g/dL Hct 36.5 L (37.0-47.0) % MCV 89.2 (81.0-99.0) fL MCH 28.8 (27.0-31.0) pg MCHC 32.3 (32.0-36.0) g/dL RDW 15.3 H (12.0-15.0) % Plt Count 558 H (130-450) 10^3/uL MPV 7.0 L (7.9-10.8) fL Neut # 14.5 H Lymph # 0.9 L [place] # 1.3 H Eos # 0.0 Baso # 0.1 Absolute Nucleated RBC 0.01 Total Counted Band Neuts % (Manual) (0 - 10) % Abnorm Lymph % (Manual) % Metamyelocytes % ( - 0) % Nucleated RBC % 0.0 Neutrophils # (Manual) (1.5-6.6) 10^3/uL Lymphocytes # (Manual) (1.5-3.5) 10^3/uL Monocytes # (Manual) (0.0-1.0) 10^3/uL Eosinophils # (Manual) (0-0.7) 10^3/uL Basophils # (Manual) (0-0.1) 10^3/uL Differential Comment Platelet Estimate (NORMAL) Platelet Morphology (NORMAL) RBC Morph Micro Appear (NORMAL) Sodium 140 140 (135-145) mmol/L Potassium 3.5 3.1 L (3.5-5.0) mmol/L Chloride 107 110 (101-111) mmol/L Carbon Dioxide 23 22 (21-32) mmol/L Anion Gap 10.0 8.0 (6-13) BUN < 5 L < 5 L (6-20) mg/dL Creatinine 0.5 0.6 (0.4-1.0) mg/dL Estimated GFR (MDRD) 128 104 (>89) Glucose 131 H 123 H (70-100) mg/dL Calcium 8.7 8.6 (8.5-10.3) mg/dL Ionized Calcium NO Phosphorus 3.4 (2.5-4.6) mg/dL Magnesium 1.7 (1.7-2.8) mg/dL Total Bilirubin 0.8 0.6 (0.2-1.0) mg/dL AST 50 H 61 H (10-42) IU/L ALT 48 49 (10-60) IU/L Alkaline Phosphatase 152 H 165 H (42-121) IU/L Total Protein 6.2 L 5.9 L (6.7-8.2) g/dL Albumin 2.9 L 2.9 L (3.2-5.5) g/dL Globulin 3.3 3.0 (2.1-4.2) g/dL Albumin/Globulin Ratio 0.9 L 1.0 (1.0-2.2) 08/10/17 Range/Units 20:01 WBC 22.8 H (4.8-10.8) x10^3/uL RBC 4.14 L (4.20-5.40) 10^6/uL Hgb 12.0 (12.0-16.0) g/dL Hct 36.6 L (37.0-47.0) % MCV 88.4 (81.0-99.0) fL MCH 28.9 (27.0-31.0) pg MCHC 32.7 (32.0-36.0) g/dL RDW 15.1 H (12.0-15.0) % Plt Count 553 H (130-450) 10^3/uL MPV 6.6 L (7.9-10.8) fL Neut # Not Reportable Lymph # Not Reportable [place] # Not Reportable Eos # Not Reportable Baso # Not Reportable Absolute Nucleated RBC Not Reportable Total Counted 100 Band Neuts % (Manual) 0 (0 - 10) % Abnorm Lymph % (Manual) 0 % Metamyelocytes % 1 H ( - 0) % Nucleated RBC % Not Reportable Neutrophils # (Manual) 21.4 H (1.5-6.6) 10^3/uL Lymphocytes # (Manual) 0.5 L (1.5-3.5) 10^3/uL Monocytes # (Manual) 0.7 (0.0-1.0) 10^3/uL Eosinophils # (Manual) 0.0 (0-0.7) 10^3/uL Basophils # (Manual) 0.0 (0-0.1) 10^3/uL Differential Comment MANUAL DIFFERENTIAL Platelet Estimate INCREASED (>450,000) (NORMAL) Platelet Morphology 1+ GIANT PLATELETS (NORMAL) RBC Morph Micro Appear NORMAL APPEARANCE (NORMAL) Sodium (135-145) mmol/L Potassium (3.5-5.0) mmol/L Chloride (101-111) mmol/L Carbon Dioxide (21-32) mmol/L Anion Gap (6-13) BUN (6-20) mg/dL Creatinine (0.4-1.0) mg/dL Estimated GFR (MDRD) (>89) Glucose (70-100) mg/dL Calcium (8.5-10.3) mg/dL Ionized Calcium Phosphorus (2.5-4.6) mg/dL Magnesium (1.7-2.8) mg/dL Total Bilirubin (0.2-1.0) mg/dL AST (10-42) IU/L ALT (10-60) IU/L Alkaline Phosphatase (42-121) IU/L Total Protein (6.7-8.2) g/dL Albumin (3.2-5.5) g/dL Globulin (2.1-4.2) g/dL Albumin/Globulin Ratio (1.0-2.2) - Current Medications Current Medications: Current Medications Generic Name Dose Route Start Last Admin Trade Name Freq PRN Reason Stop Dose Admin Calcium Carbonate/Glycine 500 mg 08/07/17 22:00 08/11/17 08:02 Tums PO Not Given TID [facility] Calcium Carbonate/Glycine 500 mg 08/07/17 17:33 08/08/17 09:58 Tums PO 500 mg Q4H PRN Administration Heartburn Docusate Sodium 250 - 500 mg 08/09/17 09:00 08/11/17 08:38 Colace 250mg Capsule PO Not Given DAILY [facility] Hydromorphone HCl 1 mg 08/05/17 23:45 08/11/17 05:38 Dilaudid Inj Syringe IVP 1 mg Q2H PRN Administration PAIN Potassium Chloride/Dextrose/Sod Cl 1,000 mls @ 100 mls/hr 08/05/17 21:00 12/22 10:41 D5.45ns W/20 Meq Kcl IV 100 mls/hr .Q10H [facility] Infusion Piperacillin Sod/Tazobactam 100 mls @ 200 mls/hr 08/06/17 07:00 08/11/17 09: 20 Sod 3.375 gm/ Sodium Chloride IV Infused Q6H [facility] Infusion Acetaminophen 100 mls @ 400 mls/hr 08/10/17 20:00 08/11/17 08:38 Ofirmev IV Infused Q6H [facility] Infusion Metronidazole 500 mg in 100 mls @ 100 mls/hr 08/10/17 21:00 08/11/17 10:41 Flagyl 500 Mg/100 Ml IV Infused Q6H [facility] Infusion Multi-Ingredient Mouthwash/Gargle 30 ml 08/07/17 17:34 08/09/17 16:54 PO 30 ml Q4H PRN Administration Heartburn Ondansetron HCl 4 mg 08/07/17 02:29 08/08/17 11:28 Zofran Inj IVP 4 mg Q6HR PRN Administration Nausea / Vomiting Pantoprazole Sodium 40 mg 08/08/17 12:00 08/11/17 06:13 Protonix IVP 40 mg QDAC [facility] Administration Polyethylene Glycol 17 gm 08/06/17 09:00 08/11/17 08:38 Miralax PO Not Given DAILY [facility] Senna 8.6 - 17.2 mg 08/09/17 09:00 08/11/17 08:39 Senokot PO Not Given DAILY [facility] Sodium Chloride 10 ml 08/05/17 20:17 08/11/17 06:14 Normal Saline Flush 0.9% IVP 10 ml PRN PRN Administration NEEDED PER PROVIDER ORDERS Sodium Chloride 10 ml 08/06/17 01:00 08/11/17 08:39 Normal Saline Flush 0.9% IVP Not Given 0100,0900,1700 [facility] Sodium Chloride 10 ml 08/11/17 01:00 08/11/17 08:39 Normal Saline Flush 0.9% IVP Not Given 0100,0900,1700 [facility] - Physical Exam Wound/Incisions: positive: Dressing dry and intact General Appearance: positive: Other (Losing her hair in clumps as an effect of the chemotherapy.) Eyes Bilateral: positive: No lid inflammation, Conjunctivae nml, No scleral icterus Neck: positive: Trachea midline Respiratory: positive: Chest non-tender, No respiratory distress, Breath sounds nml Cardiovascular: positive: Regular rate & rhythm Abdomen: positive: Nml bowel sounds, Tenderness (Incisional as well as some generalized pain.) Skin: positive: Other (Slightly pasty but likely secondary to chemotherapy.) Neurologic/Psychiatric: positive: Oriented x3 Impression/Plan - Problem List Problem List: D1 s/p laparoscopic cholecystectomy (with need for altered port placement) extensive adhesiolysis and umbilical herniorrhaphy 1) FEN Start general diet. 2) ID Considering the amount of inflammation and adhesions as well as the spillage of stones, the patient is at increased risk for infection. Will stop antibiotics today and watch for fever. 3) DVT Continue prophylaxis.
[2017-08-12] MEDS: D5.45NS W/20 MEQ KCL 1,000 ML IV SCH ×2 (00:25→03:03)
[2017-08-12] MEDS: SODIUM CHLORIDE FLUSH 0.9% 10 ML SYRINGE IVP SCH ×4 (00:29→08:15)
[2017-08-12] MEDS: HYDROmorphone 1 MG/ML SYRINGE IVP PRN ×3 (00:29→10:24)
[2017-08-12] MEDS: PIPERACILLIN/TAZOBACTAM 3.375 GM in SODIUM CHLORIDE 0.9% MINIBAG 100 ML IV SCH ×3 (01:23→13:32)
[2017-08-12] MEDS: ACETAMINOPHEN 1,000 MG/100 ML 100 ML IV SCH ×3 (02:25→14:10)
[2017-08-12] MEDS: metroNIDAZOLE 500 MG/100 ML 500 MG/100 ML BAG IV SCH ×2 (03:01→08:45)
[2017-08-12] MEDS: PANTOPRAZOLE 40 MG VIAL IVP SCH (06:12)
[2017-08-12] MEDS: CALCIUM CARBONATE CHEW 500 MG TABLET PO SCH ×2 (06:12→13:32)
[2017-08-12] MEDS: SODIUM CHLORIDE FLUSH 0.9% 10 ML SYRINGE IVP PRN ×2 (06:13→06:30)
[2017-08-12 06:16] LABS: BASOPHILS # (AUTO) 0.2 10^3/uL (0.0-0.1); BASOPHILS % (AUTO) 1.4 %; EOSINOPHILS % (AUTO) 0.2 %; HGB - HEMOGLOBIN 10.2 g/dL (12.0-16.0); LYMPHOCYTES # (AUTO) 1.1 10^3/uL (1.5-3.5); LYMPHOCYTES % (AUTO) 9.9 %; MEAN CORPUSCULAR HEMOGLOBIN 28.9 pg (27.0-31.0); MEAN CORPUSCULAR HGB CONC 32.7 g/dL (32.0-36.0); MEAN CORPUSCULAR VOLUME 88.3 fL (81.0-99.0); MEAN PLATELET VOLUME 6.7 fL (7.9-10.8); MONOCYTES # (AUTO) 1.2 10^3/uL (0.0-1.0); MONOCYTES % (AUTO) 10.6 %; NEUTROPHILS # (AUTO) 8.6 10^3/uL (1.5-6.6); NEUTROPHILS % (AUTO) 77.9 %; PLT - PLATELET COUNT 489 10^3/uL (130-450); RED BLOOD COUNT 3.52 10^6/uL (4.20-5.40); RED CELL DISTRIBUTION WIDTH 15.3 % (12.0-15.0); WHITE BLOOD COUNT 11.1 x10^3/uL (4.8-10.8)
[2017-08-12 06:29] LABS: ALBUMIN 2.5 g/dL (3.2-5.5); ALBUMIN/GLOBULIN RATIO 0.9 (1.0-2.2); ALKALINE PHOSPHATASE 108 IU/L (42-121); ALT ALANINE AMINOTRANSFERASE 36 IU/L (10-60); AST ASPARTATE AMINOTRANSFERASE 26 IU/L (10-42); BILIRUBIN,TOTAL 0.7 mg/dL (0.2-1.0); BUN - BLOOD UREA NITROGEN < 5 mg/dL (6-20); CALCIUM 8.4 mg/dL (8.5-10.3); CARBON DIOXIDE - CO2 22 mmol/L (21-32); CHLORIDE 111 mmol/L (101-111); CREATININE 0.5 mg/dL (0.4-1.0); GFR - MDRD 128 (>89); GLUCOSE 106 mg/dL (70-100); MAGNESIUM 1.7 mg/dL (1.7-2.8); PHOSPHORUS 3.2 mg/dL (2.5-4.6); SODIUM 140 mmol/L (135-145); TOTAL PROTEIN 5.3 g/dL (6.7-8.2)
[2017-08-12] MEDS: SENNA 8.6 MG TABLET PO SCH (08:05)
[2017-08-12] MEDS: DOCUSATE SODIUM 250 MG CAPSULE PO SCH (08:05)
[2017-08-12] MEDS: POLYETHYLENE GLYCOL 3350 17 GM PACKET PO SCH (08:05)
--- NOTE | 2017-08-12 08:51 | Discharge Plan ---
Discharge Plan Disposition: 03 DC/Xfer Condition: Stable Prescriptions: Amox/Clav 875/125 [Augmentin] 1 each PO Q12H #6 tablet Diet: Regular Activity Restrictions: Activity as Tolerated Shower Restrictions: No Weight Bearing: Full Weight Instruction Topics: Amoxicillin Clavulanic Acid tablets Additional Instructions or Follow Up instructions: May see PCP in 2-3 days, see Surgeon Dr. Nathaniel Mao in one week, follow up oncologist as out-pt. Should symptoms return or worsen, present to ER or call 911 for help. Follow-Up Care: Dietitian No Smoking: If you smoke, Please STOP! Call for help. Follow-up with: Patricia Pack MD [Primary Care Provider] -
--- NOTE | 2017-08-12 10:29 | Discharge Plan ---
"Discharge Plan for SNF / CUSTODIAL - DC Plan and Transition Orders Disposition: 03 SNF DC/Xfer Condition: Stable SNF Transition Orders: Admit to: [[facility]] under the care of [Doctor Patricia Pack] Discharge Diagnosis: [choledocholithiasis with acute cholecystitis, Pneumonia, Cerebral palsy, Cancer ] Medicare Certification: I certify that Post Hospital snf care is medically necessary on a continuing basis for any of the conditions for which she/he is receiving care during hospitalization. Notify PCP of admission and forward orders to primary provider for signature. Weight on admission and [70 kg]. Call PCP immediately if weight increases by [4 ] pounds or if patient develops dyspnea, chest pain/tightness or edema. House Bowel Program: [Yes] If no BM after 2 days, nurse may give M.O.M. 30ml PO PRN and /or ducolax Supp 1 [place] and /or PANDA 250mg P.O., and/or senna 1-2 tabs PO. On day 3 nurse may give repeat above order until residents constipation is resolved. Immunizations: Annual Influenza Vaccine: [Yes]. (between Feb 05 and September 04.) Unless allergy or already given Two-Step PPD: [Yes] per [facility] 248-235 or appropriate documentation of approved exceptions Treatments & Other Orders: [May See PCP in 2-3 days, see surgeon Dr. Nathaniel Mao in one week, see Oncologist as the schedule] Oxygen Orders: [n] Lab Tests or X-Rays Orders: [n] Orthopedic Orders: [n]. Medications: PLEASE REFER TO THE DISCHARGE MEDICATION LIST. Insulin Orders? [No] Diagnosis: Diabetes Initiate hypo and hyperglycemia protocols for BG <70 and BG >375. May check BG prn for signs/symptoms of dysglycemia. Frequency of BG checks: [AC/Meal/HS] Basal Insulin: [] Lantus 100 units / ml inject subq as follows: [] [] Other: [] Correction Insulin: - Select the type of insulin below [Choose: Novolog/Humalog]100 units /ml insulin inject subq per orders indicate below [] LOW DOSE [] MODERATE DOSE [] MODERATE/HIGH DOSE [] HIGH DOSE GB UNITS GB UNITS GB UNITS GB UNITS 61-140 0 UNITS 61-140 0 UNITS 61-140 0 UNITS 61-140 0 UNITS 141-175 1 UNITS 141-175 1 UNITS 141-175 2 UNITS 141-175 3 UNITS 176-225 2 UNITS 176-225 3 UNITS 176-225 4 UNITS 176-225 5 UNITS 226-275 3 UNITS 226-275 5 UNITS 226-275 6 UNITS 226-275 7 UNITS 276-325 4 UNITS 276-325 7 UNITS 276-325 8 UNITS 276-325 9 UNITS 326-375 5 UNITS 326-375 9 UNITS 326-375 10 UNITS 326-375 11 UNITS >375 CONTACT MD >375 CONTACT MD >375 CONTACT MD >375 CONTACT MD Custom Dosing: [Choose: None/Novolog/Humalog] 100 units/ml Insulin inject subq as follows: GB Units 61-140 [] Units 141-175 [] Units 176-225 [] Units 226-275 [] Units 276-325 []Units 326-375 [] Units >375 Contact MD Allergies and Adverse Reactions: Allergies Allergy/AdvReac Type Severity Reaction Status Date / Time No Known Drug Allergies Allergy Verified 07/02/17 13:11 - Medications New Prescriptions: Amox/Clav 875/125 [Augmentin] 1 each PO Q12H #6 tablet - Diet Type: Geriatric Texture: Regular Liquids: Thin May have monthly special meal: Yes - Therapies | Activity Rehabilitation Potential: Maximize functional status Activity: Activity as Tolerated Additional Instructions: May see PCP in 2-3 days, see Surgeon Dr. Nathaniel Mao in one week, follow up oncologist as out-pt. Should symptoms return or worsen, present to ER or call 911 for help."
--- NOTE | 2017-08-12 10:53 | DISCHARGE SUMMARY ---
"Discharge Summary Discharge Date: 08/12/17 Discharging Provider: RAVI Primary Care Provider: Patricia Montgoemry Condition at Discharge: Stable Discharge Disposition: SNF DC/Xfer Discharge Facility Name: [facility] - DIAGNOSES Admission Diagnoses: (1) Cholecystitis (2) Breast cancer (3) Chronic back pain (4) Anxiety Discharge Diagnoses with Status of Each Condition: (1) Choledocholithiasis with acute cholecystitis pt had Laparoscopic cholecystectomy with extensive adhesiolysis and umbilical perry, will follow up surgeon in one week (2) Pneumonia Room air with Sat of O2 at 98%, no fever, chill, cough, shortness of breath at d /c. continue antibiotics Augmentin course (3) GERD (gastroesophageal reflux disease) stable, continue home meds regime (4) Elevated LFTs resolved (5) Cerebral palsy stable (6) Cancer see oncologist as out-pt - HPI History of Present Illness: refer from Dr. Garcia' HPI on 08/05/17 as the following: Ms. Kim Tran is a pleasant 57-year-old female with multiple medical issues including cerebral palsy and breast cancer. She has been having upper abdominal pain and shortness of breath and so came to the [facility][1] emergency department where she was found to have white blood cell count of 24, 000 and subsequent testing found the patient having acute cholecystitis. She will be admitted to medical surgical bed and given IV antibiotics and her comorbidities will be treated as well. - CONSULTS | PROCEDURES Consultations: Dr. Mao Procedures: Laparoscopic cholecystectomy - HOSPITAL COURSE Hospital Course: Pt was admitted for upper abdominal pain and shortness of breath. Pt was then found to have acute cholecystitis and basilar pneumonia. Pt was treated with antibiotic. Surgeon was consulted. Pt then had Laparoscopic cholecystectomy with extensive adhesiolysis and umbilical perry. After procedure, pt can tolerate the regular diet, upper abdominal pain was well controlled. Pt has Sat of O2 at 98% at room air, no fever, chill, cough, shortness of breath. Pt's vital is stable, and d/c to [facility]. - ALLERGIES Allergies/Adverse Reactions: Allergies Allergy/AdvReac Type Severity Reaction Status Date / Time No Known Drug Allergies Allergy Verified 07/02/17 13:11 - MEDICATIONS Home Medications: Ambulatory Orders Medication Instructions Recorded Confirmed Calcium Carbonate [Tums (Calcium 1,000 mg PO TIDWM PRN 04/02/17 08/06/17 Carbonate 500mg)] Omeprazole [PriLOSEC] 20 mg PO DAILY #1 capsule 06/17/17 08/06/17 Ondansetron [Zofran Odt] 8 mg PO Q8H PRN #30 tab.rapdis 06/17/17 08/06/17 Calcium Carbonate 600 mg PO DAILY 07/02/17 08/06/17 Cholecalciferol (Vitamin D3) 4,000 unit PO DAILY 07/02/17 08/06/17 [Vitamin D3] Acetaminophen [Tylenol] 650 mg PO Q6H PRN 08/05/17 08/06/17 Promethazine Sup [Phenergan Supp] 12.5 mg [place] Q4H PRN 08/05/17 08/06/17 Prochlorperazine Maleate 10 mg PO Q6H PRN 08/06/17 08/06/17 Prochlorperazine Supp [Compazine 25 mg PO QPM PRN 08/06/17 08/06/17 Supp] Amox/Clav 875/125 [Augmentin] 1 each PO Q12H #6 tablet 08/12/17 - PHYSICAL EXAM AT DISCHARGE General Appearance: positive: No acute distress, Alert. negative: Lethargic Eyes Bilateral: positive: Normal inspection, PERRL, No lid inflammation, Conjunctivae nml ENT: positive: ENT inspection nml, Pharynx nml, No signs of dehydration. negative: Purulent nasal drainage, Pharyngeal erythema, Oral lesions Neck: positive: Nml inspection, Thyroid nml, No JVD, Trachea midline. negative : Thyromegaly, Lymphadenopathy (R), Lymphadenopathy (L), Stiff neck, Carotid bruit, Swelling/bruising, Tracheal deviation Respiratory: positive: Chest non-tender, No respiratory distress, Breath sounds nml. negative: Wheezes, Rales, Rhonchi Cardiovascular: positive: Regular rate & rhythm, No murmur, No gallop. negative : Irregularly irregular, Extrasystoles, Tachycardia, Bradycardia, Systolic murmur, Diastolic murmur Peripheral Pulses: positive: 2+ Abdomen: positive: Non-tender, No organomegaly, Nml bowel sounds, No distention. negative: Tenderness, Guarding, Rebound Back: positive: Nml inspection. negative: CVA tenderness (R), CVA tenderness (L ) Skin: positive: Color nml, No rash, Warm, Dry. negative: Cyanosis, Diaphoresis , Pallor Extremities: positive: Non-tender, Nml appearance. negative: Calf tenderness, Joint swelling, Chaparro's sign/cords Neurologic/Psychiatric: positive: Sensation nml, Mood/affect nml. negative: Sensory loss, Facial droop, Slurred/abnml speech, Depressed mood/affect - LABS Result Diagrams: 08/12/17 06:01 08/12/17 06:01 - FOLLOW UP Follow Up: May see Dr. Vicente at arrival to [facility], see surgeon Dr. Nathaniel Mao in one week, see Oncologist as the schedule - TIME SPENT Time Spent in Discharge (Minutes): 45"
[2017-08-12 12:52] VITALS: BP 112/96
== END 2017-08-12 14:55 | DRG 417 ==
LOC: EDSEX → EDUNIT# → ED 15:33 → MS2 20:17
PROVIDERS: ADMIT Hospitalist; ATTEND Nurse Practitioner Gerontology
PROC: 0FT44ZZ Resection of Gallbladder, Percutaneous Endoscopic Approach (ICD-10-PCS; principal; 2017-08-12)
DX: K81.9 Cholecystitis, unspecified (principal); K80.42 Calculus of bile duct with acute cholecystitis without obstruction; J18.9 Pneumonia, unspecified organism; J98.11 Atelectasis; K80.00 Calculus of gallbladder with acute cholecystitis without obstruction; G91.9 Hydrocephalus, unspecified; C77.9 Secondary and unspecified malignant neoplasm of lymph node, unspecified; C79.9 Secondary malignant neoplasm of unspecified site; G80.9 Cerebral palsy, unspecified; K66.0 Peritoneal adhesions (postprocedural) (postinfection); K82.8 Other specified diseases of gallbladder; K42.9 Umbilical hernia without obstruction or gangrene; C50.911 Malignant neoplasm of unspecified site of right female breast; K21.9 Gastro-esophageal reflux disease without esophagitis; K44.9 Diaphragmatic hernia without obstruction or gangrene; R32 Unspecified urinary incontinence; F41.9 Anxiety disorder, unspecified; G89.29 Other chronic pain; M54.9 Dorsalgia, unspecified; M89.9 Disorder of bone, unspecified; N85.9 Noninflammatory disorder of uterus, unspecified; K62.9 Disease of anus and rectum, unspecified; R79.89 Other specified abnormal findings of blood chemistry; H54.7 Unspecified visual loss; Z98.2 Presence of cerebrospinal fluid drainage device; Z79.899 Other long term (current) drug therapy; Z87.891 Personal history of nicotine dependence; Z90.11 Acquired absence of right breast and nipple
CPT/HCPCS: 36415; 70450; 71275; 74177; 74181; 76705; 80048; 80053; 83605; 83690; 83735; 84100; 84484; 85025; 85610; 87040; 93005; 94667; 96361; 96365; 96375; 99284; 99285

== ENCOUNTER 2018-01-19 16:42 | Outpatient (CLI) | payer MEDICARE, MEDICAID | END 2018-01-19 16:43 | disposition critical access hospital (66) | LOC: EMS 16:42 | PROVIDERS: ATTEND Surgery | DX: R50.9 Fever, unspecified (principal) ==

== ENCOUNTER 2018-01-19 16:49 | Emergency (ER) | payer MEDICARE, MEDICAID ==
--- NOTE | 2018-01-19 17:36 | ED Physician Documentation ---
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 She does not know if she might be neutropenic. She has been vomiting today.) Review of Systems Ten Systems: 10 systems reviewed and negative Constitutional: reports: Fever. denies: Chills Cardiac: denies: Chest pain / pressure, Palpitations Respiratory: reports: Dyspnea, Cough GI: reports: Vomiting. denies: Abdominal Pain PD PAST MEDICAL HISTORY - Past Medical History Cardiovascular: None Respiratory: None Endocrine/Autoimmune: Other GI: GERD : Incontinence HEENT: Chronic vision loss Psych: Anxiety Musculoskeletal: Chronic back pain, Other Derm: Other - Past Surgical History Past Surgical History: Yes General: Colonoscopy Ortho: Other Neuro: STUDIO TECHNICIAN VIDEO OPERATOR shunt - Present Medications Home Medications: Ambulatory Orders Medication Instructions Recorded Confirmed Calcium Carbonate [Tums (Calcium 1,000 mg PO TIDWM PRN 04/02/17 01/17/18 Carbonate 500mg)] Omeprazole [PriLOSEC] 20 mg PO DAILY #1 capsule 06/17/17 01/17/18 Ondansetron [Zofran Odt] 8 mg PO Q8H PRN #30 tab.rapdis 06/17/17 01/17/18 Calcium Carbonate [Calcium] 600 mg PO DAILY 07/02/17 01/17/18 Cholecalciferol (Vitamin D3) 4,000 unit PO DAILY 07/02/17 01/17/18 [Vitamin D3] Acetaminophen [Tylenol] 650 mg PO Q6H PRN 08/05/17 01/17/18 Promethazine Sup [Phenergan Supp] 12.5 mg [place] Q4H PRN 08/05/17 01/17/18 Ciprofloxacin HCl [Cipro] 500 mg PO BID #20 tablet 01/19/18 - Allergies Allergies/Adverse Reactions: Allergies Allergy/AdvReac Type Severity Reaction Status Date / Time No Known Drug Allergies Allergy Verified 01/19/18 17:00 - Social History Does the pt smoke?: Yes Smoking Status: Current every day smoker Does the pt drink ETOH?: Yes Does the pt have substance abuse?: No - Family History Family history: reports: Non contributory - Immunizations Immunizations are current?: No - POLST Patient has POLST: No POLST Status: Full Code PD ED PE NORMAL - Vitals Vital signs reviewed: Yes - General General: Alert and oriented X 3, No acute distress - HEENT HEENT: PERRL, EOMI (With nystagmus from cerebral palsy) - Neck Neck: Supple, no meningeal sign, No bony TTP - Cardiac Cardiac: RRR, No murmur - Respiratory Respiratory: No respiratory distress, Clear bilaterally - Abdomen Abdomen: Normal bowel sounds, Soft, Non tender - Back Back: No CVA TTP, No spinal TTP - Derm Derm: Normal color, Warm and dry - Extremities Extremities: No edema, No calf tenderness / cord - Neuro Neuro: Alert and oriented X 3, Normal speech - Psych Psych: Normal mood, Normal affect Results - Vitals Vitals: Vital Signs - 24 hr 01/19/18 01/19/18 01/19/18 16:55 18:56 20:19 Temperature 36.7 C 36.6 C 36.7 C Heart Rate 97 117 H 113 H Respiratory 18 20 18 Rate Blood Pressure 125/109 H 146/94 H 106/80 O2 Saturation 97 99 96 Oxygen O2 Source Room air - Labs Labs: Laboratory Tests 01/19/18 01/19/18 01/19/18 17:38 17:38 17:44 WBC 4.3 L RBC 3.67 L Hgb 11.3 L Hct 32.8 L MCV 89.5 MCH 30.8 MCHC 34.3 RDW 16.3 H Plt Count 415 MPV 7.0 L Neut # (Auto) 3.2 Lymph # (Auto) 0.8 L Mobile # (Auto) 0.2 Eos # (Auto) 0.0 Baso # (Auto) 0.1 Absolute Nucleated RBC 0.01 Nucleated RBC % 0.2 Sodium 138 Potassium 3.5 Chloride 104 Carbon Dioxide 23 Anion Gap 11.0 BUN 12 Creatinine 0.6 Estimated GFR (MDRD) 104 Glucose 112 H Lactic Acid 2.0 Calcium 9.5 Total Bilirubin 0.8 AST 35 ALT 33 Alkaline Phosphatase 74 Total Protein 7.1 Albumin 3.7 Globulin 3.4 Albumin/Globulin Ratio 1.1 Lipase 30 Urine Color Urine Clarity Urine pH Ur Specific [place] Urine Protein Urine Glucose (UA) Urine Ketones Urine Occult Blood Urine Nitrite Urine Bilirubin Urine Urobilinogen Ur Leukocyte Esterase Urine RBC Urine WBC Urine WBC Clumps Ur Squamous Epith Cells Urine Bacteria Ur Microscopic Review Urine Culture Comments 01/19/18 20:20 WBC RBC Hgb Hct MCV MCH MCHC RDW Plt Count MPV Neut # (Auto) Lymph # (Auto) Mobile # (Auto) Eos # (Auto) Baso # (Auto) Absolute Nucleated RBC Nucleated RBC % Sodium Potassium Chloride Carbon Dioxide Anion Gap BUN Creatinine Estimated GFR (MDRD) Glucose Lactic Acid Calcium Total Bilirubin AST ALT Alkaline Phosphatase Total Protein Albumin Globulin Albumin/Globulin Ratio Lipase Urine Color YELLOW Urine Clarity CLOUDY Urine pH 7.0 Ur Specific [place] <=1.005 Urine Protein NEGATIVE Urine Glucose (UA) NEGATIVE Urine Ketones NEGATIVE Urine Occult Blood TRACE-INTA Urine Nitrite NEGATIVE Urine Bilirubin NEGATIVE Urine Urobilinogen 0.2 (NORMAL) Ur Leukocyte Esterase LARGE H Urine RBC 11-25 H Urine WBC >25 H Urine WBC Clumps PRESENT Ur Squamous Epith Cells NONE SEEN Urine Bacteria Many H Ur Microscopic Review INDICATED Urine Culture Comments INDICATED - Rads (name of study) 2v chest Radiology: EMP read contemporaneously (NAD) PD MEDICAL DECISION MAKING - ED course ED course: 57-year-old with cerebral palsy, but normal mental status and on treatment for breast cancer presents with fever. She is not neutropenic and source is found to be urinary tract infection. She was vomiting initially here but had good response to IV Phenergan and felt well enough to go home. She was administered Rocephin here. - Sepsis Event Vital Signs: Vital Signs - 24 hr 01/19/18 01/19/18 01/19/18 16:55 18:56 20:19 Temperature 36.7 C 36.6 C 36.7 C Heart Rate 97 117 H 113 H Respiratory 18 20 18 Rate Blood Pressure 125/109 H 146/94 H 106/80 O2 Saturation 97 99 96 Oxygen O2 Source Room air Departure - Departure Disposition: 01 Home, Self Care Clinical Impression: Cerebral palsy Qualifiers: Cerebral palsy type: unspecified type Qualified Code(s): G80.9 - Cerebral palsy , unspecified Breast cancer Qualifiers: Breast location: unspecified site of breast Estrogen receptor status: unspecified Patient sex: female Laterality: unspecified laterality Qualified Code(s): C50.919 - Malignant neoplasm of unspecified site of unspecified female breast Fever Qualifiers: Fever type: due to other condition Qualified Code(s): R50.81 - Fever presenting with conditions classified elsewhere UTI (urinary tract infection) Qualifiers: Urinary tract infection type: acute pyelonephritis Qualified Code(s): N10 - Acute pyelonephritis Condition: Good Record reviewed to determine appropriate education?: Yes Instructions: ED Kidney Infec Female Prescriptions: Ciprofloxacin HCl [Cipro] 500 mg PO BID #20 tablet Comments: We will culture your urine, the results should be done in 48-72 hours. If an antibiotic change is necessary we will call you. Return if worse in the meantime, especially if you develop increasing flank pain, fevers, or cannot keep down the medication.
[2018-01-19 17:58] LABS: BASOPHILS # (AUTO) 0.1 10^3/uL (0.0-0.1); BASOPHILS % (AUTO) 1.4 %; EOSINOPHILS % (AUTO) 0.7 %; HGB - HEMOGLOBIN 11.3 g/dL (12.0-16.0); LYMPHOCYTES # (AUTO) 0.8 10^3/uL (1.5-3.5); LYMPHOCYTES % (AUTO) 18.7 %; MEAN CORPUSCULAR HEMOGLOBIN 30.8 pg (27.0-31.0); MEAN CORPUSCULAR HGB CONC 34.3 g/dL (32.0-36.0); MEAN CORPUSCULAR VOLUME 89.5 fL (81.0-99.0); MONOCYTES # (AUTO) 0.2 10^3/uL (0.0-1.0); MONOCYTES % (AUTO) 5.5 %; NEUTROPHILS # (AUTO) 3.2 10^3/uL (1.5-6.6); NEUTROPHILS % (AUTO) 73.7 %; PLT - PLATELET COUNT 415 10^3/uL (130-450); RED BLOOD COUNT 3.67 10^6/uL (4.20-5.40); RED CELL DISTRIBUTION WIDTH 16.3 % (12.0-15.0); WHITE BLOOD COUNT 4.3 x10^3/uL (4.8-10.8)
[2018-01-19 18:02] LABS: ALBUMIN 3.7 g/dL (3.2-5.5); ALBUMIN/GLOBULIN RATIO 1.1 (1.0-2.2); BILIRUBIN,TOTAL 0.8 mg/dL (0.2-1.0); CALCIUM 9.5 mg/dL (8.5-10.3); CREATININE 0.6 mg/dL (0.4-1.0); TOTAL PROTEIN 7.1 g/dL (6.7-8.2)
[2018-01-19] MEDS ORDERED: ONDANSETRON 4 MG/2 ML VIAL IVP STA (18:08)
--- NOTE | 2018-01-19 18:59 | XRAY Report ---
Procedure Date: 01/19/2018 Accession Number: [id number] / [id number] Procedure: XR - Chest 2 View X-Ray CPT Code: 31033 FULL RESULT: EXAM: CHEST RADIOGRAPHY EXAM DATE: 01/19/2018 06:21 PM. CLINICAL HISTORY: Cough and fever. On chemotherapy for breast cancer. COMPARISON: CHEST 1 VIEW 07/06/2017 9:35 AM. TECHNIQUE: 2 views. FINDINGS: Lungs/Pleura: No focal opacities evident. No pleural effusion. No pneumothorax. Normal volumes. Mediastinum: Normal heart size or technique. Moderate bilateral hernia. Withdrawal left subclavian line, tip now at the superior SVC. Other: No bony abnormalities identified. IMPRESSION: 1. Clear lungs. 2. Normal heart size. 3. Left subclavian central line pulled back, tip at the superior SVC. RADIA
[2018-01-19] MEDS ORDERED: PROMETHAZINE INJ 12.5 MG in SODIUM CHLORIDE 0.9% 50 ML IV STA (19:37)
[2018-01-19 20:20] VITALS: BP 106/80
[2018-01-19 20:24] LABS: BILIRUBIN,URINE NEGATIVE (NEGATIVE); GLUCOSE, URINE (UA) NEGATIVE (NEGATIVE); KETONES,URINE (UA) NEGATIVE (NEGATIVE); LEUKOCYTE ESTERASE, URINE LARGE (NEGATIVE); NITRITE,URINE NEGATIVE (NEGATIVE); OCCULT BLOOD,URINE TRACE-INTA (NEGATIVE); PROTEIN,URINE NEGATIVE (NEGATIVE); UROBILINOGEN,URINE 0.2 (NORMAL) E.U./dL (NORMAL)
[2018-01-19 20:34] LABS: CLARITY,URINE CLOUDY (CLEAR)
[2018-01-19 20:37] LABS: BACTERIA,URINE Many /HPF (None Seen); SQUAMOUS EPITHELIAL CELL,UR NONE SEEN (<= Few); WBC CLUMPS,URINE PRESENT
[2018-01-19] MEDS ORDERED: cefTRIAXone 1 GM in SODIUM CHLORIDE 0.9% MINIBAG 100 ML IV STA (20:47)
== END 2018-01-19 22:09 | disposition home or self-care (01) ==
LOC: EDUNIT# → ED 16:49
DX: G80.9 Cerebral palsy, unspecified (principal); C50.919 Malignant neoplasm of unspecified site of unspecified female breast; R50.81 Fever presenting with conditions classified elsewhere; N10 Acute pyelonephritis; F17.200 Nicotine dependence, unspecified, uncomplicated; Z92.21 Personal history of antineoplastic chemotherapy; Z98.2 Presence of cerebrospinal fluid drainage device
CPT/HCPCS: 71046; 80053; 81001; 83605; 83690; 85025; 87040; 87086; 96365; 96366; 96375; 99283; J7040; 36415; 81003; 87077; 87181

== ENCOUNTER 2018-01-19 22:17 | Outpatient (CLI) | payer MEDICARE, MEDICAID | END 2018-01-19 22:18 | disposition home or self-care (01) | LOC: EMS 22:17 | PROVIDERS: ATTEND Surgery | DX: N39.0 Urinary tract infection, site not specified (principal); R50.9 Fever, unspecified; G81.90 Hemiplegia, unspecified affecting unspecified side; G80.9 Cerebral palsy, unspecified | CPT/HCPCS: A0425; A0428; A0429 ==

== ENCOUNTER 2018-04-18 10:28 | Outpatient (CLI) | payer MEDICARE, MEDICAID ==
[2018-04-18] MEDS ORDERED: IOPAMIDOL-300 100 ML VIAL ONE (10:38)
[2018-04-18] MEDS ORDERED: IOVERSOL 320 50 ML VIAL ONE (10:38)
[2018-04-18] MEDS ORDERED: IOPAMIDOL-300 100 ML VIAL IVP ONE (14:40)
[2018-04-18] MEDS ORDERED: IOVERSOL 320 50 ML VIAL PO ONE (14:40)
--- NOTE | 2018-04-20 15:57 | CT Report ---
Reason: PERSONAL HISTORY OF MALIGNANT NEOPLASM OF BREAST Procedure Date: 04/18/2018 Accession Number: [id number] / [id number] Procedure: CT - Abdomen/Pelvis W/ CPT Code: FULL RESULT: EXAM: CT ABDOMEN AND PELVIS EXAM DATE: 04/18/2018 12:10 PM. CLINICAL HISTORY: Personal history of malignant neoplasm of breast. COMPARISONS: Abdomen and pelvis with contrast 08/05/2017 5:40 PM. Abdomen and pelvis with contrast 03/24/2017 9:09 AM. TECHNIQUE: Routine helical CT imaging was performed through the abdomen and pelvis. IV contrast: Isovue-300 100 mL. Enteric contrast: No. Reconstructions: Coronal and sagittal. In accordance with CT protocol optimization, one or more of the following dose reduction techniques were utilized for this exam: automated exposure control, adjustment of mA and/or KV based on patient size, or use of iterative reconstructive technique. FINDINGS: Lung Bases: Unremarkable. Liver: Normal. No masses. Gallbladder/Bile Ducts: Surgically absent. No biliary ductal dilatation. Spleen: Normal. Pancreas: Normal. Adrenal Glands: Normal. Kidneys: Normal. No masses or hydronephrosis. Peritoneal Cavity/Bowel: Normal. No free fluid, free air or adenopathy. No masses or acute inflammatory process. Appendix is not well demonstrated. Pelvic Organs: There is a stable complex oval mass of the uterus which is directed into the left pelvis. Mass measures roughly 7 x 6 x 6 cm and contains faint peripheral calcification central soft tissue density surrounded by a rind of low density. Urinary bladder and cervix appear normal. There is a stable, smoothly marginated, circumferential soft tissue density mass with internal calcifications around the low rectum above the anal verge measuring roughly 8 x 7 x 8 cm. Vasculature: No aneurysms or other significant abnormality. Bones: 20 mm sclerotic lesion of the left T12 vertebral body new since 2017 unchanged since 08/05/2017. Other: The rectum is mildly distended by stool above the circumferential mass. There are operative changes of prior right mastectomy incompletely included. IMPRESSION: 1. Stable complex density mass of the uterus as described. Imaging stability favors an indolent process perhaps a complex degenerated fibroid. 2. Stable circumferential smoothly marginated soft tissue mass around the low rectum of uncertain etiology and significance. Again, imaging stability favors an indolent process. 3. Stable complex sclerotic lesion of T12 could indicate metastasis. RADIA
== END 2018-04-18 10:29 | disposition home or self-care (01) ==
LOC: DI 10:28
PROVIDERS: ATTEND Obstetrics & Gynecology
DX: N85.9 Noninflammatory disorder of uterus, unspecified (principal); K62.9 Disease of anus and rectum, unspecified; M89.9 Disorder of bone, unspecified
CPT/HCPCS: 74177; Q9967

== ENCOUNTER 2018-06-27 12:49 | Outpatient (CLI) | payer MEDICARE, MEDICAID ==
--- NOTE | 2018-06-28 08:59 | Mammography Report ---
Reason: RT BREAST CANCER MASTECTOMY Procedure Date: 06/27/2018 Accession Number: [id number] / [id number] Procedure: SANJAY - Screening Mammo Dig LT CPT Code: FULL RESULT: EXAM: Screening Mammo Dig LT DATE: 06/27/2018 2:15 PM CLINICAL HISTORY: Screening encounter. Personal history of right breast cancer status post mastectomy with chemoradiation. TECHNIQUE: Left CC, laterally exaggerated CC and MLO views were obtained. Technique and positioning a limited by the patient's limited range of motion and mobility. COMPARISON: 02/11/2017. FINDINGS: The left breast demonstrates scattered fibroglandular densities. A central venous access port is partially imaged. No suspicious masses, clustered microcalcifications, or regions of architectural distortion are identified. IMPRESSION: Benign findings RECOMMENDATION: Routine annual screening unless otherwise clinically indicated. BIRADS CATEGORY 2: Benign findings STANDARD QUALIFYING STATEMENTS: 1. This examination was not reviewed with the aid of Computer-Aided Detection (CAD). 2. A negative or benign imaging report should not preclude biopsy if clinically suspicious findings are present. 3. Dense breasts may obscure an underlying neoplasm. 4. This examination was reviewed without the aid of 3D breast imaging (tomosynthesis).
== END 2018-06-27 12:50 | disposition home or self-care (01) ==
LOC: DI 12:49
PROVIDERS: ATTEND Internal Medicine Hematology & Oncology
DX: Z12.31 Encounter for screening mammogram for malignant neoplasm of breast (principal); Z85.3 Personal history of malignant neoplasm of breast; Z90.11 Acquired absence of right breast and nipple

== ENCOUNTER 2018-07-12 08:39 | Day surgery (SDC) | payer MEDICARE, MEDICAID ==
[~2018-07-12 08:39] MED LIST changes: +BUPIVACAINE 0.5% PF 30 ML VIAL ONE; -ceFAZolin 2 GM/50 ML 2 GM/50 ML BAG IV ONE
[2018-07-12] MEDS ORDERED: ceFAZolin 2 GM/50 ML 2 GM/50 ML BAG IV ONE (08:47)
[2018-07-12] MEDS ORDERED: LACTATED RINGERS 1,000 ML IV ONE (09:31)
--- NOTE | 2018-07-12 09:42 | ANESTHESIA ---
Pre-Anesthesia VS, & Labs - Diagnosis Portacath - Procedure Portacath removal Vital Signs: Temp Pulse Resp BP Pulse Ox 37.8 C H 111 H 18 124/97 H 96 07/12/18 09:12 07/12/18 09:12 07/12/18 09:12 07/12/18 09:12 07/12/18 09:12 Height 5 ft 2 in Weight (kg) 73 kg Body Mass Index 29.6 - NPO >8 hours - Is Patient ?: No Home Medications and Allergies Home Medications: Ambulatory Orders Famotidine 20 mg PO DAILY 07/08/18 Calcium Carbonate [Tums (Calcium Carbonate 500mg)] 1,000 mg PO TIDWM PRN 04/02/17 Calcium Carbonate [Calcium] 600 mg PO DAILY 07/02/17 Cholecalciferol (Vitamin D3) [Vitamin D3] 4,000 unit PO DAILY 07/02/17 Acetaminophen [Tylenol] 650 mg PO Q6H PRN 08/05/17 Anastrozole 1 tab PO DAILY 04/12/18 Famotidine 20 mg PO DAILY 07/08/18 Allergies/Adverse Reactions: Allergies Allergy/AdvReac Type Severity Reaction Status Date / Time No Known Drug Allergies Allergy Verified 01/19/18 17:00 Anes History & Medical History - Anesthetic History Anesthesia Complications: reports: No previous complications - Medical History Cardiovascular: reports: None Pulmonary: reports: None Gastrointestinal: reports: GERD (poorly controlled) Urinary: reports: Incontinence Neuro: reports: Cerebral palsy, Other (history of hydrocephalus. S/P STICKER OPERATOR shunt) Musculoskeletal: reports: Osteoarthritis, Osteopenia, Chronic back pain, Other Endocrine/Autoimmune: reports: None Blood Disorders: reports: None Skin: Smoking Status: Former smoker (quit 2004) Psychosocial: denies: Psychoactive Drug Other Past Medical History: History of metastatic breast cancer - Surgical History General: Cholecystectomy, Colonoscopy Neurologic: STICKER OPERATOR shunt Orthopedic: Other Exam General: Alert, Oriented x3, Cooperative, No acute distress Dental: WNL Mouth Openin Fingerbreadth Neck Mobility: Normal Mallampati classification: II Thyromental Distance: 4-6 cm Respiratory: Rhonchi (Left side > Right side), Other (cough) Cardiovascular: Other (tachycardia) Mental/Cognitive Status: Alert/Oriented X3, Normal for patient Plan Anesthesia Type: MAC (Will get CXR for cough/fever and rhonchi. Ok to proceed with MAC anesthesia.) Consent for Procedure(s) Verified and Reviewed: Yes Code Status: Attempt Resuscitation ASA classification: 2-Mild systemic disease Is this case an emergency?: No
--- NOTE | 2018-07-12 10:20 | XRAY Report ---
Reason: Cough/fever Procedure Date: 07/12/2018 Accession Number: [id number] / [id number] Procedure: XR - Chest 2 View X-Ray CPT Code: 29431 FULL RESULT: EXAM: CHEST RADIOGRAPHY EXAM DATE: 07/12/2018 10:08 AM. CLINICAL HISTORY: Cough/fever. COMPARISON: Chest 2 view 01/19/2018 6:21 PM. TECHNIQUE: 2 views. FINDINGS: Lungs/Pleura: No focal opacities evident. No pleural effusion. No pneumothorax. Normal volumes. Mediastinum: Heart and mediastinal contours are unremarkable. Other: Stable appearance of left-sided Port-A-Cath through a subclavian approach tip in the mid SVC. COMMUNICATIONS ENGINEERING TECHNICIAN shunt tubing overlies the left chest. Stable moderate to large hiatal hernia. IMPRESSION: No infiltrates. Stable exam findings as detailed above. RADIA
[2018-07-12] MEDS ORDERED: BUPIVACAINE 0.5% PF 30 ML VIAL INFIL ONE ×2 (10:39)
[2018-07-12] MEDS ORDERED: HYDROcod/ACETAM 5/325 MG TABLET PO PRN (10:51)
[2018-07-12] MEDS ORDERED: ONDANSETRON 4 MG/2 ML VIAL IVP PRN (10:51)
[2018-07-12] MEDS ORDERED: HYDROmorphone 0.5 MG/0.5 ML SYRINGE IVP PRN (10:51)
--- NOTE | 2018-07-12 10:54 | OPERATIVE REPORT ---
Operative Report - General Procedure Date: 07/12/18 Planned Procedure: Port-A-Cath removal Pre-Op Diagnosis: Port-A-Cath Procedure Performed: Port-A-Cath removal (Could not be removed in my office due to patient size, lack of mobility, and lack of manpower in my office to safely move the patient) Post Op Diagnosis: Same - Procedure Note Primary Surgeon: Nathaniel Mao MD Anesthesia Provider: Horacio Sheppard CRNA Anesthesia Technique: Local (30 mL of half percent Marcaine), MAC IV Fluids (mL): 200 Estimated Blood Loss (mL): 1 Drain/Tube Type: Other (None.) Complications: None. - Other Other Information/Narrative: OPERATIVE DESCRIPTION/REPORT: After verbal and written informed consent was obtained detailing the risks of infection, bleeding requiring transfusion with its risks, nerve injury, and , and after I met with the patient confirming the surgery and the site of the surgery, the patient was brought to the operative suite and placed supine on the operating table. Great care was taken to avoid pressure points to prevent pressure necrosis or nerve injury. Monitoring devices were applied along with TEDs and pneumatic compressive stockings (to prevent DVT). The patient received preoperative antibiotics for surgical prophylaxis. Horacio Sheppard CRNA sedated and anesthetized the patient for the entire procedure. The patient was prepped and draped in the usual sterile manner. With the patient draped my initials were clearly visible. A "time in" then confirmed that the patient was identified with 3 identifiers (name, date and medical record number), the history and physical was in the chart, the signed consent confirming the procedure was in the chart, the patient was in the correct position, the aforementioned prophylactic measures were in place or given, we had the correct personnel and equipment to complete the procedure and that anesthesia, surgery and nursing were given an opportunity to express any concerns. With the agreement of everyone in the room, we proceeded with the operation. With the patient adequately sedated, the subclavian region was anesthetized using % marcaine. I cut down to the port, excised the sutures holding it in place, opened the cavity holding the port in place and removed it while holding pressure at the junction of the subclavian vein and the clavicle. After 5 minutes I released the pressure. Meticulous hemostasis was obtained with Bovie electrocautery and the subcutaneous tissues were approximated using interrupted 3-0 Vicryl sutures. The skin incision was approximated with a running 4-0 subcuticular Monocryl. The remaining local was injected at the skin and subcutaneous levels for long-term anesthetic control. The skin prep was washed off and a dressing was placed on the wound. All surgical counts were reported as correct. Having tolerated the procedure well, the patient was taken to recovery room in good and stable condition. [email or web address] disclaimer: This document was created in part using voice recognition technology. Because of the inherent limitations of the system ([employer]'s [employer] user manual states that the licensee understands that speech recognition is a statistical p rocess and that recognition errors are inherent in the process), occasional same sounding word substitutions and grammatical errors do occur and persist despite proofreading. Please read this document for context.
[2018-07-12] MEDS ORDERED: fentaNYL 100 MCG/2 ML VIAL IVP ONE (11:00)
[2018-07-12] MEDS ORDERED: MIDAZOLAM 2 MG/2 ML VIAL IVP ONE (11:00)
[2018-07-12 11:19] VITALS: BP 116/83
== END 2018-07-12 08:40 | disposition home or self-care (01) ==
LOC: SDS 08:39
PROVIDERS: ATTEND Surgery
PROC: 0JPT0WZ Removal of Totally Implantable Vascular Access Device from Trunk Subcutaneous Tissue and Fascia, Open Approach (ICD-10-PCS; principal; 2018-07-12 10:00)
DX: Z45.2 Encounter for adjustment and management of vascular access device (principal); Z99.3 Dependence on wheelchair; C50.911 Malignant neoplasm of unspecified site of right female breast; Z87.891 Personal history of nicotine dependence; G80.9 Cerebral palsy, unspecified
CPT/HCPCS: 36590; 71046; J0690; J7120

== ENCOUNTER 2018-08-15 08:00 | Outpatient (CLI) | payer MEDICARE, MEDICAID ==
[2018-08-15 00:35] LABS: BASOPHILS % (AUTO) 1.2 %; EOSINOPHILS % (AUTO) 0.3 %; HGB - HEMOGLOBIN 12.1 g/dL (12.0-16.0); LYMPHOCYTES # (AUTO) 0.6 10^3/uL (1.5-3.5); LYMPHOCYTES % (AUTO) 15.4 %; MEAN CORPUSCULAR HEMOGLOBIN 27.5 pg (27.0-31.0); MEAN CORPUSCULAR HGB CONC 33.9 g/dL (32.0-36.0); MEAN CORPUSCULAR VOLUME 81.2 fL (81.0-99.0); MEAN PLATELET VOLUME 7.2 fL (7.9-10.8); MONOCYTES # (AUTO) 0.4 10^3/uL (0.0-1.0); MONOCYTES % (AUTO) 9.5 %; NEUTROPHILS % (AUTO) 73.6 %; PLT - PLATELET COUNT 213 10^3/uL (130-450); RED CELL DISTRIBUTION WIDTH 15.3 % (12.0-15.0)
[2018-08-15 00:42] LABS: ALBUMIN 3.2 g/dL (3.2-5.5); ALBUMIN/GLOBULIN RATIO 0.9 (1.0-2.2); BILIRUBIN,TOTAL 0.7 mg/dL (0.2-1.0); CALCIUM 8.9 mg/dL (8.5-10.3); CREATININE 0.6 mg/dL (0.4-1.0); MAGNESIUM 2.1 mg/dL (1.7-2.8); TOTAL PROTEIN 6.9 g/dL (6.7-8.2)
== END 2018-08-15 23:59 | disposition home or self-care (01) ==
LOC: LAB.R 08:00
PROVIDERS: ATTEND Internal Medicine
DX: I10 Essential (primary) hypertension (principal); D64.9 Anemia, unspecified; E83.42 Hypomagnesemia; J11.1 Influenza due to unidentified influenza virus with other respiratory manifestations
CPT/HCPCS: 80053; 83735; 85025; 87275; 87276

== ENCOUNTER 2020-01-03 09:16 | Outpatient (CLI) | payer MEDICARE, MEDICAID ==
--- NOTE | 2020-01-04 14:49 | Mammography Report ---
UNILATERAL LEFT DIGITAL SCREENING MAMMOGRAM: 01/03/2020 CLINICAL: Routine screening. Personal history of right breast cancer. Comparison is made to exams dated: 01/03/2020 mammogram, 06/27/2018 mammogram, and 02/11/2017 mammogram - [facility]. There are scattered fibroglandular elements in left breast. No significant masses, calcifications, or other findings are seen in the breast. There has been no significant interval change. IMPRESSION: NEGATIVE There is no mammographic evidence of malignancy. A 1 year screening mammogram is recommended. This exam was interpreted at Station ID: [id number]. NOTE: For mammograms, a report in lay terms will be sent to the patient. Approximately 15% of breast malignancies will not be visualized mammographically. In the management of a palpable breast mass, a negative mammogram must not discourage biopsy of a clinically suspicious lesion. Electronically Signed By: Jesus Cummins M.D., [email or web address]:01/03/2020 10:45:41 ACR BI-RADS Category 1: Negative 3341F PARENCHYMAL PATTERN: (A) - The breast(s) demonstrate(s) scattered fibroglandular densities. BI-RADS CATEGORY: (1) - 1 RECOMMENDATION: (ANNUAL) - Recommend routine annual screening mammography. [id number] 1 year screening LATERALITY: (B)
== END 2020-01-03 09:17 | disposition home or self-care (01) ==
LOC: DI 09:16
PROVIDERS: ATTEND Internal Medicine Hematology & Oncology
DX: Z12.31 Encounter for screening mammogram for malignant neoplasm of breast (principal)

== ENCOUNTER 2020-01-09 10:45 | Outpatient (CLI) | payer MEDICARE, MEDICAID ==
--- NOTE | 2020-01-09 11:51 | DEXA Report ---
Reason: POSTMENOPAUSAL Procedure Date: 01/09/2020 Accession Number: [id number] / [id number] Procedure: DEX - Dexa Forearm CPT Code: Final Report FULL RESULT: INDICATIONS: POSTMENOPAUSAL TECHNIQUE: Dual energy x-ray absorptiometry (DXA) was performed on a [employer] System. Regions measured are the AP Spine, femoral neck, and if needed forearm. COMPARISON: 05/04/2017. FINDINGS: Left forearm (radius) Bone Mineral Density 0.514 g/cm/cm, T score -2.8, osteoporosis (T score greater or equal to -1.0: NORMAL) (T score from -1.1 to -2.4: OSTEOPENIA) (T score less than or equal to -2.5 to: OSTEOPOROSIS) Impression: Osteoporosis. Patient is at a high risk for fracture. Patients with diagnosis of osteoporosis or osteopenia should have regular bone mineral density assessment. For those eligible for Medicare, routine testing is allowed once every 2 years. Testing frequency can be increased for patients who have rapidly progressing disease or for those who are receiving medical therapy to restore bone mass. Reviewed by: Stevie Dodson MD on 01/09/2020 11:50 AM PDT Approved by: Stevie Dodson MD on 01/09/2020 11:50 AM PDT Station ID: [id number]
== END 2020-01-09 10:46 | disposition home or self-care (01) ==
LOC: DI 10:45
PROVIDERS: ATTEND Internal Medicine Hematology & Oncology
DX: M81.0 Age-related osteoporosis without current pathological fracture (principal)
CPT/HCPCS: 77081

== ENCOUNTER 2020-05-21 11:00 | Outpatient (CLI) | payer MEDICARE, MEDICAID ==
[2020-05-21 11:32] LABS: BASOPHILS # (AUTO) 0.1 10^3/uL (0.0-0.1); BASOPHILS % (AUTO) 0.9 %; EOSINOPHILS # (AUTO) 0.1 10^3/uL (0.0-0.7); EOSINOPHILS % (AUTO) 0.7 %; HGB - HEMOGLOBIN 12.3 g/dL (12.0-16.0); LYMPHOCYTES # (AUTO) 1.1 10^3/uL (1.5-3.5); LYMPHOCYTES % (AUTO) 15.5 %; MEAN CORPUSCULAR HEMOGLOBIN 27.5 pg (27.0-31.0); MEAN CORPUSCULAR VOLUME 88.8 fL (81.0-99.0); MEAN PLATELET VOLUME 8.6 fL (7.9-10.8); MONOCYTES # (AUTO) 0.3 10^3/uL (0.0-1.0); MONOCYTES % (AUTO) 4.3 %; NEUTROPHILS # (AUTO) 5.5 10^3/uL (1.5-6.6); NEUTROPHILS % (AUTO) 78.2 %; PLT - PLATELET COUNT 400 10^3/uL (130-450); RED BLOOD COUNT 4.47 10^6/uL (4.20-5.40); RED CELL DISTRIBUTION WIDTH 16.5 % (12.0-15.0)
[2020-05-21 12:32] LABS: ALBUMIN 3.3 g/dL (3.2-5.5); ALBUMIN/GLOBULIN RATIO 0.8 (1.0-2.2); ALKALINE PHOSPHATASE 205 IU/L (42-121); ALT ALANINE AMINOTRANSFERASE < 10 IU/L (10-60); AST ASPARTATE AMINOTRANSFERASE 17 IU/L (10-42); BILIRUBIN,TOTAL 0.5 mg/dL (0.2-1.0); BUN - BLOOD UREA NITROGEN 11 mg/dL (6-20); CALCIUM 9.5 mg/dL (8.5-10.3); CARBON DIOXIDE - CO2 24 mmol/L (21-32); CHLORIDE 102 mmol/L (101-111); CREATININE 0.7 mg/dL (0.4-1.0); GLUCOSE 111 mg/dL (70-100); SODIUM 137 mmol/L (135-145); TOTAL PROTEIN 7.2 g/dL (6.7-8.2)
== END 2020-05-21 23:59 | disposition home or self-care (01) ==
LOC: LAB.R 11:00
DX: C50.911 Malignant neoplasm of unspecified site of right female breast (principal)
CPT/HCPCS: 80053; 85025

== ENCOUNTER 2020-08-28 11:25 | Outpatient (CLI) | payer MEDICARE, MEDICAID ==
[2020-08-28 12:50] LABS: BASOPHILS # (AUTO) 0.1 10^3/uL (0.0-0.1); BASOPHILS % (AUTO) 0.7 %; EOSINOPHILS # (AUTO) 0.1 10^3/uL (0.0-0.7); EOSINOPHILS % (AUTO) 0.6 %; HCT - HEMATOCRIT 36.8 % (37.0-47.0); HGB - HEMOGLOBIN 11.8 g/dL (12.0-16.0); LYMPHOCYTES # (AUTO) 0.9 10^3/uL (1.5-3.5); LYMPHOCYTES % (AUTO) 9.3 %; MEAN CORPUSCULAR HEMOGLOBIN 29.2 pg (27.0-31.0); MEAN CORPUSCULAR HGB CONC 32.1 g/dL (32.0-36.0); MEAN CORPUSCULAR VOLUME 91.1 fL (81.0-99.0); MEAN PLATELET VOLUME 8.7 fL (7.9-10.8); MONOCYTES # (AUTO) 0.8 10^3/uL (0.0-1.0); MONOCYTES % (AUTO) 8.6 %; NEUTROPHILS # (AUTO) 7.7 10^3/uL (1.5-6.6); NEUTROPHILS % (AUTO) 79.2 %; PLT - PLATELET COUNT 463 10^3/uL (130-450); RED BLOOD COUNT 4.04 10^6/uL (4.20-5.40); RED CELL DISTRIBUTION WIDTH 17.8 % (12.0-15.0); WHITE BLOOD COUNT 9.7 x10^3/uL (4.8-10.8)
[2020-08-28 13:10] LABS: ALBUMIN 2.5 g/dL (3.2-5.5); ALBUMIN/GLOBULIN RATIO 0.6 (1.0-2.2); ALKALINE PHOSPHATASE 587 IU/L (42-121); ALT ALANINE AMINOTRANSFERASE < 10 IU/L (10-60); AST ASPARTATE AMINOTRANSFERASE 50 IU/L (10-42); BILIRUBIN,TOTAL 0.8 mg/dL (0.2-1.0); BUN - BLOOD UREA NITROGEN 27 mg/dL (6-20); CALCIUM 9.2 mg/dL (8.5-10.3); CARBON DIOXIDE - CO2 21 mmol/L (21-32); CHLORIDE 102 mmol/L (101-111); CREATININE 0.7 mg/dL (0.4-1.0); GFR - MDRD 86 (>89); GLUCOSE 92 mg/dL (70-100); POTASSIUM 4.7 mmol/L (3.5-5.0); SODIUM 135 mmol/L (135-145); TOTAL PROTEIN 6.4 g/dL (6.7-8.2)
== END 2020-08-28 23:59 | disposition home or self-care (01) ==
LOC: LAB.R 11:25
DX: D26.9 Other benign neoplasm of uterus, unspecified (principal); R79.89 Other specified abnormal findings of blood chemistry; R68.89 Other general symptoms and signs; C50.911 Malignant neoplasm of unspecified site of right female breast; M62.82 Rhabdomyolysis
CPT/HCPCS: 80053; 82378; 85025; 86300

== ENCOUNTER 2020-09-03 08:46 | Outpatient (CLI) | payer MEDICARE, MEDICAID ==
--- NOTE | 2020-09-03 17:04 | Nuclear Medicine Report ---
PROCEDURE: Bone Whole Body INDICATIONS: HX BREAST CA, ELEVATED ALK PHOS, ELEVATED TUMOR MA RADIOPHARMACEUTICAL: 24.5 mCi Tc-99m MDP IV. TECHNIQUE: Delayed whole-body scintigrams were obtained approximately 3-4 hours after intravenous injection of r adiotracer. Anterior and posterior views were acquired from vertex to feet COMPARISON: Whole-body bone scan, 03/23/2017. CT abdomen and pelvis, 04/18/2018 and FINDINGS: There are multiple foci of abnormal uptake involving the skull, sternum, left scapula, cer vical, thoracic and lumbar spine, sacrum, multiple ribs bilaterally, bony pelvis, proximal humeri art joanna and proximal femurs artery, consistent with osseous metastases. This finding is new. IMPRESSION: There is widespread osseous metastatic disease, new since the last bone scan dated 03/23/2017. Reviewed by: Alta Crump MD on 09/03/2020 4:03 PM AKDT Approved by: Alta Crump MD on 09/03/2020 4:03 PM AKDT Station ID: [id number]
== END 2020-09-03 08:47 | disposition home or self-care (01) ==
LOC: DI 08:46
PROVIDERS: ATTEND Internal Medicine
DX: C79.51 Secondary malignant neoplasm of bone (principal)
CPT/HCPCS: 78306

== ENCOUNTER 2020-09-07 15:16 | Outpatient (CLI) | payer MEDICARE, MEDICAID ==
--- OUTSIDE RECORDS SUMMARY | 2020-09-11 02:38 | EXTERNAL MEDICAL SUMMARY RPT | Continuity of Care Document ---
:1960 Demographics Phone Unavailable Preferred Language Unknown Marital Status Unknown Spiritism Affiliation Unknown Race Unknown Ethnic Group Unknown Author Organization [place] Address [address] [phone] Phone Social History date description facility [phone]
== END 2020-09-07 15:17 | disposition critical access hospital (66) ==
LOC: EMS 15:16
PROVIDERS: ATTEND Emergency Medicine
DX: R41.82 Altered mental status, unspecified (principal); R41.0 Disorientation, unspecified; Z74.01 Bed confinement status
CPT/HCPCS: A0425; A0429

== ENCOUNTER 2020-09-07 15:22 | Emergency (ER) | payer MEDICARE, MEDICAID ==
[2020-09-07] MEDS ORDERED: SODIUM CHLORIDE 0.9% 1,000 ML IV STA (15:35)
--- NOTE | 2020-09-07 15:52 | ED Physician Documentation ---
PD HPI ALTERED MENTAL STATUS - Stated complaint Stated Complaint: ALOC - Chief complaint Chief Complaint: Neuro - History obtained from History obtained from: EMS - History of Present Illness Timing - onset: How many days ago (1) Timing - duration: Days (1) Timing - details: Gradual onset Quality / character: Less responsive, Confused Recently seen: Not recently seen - Additional information Additional information: Patient is a 60-year-old female who lives at [facility], she was sent in today by the nursing staff for altered mental status. This is a normally she is quite conversant, but is not making much sense today and has repetitive speech. She has cerebral palsy and spends most of her time in a wheelchair. Also has metastatic breast cancer to the bones. Had emesis today as well. No fevers. Patient is unable to give any history. She reportedly started baclofen 2 days ago and has had 4 doses of this. Review of Systems Unable to obtain: AMS PD PAST MEDICAL HISTORY - Past Medical History Cardiovascular: None Respiratory: None Neuro: Cerebral palsy, Other Endocrine/Autoimmune: None GI: GERD (poorly controlled) : Incontinence HEENT: Chronic vision loss Psych: Anxiety Musculoskeletal: Osteoarthritis, Osteopenia, Chronic back pain, Other - Past Surgical History Past Surgical History: Yes General: Cholecystectomy, Colonoscopy Ortho: Other Neuro: TRANSITIONAL CARE NURSE shunt - Present Medications Home Medications: Ambulatory Orders Medication Instructions Recorded Confirmed Calcium Carbonate [Tums (Calcium 500 - 1,000 mg PO Q4HR PRN 04/02/17 09/07/20 Carbonate 500mg)] Cholecalciferol (Vitamin D3) 5,000 unit PO DAILY 07/02/17 09/07/20 [Vitamin D3] Acetaminophen [Tylenol] 650 mg PO Q6H PRN 08/05/17 09/07/20 Anastrozole 1 mg PO DAILY 04/12/18 09/07/20 Bisacodyl Supp [Dulcolax Supp] 1 supp RC DAILY PRN 06/19/19 09/07/20 Esomeprazole Magnesium [Nexium] 1 pkt PO DAILY 06/19/19 09/07/20 Magnesium Hydroxide [Milk of 30 ml PO DAILY PRN 06/19/19 09/07/20 Magnesia] Senna [Senokot] 1 - 2 tab PO BID 06/19/19 09/07/20 Cefdinir 300 mg PO BID #20 cap 09/07/20 - Allergies Allergies/Adverse Reactions: Allergies Allergy/AdvReac Type Severity Reaction Status Date / Time No Known Drug Allergies Allergy Verified 09/07/20 15:37 - Social History Does the pt smoke?: Yes Smoking Status: Former smoker Does the pt drink ETOH?: Yes Does the pt have substance abuse?: No - Immunizations Immunizations are current?: No - POLST Patient has POLST: No POLST Status: Full Code PD ED PE NORMAL - Vitals Vital signs reviewed: Yes - General General: No acute distress, Well developed/nourished, Other (drowsy, but arousable) - HEENT HEENT: PERRL - Neck Neck: Supple, no meningeal sign - Cardiac Cardiac: RRR - Respiratory Respiratory: No respiratory distress, Clear bilaterally - Abdomen Abdomen: Soft, Non tender, Non distended - Derm Derm: Warm and dry - Extremities Extremities: No edema - Neuro Neuro: Other (drowsy) Eye Opening: To Voice Motor: Localizes to Pain Verbal: Confused GCS Score: 12 - Psych Psych: Normal mood, Normal affect Results - Vitals Vitals: Vital Signs - 24 hr 09/07/20 09/07/20 09/07/20 15:34 16:00 16:07 Temperature 37.0 C Heart Rate 101 H 94 Respiratory 12 12 Rate Blood Pressure 136/90 H 138/91 H O2 Saturation 98 98 09/07/20 09/07/20 09/07/20 16:08 16:30 18:14 Temperature 37.0 C Heart Rate 100 96 Respiratory 12 20 Rate Blood Pressure 133/86 H 93/67 O2 Saturation 100 98 Oxygen O2 Source Room air - Labs Labs: Laboratory Tests 09/07/20 09/07/20 09/07/20 15:53 16:01 16:01 WBC 10.1 RBC 4.17 L Hgb 12.1 Hct 38.3 MCV 91.8 MCH 29.0 MCHC 31.6 L RDW 18.3 H Plt Count 496 H MPV 8.6 Neut # (Auto) 8.5 H Lymph # (Auto) 1.0 L Burt # (Auto) 0.4 Eos # (Auto) 0.0 Baso # (Auto) 0.1 Absolute Nucleated RBC 0.00 Nucleated RBC % 0.0 Sodium 138 Potassium 4.0 Chloride 103 Carbon Dioxide 23 Anion Gap 12.0 BUN 22 H Creatinine 0.7 Estimated GFR (MDRD) 86 L Glucose 113 H Calcium 9.4 Total Bilirubin 0.5 AST 28 ALT < 10 L Alkaline Phosphatase 470 H Total Protein 7.6 Albumin 2.9 L Globulin 4.7 H Albumin/Globulin Ratio 0.6 L Lipase 30 TSH Urine Color YELLOW Urine Clarity HAZY Urine pH 6.0 Ur Specific [place] 1.020 Urine Protein 30 H Urine Glucose (UA) NEGATIVE Urine Ketones TRACE Urine Occult Blood TRACE-INTA Urine Nitrite POSITIVE H Urine Bilirubin NEGATIVE Urine Urobilinogen 1 (NORMAL) Ur Leukocyte Esterase MODERATE H Urine RBC 11-25 H Urine WBC >25 H Ur Squamous Epith Cells NONE SEEN Urine Bacteria Many H Ur Microscopic Review INDICATED Urine Culture Comments INDICATED Salicylates < 6.0 Urine Opiates Screen NEGATIVE Ur Oxycodone Screen NEGATIVE Urine Methadone Screen NEGATIVE Ur Propoxyphene Screen NEGATIVE Acetaminophen < 10 L Ur Barbiturates Screen NEGATIVE Ur Tricyclics Screen NEGATIVE Ur Phencyclidine Scrn NEGATIVE Ur Amphetamine Screen NEGATIVE U Methamphetamines Scrn NEGATIVE U Benzodiazepines Scrn NEGATIVE Urine Cocaine Screen NEGATIVE U Cannabinoids Screen NEGATIVE Ethyl Alcohol < 5.0 09/07/20 16:01 WBC RBC Hgb Hct MCV MCH MCHC RDW Plt Count MPV Neut # (Auto) Lymph # (Auto) Burt # (Auto) Eos # (Auto) Baso # (Auto) Absolute Nucleated RBC Nucleated RBC % Sodium Potassium Chloride Carbon Dioxide Anion Gap BUN Creatinine Estimated GFR (MDRD) Glucose Calcium Total Bilirubin AST ALT Alkaline Phosphatase Total Protein Albumin Globulin Albumin/Globulin Ratio Lipase TSH 4.50 Urine Color Urine Clarity Urine pH Ur Specific [place] Urine Protein Urine Glucose (UA) Urine Ketones Urine Occult Blood Urine Nitrite Urine Bilirubin Urine Urobilinogen Ur Leukocyte Esterase Urine RBC Urine WBC Ur Squamous Epith Cells Urine Bacteria Ur Microscopic Review Urine Culture Comments Salicylates Urine Opiates Screen Ur Oxycodone Screen Urine Methadone Screen Ur Propoxyphene Screen Acetaminophen Ur Barbiturates Screen Ur Tricyclics Screen Ur Phencyclidine Scrn Ur Amphetamine Screen U Methamphetamines Scrn U Benzodiazepines Scrn Urine Cocaine Screen U Cannabinoids Screen Ethyl Alcohol - Rads (name of study) head Ct Radiology: Prelim report reviewed, EMP read contemporaneously, See rad report (IMPRESSION: 1. No acute intracranial hemorrhage, mass effect, or midline shift. 2. Ventricles are decompressed. Unchanged left sided ventriculostomy shunt catheter location. ) PD MEDICAL DECISION MAKING - ED course Complexity details: reviewed results, re-evaluated patient, considered differential, d/w patient ED course: Patient with a UTI. No acute findings on head CT, laboratory testing. Afebrile. Patient gradually returned to her normal mental baseline in the emergency department. She is awake, talking, and answering questions appropriately. She does not appear septic at this time. We will place her on cefdinir for home. Given Rocephin here. We will have her return back to her custodial facility today. No evidence of stroke or intracranial hemorrhage. This document was made in part using voice recognition software. While efforts are made to proofread this document, sound alike and grammatical errors may occur.. Departure - Departure Disposition: Home, Self Care Clinical Impression: UTI (urinary tract infection) Qualifiers: Urinary tract infection type: acute cystitis Hematuria presence: without hematuria Qualified Code(s): N30.00 - Acute cystitis without hematuria Cerebral palsy Qualifiers: Cerebral palsy type: unspecified type Qualified Code(s): G80.9 - Cerebral palsy, unspecified Altered mental status Qualifiers: Altered mental status type: unspecified Qualified Code(s): R41.82 - Altered mental status, unspecified Condition: Good Instructions: ED UTI Cystitis Female Follow-Up: Patricia Pack MD [Primary Care Provider] - Within 1 week Prescriptions: Cefdinir 300 mg PO BID #20 cap Comments: Start the cefdinir tomorrow morning. Return if she worsens. This should continue to improve over the next 24 hours.
[2020-09-07 16:07] LABS: BASOPHILS # (AUTO) 0.1 10^3/uL (0.0-0.1); BASOPHILS % (AUTO) 0.7 %; EOSINOPHILS % (AUTO) 0.1 %; HCT - HEMATOCRIT 38.3 % (37.0-47.0); HGB - HEMOGLOBIN 12.1 g/dL (12.0-16.0); LYMPHOCYTES % (AUTO) 9.9 %; MEAN CORPUSCULAR HGB CONC 31.6 g/dL (32.0-36.0); MEAN CORPUSCULAR VOLUME 91.8 fL (81.0-99.0); MEAN PLATELET VOLUME 8.6 fL (7.9-10.8); MONOCYTES # (AUTO) 0.4 10^3/uL (0.0-1.0); MONOCYTES % (AUTO) 4.1 %; NEUTROPHILS # (AUTO) 8.5 10^3/uL (1.5-6.6); PLT - PLATELET COUNT 496 10^3/uL (130-450); RED BLOOD COUNT 4.17 10^6/uL (4.20-5.40); RED CELL DISTRIBUTION WIDTH 18.3 % (12.0-15.0); WHITE BLOOD COUNT 10.1 x10^3/uL (4.8-10.8)
[2020-09-07 16:12] LABS: BILIRUBIN,URINE NEGATIVE (NEGATIVE); GLUCOSE, URINE (UA) NEGATIVE (NEGATIVE); KETONES,URINE (UA) TRACE mg/dL (NEGATIVE); LEUKOCYTE ESTERASE, URINE MODERATE (NEGATIVE); MUDS CUTOFF CONCENTRATIONS CUTOFF CONC BELOW:; NITRITE,URINE POSITIVE (NEGATIVE); OCCULT BLOOD,URINE TRACE-INTA (NEGATIVE); PROTEIN,URINE 30 mg/dL (NEGATIVE); UROBILINOGEN,URINE 1 (NORMAL) E.U./dL (NORMAL)
[2020-09-07 16:13] LABS: CLARITY,URINE HAZY (CLEAR)
--- NOTE | 2020-09-07 16:13 | CT Report ---
PROCEDURE: HEAD WO INDICATIONS: aloc TECHNIQUE: Noncontrast 4.5 mm thick angled axial sections acquired from the foramen magnum to the vertex. For r adiation dose reduction, the following was used: automated exposure control, adjustment of mA and/or kV according to patient size. COMPARISON: CT head 08/07/2017. FINDINGS: Image quality: Excellent. CSF spaces: Basal cisterns are patent. No extra-axial fluid collections. Ventricles are decompresse d, similar appearance to August 07/2018. A left frontal approach ventriculostomy shunt catheter appears to terminate in unchanged location. Brain: No midline shift. No intracranial masses or hemorrhage. Chronic right cerebellar hemisphere volume loss. [place]yl[place]-white matter interface is otherwise normal. Skull and face: Calvarium and visualized facial bones are intact, without suspicious lesions. Right frontal paolo hole unchanged. Sinuses: Visualized sinuses and mastoids are clear. IMPRESSION: 1. No acute intracranial hemorrhage, mass effect, or midline shift. 2. Ventricles are decompressed. Unchanged left sided ventriculostomy shunt catheter location. Reviewed by: Shamir Spears on 09/07/2020 3:12 PM AKAIRAM Approved by: Shamir Spears on 09/07/2020 3:12 PM AKDT Station ID: [id number]
[2020-09-07 16:17] LABS: ACETAMINOPHEN < 10 ug/mL (10-30); ALBUMIN 2.9 g/dL (3.2-5.5); ALBUMIN/GLOBULIN RATIO 0.6 (1.0-2.2); ALKALINE PHOSPHATASE 470 IU/L (42-121); ALT ALANINE AMINOTRANSFERASE < 10 IU/L (10-60); AST ASPARTATE AMINOTRANSFERASE 28 IU/L (10-42); BILIRUBIN,TOTAL 0.5 mg/dL (0.2-1.0); BUN - BLOOD UREA NITROGEN 22 mg/dL (6-20); CALCIUM 9.4 mg/dL (8.5-10.3); CARBON DIOXIDE - CO2 23 mmol/L (21-32); CHLORIDE 103 mmol/L (101-111); CREATININE 0.7 mg/dL (0.4-1.0); ETOH - ETHANOL < 5.0 mg/dL; GFR - MDRD 86 (>89); GLUCOSE 113 mg/dL (70-100); LIPASE 30 U/L (22-51); SALICYLATE < 6.0 mg/dL; SODIUM 138 mmol/L (135-145); TOTAL PROTEIN 7.6 g/dL (6.7-8.2)
[2020-09-07 16:21] LABS: BACTERIA,URINE Many /HPF (None Seen); SQUAMOUS EPITHELIAL CELL,UR NONE SEEN (<= Few); WBC,URINE >25 /HPF (0-5)
[2020-09-07 16:22] LABS: AMPHETAMINE SCREEN,URINE NEGATIVE (NEGATIVE); BARBITURATE SCREEN,UR NEGATIVE (NEGATIVE); BENZODIAZEPINES SCREEN, URINE NEGATIVE (NEGATIVE); COCAINE SCREEN URINE NEGATIVE (NEGATIVE); METHADONE SCREEN, URINE NEGATIVE (NEGATIVE); METHAMPHETAMINES SCREEN, URINE NEGATIVE (NEGATIVE); OPIATE SCREEN, URINE NEGATIVE (NEGATIVE); OXYCODONE SCREEN, URINE NEGATIVE (NEGATIVE); PROPOXYPHENE SCREEN, URINE NEGATIVE (NEGATIVE); THC CANNABINOID SCREEN, URINE NEGATIVE (NEGATIVE); TRICYCLIC ANTIDEPRESSANT,URINE NEGATIVE (NEGATIVE)
[2020-09-07] MEDS ORDERED: cefTRIAXone 1 GM VIAL IVP STA (16:25)
[2020-09-07] MEDS ORDERED: ACETAMINOPHEN 325 MG TABLET PO STA (18:25)
[2020-09-07 19:50] VITALS: BP 95/65
--- OUTSIDE RECORDS SUMMARY | 2020-09-11 02:34 | EXTERNAL MEDICAL SUMMARY RPT | Continuity of Care Document ---
:1960 Demographics Phone Unavailable Preferred Language Unknown Marital Status Unknown Hoahaoism Affiliation Unknown Race Unknown Ethnic Group Unknown Author Organization [place] Address [address] [phone] Phone Social History date description facility [phone]
== END 2020-09-07 19:46 | disposition home or self-care (01) ==
LOC: EDUNIT# → SUPCPDRO 15:22 → ED 15:22
DX: N30.00 Acute cystitis without hematuria (principal); R41.82 Altered mental status, unspecified; G80.9 Cerebral palsy, unspecified; Z98.2 Presence of cerebrospinal fluid drainage device; C50.919 Malignant neoplasm of unspecified site of unspecified female breast; C79.51 Secondary malignant neoplasm of bone; Z87.891 Personal history of nicotine dependence
CPT/HCPCS: 36415; 51701; 70450; 80053; 80306; 80307; 81001; 83690; 84443; 85025; 87086; 87181; 96361; 96374; 99281; 99284; A9270; G0480; 80320; 80329; 81003

== ENCOUNTER 2020-09-07 19:52 | Outpatient (CLI) | payer MEDICARE, MEDICAID ==
--- OUTSIDE RECORDS SUMMARY | 2020-09-11 02:38 | EXTERNAL MEDICAL SUMMARY RPT | Continuity of Care Document ---
:1960 Demographics Phone Unavailable Preferred Language Unknown Marital Status Unknown Synagogue Affiliation Unknown Race Unknown Ethnic Group Unknown Author Organization [place] Address [address] [phone] Phone Social History date description facility [phone]
== END 2020-09-07 19:53 | disposition other institution (70) ==
LOC: EMS 19:52
PROVIDERS: ATTEND Emergency Medicine
DX: R41.0 Disorientation, unspecified (principal); Z74.01 Bed confinement status
CPT/HCPCS: A0425; A0429

== ENCOUNTER 2020-09-30 11:50 | Outpatient (CLI) | payer MEDICARE, MEDICAID ==
--- NOTE | 2020-09-30 18:11 | CONSULTATION NOTE ---
Palliative Care Consultation - Referral Referring Provider: Dr. Isacc Soto Time of Visit: [id number] Referral setting: [facility] Facility Referral Reason: Metastatic breast cancer/Advanced Care Planning - Information Sources Records reviewed: Previous records reviewed History/Review of Systems obtained from: Patient, Nursing (ASSISTANT SERVICE MANAGER Landy) - History of Present Illness Brief History of Present Illness: This is a 60-year-old female who was seen and evaluated today for initial palliative care consultation within her room at [facility] due to metastatic breast cancer to the bones and advanced care planning. The patient has lived the majority of her life in a wheelchair after being diagnosed with cerebral palsy as a young child. Staff report that she transition to [facility] nursing [facility] after she had a fall in her apartment and while undergoing rehabilitation at [facility] she was found to have a right breast mass. And since that time she has transition to living at [facility]. In 2017 the patient had a right breast mass and on mammogram it was identified that she had a 13 cm mass in the right upper outer quadrant with right axillallary adenopathy.She underwent a modified radical mastectomy of the right breast as an axillary lymph node dissection on 03/02/2017. Her tumor was ER positive and SC positive both at 60% with HER-2 negative with a high Ki 67 of 30%. She received adjunctive ALBA followed by Taxol that was completed January 18, 2018. On presentation with right breast cancer her scans were negative for metastases. She continued on anastrozole since 01/2018. She is also had a history of a large distal rectal and uterine mass. She has had work-up for both of these which were negative for malignancy by colonoscopy and endometrial biopsy in 2017. More recently she was complaining of increased pain with the setting of anorexia and weight loss. Nuclear bone scan was performed and revealed diffuse abnormalities indicating metastatic disease. She has had lab work obtained with CA 15-3 antigen elevated at 394.6 on 08/28/2020 and CA 2729 elevated at 981. She was evaluated by oncology and her mid September 2020 and is to start Faslodex and ibrance therapy. She unfortunately has an oncology appointment management later this morning and therefore, this palliative care visit was cut short. The patient herself reports that she has been increased nausea and she has not been eating well. She has had a noted weight loss to 129 pounds. She relays that she enjoys eating but has not felt a desire to eat due to emesis and underlying nausea. She does have a Danza Guillaume available as needed and if this is effective in abating her symptoms. The patient presently reports that she does not have any pain. When discussing with GIANNA Landy it is difficult to ascertain when she is having discomfort as she reports that her back is hurting "sometimes." She does have tramadol available on an as-needed basis that is effective for her general pain. The patient reports to increased fatigue in the last several months. She denies depressive symptoms or lack of interest in things that she typically finds enjoyable. The patient is seen resting in bed on her right side. She has kyphotic posturing And is slightly disgruntled about having to talk to this IN TUBE CONVERSION TECHNICIAN today with a pending appointment. Medical/Surgical History - Past Medical History Cardiovascular: reports: None Respiratory: reports: Other (COVID-19 infection 2019) Neuro: Cerebral palsy, Other (ASSISTANT SALES DIRECTOR shunt) Endocrine/Autoimmune: reports: None GI: reports: GERD TANKROOM TENDER: reports: Breast cancer (2017), Other (Uterine mass, biopsy negative) : reports: Incontinence HEENT: reports: Chronic vision loss Psych: reports: Anxiety Musculoskeletal: reports: Osteoarthritis, Osteoporosis, Chronic back pain, Other (history of left knee disolocations; scoliosis) MRSA Hx?: No - Past Surgical History General: reports: Cholecystectomy (08/10/2017), Colonoscopy Ortho: reports: Other /TANKROOM TENDER: reports: Mastectomy (Right modified radical mastectomy 03/02/2017), Other (Endometrial biopsy 04/26/2017) Neuro: reports: ASSISTANT SALES DIRECTOR shunt - Substance History Use: Uses substance without health or social issues: NONE Social History - Living Situation Living arrangement: custodial Support System: The patient has been wheelchair-bound bound due to cerebral palsy since childhood. Both of her parents are . Her DPOA is a family friend/surrogate father Mookie barlow with contact number [phone]. The patient has been residing at [facility] since February 2017. Family History - Family History Family History: Mother: , Father: Medications/Allergies - Medications Home Medications: Ambulatory Orders Medication Instructions Recorded Confirmed Calcium Carbonate [Tums (Calcium 500 mg PO Q4HR PRN 04/02/17 09/23/20 Carbonate 500mg)] Acetaminophen [Tylenol] 650 mg PO Q6H PRN 08/05/17 10/01/20 Anastrozole 1 mg PO DAILY 04/12/18 10/01/20 Bisacodyl Supp [Dulcolax Supp] 1 supp RC DAILY PRN 06/19/19 10/01/20 Magnesium Hydroxide [Milk of 30 ml PO DAILY PRN 06/19/19 10/01/20 Magnesia] Acetaminophen [Acetaminophen Extra 500 mg PO BID 10/01/20 10/01/20 Strength] Baclofen [Lioresal] 10 mg PO Q6H PRN 10/01/20 10/01/20 Esomeprazole Magnesium [Nexium] 1 cap PO QPM 10/01/20 10/01/20 Ondansetron HCl [Zofran] 4 mg PO Q4H PRN 10/01/20 10/01/20 traMADol [Ultram] 50 mg PO Q8H PRN 10/01/20 10/01/20 - Allergies Allergies/Adverse Reactions: Allergies Allergy/AdvReac Type Severity Reaction Status Date / Time ibuprofen AdvReac Unknown Verified 10/03/20 11:35 Review of Systems - Constitutional Constitutional: reports: Fatigue, Poor appetite, Weight loss (weight 129lb 09/2020). denies: Fever - Eyes Eyes: denies: Vision loss - Ears, Nose & Throat Ears, Nose & Throat: denies: Hearing loss - Cardiovascular Cardiovascular: denies: Chest pain, Edema - Respiratory Respiratory: denies: Cough - Gastrointestinal Gastrointestinal: reports: Nausea, Vomiting (see HPI). denies: Constipation - Genitourinary Genitourinary: denies: Dysuria - Musculoskeletal Musculoskeletal: reports: Back pain, Assistive devices, Transfer issues (history of cerberal palsy) - Integumentary Integumentary: denies: Pruritis - Neurological Neurological: reports: General weakness. denies: Headache, Dizziness - Psychiatric Psychiatric: denies: Depression - Hematologic/Lymphatic Hematologic/Lymph: denies: Recurrent infections - All Other Systems All Other Systems: reports: Reviewed and negative Physical Exam - Vital Signs Temperature: 36.6 C Pulse Rate: 99 O2 Saturation: 98 (on RA) - Physical Exam General Appearance: positive: No acute distress, Alert, Other (slightly dishelved) Eyes Bilateral: positive: Normal inspection ENT: positive: No signs of dehydration Neck: positive: Trachea midline Cardiovascular: positive: Regular rate & rhythm Respiratory: positive: No respiratory distress, Breath sounds nml Abdomen: positive: Non-tender, Soft, Nml bowel sounds Skin: positive: Pallor Extremities: positive: No pedal edema, Other (kyphotic posture) Neurologic/Psychiatric: positive: Oriented x3, Weakness (due to cerebral palsy), Other (Difficult to assess affect as focused on upcoming appointment) Palliative Care - POLST Patient has POLST: Yes POLST Status: Full Code Pain: Comment (back pain, intermittent controlled with tramadol) Nausea: Moderate (4-6) (resolves with zofran administration) Anorexia: Mild (1-3) Performance Status: Patient is nonambulatory due to her underlying cerebral palsy and is wheelchair dependent. She resides in a nursing facility that provide a care. No recent falls. PPS 50% - Palliative Care Discussion: The patient has had a history of right breast cancer since February 2017 and has unfortunately progressed to metastatic breast cancer to the bones. She has previously expressed a strong desire to live and is undergoing treatment at the [facility] clinic at [facility]. She has a pending appointment there this afternoon and unfortunately, the time today with this palliative care IN TUBE CONVERSION TECHNICIAN was cut too short for initial consultation to fully explore the patient's goals, expectations and symptom management. The patient does express some decreased oral intake and nausea with vomiting that positively respond to Zofran administration. She does have pain that is localized to her back that is not present at rest but is aching intermittently and positively responds to tramadol use. The patient does have a surrogate father and Mookie MAE who is listed and we need to build rapport with both the patient and surrogate father moving forward regarding symptom management and advance care planning. Impression and Recommendations - Palliative Care Impression: This is a 60-year-old female who is wheelchair-bound due to cerebral palsy since childhood who unfortunately has metastatic breast cancer to the bones who is undergoing Faslodex and Ibrance therapy. She is having symptom burden with nausea and vomiting, anorexia and intermittent lower back pain that is positively responding to administration of tramadol and Zofran. Palliative care appointment was cut short today due to previous pending appointments and will need to further tease out goals of care and pain and symptom management moving forward. Continue to build rapport. Palliative care to provide pain and symptom management, care coordination, and anticipatory guidance. Recommendations/Counseling Done: 1. Nausea and intermittent vomiting. Unclear if this is due to chemotherapy or underlying malignancy. Positively responding to Zofran. If Zofran is not effective may consider as needed Compazine as an additional layer of support for the patient within the facility setting. 2. Back pain, chronic. Intermittent. Unclear if this is metastatic bone pain versus pain due to her underlying scoliosis and kyphotic posturing due to her history of cerebral palsy.Positively responding to tramadol as needed administration. Will need to evaluate moving forward functional gains balancing burdens of pain medication symptom management with comfort. At a certain point may need to have scheduled pain medication to optimize the patient's comfort. 3.Metastatic breast cancer to the bones. Patient is starting Faslodex and Ibrance therapy. Has been on anastrozole due to her history of right breast cancer previously. Oncology to follow. 4. Advance care planning. Patient has POLST in place as full code. Previous documentation indicates that the patient has a strong desire to live. We will continue to follow and provide support given the patient has metastatic disease and to assist with pain and symptom management as well as advanced care planning. We will continue to build rapport. Total time spent 30 minutes with greater than 50% of this spent in counseling and coordination of care with patient and GIANNA Bill;review of palliative care philosophy; review of pain and symptom management and anticipatory guidance. Updated patient's PCP Dr. Richard regarding POC. Disclaimer: The chart note was formulated using voice recognition technology and unfortunately sound alike errors may occur.
== END 2020-09-30 11:51 | disposition home or self-care (01) ==
LOC: PC 11:50
PROVIDERS: ATTEND Nurse Practitioner Family
DX: Z51.5 Encounter for palliative care (principal); R11.2 Nausea with vomiting, unspecified; M54.9 Dorsalgia, unspecified; G89.29 Other chronic pain; C79.51 Secondary malignant neoplasm of bone; G80.9 Cerebral palsy, unspecified; Z85.3 Personal history of malignant neoplasm of breast; Z86.16 Personal history of COVID-19; Z99.3 Dependence on wheelchair
CPT/HCPCS: 99304

== ENCOUNTER 2020-10-01 15:14 | Outpatient (CLI) | payer MEDICARE, MEDICAID ==
[2020-10-01 15:20] LABS: BASOPHILS # (AUTO) 0.1 10^3/uL (0.0-0.1); BASOPHILS % (AUTO) 0.7 %; EOSINOPHILS % (AUTO) 0.1 %; HCT - HEMATOCRIT 36.8 % (37.0-47.0); HGB - HEMOGLOBIN 11.8 g/dL (12.0-16.0); LYMPHOCYTES # (AUTO) 1.1 10^3/uL (1.5-3.5); LYMPHOCYTES % (AUTO) 11.3 %; MEAN CORPUSCULAR HEMOGLOBIN 29.6 pg (27.0-31.0); MEAN CORPUSCULAR HGB CONC 32.1 g/dL (32.0-36.0); MEAN CORPUSCULAR VOLUME 92.5 fL (81.0-99.0); MEAN PLATELET VOLUME 8.5 fL (7.9-10.8); MONOCYTES # (AUTO) 0.6 10^3/uL (0.0-1.0); MONOCYTES % (AUTO) 6.7 %; NEUTROPHILS # (AUTO) 7.6 10^3/uL (1.5-6.6); NEUTROPHILS % (AUTO) 80.6 %; PLT - PLATELET COUNT 477 10^3/uL (130-450); RED BLOOD COUNT 3.98 10^6/uL (4.20-5.40); RED CELL DISTRIBUTION WIDTH 18.6 % (12.0-15.0); WHITE BLOOD COUNT 9.5 x10^3/uL (4.8-10.8)
[2020-10-01 15:38] LABS: CALCIUM 9.2 mg/dL (8.5-10.3); CREATININE 0.5 mg/dL (0.4-1.0); POTASSIUM 3.4 mmol/L (3.5-5.0)
== END 2020-10-01 15:15 | disposition home or self-care (01) ==
LOC: LAB.R 15:14
PROVIDERS: ATTEND Family Medicine
DX: C50.911 Malignant neoplasm of unspecified site of right female breast (principal); G80.9 Cerebral palsy, unspecified
CPT/HCPCS: 80048; 85025

== ENCOUNTER 2020-10-07 10:30 | Outpatient (CLI) | payer MEDICARE, MEDICAID ==
--- NOTE | 2020-10-07 11:45 | CONSULTATION NOTE ---
Palliative Care Follow Up - Referral Referring Provider: Dr. Boo Richard Time of Visit: [id number] Referral setting: Detention Facility Referral Reason: Metastatic Breast Cancer/Pain - Information Sources Records reviewed: Previous records reviewed History/Review of Systems obtained from: Patient, Nursing (MIGUEL Miller and MIGUEL Roth) - History of Present Illness Update Brief HPI Update: This is a 60-year-old female who is seen in follow-up today at [facility] due to metastatic breast cancer to the bones and pain management. The patient has spent the majority of her life in a wheelchair after being diagnosed with cerebral palsy as a young child. She reports that she was previously residing in [place] and her friend was helping her until she moved into [facility] in 2017. During her initial stay at [facility] she was found to have a right breast mass and on mammogram it was identified that she had a 13 cm mass in the right upper quadrant with right axillary adenopathy. She underwent a modified radical mastectomy of the right breast as well as an axillary lymph node dissection on 03/02/2017. She received treatment followed by Taxol that was completed in January 18, 2018. She was reporting increased pain in the setting of anorexia and weight loss. A nuclear bone scan was performed and revealed diffuse abnormalities indicating metastatic disease on September 04, 2020. At the time she was on anastrozole. She was seen and evaluated by oncology in mid September 2020 and has started F aslodex and was initiated on Ibrance therapy and confirm with nursing staff today this was begun on 10/03. Her anastrozole has been discontinued. She reports to discomfort to her mid back. This has been a long going issue for her. She does have a noted history of ibuprofen that was noted to have started in 2018. When discussed with MIGUEL Roth, she reports that the patient had an allergic reaction while at the facility. She inadvertently had received ibuprofen a few months ago and was then discontinued and transition to baclofen with no evidence of reaction. The patient recalls having been given ibuprofen and transitioned to baclofen. She does not recall a prior history of allergy to ibuprofen before this. On review of [facility] she was on meloxicam in 2020 and then ibuprofen in August 2020 with no adverse events noted on records available. She used this findings massage of IcyHot application to her back effective and would like this scheduled on a routine basis. On tramadol with some pain relief and has subsequently transitioned to as needed morphine concentrate 0.25 mL every 4 hours as needed for pain and 0.25 mL standing in the morning. This was initiated on 10/03/2020 and has been and effective response for the patient per facility staff as well as the patient herself. She is more calm and comfortable since initiation of morphine concentrate. She presently reports the pain in her back as 2 out of 10. She reports that the pain will go up and down her back with some variability. She does find exercising in her bed effective which she has been doing "since I was 8 years of age." The patient continues to have some nausea but reports that it is adequately controlled with ondansetron administration and she is able to eat small quantities during each meal. She has not had any episodes of emesis. If she does find that she has an increase sensation to vomit then she will practice deep breathing to subside the nausea. Patient is seen resting in bed on her right side. She has kyphotic posturing and is slightly disheveled in a hospital gown. She has nonskid socks on her feet. No evidence of acute distress and appears to be resting comfortably in bed. 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 Social History - Living Situation Living arrangement: [facility] Support System: Patient has been wheelchair-bound due to cerebral palsy since childhood. Both of her parents are . She has been residing at [facility] since 2016. Her DPOA is a family friend/surrogate father figureMookie with contact number [phone]. The patient attended [employer] in [place]. Both of her parents are . She has no children. Medications/Allergies - Medications Home Medications: Ambulatory Orders Medication Instructions Recorded Confirmed Calcium Carbonate [Tums (Calcium 500 mg PO Q4HR PRN 04/02/17 09/23/20 Carbonate 500mg)] Acetaminophen [Tylenol] 650 mg PO Q6H PRN 08/05/17 10/01/20 Bisacodyl Supp [Dulcolax Supp] 1 supp RC DAILY PRN 06/19/19 10/01/20 Magnesium Hydroxide [Milk of 30 ml PO DAILY PRN 06/19/19 10/01/20 Magnesia] Acetaminophen [Acetaminophen Extra 500 mg PO BID 10/01/20 10/01/20 Strength] Baclofen [Lioresal] 10 mg PO Q6H PRN 10/01/20 10/01/20 Esomeprazole Magnesium [Nexium] 1 cap PO QPM 10/01/20 10/01/20 Ondansetron HCl [Zofran] 4 mg PO Q4H PRN 10/01/20 10/01/20 Menthol/Camphor [Icy Hot Advanced 1 applic TP DAILY 10/07/20 10/07/20 Relief Cream] Menthol/Camphor [Icy Hot Advanced 1 applic TP Q8H PRN 10/07/20 10/07/20 Relief Cream] Morphine Sulfate [Morphine Sulf 0.25 ml PO DAILY 10/07/20 10/07/20 Oral (Roxanol)] Morphine Sulfate [Morphine Sulf 0.25 ml PO Q4H PRN 10/07/20 10/07/20 Oral (Roxanol)] - Allergies Allergies/Adverse Reactions: Allergies Allergy/AdvReac Type Severity Reaction Status Date / Time ibuprofen AdvReac Unknown Verified 10/03/20 11:35 Review of Systems - Constitutional Constitutional: reports: Poor appetite (improved from previous report from patient), Weight loss (weight 129lb). denies: Fever - Eyes Eyes: denies: Irritation - Ears, Nose & Throat Ears, Nose & Throat: denies: Hearing loss, Dry mouth - Cardiovascular Cardiovascular: denies: Chest pain, Edema - Respiratory Respiratory: denies: Cough, Wheezing - Gastrointestinal Gastrointestinal: reports: Nausea (see HPI for further details). denies: Abdominal pain, Constipation (reports bowel movements are regular), Vomiting, Other (No history of GI bleed) - Genitourinary Genitourinary: denies: Dysuria - Musculoskeletal Musculoskeletal: reports: Back pain (see HPI), Assistive devices, Transfer issues. denies: Joint swelling - Integumentary Integumentary: denies: Rash - Neurological Neurological: reports: General weakness. denies: Headache - Psychiatric Psychiatric: denies: Depression (denies SI and depressive sypmtoms) - Endocrine Endocrine: denies: Diabetes type 2 - All Other Systems All Other Systems: reports: Reviewed and negative Physical Exam - Vital Signs Temperature: 36.6 C Pulse Rate: 68 O2 Saturation: 96 (on RA) Blood Pressure: 127/72 - Physical Exam General Appearance: positive: No acute distress, Alert, Other (slightly dishelved with hospital gown in place) Eyes Bilateral: positive: Normal inspection ENT: positive: No signs of dehydration Neck: positive: Trachea midline Cardiovascular: positive: Regular rate & rhythm, No murmur Respiratory: positive: No respiratory distress, Breath sounds nml, Diminished in bases Abdomen: positive: Non-tender, Soft, Nml bowel sounds, Obese. negative: Distended Skin: positive: Pallor Extremities: positive: No pedal edema, Other (BLE slightly cool to touch; kyphotic posture) Neurologic/Psychiatric: positive: Oriented x3, Weakness, Other (Engaged and able to be focused on assessment today) Comments/Other: right breast mastectomy with well healed incision line Palliative Care - POLST Patient has POLST: Yes POLST Status: Full Code Pain: Pain improved (patient's pain has improved with transition to MSIR from tramadol), Location (back), Severity (2/10) Drowsiness/Sedation: Mild (1-3) Nausea: Mild (1-3) (controlled with zofran) Anorexia: Mild (1-3) Dyspnea: None Depression: None Sleep: Sleeps well (per patient report and denies insomnia) Constipation: No (per patient report) Performance Status: Patient is nonambulatory due to her underlying cerebral palsy and is wheelchair dependent. She is a two-person assist for bed mobility. She is a Tristin lift for transfers to wheelchair. She is able to self feed. No recent falls. PPS 50% - Palliative Care Discussion: The patient has had a history of right breast cancer since February 2017 and this is unfortunately progressed to metastatic breast cancer to the bones. She has chronic back pain likely multifactorial with kyphotic posturing as well as metastatic disease to the bone. She has a listed ibuprofen allergy but she herself is unclear what that allergy entails. Upon review of MAR she has received meloxicam as well as ibuprofen in 2020 with no noted adverse effect. She has tolerated transitioning from tramadol to morphine concentrate 10 was receiving that scheduled 5 mg in the morning as well as 5 mg every 4 hours as needed for pain. She appears to be much more comfortable than she did last week and the patient as well as nursing facility staff also support this. The patient may benefit in the future to a transition to methadone as her pain escalates as it is not on likely will be able to utilize an NSAID for adjunct of pain management in addition to her acetaminophen to the listed allergy and the patient's inability to articulate what this potential allergy is. The patient does express today that she wishes to write a book to discuss her experiences in the nursing facility. Provided supportive listening today and she reflects upon Mel, who was a nurse at the facility who had offered wonderful support to her when she first got cancer and how the patient wishes that this individual could be present at this time around as well. The patient is open to additional support from the palliative care forensic locksmith "as long as I am not dying." Discussed with the palliative care forensic locksmith can be present for life review as well as for flexion and discussion of the book that she wishes to write and she is amenable and open to this. Impression and Recommendations - Palliative Care Impression: This is a 60-year-old female who is wheelchair-bound due to cerebral palsy since childhood who was unfortunately developed metastatic breast cancer to the bones who is undergoing Faslodex and Ibrance therapy beginning the end of September 2020. She is had improvement in her underlying nausea and anorexia. She has intermittent lower back pain that is positively responding to morphine concentrate 5 mg scheduled and every 4 hours as needed for pain. The patient is receptive to touch and would benefit from routine administration of icy hot cream to the affected area of her back at least once daily for positive feedback in touch. She may need further adjustment of her morphine concentrate in the future or transitioning to a different pain modality but at the present time is controlled per her report. Continue to build rapport. Palliative care to continue to provide pain and symptom management, care coordination and anticipatory guidance. Recommendations/Counseling Done: 1. Back pain, chronic. Likely multifactorial with pain due to her underlying kyphotic posture erring and scoliosis as well as metastatic bone pain. Unclear why the patient has an ibuprofen listed as an allergy and what this response was. On review of MAR she is received both ibuprofen as well as meloxicam and no documented adverse events that this FORENSIC SCIENCE TECHNICIAN was able to find in the records. However, the patient is unclear regarding what this potential allergy may be and therefore will avoid NSAIDs however, can be quite effective in metastatic bone pain. Continue ibuprofen as ordered. Continue morphine concentrate as ordered and may consider transitioning to methadone in the future as received confirmation that this may be administered in the facility if the patient's pain is not well managed. Will initiate routine IcyHot application daily for touch and support at the patient's request. May continue IcyHot application every 6 hours as needed for back spasm or pain. Continue to follow and adjust medications as needed to optimize the patient's comfort. 2. Metastatic breast cancer to the bones. Patient has started Faslodex and Ibrance therapy in late September 2020. Was on anastrozole due to her history of right breast cancer previously and this has been subsequently discontinued. Dr. Soto with oncology to continue to follow. 3. Nausea. Improved. Responding positively to Zofran. Continue Zofran as ordered. If Zofran is no longer effective may consider as needed Compazine as additional layer of support to the patient within the facility setting. 4. Advanced care planning. The patient does not wish to discuss her potential due to her underlying metastatic breast cancer. She is open to having support from the palliative care forensic locksmith as additional added layer of support with in the facility and the patient herself does relay she does have some islam beliefs and is open to the palliative care forensic locksmith being present. We will continue to build rapport and gently explore goals of care moving forward. We will continue to assist with pain and symptom management as well as advanced care planning. CC: Palliative Care Senior Electrical Design Engineer Total time spent 50 minutes with greater than 50% of the spent in counseling and coordination of care with the patient, RNs Debbie and Ira; review of MAR and medical record; supportive listening; review of pain and symptom management and anticipatory guidance. Disclaimer: The chart note was formulated using voice recognition technology and unfortunately sound alike errors may occur.
== END 2020-10-07 10:31 | disposition home or self-care (01) ==
LOC: PC 10:30
PROVIDERS: ATTEND Nurse Practitioner Family
DX: Z51.5 Encounter for palliative care (principal); G89.3 Neoplasm related pain (acute) (chronic); C50.911 Malignant neoplasm of unspecified site of right female breast; C77.3 Secondary and unspecified malignant neoplasm of axilla and upper limb lymph nodes; C79.51 Secondary malignant neoplasm of bone; R11.0 Nausea; G80.9 Cerebral palsy, unspecified; M41.9 Scoliosis, unspecified; Z99.3 Dependence on wheelchair; E11.9 Type 2 diabetes mellitus without complications; H91.90 Unspecified hearing loss, unspecified ear; Z86.16 Personal history of COVID-19; Z90.11 Acquired absence of right breast and nipple
CPT/HCPCS: 99310

== ENCOUNTER 2020-10-12 01:31 | Outpatient (CLI) | payer MEDICARE, MEDICAID | END 2020-10-12 01:32 | disposition critical access hospital (66) | LOC: EMS 01:31 | DX: M54.6 Pain in thoracic spine (principal); R51.9 Headache, unspecified; R20.0 Anesthesia of skin; R20.2 Paresthesia of skin; M54.2 Cervicalgia; M54.5 Low back pain | CPT/HCPCS: A0425; A0427 ==

== ENCOUNTER 2020-10-12 01:45 | Emergency (ER) | payer MEDICARE, MEDICAID ==
[2020-10-12] MEDS ORDERED: SODIUM CHLORIDE 0.9% 1,000 ML IV STA (01:59)
--- NOTE | 2020-10-12 02:39 | ED Physician Documentation ---
PD HPI HEAD INJURY - Stated complaint Stated Complaint: GLF - Chief complaint Chief Complaint: Laceration - History obtained from History obtained from: Patient, EMS - History of Present Illness Mechanism of head injury: Fell Where head injury occurred: Home Timing - onset: Today Location of injury: Right, Back Quality of pain: Pain Associated symptoms: Neck pain, Paresthesias. No: LOC, AMS, Amnesia, Nausea / vomiting, Seizures, Ear drainage, Nasal drainage Symptoms improve with: Rest Symptoms worsen with: Palpation, Movement Contributing factors: No: Anticoagulated Similar symptoms before: Has not had sx before Recently seen: Other (getting ongoing treatment for breast cancer.) - Additional information Additional information: 60-year-old female with a history of cerebral palsy is a resident of [facility] and she is currently undergoing treatment for recurrence of breast cancer with widespread metastases to the bones. She has lived at [facility] for the past 4 years and this morning she fell out of bed and was attended to immediately by nursing staff. They indicate that she was last seen maybe 15 minutes previous to her fall the fall was heard she was attended to immediately and was never unconscious. She is complaining of some pain to the back of her head pain to her neck and upper back as well as some numbness to the right arm. The nursing staff at [facility] have indicated the patient has had some change in her ability to communicate over the past 2 weeks it seems worse than usual. She has been put on increasing doses of pain medication for control of her metastases related pain. She was most recently seen by palliative care.The patient herself has not wanted to speak about the possibility of exit. Review of Systems Constitutional: denies: Fever Eyes: denies: Decreased vision Ears: denies: Ear pain Nose: denies: Congestion Throat: denies: Sore throat Cardiac: denies: Chest pain / pressure, Palpitations Respiratory: denies: Dyspnea GI: denies: Abdominal Pain, Nausea, Vomiting : denies: Dysuria PD PAST MEDICAL HISTORY - Past Medical History Past Medical History: Yes Cardiovascular: None Respiratory: None Neuro: Cerebral palsy, Other Endocrine/Autoimmune: None GI: GERD : Incontinence HEENT: Chronic vision loss Psych: Anxiety Musculoskeletal: Osteoarthritis, Osteopenia, Chronic back pain, Other - Past Surgical History Past Surgical History: Yes General: Cholecystectomy, Colonoscopy Ortho: Other Neuro: HOT BLAST WORKER shunt - Present Medications Home Medications: Ambulatory Orders Medication Instructions Recorded Confirmed Calcium Carbonate [Tums (Calcium 500 mg PO Q4HR PRN 04/02/17 10/12/20 Carbonate 500mg)] Acetaminophen [Tylenol] 650 mg PO Q6H PRN 08/05/17 10/12/20 Bisacodyl Supp [Dulcolax Supp] 1 supp RC DAILY PRN 06/19/19 10/12/20 Magnesium Hydroxide [Milk of 30 ml PO DAILY PRN 06/19/19 10/12/20 Magnesia] Acetaminophen [Acetaminophen Extra 500 mg PO BID 10/01/20 10/12/20 Strength] Baclofen [Lioresal] 10 mg PO Q6H PRN 10/01/20 10/12/20 Esomeprazole Magnesium [Nexium] 1 cap PO QPM 10/01/20 10/12/20 Ondansetron HCl [Zofran] 4 mg PO Q4H PRN 10/01/20 10/12/20 Menthol/Camphor [Icy Hot Advanced 1 applic TP DAILY 10/07/20 10/12/20 Relief Cream] Menthol/Camphor [Icy Hot Advanced 1 applic TP Q8H PRN 10/07/20 10/12/20 Relief Cream] Morphine Sulfate [Morphine Sulf 0.25 ml PO DAILY 10/07/20 10/12/20 Oral (Roxanol)] Morphine Sulfate [Morphine Sulf 0.25 ml PO Q4H PRN 10/07/20 10/12/20 Oral (Roxanol)] - Allergies Allergies/Adverse Reactions: Allergies Allergy/AdvReac Type Severity Reaction Status Date / Time ibuprofen AdvReac Unknown Verified 10/12/20 02:00 - Social History Does the pt smoke?: Yes Smoking Status: Current every day smoker Does the pt drink ETOH?: Yes Does the pt have substance abuse?: No - Immunizations Immunizations are current?: No - POLST Patient has POLST: Yes POLST Status: Full Code PD ED PE NORMAL - Vitals Vital signs reviewed: Yes (Tachycardic and hypotensive) - General General: No acute distress, Well developed/nourished, Other (There is a delay in execution of motor commands the patient is able to talk and to communicate effectively but slowly.) - HEENT HEENT: PERRL, EOMI, Other (There is a 2.5cm superficial laceration to the scalp on the right occipital area. ) - Neck Neck: Other (There is bony tenderness to the mid cervical spine.) - Cardiac Cardiac: No murmur, Other (Tachycardia to 120) - Respiratory Respiratory: No respiratory distress, Other (Wheezes and rhonchi to the bases bilaterally) - Abdomen Abdomen: Soft, Non tender - Back Back: No CVA TTP, Other (There is mild tenderness to the thoracic spine that extends into the lumbar spine area the tenderness is mild.) - Derm Derm: Normal color, Warm and dry, No rash - Extremities Extremities: No edema, Other (Flexion contractures at the wrists bilaterally) - Neuro Neuro: javascript programmer 2-12 intact, No motor deficit, No sensory deficit Eye Opening: Spontaneous Motor: Obeys Commands Verbal: Oriented GCS Score: 15 - Psych Psych: Normal mood, Other (Affect is flat) Results - Vitals Vitals: Vital Signs - 24 hr 10/12/20 10/12/20 10/12/20 01:47 02:01 04:37 Temperature 36.6 C 36.6 C Heart Rate 115 H 115 H 106 H Respiratory 20 20 18 Rate Blood Pressure 89/46 L 89/46 L 107/89 H O2 Saturation 100 100 100 Oxygen O2 Source Room air - Labs Labs: Laboratory Tests 10/12/20 10/12/20 10/12/20 02:54 02:54 04:30 WBC 9.0 RBC 4.19 L Hgb 12.5 Hct 39.1 MCV 93.3 MCH 29.8 MCHC 32.0 RDW 18.2 H Plt Count 256 MPV 9.1 Neut # (Auto) Not Reportable Lymph # (Auto) Not Reportable [place] # (Auto) Not Reportable Eos # (Auto) Not Reportable Baso # (Auto) Not Reportable Absolute Nucleated RBC Not Reportable Total Counted 100 Band Neuts % (Manual) 0 Abnorm Lymph % (Manual) 0 Nucleated RBC % Not Reportable Neutrophils # (Manual) 8.2 H Lymphocytes # (Manual) 0.6 L Monocytes # (Manual) 0.1 Eosinophils # (Manual) 0.0 Basophils # (Manual) 0.1 Differential Comment MANUAL DIFFERENTIAL WBC Morphology NORMAL APPEARANCE Platelet Estimate NORMAL (130-450,000) Platelet Morphology NORMAL APPEARANCE RBC Morph Micro Appear NORMAL APPEARANCE Sodium 133 L Potassium 3.7 Chloride 98 L Carbon Dioxide 22 Anion Gap 13.0 BUN 11 Creatinine 0.4 Estimated GFR (MDRD) 164 Glucose 114 H Calcium 8.8 Total Bilirubin 0.8 AST 29 ALT 11 Alkaline Phosphatase 515 H Total Protein 7.0 Albumin 2.8 L Globulin 4.2 Albumin/Globulin Ratio 0.7 L Lipase 43 Urine Color YELLOW Urine Clarity CLEAR Urine pH 5.5 Ur Specific [place] <=1.005 Urine Protein NEGATIVE Urine Glucose (UA) NEGATIVE Urine Ketones NEGATIVE Urine Occult Blood NEGATIVE Urine Nitrite NEGATIVE Urine Bilirubin NEGATIVE Urine Urobilinogen 0.2 (NORMAL) Ur Leukocyte Esterase NEGATIVE Ur Microscopic Review NOT INDICATED Urine Culture Comments NOT INDICATED Procedures - Laceration (location) scalp Wound type: Curved, Superficial, Clean Neurovascular status: Sensory intact, Motor intact, Vascular intact Wound preparation: Hibiclens, Irrigated copiously NS, Wound explored, To the base Skin layer closure: Dermabond Other: Patient tolerated well, No complications, Neurovascular intact, Dressing applied - IVC sono (time) 0200 Bedside IVC sono: IVC measures (cm) (1.29), IVC collapsed c insp (cm) (complete), Dehydration (est 1 liter deficit) PD MEDICAL DECISION MAKING - ED course Complexity details: reviewed results, re-evaluated patient, considered differential, d/w patient ED course: 60-year-old female with history of cerebral palsy and advanced recurrent breast cancer with mets to the bones is fallen out of bed she has a small superficial laceration to her scalp some pain in her neck and upper back and she is found to be dehydrated on interrogation the inferior vena cava.CT scans of her head neck and an x-ray of her chest are obtained demonstrating some atelectasis in her chest and metastases in the cervical spine. She does have a HOT BLAST WORKER shunt in place. She is hydrated with normal saline. She has improvement in her affect and her ability to communicate. Departure - Departure Disposition: 01 Home, Self Care Clinical Impression: Dehydration Concussion Qualifiers: Encounter type: initial encounter Loss of consciousness presence/duration: without LOC Qualified Code(s): S06.0X0A - Concussion without loss of consciousn ess, initial encounter Occipital scalp laceration Qualifiers: Encounter type: initial encounter Qualified Code(s): S01.01XA - Laceration without foreign body of scalp, initial encounter Condition: Stable Instructions: ED Laceration Facial Skin Glue, ED Dehydration, ED Concussion Follow-Up: YAMILETH NORTON, [Primary Care Provider] -
[2020-10-12 02:56] LABS: BASOPHILS % (AUTO) 0.6 %; EOSINOPHILS % (AUTO) 0.3 %; HCT - HEMATOCRIT 39.1 % (37.0-47.0); HGB - HEMOGLOBIN 12.5 g/dL (12.0-16.0); LYMPHOCYTES % (AUTO) 7.5 %; MEAN CORPUSCULAR HEMOGLOBIN 29.8 pg (27.0-31.0); MEAN CORPUSCULAR VOLUME 93.3 fL (81.0-99.0); MEAN PLATELET VOLUME 9.1 fL (7.9-10.8); MONOCYTES % (AUTO) 1.8 %; NEUTROPHILS % (AUTO) 88.2 %; PLT - PLATELET COUNT 256 10^3/uL (130-450); RED BLOOD COUNT 4.19 10^6/uL (4.20-5.40); RED CELL DISTRIBUTION WIDTH 18.2 % (12.0-15.0)
[2020-10-12 03:05] LABS: ABNORMAL LYMPHS % (MANUAL) 0 %; BAND NEUTROPHILS % (MANUAL) 0 %
[2020-10-12 03:10] LABS: ALBUMIN 2.8 g/dL (3.2-5.5); ALBUMIN/GLOBULIN RATIO 0.7 (1.0-2.2); BILIRUBIN,TOTAL 0.8 mg/dL (0.2-1.0); CALCIUM 8.8 mg/dL (8.5-10.3); CREATININE 0.4 mg/dL (0.4-1.0); POTASSIUM 3.7 mmol/L (3.5-5.0)
[2020-10-12 03:18] LABS: BASOPHILS # (MANUAL) 0.1 10^3/uL (0-0.1); BASOPHILS % (MANUAL) 1 %; DIFFERENTIAL COMMENT MANUAL DIFFERENTIAL; LYMPHOCYTES # (MANUAL) 0.6 10^3/uL (1.5-3.5); LYMPHOCYTES % (MANUAL) 7 %; MONOCYTES # (MANUAL) 0.1 10^3/uL (0.0-1.0); NEUTROPHILS # (MANUAL) 8.2 10^3/uL (1.5-6.6); PLATELET ESTIMATE, MANUAL NORMAL (130-450,000) (NORMAL); PLATELET MORPHOLOGY NORMAL APPEARANCE (NORMAL); RBC MORPHOLOGY (MULTIPLE) NORMAL APPEARANCE (NORMAL); WBC MORPHOLOGY (MULTIPLE) NORMAL APPEARANCE (NORMAL)
[2020-10-12] MEDS ORDERED: TETANUS/DIPHTHERIA/PERTUSSIS 0.5 ML SYRINGE IM ONE (04:04)
[2020-10-12 04:44] LABS: BILIRUBIN,URINE NEGATIVE (NEGATIVE); GLUCOSE, URINE (UA) NEGATIVE (NEGATIVE); KETONES,URINE (UA) NEGATIVE (NEGATIVE); LEUKOCYTE ESTERASE, URINE NEGATIVE (NEGATIVE); NITRITE,URINE NEGATIVE (NEGATIVE); OCCULT BLOOD,URINE NEGATIVE (NEGATIVE); PH,URINE 5.5 PH (5.0-7.5); PROTEIN,URINE NEGATIVE (NEGATIVE); UROBILINOGEN,URINE 0.2 (NORMAL) E.U./dL (NORMAL)
[2020-10-12 04:47] LABS: CLARITY,URINE CLEAR (CLEAR)
[2020-10-12 05:17] VITALS: BP 122/83
--- NOTE | 2020-10-12 08:54 | CT Report ---
PROCEDURE: HEAD WO INDICATIONS: head trauma right arm numbness TECHNIQUE: Noncontrast 4.5 mm thick angled axial sections acquired from the foramen magnum to the vertex. For r adiation dose reduction, the following was used: automated exposure control, adjustment of mA and/or kV according to patient size. COMPARISON: 09/07/2020, 10/07/2017, 05/27/2012. Correlation is also made with the accompanying cervical spine CT, 10/12/2020. FINDINGS: Image quality: Excellent. CSF spaces: Basal cisterns are patent. No extra-axial fluid collections. Ventricles are small in s ize, yet stable. There is a stable left frontal approach ventriculostomy catheter. Brain: No midline shift. No intracranial masses or hemorrhage. Hylton-white matter interface is norm al. Skull and face: Calvarium and visualized facial bones are intact, without suspicious lesions. Hyper ostosis frontalis is incidentally noted, which is not frankly abnormal for a female patient of this a ge. Sinuses: Visualized sinuses and mastoids are clear. IMPRESSION: No acute intracranial hemorrhage or other acute abnormality is identified. Stable left frontal approach ventriculostomy catheter, with stable small size of the ventricles. Note: No significant discrepancy from the preliminary report. Reviewed by: Brandon Leggett MD on 10/12/2020 7:53 AM ADRIEN Approved by: Brandon Leggett MD on 10/12/2020 7:53 AM ADRIEN Station ID: [id number]
--- NOTE | 2020-10-12 08:59 | CT Report ---
PROCEDURE: CERVICAL SPINE WO INDICATIONS: polytrauma, critical head and neck TECHNIQUE: Noncontrast 3 mm thick sections acquired from the skull base to the T4 level. Sagittal and coronal r eformats were then constructed. For radiation dose reduction, the following was used: automated exp osure control, adjustment of mA and/or kV according to patient size. COMPARISON: No prior cervical spine CT examinations are available for comparison. Correlation is mad e with the prior cervical spine plain films, 11/07/2012. Correlation is also made with the accompanying head CT, 10/12/2020. FINDINGS: Image quality: Excellent. Bones: No fractures or dislocations. Visualized superior ribs are intact. Bony irregularity, with a mild mottled appearance is seen throughout. There is increased bony scleros is seen at C3, C7, and particularly T1. Degenerative changes are seen throughout, with at least moderate disc space narrowing throughout the cervical spine. Moderate to severe disc space narrowing can be seen at C5-C6, C6-C7, and C7-T1. Soft tissues: Prevertebral soft tissues are normal in thickness. No paravertebral hematomas. No ap ical pneumothoraces. There is a small left-sided pleural effusion. There is pleural thickening noted on the left. Left-sided ventriculoperitoneal shunt catheter tubing can be seen. Postoperative change of the right neck can also be seen. IMPRESSION: No acute fractures are seen. Areas of bony irregularity and bony sclerosis can be seen. Please consider metastatic disease versus an underlying metabolic bone disorder. Right-sided pleural effusion partially seen. Left-sided pleural thickening also seen. Incidental note is made of: Left-sided ventriculoperitoneal shunt catheter tubing Postoperative change of the soft tissues of the right neck Note: No significant discrepancy from the preliminary report. Reviewed by: Brandon Leggett MD on 10/12/2020 7:57 AM ADRIEN Approved by: Brandon Leggett MD on 10/12/2020 7:57 AM ADRIEN Station ID: [id number]
--- NOTE | 2020-10-12 09:02 | XRAY Report ---
PROCEDURE: Chest 1 View X-Ray INDICATIONS: chest pain TECHNIQUE: One view of the chest was acquired. COMPARISON: Prior chest radiograph is, 07/12/2018, 01/19/2019, and 03/25/2017 Correlation is made with the prior chest CT, 09/26/2020. Correlation is also made with the accompanying head CT and cervical sp ine CT, 10/12/2020. FINDINGS: Overlying artifact is seen on the right side, which may related to clothing or blankets. Surgical changes and devices: Left-sided CENTERLESS GRINDER shunt catheter tubing is seen. Cholecystectomy clips are seen. Lungs and pleura: There is a small to moderate right-sided pleural effusion. A trace left-sided pleur al effusion is seen. Overlying consolidative change can be seen at the lung bases. Lung volumes are l ow. No large pneumothorax is seen. Mediastinum: Mediastinal contours appear normal. Heart size is near the upper limits of normal. Th e known hiatal hernia is partially seen. Bones and chest wall: No suspicious bony lesions. Age-appropriate degenerative changes are seen. Overlying soft tissues appear unremarkable. IMPRESSION: Small to moderate right-sided pleural effusion, with a small left-sided pleural effusion. Overlying consolidative change can be seen at the lung bases, which is most likely related to atelect asis. However, please consider infiltrate. Incidental note is made of: Left-sided CENTERLESS GRINDER shunt catheter tubing Cholecystectomy Hiatal hernia Note: No significant discrepancy from the preliminary report. Reviewed by: Brandon Leggett MD on 10/12/2020 8:01 AM ADRIEN Approved by: Brandon Leggett MD on 10/12/2020 8:01 AM ADRIEN Station ID: [id number]
== END 2020-10-12 06:00 | disposition home or self-care (01) ==
LOC: EDUNIT# → SUPCPDRO 01:45 → ED 01:45
DX: S01.01XA Laceration without foreign body of scalp, initial encounter (principal); E86.0 Dehydration; W06.XXXA Fall from bed, initial encounter; Y92.092 Bedroom in other non-institutional residence as the place of occurrence of the external cause; M54.2 Cervicalgia; M54.6 Pain in thoracic spine; J98.11 Atelectasis; C50.919 Malignant neoplasm of unspecified site of unspecified female breast; C79.51 Secondary malignant neoplasm of bone; G80.9 Cerebral palsy, unspecified; F17.200 Nicotine dependence, unspecified, uncomplicated; K21.9 Gastro-esophageal reflux disease without esophagitis; R32 Unspecified urinary incontinence; H54.7 Unspecified visual loss; Z96.89 Presence of other specified functional implants; Z79.899 Other long term (current) drug therapy
CPT/HCPCS: 12001; 36415; 80053; 81001; 81003; 83690; 85025; 87086; 90471; 99283

== ENCOUNTER 2020-10-12 06:00 | Outpatient (CLI) | payer MEDICARE, MEDICAID | END 2020-10-12 06:01 | disposition home or self-care (01) | LOC: EMS 06:00 | PROVIDERS: ATTEND Emergency Medicine | DX: G80.9 Cerebral palsy, unspecified (principal); C50.919 Malignant neoplasm of unspecified site of unspecified female breast; C79.9 Secondary malignant neoplasm of unspecified site | CPT/HCPCS: A0425; A0428 ==

== ENCOUNTER 2020-10-15 11:00 | Outpatient (CLI) | payer MEDICARE, MEDICAID ==
--- NOTE | 2020-10-15 14:57 | CONSULTATION NOTE ---
Palliative Care Follow Up - Referral Referring Provider: Dr. Isacc Soto Time of Visit: [id number] Referral setting: [facility] Referral Reason: Drowsiness/Cancer Pain/Metastatic Breast Cancer - Information Sources Records reviewed: Previous records reviewed History/Review of Systems obtained from: Patient, Family (CARMELITA Damico and his daughter Ira via phone), Nursing (GIANNA Bill), Other (Nurse Rice Drier Operator Ira) - History of Present Illness Update Brief HPI Update: This is a 60-year-old female who was seen in follow-up today [facility] due to metastatic breast cancer to the bones, pain management and recent report of drowsiness with Landy KATZ present. The patient spent the majority of her life in a wheelchair after being diagnosed with cerebral palsy as a young child. She reports that she was previously residing in [place] and her friend was helping her until she moved into [facility] in 2016. During her initial stay at [facility] she was found to have a right breast mass and on mammogram it was identified that she had a 13 cm mass in the right upper quadrant with right axillary adenopathy. She underwent a modified radical mastectomy of the right breast as well as an axillary lymph node dissection on 03/02/2017. She received treatment followed by Taxol that was completed in January 18/2018. She is reporting increased pain in the setting of anorexia and weight loss. Nuclear bone scan was performed and revealed diffuse abnormalities indicating metastatic disease on September 04, 2020. At the time she was on anastrozole. She typically reports discomfort to her mid back due to diffuse bone metastasis and has not started Zometa due to poor dental health. She was started on baclofen for muscle spasms in 09/04/2020 and upon review of MAR she is receiving appx 10mg of baclofen daily in the last 7 days. She was started on MSIR 10/01/2020 PRN for pain. Per facility staff when transitioning over from tramadol to MSIR she has had improvement of her pain and no longer has any periods of crying out. She had been received MSIR 5mg daily since 10/03/2020 which was discontinued yesterday due to drowsiness. Upon review of MAR she has been receiving 1-2 dose of PRN 5mg MSIR a day. The patient herself reports that yesterday she felt "hung over." She was not able to participate much with the oncologist during the visit per the patient's report as well as her DPOA, Ray and upon review of MAR she received baclofen and MSIR congruently likely leading to this sedation which has now both been discontinued. She has a decreased oral intake and required IV hydration yesterday at the [facility]. She is receiving Faslodex and Ibrance presently. Now that she has sustained a recent fall on 10/12/2020 after falling out of bed she is in a low bed with a mat and her liquids are out of close reach as it impairs her view of the TV. Assisted with drinkng fluids during assessment today. She is also on a mighty shake routinely with percent consumed documented. She does have some underlying nausea that responds to ondensatron administration and states she is eating small amounts during the day that has improved. Last bowel movement reported as yesterday and reviewed the importance for a bowel regimen especially with administration of MSIR. The patient wishes to have a stacked system management. Patient had a fall out of bed on 10/12/2020 and was seen in the emergency department of [facility] where she sustained a 2.5 cm superficial laceration to the scalp on the right occipital area. She had obtained CT scans of her head, and neck as well as an x-ray of her chest that demonstrated metastases in the cervical spine. She also received IV hydration while in the emergency department. When reviewing with the patient today, she was unable to recall how she had fallen out of bed. The patient is seen resting in bed on her right side. She has kyphotic posturing and is in a T-shirt today. Alert and able to participate today with no evidence of acute distress. Social History - Living Situation Living arrangement: retirement Medications/Allergies - Medications Home Medications: Ambulatory Orders Medication Instructions Recorded Confirmed Calcium Carbonate [Tums (Calcium 500 mg PO Q4HR PRN 04/02/17 10/14/20 Carbonate 500mg)] Acetaminophen [Tylenol] 650 mg PO Q6H PRN 08/05/17 10/14/20 Bisacodyl Supp [Dulcolax Supp] 1 supp RC DAILY PRN 06/19/19 10/14/20 Magnesium Hydroxide [Milk of 30 ml PO DAILY PRN 06/19/19 10/14/20 Magnesia] Acetaminophen [Acetaminophen Extra 500 mg PO TID 10/01/20 10/14/20 Strength] Esomeprazole Magnesium [Nexium] 1 cap PO QPM 10/01/20 10/14/20 Ondansetron HCl [Zofran] 4 mg PO Q4H PRN 10/01/20 10/14/20 Menthol/Camphor [Icy Hot Advanced 1 applic TP DAILY 10/07/20 10/14/20 Relief Cream] Menthol/Camphor [Icy Hot Advanced 1 applic TP Q8H PRN 10/07/20 10/14/20 Relief Cream] Morphine Sulfate [Morphine Sulf 0.25 ml PO Q4H PRN 10/07/20 10/14/20 Oral (Roxanol)] Docusate Sodium 100Mg Capsule 100 mg PO DAILY 10/15/20 10/15/20 [Colace 100Mg Capsule] - Allergies Allergies/Adverse Reactions: Allergies Allergy/AdvReac Type Severity Reaction Status Date / Time ibuprofen AdvReac Unknown Verified 10/14/20 12:47 Review of Systems - Constitutional Constitutional: reports: Poor appetite (improved per patient report), Weight loss (weight 129lb). denies: Fever - Eyes Eyes: denies: Irritation - Ears, Nose & Throat Ears, Nose & Throat: denies: Hearing aids - Cardiovascular Cardiovascular: denies: Chest pain, Edema - Respiratory Respiratory: denies: Cough - Gastrointestinal Gastrointestinal: reports: Nausea (controlled), Poor appetite (per patient report, on mighty shakes). denies: Abdominal pain, Constipation (LBM yesterday without discomfort or straining), Vomiting - Genitourinary Genitourinary: denies: Dysuria - Musculoskeletal Musculoskeletal: reports: Back pain (thoaracic region, controlled with MSIR PRN), Assistive devices, Transfer issues. denies: Joint swelling - Neurological Neurological: reports: General weakness. denies: Headache - Psychiatric Psychiatric: denies: Depression - Endocrine Endocrine: denies: Hypothyroidism - Hematologic/Lymphatic Hematologic/Lymph: denies: Recurrent infections - All Other Systems All Other Systems: reports: Reviewed and negative (ROS also supporeted by GIANNA Bill and MIGUEL Roth at facility) Physical Exam - Vital Signs Temperature: 36.6 C Pulse Rate: 87 O2 Saturation: 97 (on RA at rest) Blood Pressure: 131/78 (left wrist) - Physical Exam General Appearance: positive: No acute distress, Alert, Other (slightly dishelved hair) Eyes Bilateral: positive: Other (Noted nystagmus intermittently) ENT: positive: No signs of dehydration Neck: positive: Trachea midline Cardiovascular: positive: Regular rate & rhythm Respiratory: positive: No respiratory distress, Breath sounds nml, Diminished in bases Abdomen: positive: Non-tender, Soft, Nml bowel sounds, Obese. negative: Distended Skin: positive: Pallor Extremities: positive: No pedal edema, Other (BLE slightly cool to touch; kyphotic posture; mild tenderness to plaption of thoracic spine; flexion contractures at wrists b/l) Neurologic/Psychiatric: positive: Oriented x3, Weakness, Other (Engaged with evaluation, able to communicate clearly today) Palliative Care - POLST Patient has POLST: Yes POLST Status: Full Code Pain: Comment (Pain is controlled with MSIR presently) Nausea: Mild (1-3) Anorexia: Mild (1-3) - Palliative Care Discussion: The patient had increased sedation yesterday during her oncology appointment unfortunately as she was given baclofen and MS IR congruently. In discussion with the patient today she is open to avoiding this happen in the future and therefore baclofen will remain discontinued as well as standing MSIR. We will continue MSIR 5 mg every 4 hours as needed for pain and is the patient is only requiring 1-2 doses per day presently and set expectations with the patient as well as with her DPOA/father figureMookie that would expect in the future to need routine administration of opioid therapy with the goal to eventually transition to a long-acting form. Given the patient's sedation would have concerns initiating methadone in the present facility setting if there were to be side effects developed. Would consider long-acting morphine in the future as a potential transition. The patient herself does not wish to talk about or dying. She continues to be very adverse. She relays that "I have that he is to do things and want people to allow me to do it." She becomes quite despondent if you attempt to bring up any talk of end-of-life. Her father figure/DPOAMookie reports that he has begun having more open communications with her about end of life and will continue to build rapport and have these conversations. Mookie is also supported by his daughter, Ira. Both Mookie and Ira recognize that the patient has metastatic disease and will eventually require transition to hospice services for symptom management but in the interim they value the support to focus on comfort measures within the facility environment and a goal between between all disciplines. Impression and Recommendations - Palliative Care Impression: This is an 60-year-old female who is wheelchair-bound due to cerebral palsy sin e childhood who has unfortunately developed metastatic breast cancer to the bone to is undergoing Faslodex and Ibrance therapy beginning the end of September 2020. She has continue to control of her underlying nausea with a zofran. She unfortunately had increased sedation with coadministration of baclofen and MSIR and baclofen has now been discontinued. Her pain is presently controlled with as needed MSIR and the patient is articulate and able to request breakthrough medication but would benefit from increased scheduling of acetaminophen 500mg to 3 times daily dosing. Palliative care to continue to provide care coordination, pain and symptom management, and anticipatory guidance. Recommendations/Counseling Done: 1. Drowsiness from medication. Patient had coadministration of baclofen with MSIR causing increased drowsiness and sedation. Baclofen discontinued due to to avoid potential side effects in the future. We will continue to monitor the administration of MSIR and balancing side effects versus pain control moving forward closely. 2. Decreased oral intake. Patient has been requiring IV hydration. Now, she has her liquids placed away from her in the facility despite encouragement to have it closer however, it is impeding her review of the television. She is to have weekly hydration at the [facility]. Will request that staff encourage 140 mL of fluids 3 times daily at medication past to encourage additional oral hydration. To continue mighty shake routinely as ordered. Monitor weekly weights and follow. 3.Pain of neoplastic origin. Most specifically to the patient's thoracic spine. Due to reported increased sedation discontinue standing MSIR 5 mg daily. Continue MSIR 5 mg every 4 hours as needed daily and monitor patient's response and frequency setting expectations that may require long acting pain management in the future. However, due to recent and drowsiness would be hesitant to initiate methadone in this particular setting due to to the need for monitoring to avoid side effects. We will continue to reeval and adjust plan of care to optimize the patient's comfort. Increase acetaminophen to 500 mg 3 times daily. Baclofen discontinued. Continue routine IcyHot application to the patient's back and every 6 hours as needed. 4. Advanced care planning. The patient continues to defer discussing due to her underlying metastatic breast cancer. The patient's father figure/DPOAMookie is very realistic and open to having these discussions and was recently pleasantly surprised with the patient being slightly open. We will continue to build rapport and assist the patient during her course and journey. Will also provide support to the patient's DPOA and family. Palliative care supervisor general is support is pending. We will continue to assist with pain and symptom management as well as advanced care planning moving forward. Total time spent 40 minutes with greater than 50% of this spent in counseling and coordination of care with patient, MIGUEL Hilarioi and Dr. Richard, PCP; examination of patient; review of pain and symptom management and anticipatory guidance. Contacted patient and DPOA/father figureMookie at [phone] with update regarding plan of care and discussion with both Mookie and his daughter, Ira with questions answered and addressed and supportive listening provided. Disclaimer: The chart note was formulated using voice recognition technology and unfortunately sound alike errors may occur.
== END 2020-10-15 11:01 | disposition home or self-care (01) ==
LOC: PC 11:00
PROVIDERS: ATTEND Nurse Practitioner Family
DX: Z51.5 Encounter for palliative care (principal); G89.3 Neoplasm related pain (acute) (chronic); C50.911 Malignant neoplasm of unspecified site of right female breast; C79.51 Secondary malignant neoplasm of bone; G80.9 Cerebral palsy, unspecified; R63.0 Anorexia; M40.209 Unspecified kyphosis, site unspecified; R63.4 Abnormal weight loss; Z99.3 Dependence on wheelchair; R40.0 Somnolence; T42.8X5A Adverse effect of antiparkinsonism drugs and other central muscle-tone depressants, initial encounter; T40.2X5A Adverse effect of other opioids, initial encounter; Z91.81 History of falling; Z79.899 Other long term (current) drug therapy
CPT/HCPCS: 99310

== ENCOUNTER 2020-10-21 11:30 | Outpatient (CLI) | payer MEDICARE, MEDICAID ==
--- NOTE | 2020-10-21 14:23 | CONSULTATION NOTE ---
Palliative Care Follow Up - Referral Referring Provider: Dr. Isacc Soto Time of Visit: 4563-8365 Referral [facility]: [facility] Referral Reason: Pain of neoplastic origin/Metastatic breast cancer - Information Sources Records reviewed: Previous records reviewed History/Review of Systems obtained from: Patient, Nursing (GIANNA Bill) - History of Present Illness Update Brief HPI Update: This is a 60-year-old female who was seen in follow-up today at [facility] due to metastatic breast cancer to the bones, pain management and advance care planning. Patient spent the majority of her life in a wheelchair after being dosed with cerebral palsy as a young child. She previously was residing in [place] and her friend was helping her until she moved to [facility] in 2017. During her initial stay at [facility] she was found to have a right breast mass and on mammogram it was identified that she had a 13 cm mass in the right upper quadrant with right axillary adenopathy. She underwent a modified radical mastectomy of the right breast as well as an axillary lymph node dissection on 03/02/2017. She received treatment followed by Taxol that was completed in January 18, 2018. The patient was reporting increased pain in the setting of anorexia and weight loss. Nuclear bone scan was performed and revealed diffuse abnormalities indicating metastatic disease on September 04, 2020. At that time she was on anastrozole. She typically reports discomfort to her back due to diffuse bone metastasis and has not started on Zometa due to poor dental health. She had increased sedation noted during her last evaluation with Dr. Soto and her baclofen was discontinued and since that time she has not had increased sedation. She has been receiving MSIR 5mg typically twice a day however, yesterday she reports increased pain to her lumbar spine as she "twisted something" and request MSIR x 4 times. Today, she reports she is feeling comfortable and her pain is a 3/10 presently. GIANNA Bill reports that she is requiring increased assistance with meals and is "nibbling." She has a mighty shake that is being offered TID but the percentage consumed is not being reported. Since last evalation, staff has been encouraging fluids 140mL TID with meals passes and this has improved the patient's overall oral hydration. The patient denies increased thirst or dry mouth. She is denying nausea or vomiting as contributing factors. The patient is seen resting in bed on her right side and in nightgown. She has kyphotic posturing and required repositioning by GIANNA Bill. Able to participate and was alert today. No evidence of acute distress. 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 Social History - Living Situation Living arrangement: intermediate Support System: Patient has been wheelchair-bound due to cerebral palsy since childhood. Both of her parents are . She has been residing at [facility] since 2016. Her DPOA is a family friend/surrogate father figure Mookie with contact number [phone]. Both of her parents are . She has no children. Palliative care grocery stock clerk has been requested. The patient's DPOA/surrogate father figure is appreciative of palliative care support and monitoring the patient in a facility setting. Medications/Allergies - Medications Home Medications: Ambulatory Orders Medication Instructions Recorded Confirmed Calcium Carbonate [Tums (Calcium 500 mg PO Q4HR PRN 04/02/17 10/14/20 Carbonate 500mg)] Acetaminophen [Tylenol] 650 mg PO Q6H PRN 08/05/17 10/14/20 Bisacodyl Supp [Dulcolax Supp] 1 supp RC DAILY PRN 06/19/19 10/14/20 Magnesium Hydroxide [Milk of 30 ml PO DAILY PRN 06/19/19 10/14/20 Magnesia] Acetaminophen [Acetaminophen Extra 500 mg PO TID 10/01/20 10/14/20 Strength] Esomeprazole Magnesium [Nexium] 1 cap PO QPM 10/01/20 10/14/20 Ondansetron HCl [Zofran] 4 mg PO Q4H PRN 10/01/20 10/14/20 Menthol/Camphor [Icy Hot Advanced 1 applic TP DAILY 10/07/20 10/14/20 Relief Cream] Menthol/Camphor [Icy Hot Advanced 1 applic TP Q8H PRN 10/07/20 10/14/20 Relief Cream] Morphine Sulfate [Morphine Sulf 0.25 ml PO Q4H PRN 10/07/20 10/14/20 Oral (Roxanol)] Docusate Sodium 100Mg Capsule 100 mg PO DAILY 10/15/20 10/15/20 [Colace 100Mg Capsule] Fulvestrant [Faslodex] See Protocol IM TITR 10/17/20 10/17/20 Palbociclib [Ibrance] 100 mg ORAL DAILY 10/17/20 10/17/20 - Allergies Allergies/Adverse Reactions: Allergies Allergy/AdvReac Type Severity Reaction Status Date / Time ibuprofen AdvReac Unknown Verified 10/14/20 12:47 Review of Systems - Constitutional Constitutional: reports: Poor appetite (see HPI), Weight loss (weight 123lb, previous weight 129lb). denies: Fever - Eyes Eyes: denies: Irritation - Ears, Nose & Throat Ears, Nose & Throat: denies: Hearing loss, Dry mouth - Cardiovascular Cardiovascular: denies: Edema - Respiratory Respiratory: denies: Cough - Gastrointestinal Gastrointestinal: reports: Nausea (controlled with prn zofran), Poor appetite (per patient report, on mighty shakes TID, see HPI). denies: Constipation, Vomiting - Genitourinary Genitourinary: denies: Dysuria - Musculoskeletal Musculoskeletal: reports: Back pain (reports lumbar region today; controlled with MSIR PRN), Assistive devices, Transfer issues. denies: Joint swelling - Integumentary Integumentary: reports: Dryness - Neurological Neurological: reports: General weakness. denies: Headache, Dizziness - Endocrine Endocrine: denies: Hypothyroidism - All Other Systems All Other Systems: reports: Reviewed and negative (ROS also supporeted by GIANNA Bill) Physical Exam - Vital Signs Pulse Rate: 84 O2 Saturation: 97 Blood Pressure: 135/64 (left) - Physical Exam General Appearance: positive: No acute distress, Alert, Other (slightly dishelved hair) Eyes Bilateral: positive: Other (Noted nystagmus intermittently) ENT: positive: No signs of dehydration Neck: positive: Trachea midline Cardiovascular: positive: Regular rate & rhythm Respiratory: positive: No respiratory distress, Breath sounds nml, Diminished in bases Abdomen: positive: Non-tender, Soft, Nml bowel sounds, Obese Skin: positive: Pallor Extremities: positive: No pedal edema, Other (BLE slightly cool to touch; kyphotic posture; flexion contractures at wrists b/l) Neurologic/Psychiatric: positive: Oriented x3, Weakness, Other (Engaged in talking about Musicians that she has an interesting) Palliative Care - POLST Patient has POLST: Yes POLST Status: Full Code Pain: Pain improved Constipation: No, Managed Performance Status: Patient is requiring increased assistance from facility staff. Facility staff to add into the patient's plan of care to provide assistance with meals. - Palliative Care Discussion: Last week, the patient had noted increased sedation with congruent use of baclofen and MSIR. The baclofen was discontinued as was scheduled MSIR with improvement of sedative properties. Typically the patient is requesting MSIR twice daily on average however, yesterday she had increased discomfort and requested it 4 times. She reports that MSIR is effective for her pain management. The patient is having decreased oral intake with noted weight loss down to 123 pounds. Will request that facility monitor weekly weights to follow trends. Would continue to encourage oral hydration routinely. The patient is also being seen at the [facility] clinic later this afternoon for IV hydration. Would benefit from continue rapport building for advanced care planning with support from her father figure/DPOAMookie. We will plan for the future to have a family meeting for goals of care with all parties present. Impression and Recommendations - Palliative Care Impression: 4-year-old female who is wheelchair-bound due to cerebral palsy since childhood who has unfortunately developed metastatic breast cancer to the bone and is undergoing Faslodex and) therapy beginning the end of September 2020. Her nausea is managed with as needed Zofran. She no longer has increased sedation as is as needed baclofen has been discontinued. She continues on MSIR 5 mg as needed with routine acetaminophen. She is having a reduction in her oral intake with noted weight loss. Palliative care to continue to provide care coordination, pain and symptom management and anticipatory guidance. Recommendations/Counseling Done: 1. Drowsiness from medication. Resolved with discontinuation of baclofen in concurrent use with MSIR. 2. Pain of neoplastic origin. Today, the patient reports that is been to the lumbar spine. Presently controlled rating 3 out of 10 for pain. Continue MSIR 5 mg every 4 hours as needed and potentially would anticipate need for long- acting pain medication in the future. Lead given past history with ibuprofen listed as an allergy you would avoid NSAIDs as the patient is not a good historian regarding her oral medications and potential side effect/allergy. Continue routine acetaminophen 500 mg 3 times daily. Continue IcyHot application to the patient's back and every 6 hours as needed. Continue to adjust pain regimen to optimize the patient's comfort. 3. Decreased oral intake. Patient is requiring IV hydration. She is receiving encouragement of 140 mL of fluids 3 times daily at each medication patch. She is on routine mighty shakes 3 times daily and request that facility document percent consumed. Is requiring increased assistance with consumption of meals. Request that weekly weights be followed and continue to monitor. Total time spent 30 minutes with greater than 50% of the spent in counseling coordination of care with the patient and GIANNA Bill; except emanation of patient; review of pain and symptom management and anticipatory guidance. Contacted the patient's DPOA/father figure, Mookie at [phone] with update regarding plan of care. We will continue to build rapport and plan on a family care meeting in the future with Mookie and the patient present. Has the facility did not have the patient's scheduled appointment for this afternoon we will print out the patient's back schedule and fax to [facility] for reference. Disclaimer: The chart note was formulated using voice recognition technology and unfortunately sound alike errors may occur.
== END 2020-10-21 11:31 | disposition home or self-care (01) ==
LOC: PC 11:30
PROVIDERS: ATTEND Nurse Practitioner Family
DX: Z51.5 Encounter for palliative care (principal); G89.3 Neoplasm related pain (acute) (chronic); M54.5 Low back pain; C50.919 Malignant neoplasm of unspecified site of unspecified female breast; C79.51 Secondary malignant neoplasm of bone; R63.8 Other symptoms and signs concerning food and fluid intake; G80.9 Cerebral palsy, unspecified
CPT/HCPCS: 99309

== ENCOUNTER 2020-10-21 15:49 | Day surgery (SDC) | payer MEDICARE, MEDICAID ==
--- NOTE | 2020-10-21 16:03 | ANESTHESIA PROCEDURE NOTE ---
Anesth Central Line Template - Central Line Central Line Preparation: Consent Obtained, Time out completed, Ultrasound used, Sterile prep and drape Central line location: Left Cephalic Central line type: PICC Single Lumen Central line catheter tip site resides: Superior vena cava (SVC) Central line aftercare: Secured, Placement confirmed, No pneumothorax, No complications, Bundle checklist complete, Pt tolerated well
== END 2020-10-21 15:50 | disposition home or self-care (01) ==
LOC: SDS 15:49
PROVIDERS: ATTEND Registered Nurse
DX: C50.411 Malignant neoplasm of upper-outer quadrant of right female breast (principal); C79.51 Secondary malignant neoplasm of bone
CPT/HCPCS: 36569; C1751

== ENCOUNTER 2020-10-31 08:50 | Outpatient (CLI) | payer MEDICARE, MEDICAID ==
--- NOTE | 2020-10-31 15:03 | CONSULTATION NOTE ---
Palliative Care Follow Up - Referral Referring Provider: Dr. Isacc Soto Time of Visit: Initiated 0850 Referral setting: [facility] Referral Reason: Pain of neoplastic origin/Metastatic breast cancer - Information Sources Records reviewed: Previous records reviewed History/Review of Systems obtained from: Patient, Nursing (CREDIT ASSOCIATE Vijay) - History of Present Illness Update Brief HPI Update: This is a 60-year-old female who was seen in follow-up today [facility] due to metastatic breast cancer to the bones, pain management and advance care planning. The patient spent the majority of her life in a wheelchair after being diagnosed with cerebral palsy as a young child. She she was previously residing in [place] and her friend was helping her until she moved into [facility] in 2017. During her initial stay at [facility] she was found to have a right breast mass and on mammogram it was identified that she had a 13 cm mass in the right upper quadrant with right axillary adenopathy. She underwent a modified radical mastectomy of the right breast as well as axillary lymph node dissection on 03/02/2017. She received treatment by Taxol that was completed in 2018-01-18. The patient was reporting increased pain in the setting of anorexia and weight loss. Nuclear bone scan was performed and revealed diffuse abnormalities indicating metastatic disease on 2020-09-04. At that time she was on anastrozole. She has transitioned to Faslodex injection (started 09/30/2020) and ibrance (started 10/02/2020). Due to her bone metastases she has been initiated on Zometa beginning 10/28/2020 to continue every 3 months. The patient is no longer calling out frequently to facility staff due to pain per their report. The patient herself, reports that she is not having any pain on assessment today. Some of the pain appears to be positional and responds to repositioning, attention as well as topical application of IcyHot to her back. Typically when she does report pain it is in her back due to diffuse bone metastasis. She has as needed MSIR 5 mg that she is typically taking twice a day upon review of MAR. She presently denies pain. She is trying to consume more liquids taking in cocoa, alana milad, mighty shake and water as she does not want an IVs again. She does have a PICC line placed for IV hydration. The patient is requiring increased assistance from her previous baseline with handling drinking for herself, assistance with meals, repositioning in bed as well as needing assistance with various scratches throughout the body. The patient is seen resting in bed on her left side with no nightgown on and a sheet covering her. She wishes to be turned and repositioned. She has kyphotic posturing. Able to participate and was alert today. No evidence of acute distress. 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 Social History - Living Situation Living arrangement: [facility] Support System: Patient has been wheelchair-bound due to cerebral palsy since childhood. Both of her parents are . She has been residing at [facility] since 2016. Her DPOA is a family friend/surrogate father Mookie barlow with contact number [phone]. Both of her parents are . She has no children. Palliative care activities therapist has attempted to make two separate visits but has not been able to meet one on one with the patient due to circumstance at the present time. . Medications/Allergies - Medications Home Medications: Ambulatory Orders Medication Instructions Recorded Confirmed Calcium Carbonate [Tums (Calcium 500 mg PO Q4HR PRN 04/02/17 10/28/20 Carbonate 500mg)] Acetaminophen [Tylenol] 650 mg PO Q6H PRN 08/05/17 10/28/20 Bisacodyl Supp [Dulcolax Supp] 1 supp RC DAILY PRN 06/19/19 10/28/20 Magnesium Hydroxide [Milk of 30 ml PO DAILY PRN 06/19/19 10/28/20 Magnesia] Acetaminophen [Acetaminophen Extra 500 mg PO TID 10/01/20 10/28/20 Strength] Esomeprazole Magnesium [Nexium] 1 cap PO QPM 10/01/20 10/28/20 Ondansetron HCl [Zofran] 4 mg PO Q4H PRN 10/01/20 10/28/20 Menthol/Camphor [Icy Hot Advanced 1 applic TP DAILY 10/07/20 10/28/20 Relief Cream] Menthol/Camphor [Icy Hot Advanced 1 applic TP Q8H PRN 10/07/20 10/28/20 Relief Cream] Morphine Sulfate [Morphine Sulf 0.25 ml PO Q4H PRN 10/07/20 10/28/20 Oral (Roxanol)] Docusate Sodium 100Mg Capsule 100 mg PO DAILY 10/15/20 10/28/20 [Colace 100Mg Capsule] Fulvestrant [Faslodex] See Protocol IM TITR 10/17/20 10/28/20 Palbociclib [Ibrance] 100 mg ORAL DAILY 10/17/20 10/28/20 - Allergies Allergies/Adverse Reactions: Allergies Allergy/AdvReac Type Severity Reaction Status Date / Time ibuprofen AdvReac Unknown Verified 10/28/20 16:42 Review of Systems - Constitutional Constitutional: reports: Poor appetite (see HPI), Weight loss (10/18/2020 123.2lb, previous weight 129lb). denies: Fever - Eyes Eyes: denies: Irritation - Ears, Nose & Throat Ears, Nose & Throat: denies: Hearing aids - Cardiovascular Cardiovascular: denies: Edema - Respiratory Respiratory: denies: Cough - Gastrointestinal Gastrointestinal: reports: Nausea (controlled with prn zofran), Poor appetite (per patient report, on mighty shakes TID, see HPI). denies: Abdominal pain, Constipation, Vomiting - Genitourinary Genitourinary: reports: Incontinence - Musculoskeletal Musculoskeletal: reports: Back pain ( controlled with MSIR PRN), Assistive devices, Transfer issues. denies: Joint swelling - Integumentary Integumentary: reports: Pruritis (intermittent and will want assistance with scratching) - Neurological Neurological: reports: General weakness. denies: Headache, Dizziness - Endocrine Endocrine: denies: Diabetes type 2 - Hematologic/Lymphatic Hematologic/Lymph: reports: Bruising (right chest wall) - All Other Systems All Other Systems: reports: Reviewed and negative (ROS also supported by GIANNA Linares) Physical Exam - Vital Signs Temperature: 36.6 C Pulse Rate: 65 O2 Saturation: 94 Blood Pressure: 118/65 - Physical Exam General Appearance: positive: No acute distress, Alert, Other (slightly dishelved hair, resting in bed) Eyes Bilateral: positive: Other (Noted nystagmus intermittently) ENT: positive: No signs of dehydration Neck: positive: Trachea midline Cardiovascular: positive: Regular rate & rhythm Respiratory: positive: No respiratory distress, Breath sounds nml, Diminished in bases Abdomen: positive: Non-tender, Soft, Nml bowel sounds, Obese Skin: positive: Pallor, Other (resolving ecchymosis to left chest wall; left upper arm PICC with dressing intact) Extremities: positive: No pedal edema, Other ( kyphotic posture; flexion contractures at wrists b/l) Neurologic/Psychiatric: positive: Oriented x3, Weakness Palliative Care - POLST Patient has POLST: Yes POLST Status: Full Code Pain: Pain improved (controlled with routine acetaminophen and PRN MSIR) Anorexia: Moderate (4-6) Constipation: No Performance Status: Patient is requiring increased assistance per facility staff. At her previous baseline she would get up out of bed first thing in the morning and able was able to feed herself. Now however, the patient is requiring assistance not only with meals but is also opting to stay in bed. She is incontinent of bladder. PPS 40% - Palliative Care Discussion: The patient has improved her oral hydration and has benefited also from IV hydration however, her oral caloric intake remains decreased and her weight is at 123.2 pounds as of October 18. The patient is also requiring increased assistance due to functional decline to due to advancement of her multiple comorbidities and underlying metastatic breast cancer. Staff to continue to assist and provide encouragement with fluids and caloric intake at the very least with her mighty shake supplementations. Patient's pain at the present time appears to be well controlled. She is no longer calling out to staff requesting pain medications frequently. She herself reports that she is comfortable. She is requiring more attention from facility staff due to functional decline. Continue as needed MSIR as ordered with routine acetaminophen. In the future with transition to long-acting MS Contin or fentanyl patch based on the patient's requirement and escalating pain however, at the present time the patient is not taking quantity enough to w arrant this. Would avoid methadone given the patient's earlier sedation with administration of MSIR and baclofen and the patient's inability to fully articulate what she is feeling for side effect monitoring. Impression and Recommendations - Palliative Care Impression: This is a 60-year-old female who is wheelchair-bound due to cerebral palsy since childhood who was unfortunately developed metastatic breast cancer to the bone is undergoing Faslodex and Ibrance therapy beginning the end of September 2020. Her symptom burden consists of anorexia and weight loss. She is increasing her oral hydration and has benefited from IV hydration in the [facility] clinic. Her pain is presently managed with as needed MSIR 5 mg every 4 hours and routine acetaminophen. Plan of care to continue provide care coordination, pain and symptom management and anticipatory guidance. Recommendations/Counseling Done: 1. Pain of neoplastic origin. Patient presently denies pain on examination today. She continues on MSIR 5 mg every 4 hours as needed and would potentially anticipate the need for long-acting pain medication in the future in the form of MS Contin or fentanyl patch as noted in palliative care discussion. Continue routine acetaminophen 500 mg 3 times daily. Continue IcyHot application to the patient's back daily and every 6 hours as needed. Continue to adjust pain regimen to optimize the patient's comfort. 2.Decreased oral intake and failure to thrive. Patient has required IV hydration and has a left upper arm PICC in place. She is receiving encouragement of 140 mL of fluids 3 times daily at each medication past. She is on routine mighty shakes 3 times daily and facility is monitoring consumption. She is requiring assistance with consumption of her meals. She is increasing her liquid oral consumption on her own. She is on weight monitoring and presently weighs 123.2 pounds as of October 18. 3. Metastatic breast cancer to the bones. Patient is on Faslodex and Ibrance therapy. Had been on anastrozole due to her history of breast cancer previously. She has just initiated Zometa for diffuse bone metastasis. Oncology to continue to follow. 4. Advanced care planning. Patient has POLST in place as full code. Patient continues to have a strong desire to live. She is given support by her sister as well as her surrogate father cain/Mookie MAE. Palliative care activities therapist to also provide support. Continue to build rapport with the patient regarding advanced care planning. CPT 12913 Plan of care reviewed with the patient as well as LP and with questions answered and addressed. Contacted the patient's DPOA/father Mookie barlow at [phone] to give update and awaiting return call. Disclaimer: The chart note was formulated using voice recognition technology and unfortunately sound alike errors may occur.
== END 2020-10-31 08:51 | disposition home or self-care (01) ==
LOC: PC 08:50
PROVIDERS: ATTEND Nurse Practitioner Family
DX: Z51.5 Encounter for palliative care (principal); G80.9 Cerebral palsy, unspecified; C50.811 Malignant neoplasm of overlapping sites of right female breast; C79.51 Secondary malignant neoplasm of bone; G89.3 Neoplasm related pain (acute) (chronic); R63.0 Anorexia; R63.4 Abnormal weight loss
CPT/HCPCS: 99309

== ENCOUNTER 2020-11-25 12:30 | Outpatient (CLI) | payer MEDICARE, MEDICAID ==
--- NOTE | 2020-11-25 13:50 | CONSULTATION NOTE ---
Palliative Care Follow Up - Referral Referring Provider: Dr. Isacc Soto Time of Visit: [id number] Referral [facility] Referral Reason: Pain of neoplastic origin/Weight loss - Information Sources Records reviewed: Previous records reviewed History/Review of Systems obtained from: Patient, Nursing (GIANNA Landy) - History of Present Illness Update Brief HPI Update: This is an 60-year-old female was seen in follow-up today at [facility] due to metastatic breast cancer to the bones, weight loss, and symptom management. Patient previously had an instance where she was getting baclofen with morphine congruently that resulted in increased sedation and baclofen was subsequently discontinued. She was restarted on 11/20 with baclofen 5 mg twice daily by primary provider. Facility staff do not report any adverse changes however, the patient herself has not noticed any change in symptom management with initiation of baclofen. Upon review of MAR she is requesting as needed morphine 5 mg once every other day at varying times. Due to prior events would recommend discontinuation of baclofen. She is presently on Faslodex injection (09/30/2020) and ibrance (stated 10/02/2020). Due to her bone metastases she has been initiated on Zometa beginning 10/28/2020 to continue every 3 months. Staff report that she is a little more "grumpy". However, she is not calling out for pain which has been her response in the past. On assessment today, the patient denies any pain. Typically, her pain will be reported to her mid back. She does have as needed MSIR 5 mg to be administered if she requires pain. She is also had a significant decrease in her food oral intake. She continues to consume her mighty shakes but it is less than before. Her weight has dropped down to 114.4 pounds on 11/14. She was scheduled for weekly weights however, this was changed as the patient was refusing and she is now on every other weekly checks. She would benefit from a nutritional consult at the [facility] as she is followed by oncology. 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 Social History - Living Situation Living arrangement: senior care Support System: Patient has been wheelchair-bound due to cerebral palsy since childhood. Both of her parents are . She has been residing at [facility] since 2016. Her DPOA is a family friend/surrogate father Mookie barlow with contact number [phone]. Both of her parents are . She has no children. Palliative care lure maker is following. Medications/Allergies - Medications Home Medications: Ambulatory Orders Medication Instructions Recorded Confirmed Calcium Carbonate [Tums (Calcium 500 mg PO Q4HR PRN 04/02/17 10/28/20 Carbonate 500mg)] Acetaminophen [Tylenol] 650 mg PO Q6H PRN 08/05/17 10/28/20 Bisacodyl Supp [Dulcolax Supp] 1 supp RC DAILY PRN 06/19/19 10/28/20 Magnesium Hydroxide [Milk of 30 ml PO DAILY PRN 06/19/19 10/28/20 Magnesia] Acetaminophen [Acetaminophen Extra 500 mg PO TID 10/01/20 10/28/20 Strength] Esomeprazole Magnesium [Nexium] 1 cap PO QPM 10/01/20 10/28/20 Ondansetron HCl [Zofran] 4 mg PO Q4H PRN 10/01/20 10/28/20 Menthol/Camphor [Icy Hot Advanced 1 applic TP DAILY 10/07/20 10/28/20 Relief Cream] Menthol/Camphor [Icy Hot Advanced 1 applic TP Q8H PRN 10/07/20 10/28/20 Relief Cream] Morphine Sulfate [Morphine Sulf 0.25 ml PO Q4H PRN 10/07/20 10/28/20 Oral (Roxanol)] Docusate Sodium 100Mg Capsule 100 mg PO DAILY 10/15/20 10/28/20 [Colace 100Mg Capsule] Fulvestrant [Faslodex] See Protocol IM TITR 10/17/20 10/28/20 Palbociclib [Ibrance] 100 mg ORAL DAILY 10/17/20 10/28/20 - Allergies Allergies/Adverse Reactions: Allergies Allergy/AdvReac Type Severity Reaction Status Date / Time ibuprofen AdvReac Unknown Verified 10/28/20 16:42 Review of Systems - Constitutional Constitutional: reports: Poor appetite (see HPI), Weight loss (11/14/2020 114.4lb; 10/18/2020 123.2lb, previous weight 129lb). denies: Fever - Eyes Eyes: denies: Corrective lenses - Ears, Nose & Throat Ears, Nose & Throat: denies: Hearing aids - Cardiovascular Cardiovascular: denies: Edema - Respiratory Respiratory: denies: Cough - Gastrointestinal Gastrointestinal: reports: Poor appetite (per patient and staff report, consuming mighty shakes but decreased frequency). denies: Abdominal pain, Constipation, Nausea, Vomiting - Genitourinary Genitourinary: reports: Incontinence - Musculoskeletal Musculoskeletal: reports: Back pain ( controlled with MSIR PRN; no appearance that baclofen scheduled as provided any benefit per staff and patient report.), Assistive devices, Transfer issues. denies: Joint swelling - Integumentary Integumentary: reports: Pruritis (intermittent and will want assistance with scratching) - Neurological Neurological: reports: General weakness. denies: Headache - Endocrine Endocrine: denies: Diabetes type 2 - Hematologic/Lymphatic Hematologic/Lymph: denies: Recurrent infections - All Other Systems All Other Systems: reports: Reviewed and negative (ROS also supported by GIANNA Bill) Physical Exam - Vital Signs Pulse Rate: 62 Blood Pressure: 125/68 - Physical Exam General Appearance: positive: No acute distress, Alert, Other (slightly dishelved hair, resting in bed, irritated that she has an upcoming appointment and things are not adequately communicated to her) Eyes Bilateral: positive: Other (Noted nystagmus intermittently) ENT: positive: No signs of dehydration Neck: positive: Trachea midline Cardiovascular: positive: Regular rate & rhythm Respiratory: positive: No respiratory distress, Breath sounds nml, Diminished in bases Abdomen: positive: Non-tender, Soft, Nml bowel sounds, Obese Skin: positive: Pallor Extremities: positive: No pedal edema, Other ( kyphotic posture; flexion contractures at wrists b/l) Neurologic/Psychiatric: positive: Oriented x3, Weakness, Other (Irritable) Palliative Care - POLST Patient has POLST: Yes POLST Status: Full Code Pain: Pain unchanged (denies pain today but when occurs experiences pain to her mid-back. Controlled wtih routine acetaminophen and PRN MSIR.) Anorexia: Moderate (4-6) Sleep: Sleeps well Constipation: Managed Performance Status: PPS 40% - Palliative Care Discussion: The patient unfortunately continues to have decline in her weight. She is gone from 123.2 pounds to 114.4 pounds of an approximate 8 pound weight loss in the last month. The patient is relating that she is drinking and staying hydrated however, staffing reports that she has had a decrease in her overall oral intake with her mighty shakes for supplementation. She would benefit from further evaluation from a services program manager on site at the [facility] as she attends there at [facility] for her oncological treatments. The patient is open to this. At the present time, the patient's pain appears to be adequately controlled however, she was reintroduced to baclofen and given past exposure and increased sedation using baclofen and MSIR congruently will discontinue after discussion with patient's PCP Dr. Richard who is in agreement. Would monitor the patient's request for as needed morphine as she is able to speak for herself and based on administration time would look towards scheduling routine MSIR versus initiation of the patient is open to it to duloxetine for additional assistance with arthralgias related to her metastatic bone pain. Unfortunately, the patient's father figure/DPOAMookie was not present today as previously scheduled to have an advance care planning discussion we will need to recoordinate in the future to review goals of care. Impression and Recommendations - Palliative Care Impression: This is a 60-year-old female who is wheelchair-bound due to C1 palsy since childhood who was unfortunately developed metastatic breast cancer to the bone is undergoing Faslodex and) therapy beginning the end of September 2020. She is also on Zometa for further assistance with her diffuse bone metastases. Recommend discontinuation of baclofen and continue as needed MSIR 5 mg every 4 hours as needed and routine acetaminophen. Consider having a discussion with the patient and DPOA about introduction of duloxetine for additional support. Palliative care to continue to provide care coordination, pain and symptom management and anticipatory guidance. Recommendations/Counseling Done: 1. Weight loss and failure to thrive. Patient has required IV hydration in the [facility]. Continue to encourage receiving 140 mL of fluids 3 times daily at each medication past. She is on routine mighty shakes 3 times daily and the facility is monitoring consumption. She is requiring assistance with meals however, she has had a weight loss trend of 8.8 pounds in the span of a month. She presently weighs 114.4 pounds. Would benefit from nutritional referral which will be placed. Have updated oncology regarding referral for nutrition. 2. Pain of neoplastic origin. Patient presently denies pain on examination today. She is often not the best historian when relating her discomfort. Given past congruent administration of baclofen and MSIR with increased sedation will discontinue scheduled baclofen and monitor. Continue to monitor the patient's use of MSIR 5 mg every 4 hours as needed and would potentially anticipate the need for long-acting pain medication in the future if requirements demonstrate this such as the form of MS Contin or fentanyl patch. However, due to the patient's present setting in a facility and her inability to always adequately communicate would not find it appropriate to initiate methadone for fear of adverse event. Continue routine acetaminophen 500 mg 3 times daily. Continue IcyHot application to the patient's back daily and every 6 hours as needed. Continue to adjust pain regimen to optimize the patient's comfort. 3. Metastatic breast cancer to the bones. Patient is on Faslodex and Ibrance therapy followed by oncology. Had been on and anastrozole due to her history of breast cancer previously. She has been initiated on Zometa for diffuse bone metastases. Oncology to continue to follow. Has an appointment later this afternoon. 4. Advanced care planning. Patient has POLST in place as Full Code. Now being followed by palliative care lure maker and appreciate that support. Patient's surrogate father/DPOA, Mookie was to be present today for advanced care planning however, was not present at the facility. Message has been left for Mookie at [phone] to reschedule. Total time spent 30 minutes with greater than 50% of this spent in counseling and coordination of care with patient, facility staff and PCP(Dr. Richard)via phone, review of pain and symptom management and anticipatory guidance. Disclaimer: The chart note was formulated using voice recognition technology and unfortunately sound alike errors may occur.
== END 2020-11-25 12:31 | disposition home or self-care (01) ==
LOC: PC 12:30
PROVIDERS: ATTEND Nurse Practitioner Family
DX: Z51.5 Encounter for palliative care (principal); G80.9 Cerebral palsy, unspecified; R63.4 Abnormal weight loss; R62.7 Adult failure to thrive; G89.3 Neoplasm related pain (acute) (chronic); C50.911 Malignant neoplasm of unspecified site of right female breast; C79.51 Secondary malignant neoplasm of bone; Z79.899 Other long term (current) drug therapy; Z86.16 Personal history of COVID-19; Z99.3 Dependence on wheelchair
CPT/HCPCS: 99309

== ENCOUNTER 2020-12-05 10:50 | Outpatient (CLI) | payer MEDICARE, MEDICAID ==
--- NOTE | 2020-12-05 15:07 | CONSULTATION NOTE ---
Palliative Care Follow Up - Referral Referring Provider: Dr. Isacc Soto Time of Visit: [id number] Referral setting: [facility] Referral Reason: Pain of neoplastic origin/Weight loss - Information Sources Records reviewed: Previous records reviewed History/Review of Systems obtained from: Patient, Nursing (MIGUEL Roth) - History of Present Illness Update Brief HPI Update: This is a 60-year-old female who is in follow-up today at [facility] due to metastatic breast cancer to the bones, weight loss and symptom managem ent. On 11/26 after the patient had a prolonged time at the [facility] with increased pain sitting up to her lower back she was initiated on MSIR 2.5 mg daily in the morning in addition to her MSIR 5 mg every 4 hours as needed for pain. She has had a positive effect with initiation of routine MSIR in the morning. She reports that it is better for her to be able to have this given without asking. Presently, she denies any acute pain she is resting in bed. On last evaluation the baclofen that had be re-initiated routinely was discontinued due to previous noted sedation and the patient denies any reports of muscle spasms or increased pain without the baclofen. She has been refusing her weights and last weight obtained was 114.4 pounds on 11/14. Her weight 05/21/2021 was 160 pounds which is an approximate 36 pound weight loss in approximately 6 months. [facility] and is pending to be set up hopefully during one of the patient's [facility] visits. She was seen and evaluated by the registered dietitian at [facility] on 11/21 a consult was done. She was transitioned to to mighty shakes with ice cream which she is consuming per staff report. She also was added on fortified orange juice. She becomes easily agitated when she has been encouraged to eat. She is also on liquid encouragement. She prefers the Her PICC was unintentionally removed and she is due to have a port placement on 12/10 at 1500 for access. She is presently on Faslodex injection (09/30/2020) and ibrance (stated 10/02/2020). Due to her bone metastases she has been initiated on Zometa beginning 10/28/2020 to continue every 3 months. Her CA 15-3 has reduced from 386.5 on 09/23-147.8 on 11/25. The patient expresses optimism regarding reduction of her CEA. The patient Is seen resting in bed on her left side is in a nightgown. No evidence of acute distress. 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 Social History - Living Situation Living arrangement: skilled nursing Support System: Patient has been wheelchair-bound due to cerebral palsy since childhood. Both of her parents are . She has been residing at [facility] since 2016. Her DPOA is a family friend/surrogate father Mookie barlow with contact number [phone]. Both of her parents are . She has no children. Palliative care street light repairer is following. Medications/Allergies - Medications Home Medications: Ambulatory Orders Medication Instructions Recorded Confirmed Calcium Carbonate [Tums (Calcium 500 mg PO Q4HR PRN 04/02/17 11/25/20 Carbonate 500mg)] Acetaminophen [Tylenol] 650 mg PO Q6H PRN 08/05/17 11/25/20 Bisacodyl Supp [Dulcolax Supp] 1 supp RC DAILY PRN 06/19/19 11/25/20 Magnesium Hydroxide [Milk of 30 ml PO DAILY PRN 06/19/19 11/25/20 Magnesia] Acetaminophen [Acetaminophen Extra 500 mg PO TID 10/01/20 11/25/20 Strength] Esomeprazole Magnesium [Nexium] 1 cap PO QPM 10/01/20 11/25/20 Ondansetron HCl [Zofran] 4 mg PO Q4H PRN 10/01/20 11/25/20 Menthol/Camphor [Icy Hot Advanced 1 applic TP DAILY 10/07/20 11/25/20 Relief Cream] Menthol/Camphor [Icy Hot Advanced 1 applic TP Q8H PRN 10/07/20 11/25/20 Relief Cream] Morphine Sulfate [Morphine Sulf 0.25 ml PO Q4H PRN 10/07/20 11/25/20 Oral (Roxanol)] Docusate Sodium 100Mg Capsule 100 mg PO DAILY 10/15/20 11/25/20 [Colace 100Mg Capsule] Fulvestrant [Faslodex] See Protocol IM TITR 10/17/20 11/25/20 Palbociclib [Ibrance] 100 mg ORAL DAILY 10/17/20 11/25/20 Morphine Sulfate [Morphine Sulf 2.5 mg PO .QAM 12/05/20 12/05/20 Oral (Roxanol)] dexAMETHasone [Decadron] 2 mg PO DAILY 12/05/20 12/05/20 - Allergies Allergies/Adverse Reactions: Allergies Allergy/AdvReac Type Severity Reaction Status Date / Time ibuprofen AdvReac Unknown Verified 11/25/20 15:23 Review of Systems - Constitutional Constitutional: reports: Poor appetite, Weight loss (11/14/2020 114.4lb; 10/18/2020 123.2lb; 05/21/2020 160lb---patient herself is happier to be at a lower weight). denies: Fever - Eyes Eyes: denies: Corrective lenses - Ears, Nose & Throat Ears, Nose & Throat: denies: Hearing aids - Cardiovascular Cardiovascular: denies: Chest pain, Edema - Respiratory Respiratory: denies: Wheezing - Gastrointestinal Gastrointestinal: reports: Poor appetite, Early satiety. denies: Abdominal pain, Constipation (bowel movement every 2-3 days upon review of TAR) - Genitourinary Genitourinary: reports: Incontinence. denies: Dysuria - Musculoskeletal Musculoskeletal: reports: Back pain (improved with scheduled MSIR and PRN MSIR and presently comfortable.), Assistive devices, Transfer issues. denies: Joint swelling - Integumentary Integumentary: reports: Pruritis (intermittent and will want assistance with s cratching) - Neurological Neurological: reports: General weakness. denies: Dizziness - Psychiatric Psychiatric: reports: Other (staff report "grumpiness") - Endocrine Endocrine: denies: Hypothyroidism - Hematologic/Lymphatic Hematologic/Lymph: reports: Bruising - All Other Systems All Other Systems: reports: Reviewed and negative (ROS also supported by MIGUEL Roth) Physical Exam - Vital Signs Temperature: 36.7 C Pulse Rate: 86 Respiratory Rate: 18 O2 Saturation: 96 Blood Pressure: 122/77 - Physical Exam General Appearance: positive: No acute distress, Alert, Other (slightly dishelved hair; resting in bed but arousable) Eyes Bilateral: positive: Other (intermittent nystagmus noted) ENT: positive: No signs of dehydration Neck: positive: Trachea midline Cardiovascular: positive: Regular rate & rhythm Respiratory: positive: No respiratory distress, Breath sounds nml, Diminished in bases (History of bilateral pleural effusions) Abdomen: positive: Non-tender, Soft, Nml bowel sounds. negative: Distended Skin: positive: Pallor, Other (Kyphotic posture; flexion contractures at wrists b/l) Neurologic/Psychiatric: positive: Oriented x3, Weakness, Other (Cooperative and conversant today than previous evaluations when she has been dismissive.) Palliative Care - POLST Patient has POLST: Yes POLST Status: Full Code Pain: Pain improved (Improved with routine MSIR 2.5mg in AM and MSIR 2.5mg every 4 hours PRN for pain in addition to routine acetaminophen 500mg TID. Will have pain reported to lower back--denies presently.) Anorexia: Moderate (4-6) Sleep: Sleeps well Constipation: Managed Performance Status: Patient is bed to wheelchair bound. She is opting to get up out of bed less frequently per staff report. No recent falls. +weight loss. PPS 40% - Palliative Care Discussion: In approximately last 6 months the patient has lost approximately 36 pounds and on last weigh was 114.4 pounds. This is compounded by her decreased oral intake as well as advancement of her metastatic right breast cancer. The patient is presently on supplemental mighty shakes with ice cream for caloric intake. She has been assessed by a registered dietitian at [facility] and has a pending consult at [facility] with a dietitian. Given the patient's decreased oral intake, weight loss and pain of neoplastic origin with bony mets she would benefit from trial introduction of dexamethasone 2 mg daily and patient is amenable this and her DPOA is also in agreement. The patient has had improvement of her generalized pain with initiation of routine MSIR 2.5 mg in the a.m. She continues to have MSIR 2.5 mg every 4 hours as needed for patient. Since discontinuation of baclofen she has not had any reports of muscle spasms. We will continue to monitor her usage of MSIR and would expect moving forward to gradually increase scheduled dosing based on the patient's need and response. Impression and Recommendations - Palliative Care Impression: This is a 60-year-old female who is wheelchair-bound due to his cerebral palsy since childhood who unfortunately developed metastatic breast cancer to the bone who is undergoing Faslodex and ibrance therapy with a reduction in her CEA. She is also on Zometa for further assistance with her diffuse bone metastases. Given her weight loss, decreased appetite and bony met pain specifically to her lower back she would benefit from initiation of dexamethasone 2 mg daily as a trial for appetite stimulation and pain relief. Recommendations/Counseling Done: 1. Weight loss and throat are you to thrive. Patient is scheduled to receive receive a port placement on 12/10 has her PICC line was inadvertently removed. She is status post registered dietitian evaluation at [facility] on 11/21 with addition of fortified orange juice and onto mighty shakes with ice cream daily which she consumes. She is on every other week weight check however, she typically will refuse. She presently weighs 114.4 pounds on last evaluation. A nutritional consult at [facility] has been placed and is pending. Her decreased oral intake initiation of dexamethasone 2 mg daily as a trial would be beneficial and patient and DPOA in agreement with signs effects reviewed and agreement to proceed with the trial. 2.Pain of neoplastic origin. Patient presently desires pain on examination today. She is often not the best historian relating her discomfort. She has tolerated initiation of MSIR 2.5 mg in the morning however think. She remains off baclofen which should previously contributed to increased sedation. Given the patient's bony metastases will initiate dexamethasone 2 milligrams for pain relief. Continue MSIR 5 mg Every 4 hours as needed for breakthrough pain. Would anticipate the need for routine scheduling of MSIR in the future with a transition to long-acting the pain medication such as MS Contin or fentanyl patch. Continue routine acetaminophen 500 mg 3 times daily. Continue IcyHot application to the patient's back daily and every 6 hours as needed. Continue to adjust pain regimen to optimize the patient's comfort. 3. Metastatic breast cancer to the bones. Patient would be appropriate for hospice but has declined transition. Patient is on Faslodex and Ibrance therapy followed by oncology. She is on Zometa for diffuse bone metastases. 4. Advanced care planning. Patient has POLST in place as full code. She is being followed by the palliative care street light repairer and the support is appreciated. Palliative care, patient and patient surrogate father/CAMILLAMookie ARTIS are to meet next week for a goals of care meeting as the patient surrogate father had to reschedule today. We will continue to build rapport and tease out goals of care. Total time spent 35 minutes with greater than 50% of the spent in counseling coordination of the care with the patient and facility staff; examination of the patient; review of pain and symptom management and anticipatory guidance. Updated patient's PCP, Dr. Richard regarding trial of dexamethasone. Previously discussed with oncology team regarding potential trial of dexamethasone. Disclaimer: The chart note was formulated using voice recognition technology and unfortunately sound alike errors may occur.
== END 2020-12-05 10:51 | disposition home or self-care (01) ==
LOC: PC 10:50
PROVIDERS: ATTEND Nurse Practitioner Family
DX: Z51.5 Encounter for palliative care (principal); R63.4 Abnormal weight loss; R62.7 Adult failure to thrive; G89.3 Neoplasm related pain (acute) (chronic); C50.911 Malignant neoplasm of unspecified site of right female breast; C79.51 Secondary malignant neoplasm of bone; G80.9 Cerebral palsy, unspecified; Z86.16 Personal history of COVID-19; Z79.899 Other long term (current) drug therapy
CPT/HCPCS: 99310

== ENCOUNTER 2020-12-10 13:50 | Outpatient (CLI) | payer MEDICARE, MEDICAID ==
--- NOTE | 2020-12-10 16:17 | CONSULTATION NOTE ---
Palliative Care Follow Up - Referral Referring Provider: Dr. Isacc Soto Time of Visit: 5612-7790 Referral setting: [facility] Referral Reason: FTT/Metastatic breast CA/Advanced Care Planning - Information Sources Records reviewed: Previous records reviewed History/Review of Systems obtained from: Patient, Family (father figure/DPOA Ray present), Nursing (MIGUEL Roth and GIANNA Bill) - History of Present Illness Update Brief HPI Update: This is a 60-year-old female who was seen in follow-up today at [facility] due to metastatic breast cancer to the bones, failure to thrive, weight management and advance care planning. Patient has recently been refusing obtainment of her weights and last weight obtained on 11/14 was 114.4 pounds until today, when she was weighed at 112 pounds. She continues to report that she does not like the food that is offered to her at the facility. Her father figure/DPOA comes once a week and brings her meals that she enjoys. She is now requiring assistance and per head start assistant teacher, Ira staff will assist the patient when she allows and does not refuse. She is on mighty shakes with ice cream which she is consuming per staff report as well as fortified orange juice. She denies any nausea or early satiety. Her overall demeanor per staff report has improved since initiation of routine MSIR 2.5 mg in the morning with improved control of her generalized pain most specifically to her lumbar spine. The patient herself reports that the combination of acetaminophen and morphine is effective. On last evaluation on 12/05 was requested that the patient be initiated on dexamethasone 2 mg daily as a trial not only for appetite stimulation but as well as pain control for bony metastasis however, upon review of MAR today this was not added to the patient's MAR and per staff report this is to be rectified and initiated started tomorrow. The patient is scheduled to have a PICC placed today on 12/10 for access. She is presently on Faslodex injection beginning 09/30/2020 and Ibrance started on 10/02/2020. Due to her bone metastases she was initiated on Zometa beginning 10/28/2020 to continue every 3 months. She is seen resting in bed on her left side in a T-shirt slightly disgruntled with her father figure/DPOA, Ray at the bedside. No evidence of acute distress. Past Medical History: Patient has a past medical history of cerebral palsy, LANGUAGE PATH shunt, GERD, breast cancer originally diagnosed 2016 now with right breast cancer with metastases diagnosed August 2020 paren, right modified radical mastectomy 02/2017, endometrial biopsy 04/2017, cholecystectomy 08/2017, colonoscopy, chronic back pain, history of left knee dislocations, scoliosis, osteoarthritis, anxiety, Covid 19 infection in September 2019. Social History - Living Situation Living arrangement: half-way Support System: Patient has been wheelchair-bound due to cerebral palsy since childhood. Both of her parents are . She has been residing at [facility] since 2016. Her DPOA is a family friend/surrogate father figure, Mookie with contact number [phone]. Both of her parents are . She has no children. The patient's family friend/surrogate father figure, Mookie reports that the patient's mother and his struck up of poor during the working relationship and the patient adopted he and his as surrogate parents. The patient herself also has a rapport with Mookie's daughter, Ira who would ultimately visit weekly and her father state if something were to happen to him in the future. Palliative care revenue specialist is following. Medications/Allergies - Medications Home Medications: Ambulatory Orders Medication Instructions Recorded Confirmed Calcium Carbonate [Tums (Calcium 500 mg PO Q4HR PRN 04/02/17 11/25/20 Carbonate 500mg)] Acetaminophen [Tylenol] 650 mg PO Q6H PRN 08/05/17 11/25/20 Bisacodyl Supp [Dulcolax Supp] 1 supp RC DAILY PRN 06/19/19 11/25/20 Magnesium Hydroxide [Milk of 30 ml PO DAILY PRN 06/19/19 11/25/20 Magnesia] Acetaminophen [Acetaminophen Extra 500 mg PO TID 10/01/20 11/25/20 Strength] Esomeprazole Magnesium [Nexium] 1 cap PO QPM 10/01/20 11/25/20 Ondansetron HCl [Zofran] 4 mg PO Q4H PRN 10/01/20 11/25/20 Menthol/Camphor [Icy Hot Advanced 1 applic TP DAILY 10/07/20 11/25/20 Relief Cream] Menthol/Camphor [Icy Hot Advanced 1 applic TP Q8H PRN 10/07/20 11/25/20 Relief Cream] Morphine Sulfate [Morphine Sulf 0.25 ml PO Q4H PRN 10/07/20 11/25/20 Oral (Roxanol)] Docusate Sodium 100Mg Capsule 100 mg PO DAILY 10/15/20 11/25/20 [Colace 100Mg Capsule] Fulvestrant [Faslodex] See Protocol IM TITR 10/17/20 11/25/20 Palbociclib [Ibrance] 100 mg ORAL DAILY 10/17/20 11/25/20 Morphine Sulfate [Morphine Sulf 2.5 mg PO .QAM 12/05/20 12/05/20 Oral (Roxanol)] dexAMETHasone [Decadron] 2 mg PO DAILY 12/05/20 12/05/20 - Allergies Allergies/Adverse Reactions: Allergies Allergy/AdvReac Type Severity Reaction Status Date / Time ibuprofen AdvReac Unknown Verified 11/25/20 15:23 Review of Systems - Constitutional Constitutional: reports: Poor appetite, Weight loss (12/10/2020 112lb; 11/14/2020 114.4lb; 10/18/2020 123.2lb; 05/21/2020 160lb---patient herself is happier to be at a lower weight). denies: Fever - Ears, Nose & Throat Ears, Nose & Throat: denies: Hearing aids - Cardiovascular Cardiovascular: denies: Chest pain, Edema - Respiratory Respiratory: denies: Cough - Gastrointestinal Gastrointestinal: reports: Poor appetite. denies: Abdominal pain, Constipation (controlled), Nausea, Vomiting, Early satiety - Genitourinary Genitourinary: reports: Incontinence. denies: Dysuria - Musculoskeletal Musculoskeletal: reports: Back pain (improved with scheduled MSIR, scheduled acetaminophen and PRN MSIR and presently comfortable.), Assistive devices, Transfer issues. denies: Joint swelling - Integumentary Integumentary: denies: Rash - Neurological Neurological: reports: General weakness - Psychiatric Psychiatric: denies: Depression (per patient report) - Endocrine Endocrine: denies: Hypothyroidism - All Other Systems All Other Systems: reports: Reviewed and negative (ROS also supported by MIGUEL Roth, GIANNA Bill and DPOA Ray) Physical Exam - Vital Signs Temperature: 36.1 C Pulse Rate: 88 O2 Saturation: 94 Blood Pressure: 122/69 - Physical Exam General Appearance: positive: No acute distress, Alert, Other (slightly dishelved hair; resting in bed on left side) Eyes Bilateral: positive: Other (intermittent nystagmus noted) ENT: positive: No signs of dehydration Neck: positive: Trachea midline Cardiovascular: positive: Regular rate & rhythm Respiratory: positive: No respiratory distress, Breath sounds nml, Diminished in bases (History of bilateral pleural effusions) Abdomen: positive: Non-tender, Soft, Nml bowel sounds Skin: positive: Pallor, Other (Kyphotic posture; flexion contractures at wrists b/l) Neurologic/Psychiatric: positive: Oriented x3, Weakness, Other (Disgruntled regarding advanced care planning meeting and discussion today) Palliative Care - POLST Patient has POLST: Yes POLST Status: Full Code Pain: Pain improved (with addition of routine MSIR 2.5mg in AM) Anorexia: Moderate (4-6), Weight loss (weight 112lb today,12/10/2020) Constipation: Managed - Palliative Care Discussion: The patient continues to have advancement of weight loss and a decreased oral intake indicative of her metastatic right breast cancer. She continues on supplemental mighty shakes with ice cream for caloric intake. She is status post evaluation with registered dietitian at [facility] and has a pending consult at [facility] with a dietitian. Unfortunately, the patient's dexamethasone 2 mg daily medication that was requested to be started last week was not implemented and is to be implemented starting tomorrow for management of her underlying neoplastic take pain as well as is appetite stimulation with both the patient herself and her DPOA in agreement. The patient continues to express her desire to "get rid of my cancer." When trying to tease out any additional fears or worries that the patient has she often Dyflex and reports that she wishes to "put the cancer in a box." The patient has always been a very independent individual and does not like being told what to do. She ultimately has a desire to continue to extend her life and her DPOA/father figure is supportive of this. At any point, if the patient's goals were to shift with a focus for towards managing symptoms without intervention she would be appropriate for a transition to hospice. Her father figure/DPOA recognizes that the patient has had multiple trials and tribulations throughout her life and this is just another course on her journey and he wishes to love and support her on this journey. She is being supported by the palliative care revenue specialist who is providing some assistance with her spiritual welfare. Impression and Recommendations - Palliative Care Impression: This is a 60-year-old female who is wheelchair-bound due to cerebral palsy since childhood who unfortunately developed metastatic breast cancer to the bone who is undergoing Faslodex and Ibrance therapy with reduction in her CEA. She is on Zometa for further assistance for her diffuse bone metastasis. She continues to have symptom burden most pacifically due to anorexia, muscular atrophy and weight loss with bony mets pain specifically to her lumbar spine. Her dexamethasone was unfortunately not initiated as previously requested and is to be initiated starting tomorrow, 12/11 at the facility for appetite stimulation and pain relief. Palliative care to continue to build rapport, explore goals of care, provide care coordination and advance care planning. Recommendations/Counseling Done: 1. Weight loss and failure to thrive. Patient is to receive port placement later this afternoon for PICC line which was inadvertently removed. She is stat us post registered dietitian evaluation at [facility] on 11/21 and continues on meal supplementation. Today, her weight was obtained at 112 pounds which is a reduction in 2.4 pounds from 11/14. She is pending a nutritional consult at [facility]. Continue to encourage any meals that she is interested in unfortunately, her father figure/DPOA is only to come in once a week and provide a outside food. She requires assistance during mealtimes which is being provided by caregiving staff. She is to initiate dexamethasone 2 mg daily starting 12/11 as a trial and all parties in agreement for appetite stimulation. We will continue to monitor weight loss trends. 2. Pain of neoplastic origin. She is often not been the best historian number guarding her discomfort. She has tolerated initiation of MSIR 2.5 mg in the morning. She remains off baclofen which had previously been contributed to her increased sedation. Continue MSIR 5 mg every 4 hours as needed for breakthrough pain. To initiate dexamethasone 2 mg daily for additional pain relief starting on 12/11. She also continues on [id number] acetaminophen 500 mg 3 times daily. Continue IcyHot application to the patient's back daily and every 6 hours as needed. Continue to adjust pain regimen to optimize the patient's comfort. Again, had a discussion with the patient's DPOA/father figure in regards to the patient's time at the [facility] and obtainment of a bed and relayed previous conversation that was had with the hot car chargerBetty at the [facility] that the patient has a recliner chair that she can easily be readjusted in with the use of a Tristin lift. If this is not amenable to the patient's father figure/DPOA advised that the may take it up with the hot car charger at the [facility]. 3.Advance care planning. Patient has POLST in place as full code. She continues to be followed by the palliative care revenue specialist for spiritual support and this is appreciated. The patient wishes to focus on extending her life and has always been a very independent individual. In approaching the patient she wishes to make her own decisions and does not wish to be told what path to take. Her father figure/DPOA, Mookie is supportive of the patient's decision however, did relay to pray that moving forward his in put in support is appreciated and complex advance decision making from a medical standpoint. We will continue to build rapport and provide support for the patient on her journey moving forward. Total time spent 50 minutes with greater than 50% of this In counseling coordination of care with the patient, father figure/DPOA and RNGIANNA at facility; expiration of goals of care; examination of the patient; supportive listening; review of pain and symptom management as well as anticipatory guidance. Disclaimer: The chart note was formulated using voice recognition technology and unfortunately sound alike errors may occur.
== END 2020-12-10 13:51 | disposition home or self-care (01) ==
LOC: PC 13:50
PROVIDERS: ATTEND Nurse Practitioner Family
DX: Z51.5 Encounter for palliative care (principal); R62.7 Adult failure to thrive; G80.9 Cerebral palsy, unspecified; R63.4 Abnormal weight loss; G89.3 Neoplasm related pain (acute) (chronic); M54.9 Dorsalgia, unspecified; C50.919 Malignant neoplasm of unspecified site of unspecified female breast; C79.51 Secondary malignant neoplasm of bone
CPT/HCPCS: 99349

== ENCOUNTER 2020-12-20 08:00 | Outpatient (CLI) | payer MEDICARE, MEDICAID | END 2020-12-20 23:59 | disposition home or self-care (01) | LOC: LAB.R 08:00 | PROVIDERS: ATTEND Physician Assistant | DX: C79.81 Secondary malignant neoplasm of breast (principal) | CPT/HCPCS: 80053; 85027 ==

== ENCOUNTER 2020-12-24 11:30 | Outpatient (CLI) | payer MEDICARE, MEDICAID ==
--- NOTE | 2020-12-24 17:34 | CONSULTATION NOTE ---
Palliative Care Follow Up - Referral Referring Provider: Dr. Isacc Soto Time of Visit: [id number] Referral setting: Group Home Facility Referral Reason: FTT/Metastatic breast Ca - Information Sources Records reviewed: Previous records reviewed History/Review of Systems obtained from: Patient, Nursing - History of Present Illness Update Brief HPI Update: This is a 60-year-old female who is seen in follow-up today [facility] due to metastatic breast cancer to the bones, failure to thrive, weight loss, and pain of neoplastic origin. The patient has had a continued decline in her weight. Most glad recent last weight was 112 pounds. She continues to relate that she does not enjoy the food at the facility and prefers outside sources of foods. However, since initiation of dexamethasone 2 mg tablet once daily 1 12/11 she has had an improvement in her overall appetite as well as a reduction in her reported back pain. She is consuming a Syriac muffin with benson and peanut butter routinely in the morning. She continues to have mighty shake supplementation with meals as well as a fortified orange juice for breakfast. Staff assist her with meals if she allows. She denies any nausea or early satiety. The patient herself perceives that she is more alert than she used to be. She also perceives that her appetite is improved. An acceptable level of pain for her is a 2-4 out of 10. With routine 2.5 mg in the morning her generalized pain is improved and was specifically to her lumbar spine. Upon review of MAR she has requested a once daily dose of as needed MSIR on 711, 713, 715, 717, and 12/22. On 12/14 she had evidence of vaginal candidiasis and was treated with Diflucan. The patient denies any vaginal discharge, vaginal itching or suprapubic discomfort. The patient is scheduled to have a port placed tomorrow at [facility] for access. She is presently on Faslodex injection beginning 09/30/2020 and Ibrance started on 10/02/2020. Due to her bone metastases she was initiated on Zometa beginning 10/28/2020 to continue every 3 months. She is seen sitting up in her bed with a T-shirt in place and slightly dishelved. No evidence of acute distress. Past Medical History: Patient has a past medical history of cerebral palsy, SOA ARCHITECT shunt, GERD, breast cancer originally diagnosed 2016 now with right breast cancer with metastases diagnosed August 2020 paren, right modified radical mastectomy 02/2017, endometrial biopsy 04/2017, cholecystectomy 08/2017, colonoscopy, chronic back pain, history of left knee dislocations, scoliosis, osteoarthritis, anxiety, Covid 19 infection in September 2019. Social History - Living Situation Living arrangement: alf Support System: Patient has been wheelchair-bound due to cerebral palsy since childhood. Both of her parents are . She has been residing at [facility] since 2016. Her DPOA is a family friend/surrogate father figureMookie with contact number [phone]. Both of her parents are . She has no children. Mookie visits on a weekly basis but this is not a sufficient amount of time for the patient as she desires more frequent visitations. The patient has a sister in [place]. Palliative care rental sales agent is following. Medications/Allergies - Medications Home Medications: Ambulatory Orders Medication Instructions Recorded Confirmed Calcium Carbonate [Tums (Calcium 500 mg PO Q4HR PRN 04/02/17 12/18/20 Carbonate 500mg)] Bisacodyl Supp [Dulcolax Supp] 1 supp RC DAILY PRN 06/19/19 12/18/20 Acetaminophen [Acetaminophen Extra 500 mg PO TID 10/01/20 12/18/20 Strength] Esomeprazole Magnesium [Nexium] 1 cap PO QPM 10/01/20 12/18/20 Ondansetron HCl [Zofran] 4 mg PO Q4H PRN 10/01/20 12/18/20 Menthol/Camphor [Icy Hot Advanced 1 applic TP DAILY 10/07/20 12/18/20 Relief Cream] Menthol/Camphor [Icy Hot Advanced 1 applic TP Q8H PRN 10/07/20 12/18/20 Relief Cream] Morphine Sulfate [Morphine Sulf 0.25 ml PO Q4H PRN 10/07/20 12/18/20 Oral (Roxanol)] Docusate Sodium 100Mg Capsule 100 mg PO DAILY 10/15/20 12/18/20 [Colace 100Mg Capsule] Palbociclib [Ibrance] 100 mg ORAL DAILY 10/17/20 12/18/20 Morphine Sulfate [Morphine Sulf 2.5 mg PO .QAM 12/05/20 12/18/20 Oral (Roxanol)] dexAMETHasone [Decadron] 2 mg PO DAILY 12/05/20 12/18/20 - Allergies Allergies/Adverse Reactions: Allergies Allergy/AdvReac Type Severity Reaction Status Date / Time ibuprofen AdvReac Unknown Verified 11/25/20 15:23 Review of Systems - Constitutional Constitutional: reports: Poor appetite (prefers outside food), Weight loss (12/10/2020 112lb; 11/14/2020 114.4lb; 10/18/2020 123.2lb; 05/21/2020 160lb---patient herself is happier to be at a lower weight). denies: Fatigue (reports improved faituge), Fever - Ears, Nose & Throat Ears, Nose & Throat: denies: Hearing aids - Cardiovascular Cardiovascular: denies: Edema - Respiratory Respiratory: denies: Cough - Gastrointestinal Gastrointestinal: reports: Poor appetite (see HPI). denies: Constipation (controlled), Nausea, Vomiting, Early satiety - Genitourinary Genitourinary: reports: Incontinence. denies: Dysuria - Musculoskeletal Musculoskeletal: reports: Back pain (improved with scheduled MSIR, scheduled acetaminophen, routine dexamethasone and PRN MSIR and presently comfortable.), Assistive devices, Transfer issues. denies: Joint swelling - Integumentary Integumentary: denies: Rash - Neurological Neurological: reports: General weakness - Psychiatric Psychiatric: denies: Depression (denied by patient) - Hematologic/Lymphatic Hematologic/Lymph: reports: Bruising - All Other Systems All Other Systems: reports: Reviewed and negative (ROS also supported by MIGUEL Roth.) Physical Exam - Vital Signs Temperature: 36.4 C Pulse Rate: 89 O2 Saturation: 97 Blood Pressure: 122/82 - Physical Exam General Appearance: positive: No acute distress, Alert, Other (slightly dishelved; resting in bed) Eyes Bilateral: positive: Other (intermittent nystagmus noted) ENT: positive: No signs of dehydration Neck: positive: Trachea midline Cardiovascular: positive: Regular rate & rhythm Respiratory: positive: No respiratory distress, Breath sounds nml, Diminished in bases (History of bilateral pleural effusions) Abdomen: positive: Non-tender, Soft, Nml bowel sounds. negative: Distended Skin: positive: Pallor, Other (Kyphotic posture; flexion contractures at wrists b/l) Extremities: positive: No pedal edema Neurologic/Psychiatric: positive: Oriented x3, Weakness Palliative Care - POLST Patient has POLST: Yes POLST Status: Full Code Pain: Pain improved (improved lumbar pain with addition of dexamethasone) Anorexia: Weight loss (weight 112lb) Feelings of wellbeing/Perceived Quality of Life: Good Sleep: Sleeps well Constipation: Managed - Palliative Care Discussion: The patient continues to is expressed her desire to get rid of her cancer and reports that "bone cancer is not a sentence." She relays that her cancer has been stable and therefore she is optimistic regarding moving forward with her treatment. She has a desire to extend her life and this is supported by her DPOA/father figure, Mookie regarding this. The patient has also benefited from assistance of the palliative care rental sales agent. The patient is very vocal regarding her believes and how her care should be managed. She does express disgruntled meant regarding her overall independence within the facility environment. She continues to navigate a balance with her delivery of her needs to the facility staff. The patient has had a history of lumbar pain that has positively responded to it introduction of dexamethasone 2 mg daily. This is also improved the patient's overall generalized intake with the hopes that this will improve her oral intake and ultimately improve her weight. Impression and Recommendations - Palliative Care Impression: This is a 60-year-old female who is wheelchair-bound due to cerebral palsy since childhood who unfortunately developed metastatic breast cancer to the bone who is undergoing Faslodex and Ibrance therapy with reduction in her CEA. She is on Zometa for further assistance for her diffuse bone metastasis. She has had a positive response to introduction of dexamethasone not only to her appetite with stimulation but also controlling pain to her lumbar spine due to bony metastasis. Palliative care to continue to build rapport, explore goals of care, provide care coordination and advance care planning. Recommendations/Counseling Done: 1. Weight loss and failure to thrive. Patient is to receive port placement on 12/25. She is status post registered dietitian evaluation at [facility] on 11/21 and continues on protein supplementation. Her last recorded weight is 112 pounds. Since introduction of dexamethasone 2 mg daily the patient has had an improvement in her overall desire to eat and oral intake and would expect gradual improvement. Continue to encourage any meals that she is interested in. Continues to require assistance during mealtimes which is being provided by caregiving staff. Continue to monitor weight loss trends. 2. Pain of neoplastic origin. She has had further improvement of her lumbar pain with introduction of dexamethasone 2 mg daily. Would not bryce dexamethaso ne at this time given the patient's positive response. She continues to have a positive response to MSIR 2.5 mg in the morning. She remains off baclofen which had previously been contributed to her increased sedation. Continue MSIR 5 mg every 4 hours as needed for breakthrough pain which she takes on average once daily. No further need for dose adjustment of routine MSIR at the present time but may need to consider root additional routine dosing to be scheduled in the future based on the patient's needs. Continue IcyHot application to the patient's back daily and every 6 hours as needed. She continues on acetaminophen 500 mg 3 times daily for pain. Continue to monitor the patient's response and adjust pain regimen accordingly. 3. Metastatic breast cancer to the bones. Patient is on Faslodex, and Ibrance therapy. Has been on anastrozole due to her history of right breast cancer previously. Oncology to continue to follow. Total time spent 30 minutes with greater than 50% of this spent in counseling and coordination of care with the patient and RN; examination of the patient; supportive listening; review of pain and symptom management as well as anticipatory guidance. Disclaimer: The chart note was formulated using voice recognition technology and unfortunately sound alike errors may occur.
== END 2020-12-24 11:31 | disposition home or self-care (01) ==
LOC: PC 11:30
PROVIDERS: ATTEND Nurse Practitioner Family
DX: Z51.5 Encounter for palliative care (principal); R62.7 Adult failure to thrive; R63.4 Abnormal weight loss; C50.919 Malignant neoplasm of unspecified site of unspecified female breast; C79.51 Secondary malignant neoplasm of bone; G89.3 Neoplasm related pain (acute) (chronic); G80.9 Cerebral palsy, unspecified; Z79.899 Other long term (current) drug therapy; Z99.3 Dependence on wheelchair
CPT/HCPCS: 99309

== ENCOUNTER 2020-12-25 09:27 | Day surgery (SDC) | payer MEDICARE, MEDICAID ==
[2020-12-25] MEDS ORDERED: ceFAZolin 2 GM/50 ML 2 GM/50 ML BAG IV ONE (09:39)
[2020-12-25] MEDS ORDERED: LACTATED RINGERS 1,000 ML IV ONE (10:00)
[2020-12-25 10:02] VITALS: BP 116/70
[2020-12-25] MEDS ORDERED: PROPOFOL 1000 MG/100 ML 1,000 MG/100 ML BOTTLE IV ONE (10:11)
== END 2020-12-25 09:28 | disposition home or self-care (01) ==
LOC: SDS 09:27
PROVIDERS: ATTEND Surgery
DX: Z53.09 Procedure and treatment not carried out because of other contraindication (principal)

== ENCOUNTER 2021-01-01 10:57 | Day surgery (SDC) | payer MEDICARE, MEDICAID ==
[2021-01-01] MEDS ORDERED: ceFAZolin 2 GM/50 ML 2 GM/50 ML BAG IV ONE (11:08)
[2021-01-01] MEDS ORDERED: LACTATED RINGERS 1,000 ML IV ONE ×2 (11:37→14:24)
[2021-01-01] MEDS ORDERED: LIDOCAINE 1% 50 ML MDV ONE (13:02)
[2021-01-01] MEDS ORDERED: BUPIVACAINE 0.25% PF 30 ML VIAL ONE (13:03)
[2021-01-01] MEDS ORDERED: MIDAZOLAM 2 MG/2 ML VIAL ONE (13:07)
[2021-01-01] MEDS ORDERED: PROPOFOL 200 MG/20 ML VIAL IVP ONE (13:07)
[2021-01-01] MEDS ORDERED: ONDANSETRON 4 MG/2 ML VIAL ONE (13:07)
[2021-01-01] MEDS ORDERED: fentaNYL 100 MCG/2 ML VIAL ONE (13:07)
[2021-01-01] MEDS ORDERED: BUPIVACAINE 0.25% PF 30 ML VIAL SUBQ ONE (13:08)
[2021-01-01] MEDS ORDERED: LIDOCAINE 1% 50 ML MDV SUBQ ONE (13:09)
--- NOTE | 2021-01-01 13:10 | ANESTHESIA ---
Pre-Anesthesia VS, & Labs - Diagnosis breast cancer - Procedure port placement Vital Signs: Temp Pulse Resp BP Pulse Ox 36.8 C 89 16 138/84 H 97 01/01/21 11:10 01/01/21 11:10 01/01/21 11:10 01/01/21 11:10 01/01/21 11:10 Height: 5 ft 2 in - NPO >8 hours - Is Patient ?: No Home Medications and Allergies Calcium Carbonate [Tums (Calcium Carbonate 500mg)] 500 mg PO Q4HR PRN 04/02/17 Bisacodyl Supp [Dulcolax Supp] 1 supp RC DAILY PRN 06/19/19 Acetaminophen [Acetaminophen Extra Strength] 500 mg PO TID 10/01/20 Esomeprazole Magnesium [Nexium] 1 cap PO QPM 10/01/20 Ondansetron HCl [Zofran] 4 mg PO Q4H PRN 10/01/20 Menthol/Camphor [Icy Hot Advanced Relief Cream] 1 applic TP DAILY 10/07/20 Menthol/Camphor [Icy Hot Advanced Relief Cream] 1 applic TP Q8H PRN 10/07/20 Morphine Sulfate [Morphine Sulf Oral (Roxanol)] 0.25 ml PO Q4H PRN 10/07/20 Docusate Sodium 100Mg Capsule [Colace 100Mg Capsule] 100 mg PO DAILY 10/15/20 Palbociclib [Ibrance] 100 mg ORAL DAILY 10/17/20 Morphine Sulfate [Morphine Sulf Oral (Roxanol)] 2.5 mg PO .QAM 12/05/20 dexAMETHasone [Decadron] 2 mg PO DAILY 12/05/20 Allergies/Adverse Reactions: Allergies Allergy/AdvReac Type Severity Reaction Status Date / Time ibuprofen AdvReac Unknown Verified 12/25/20 10:00 Anes History & Medical History - Anesthetic History Anesthesia Complications: reports: No previous complications - Medical History Cardiovascular: reports: None Pulmonary: reports: None Gastrointestinal: reports: GERD, Chronic constipation, Cholelithiasis Urinary: reports: Incontinence, Chronic bladder infection Neuro: reports: Cerebral palsy, Other Musculoskeletal: reports: Osteoarthritis, Osteoporosis, Chronic back pain Endocrine/Autoimmune: reports: None Blood Disorders: reports: None Skin: reports: None Smoking Status: Former smoker History of Cancer?: Yes - Surgical History General: reports: Cholecystectomy, Colonoscopy Neurologic: reports: BRINE PURIFIER shunt Orthopedic: reports: Other Exam General: Alert Dental: WNL Mouth Opening: Greater than 4 Fingerbreadths Neck Mobility: Reduced Mallampati classification: II Thyromental Distance: greater than 6 cm Respiratory: Lungs clear Cardiovascular: Regular rate Cognitive Status: Memory impairment Plan Anesthesia Type: MAC Consent for Procedure(s) Verified and Reviewed: Yes Code Status: Attempt Resuscitation ASA classification: 4-Incapacitating disease Is this case an emergency?: No
[2021-01-01] MEDS ORDERED: HYDROcod/ACETAM 10 MG/325 MG TABLET PO PRN (14:23)
--- NOTE | 2021-01-01 14:31 | OPERATIVE REPORT ---
Operative Report - General Procedure Date: 01/01/21 Planned Procedure: left subclavian power port Pre-Op Diagnosis: breast cancer Procedure Performed: left subclavian power port Post Op Diagnosis: breast cancer - Procedure Note Primary Surgeon: virginia carney md Anesthesia Technique: Local, MAC Pathology: none Estimated Blood Loss (mL): 3 Drain/Tube Type: Other (none) Indications: breast cancer Findings: good flush and flow. tip at junction of svc and atrium - Other Other Information/Narrative: The patient was properly identified brought to the operating room and placed in supine position. Monitored anesthesia care was given as well as IV sedation. A towel roll was placed under the upper back. The patient was prepped and draped in a sterile fashion and given preoperative antibiotics. Local anesthetic was given. The left subclavian vein was easily accessed first pass with a needle. Guide wire placed and position confirmed. A subcutaneous pocket on the left upper chest was created measuring approximately 2-1/2 cm. Portacatheter tubing was then placed subcutaneous up to the venous access point. The portacatheter tubing was then easily placed with the use of a dilator peel-away sheath. The tubing was aspirated and flushed with saline. Under fluoroscopic guidance the tubing was pulled back to the junction of the atrium and the superior vena cava. The portacatheter aspirated and flushed easily assuring good position. The portacatheter was then cut to size and further assembled. The port was secured to subcutaneous tissue with 2 interrupted 4-0 Prolene sutures. The port again was aspirated and flushed now with heparin. Buried interrupted subdermal 3-0 Vicryl sutures were then placed. Skin was closed with buried interrupted and running 4-0 Monocryl subcuticular suture. Dressing was applied. The patient tolerated the procedure well was awakened and brought to recovery in good condition.
--- NOTE | 2021-01-01 14:35 | XRAY Report ---
PROCEDURE: OR Port-A-Cath INDICATIONS: port placement TECHNIQUE: Single intraoperative fluoroscopic image of chest was obtained. COMPARISON: Chest radiograph dated 10/28/2020. FINDINGS: Intraoperative fluoroscopic images shows a left-sided central venous catheter tip projecting in the r egion of SVC. Total fluoroscopy time is 1.6 seconds. IMPRESSION: Fluoroscopy guidance was provided intraoperatively for port placement. Reviewed by: Aram Chung MD on 01/01/2021 2:34 PM PDT Approved by: Aram Chung MD on 01/01/2021 2:34 PM PDT Station ID: [id number]
--- NOTE | 2021-01-01 14:37 | ANESTHESIA POST OP EVALUATION ---
Anesthesia Post Eval - Post Anesthesia Eval Vitals: Last Vital Signs Temp 36.5 C 01/01/21 14:34 Pulse 90 01/01/21 14:34 Resp 16 01/01/21 14:34 BP 116/75 01/01/21 14:34 Pulse Ox 98 01/01/21 14:34 CV Function Including HR & BP: Stable Pain Control: Satisfactory Nausea & Vomiting: Negative Mental Status: Baseline Respiratory Status: Airway Patent Hydration Status: Satisfactory Anesthesia Complications: None
[2021-01-01 14:58] VITALS: BP 134/88
== END 2021-01-01 10:58 | disposition home or self-care (01) ==
LOC: SDS 10:57
PROVIDERS: ATTEND Surgery
DX: C50.911 Malignant neoplasm of unspecified site of right female breast (principal); C79.9 Secondary malignant neoplasm of unspecified site; K21.9 Gastro-esophageal reflux disease without esophagitis; K59.09 Other constipation; R32 Unspecified urinary incontinence; G89.29 Other chronic pain; M54.9 Dorsalgia, unspecified; M81.0 Age-related osteoporosis without current pathological fracture; Z87.891 Personal history of nicotine dependence; G80.9 Cerebral palsy, unspecified; Z96.89 Presence of other specified functional implants; Z79.52 Long term (current) use of systemic steroids; Z79.891 Long term (current) use of opiate analgesic
CPT/HCPCS: 36561; C1788; J0690; J7120

== ENCOUNTER 2021-01-14 11:45 | Outpatient (CLI) | payer MEDICARE, MEDICAID ==
--- NOTE | 2021-01-14 13:20 | CONSULTATION NOTE ---
Palliative Care Follow Up - Referral Referring Provider: Dr. Isacc Soto Time of Visit: [id number] Referral setting: [facility] Facility Referral Reason: Weight Loss/Metastatic breast ca/pain of neoplasm - Information Sources Records reviewed: Previous records reviewed History/Review of Systems obtained from: Patient, Family (father figure/DPOA Ray via phone) - History of Present Illness Update Brief HPI Update: This is a 60-year-old female who is seen in follow-up today [facility] due to metastatic breast cancer to the bones, failure to thrive, weight loss, and pain of neoplastic origin. 1 dexamethasone 2 mg daily starting on 12/11/2020 and has had overall improvement of her overall appetite. This is substantiated by her DPOA/surrogate father figure who visits once weekly on and brings the patient outside food. Unfortunately, she has refused her last 2 weights and upon last weight check she remained at 112 pounds. No visible changes in her frame with weight loss. She denies nausea or early satiety. She is consuming 100% of her mighty shakes that are supplemented with each meal and also consuming fortified orange juice. The patient is reporting that her pain is typically 3 out of 10 or less. She is receiving 2.5 mg of MSIR 1st thing in the morning and has only required as needed dosing of MSIR on 01/06, 01/07, and 01/13. The patient reports that her pain is at a tolerable level. Since last evaluation she has had a left chest wall port placed which the patient is happy about for ease of access and lab draws. [place] [facility] [place] able to be in a hospital bed which provided ease of care and improved level of comfort which the patient's DPOA wishes to continue on subse quent visits. She is presently on Faslodex injection beginning 09/30/2020 and Ibrance started on 10/02/2020. Due to her bone metastases she was initiated on Zometa beginning 10/28/2020 to continue every 3 months. She is seen sitting up in her bed with a T-shirt in place and slightly dishelved. She has moved rooms in the facility and has been enjoying her new room. No evidence of acute distress. 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 Social History - Living Situation Living arrangement: half-way Support System: Patient has been wheelchair-bound due to cerebral palsy since childhood. Both of her parents are . She has been residing at [facility] since 2016. Her DPOA is a family friend/surrogate father figureMookie with contact number [phone]. Both of her parents are . She has no children. Mookie visits on a weekly basis but this is not a sufficient amount of time for the patient as she desires more frequent visitations. The patient has a sister in [place]. Palliative care manager military is following. Medications/Allergies - Medications Home Medications: Ambulatory Orders Medication Instructions Recorded Confirmed Calcium Carbonate [Tums (Calcium 500 mg PO Q4HR PRN 04/02/17 12/26/20 Carbonate 500mg)] Bisacodyl Supp [Dulcolax Supp] 1 supp RC DAILY PRN 06/19/19 12/26/20 Acetaminophen [Acetaminophen Extra 500 mg PO TID 10/01/20 12/26/20 Strength] Esomeprazole Magnesium [Nexium] 1 cap PO QPM 10/01/20 12/26/20 Ondansetron HCl [Zofran] 4 mg PO Q4H PRN 10/01/20 12/26/20 Menthol/Camphor [Icy Hot Advanced 1 applic TP DAILY 10/07/20 12/26/20 Relief Cream] Menthol/Camphor [Icy Hot Advanced 1 applic TP Q8H PRN 10/07/20 12/26/20 Relief Cream] Morphine Sulfate [Morphine Sulf 0.25 ml PO Q4H PRN 10/07/20 12/26/20 Oral (Roxanol)] Docusate Sodium 100Mg Capsule 100 mg PO DAILY 10/15/20 12/26/20 [Colace 100Mg Capsule] Palbociclib [Ibrance] 100 mg ORAL DAILY 10/17/20 12/26/20 Morphine Sulfate [Morphine Sulf 2.5 mg PO .QAM 12/05/20 12/26/20 Oral (Roxanol)] dexAMETHasone [Decadron] 1.5 mg PO DAILY 12/05/20 12/26/20 - Allergies Allergies/Adverse Reactions: Allergies Allergy/AdvReac Type Severity Reaction Status Date / Time ibuprofen AdvReac Unknown Verified 12/25/20 10:00 Review of Systems - Constitutional Constitutional: reports: Weight loss (12/10/2020 112lb; 11/14/2020 114.4lb; 10/18/2020 123.2lb; 05/21/2020 160lb---patient herself is happier to be at a lower weight; has been refusing weights.). denies: Fatigue, Fever - Eyes Eyes: denies: Corrective lenses - Ears, Nose & Throat Ears, Nose & Throat: denies: Hearing aids, Dentures - Cardiovascular Cardiovascular: denies: Edema - Respiratory Respiratory: denies: Cough - Gastrointestinal Gastrointestinal: reports: Other (appetite improved with dexamethasone, see HPI). denies: Constipation (controlled), Nausea, Vomiting, Early satiety - Genitourinary Genitourinary: reports: Incontinence. denies: Dysuria - Musculoskeletal Musculoskeletal: reports: Back pain (improved with dexamethasone, scheduled MSIR and schedueld acetaminophen), Assistive devices, Transfer issues. denies: Joint swelling - Integumentary Integumentary: denies: Rash - Neurological Neurological: reports: General weakness - Psychiatric Psychiatric: denies: Depression (denied by patient) - Hematologic/Lymphatic Hematologic/Lymph: reports: Bruising - All Other Systems All Other Systems: reports: Reviewed and negative (ROS also supported by father figure/DPOA, Ray) Physical Exam - Vital Signs Temperature: 36.7 C Pulse Rate: 88 O2 Saturation: 98 (on RA) Blood Pressure: 114/68 - Physical Exam General Appearance: positive: No acute distress, Alert, Other (slightly dishelved; resting in bed) Eyes Bilateral: positive: Other (intermittent nystagmus noted) ENT: positive: No signs of dehydration, Other (plaque build-up on teeth) Neck: positive: Trachea midline Cardiovascular: positive: Regular rate & rhythm Respiratory: positive: No respiratory distress, Breath sounds nml, Diminished in bases (History of bilateral pleural effusions) Abdomen: positive: Non-tender, Soft, Nml bowel sounds Skin: positive: Pallor, Other (Kyphotic posture; flexion contractures at wrists b/l) Extremities: positive: No pedal edema Neurologic/Psychiatric: positive: Oriented x3, Weakness Palliative Care - POLST Patient has POLST: Yes POLST Status: Full Code Pain: Pain improved (improved lumbar pain with addition of dexamethasone, MSIR and acetaminophen combination) Anorexia: Weight loss (last recorded weight 112lb December 2020) Constipation: Managed - Palliative Care Discussion: The patient has had a history of lumbar pain that has positively responded to introduction of dexamethasone 2 mg daily. She has also had greatly improved appetite with initiation of dexamethasone however, the patient has refused her last several week checks at the facility and unclear if she has had a weight gain. Visibly, cannot appreciate any further weight loss and likely has stabilized or possibly gained some given the patient's increase in her oral intake. Upon review of MAR she is consuming all of her supplemental shakes and enjoying the breakfast images that are being implemented by the facility and likely has had an improvement and/or stabilization of her weight. Given her pain appears to be well controlled we will do a trial reduction of dexamethasone to 1.5 mg daily and monitor the patient's response to gradually taper and she and her DPOA are in agreement for this trial. Impression and Recommendations - Palliative Care Impression: This is a 60-year-old female who is wheelchair-bound due to cerebral palsy since childhood who has unfortunately developed metastatic breast cancer to the bone who is undergoing Faslodex and Ibrance therapy with reduction in her CEA. She is on Zometa for further assistance for her diffuse bone metastases. She has had a positive response to the introduction of dexamethasone with her appetite stimulation as well as pain control. We will do a trial reduction of dexamethasone from 2 mg to 1.5 mg daily and monitor the patient's response. Palliative care to continue to build rapport, explore goals of care, provide care coordination and advance care planning. Recommendations/Counseling Done: 1. Weight loss and failure to thrive. Patient received a chest wall port on 12/25/2020. She is status post dietitian consultation at [facility] on 11/21. She continues on protein supplements with mighty shakes administered with each meal as well as fortified orange juice. She has had overall improvement of her oral intake with initiation of dexamethasone 2 mg daily. Will reduce dexamethasone to 1.5 mg daily and monitor the patient's response. Patient has been refusing her weights with last recorded weight at 112 pounds. Requested that the patient allow next weight check with understanding verb alized. Continue to monitor weight loss trends. Patient continues to require assistance during mealtimes provided by caregiving staff. 2. Pain of neoplastic origin. Well controlled. Improvement of lumbar pain. Decrease dexamethasone from 2 mg to 1.5 mg daily. Continue MSIR 2.5 mg in the morning. Patient remains off baclofen which she previously was on contributed to her increased sedation. Continue MSIR 5 mg every 4 hours as needed for pain. Continue acetaminophen 500 mg 3 times daily for pain continue IcyHot application as ordered. Continue to monitor the patient's response and adjust pain regimen accordingly. 3. Metastatic breast cancer to the bones. Patient is on Faslodex and Ibrance therapy. She had been on anastrozole due to her history of right breast cancer previously. Oncology to continue to follow. Total time spent 25 minutes with greater than 50% of the spent in counseling and coordination of care with the patient; examination the patient; supportive listening; review of pain and symptom management as well as anticipatory guidance. Contacted the patient's DPOA/surrogate father cain Damico, and reviewed plan of care and in agreement for move forward with questions answered and addressed. Mookie also requested that palliative care [place] [facility] [place] when patient [place] [facility] [place] visit and medication administration. Disclaimer: The chart note was formulated using voice recognition technology and unfortunately sound alike errors may occur.
== END 2021-01-14 11:46 | disposition home or self-care (01) ==
LOC: PC 11:45
PROVIDERS: ATTEND Nurse Practitioner Family
DX: Z51.5 Encounter for palliative care (principal); R63.4 Abnormal weight loss; R62.7 Adult failure to thrive; C50.919 Malignant neoplasm of unspecified site of unspecified female breast; C79.51 Secondary malignant neoplasm of bone; G89.3 Neoplasm related pain (acute) (chronic); M54.5 Low back pain; G80.9 Cerebral palsy, unspecified; Z79.899 Other long term (current) drug therapy; Z99.3 Dependence on wheelchair
CPT/HCPCS: 99309

== ENCOUNTER 2021-01-28 12:40 | Outpatient (CLI) | payer MEDICARE, MEDICAID ==
--- NOTE | 2021-01-28 15:15 | CONSULTATION NOTE ---
Palliative Care Follow Up - Referral Referring Provider: Dr. Isacc Soto Time of Visit: 8208-9097 Referral setting: Group Home Facility Referral Reason: Weight Loss/Pain of neoplasm - Information Sources Records reviewed: Previous records reviewed History/Review of Systems obtained from: Patient - History of Present Illness Update Brief HPI Update: This is a 60-year-old female who was seen in follow-up today at [facility] due to metastatic breast cancer to the bones, failure to thrive, weight loss, and pain of neoplastic origin. Patient was initiated on dexamethasone 2 mg daily starting on 12/11/2020 with overall improvement of her appetite as well as her generalized pain. Last weight check was 112 pounds. Patient is hit or miss if she will allow the staff to reweigh her. Last weight was obtained in December 2020. Patient continues to report that her appetite is good. Her sister has sent her additional food supp lies from [employer] including breakfast essentials. On last evaluation on 01/14 the patient's dexamethasone was decreased to 1.5 mg daily. She has tolerated this decreased well without any adverse effects such as decrease in appetite or increased pain. The patient's pain continues to overall be controlled receiving 2.5 mg of MSIR first thing in the morning with as needed MSIR available. The patient reports that she is presently comfortable. She had previously been reporting lumbar pain. She presently is on Faslodex injection beginning 09/30/2020 and Ibrance started on 10/02/2020. Due to her bone metastases she was initiated on Zometa beginning 10/28/2020 with a cycle every 3 months. Patient is seen resting in bed with a teacher in place and slightly disheveled. She is quite talkative and articulate today in good spirits. No evidence of acute distress. 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 Social History - Living Situation Living arrangement: prison Support System: Patient has been wheelchair-bound due to cerebral palsy since childhood. Both of her parents are . She has been residing at [facility] since 2016. Her DPOA is a family friend/surrogate father figure, Mookie with contact number [phone]. Both of her parents are . She has no children. Mookie visits on a weekly basis but this is not a sufficient amount of time for the patient as she desires more frequent visitations. The patient has a sister , Nay [phone] who lives in [place]. Palliative care convertible top installer is following, however the last few visits the patient has been declining. Medications/Allergies - Medications Home Medications: Ambulatory Orders Medication Instructions Recorded Confirmed Calcium Carbonate [Tums (Calcium 500 mg PO Q4HR PRN 04/02/17 01/20/21 Carbonate 500mg)] Bisacodyl Supp [Dulcolax Supp] 1 supp RC DAILY PRN 06/19/19 01/20/21 Acetaminophen [Acetaminophen Extra 500 mg PO TID 10/01/20 01/20/21 Strength] Esomeprazole Magnesium [Nexium] 1 cap PO QPM 10/01/20 01/20/21 Ondansetron HCl [Zofran] 4 mg PO Q4H PRN 10/01/20 01/20/21 Menthol/Camphor [Icy Hot Advanced 1 applic TP DAILY 10/07/20 01/20/21 Relief Cream] Menthol/Camphor [Icy Hot Advanced 1 applic TP Q8H PRN 10/07/20 01/20/21 Relief Cream] Morphine Sulfate [Morphine Sulf 0.25 ml PO Q4H PRN 10/07/20 01/20/21 Oral (Roxanol)] Docusate Sodium 100Mg Capsule 100 mg PO DAILY 10/15/20 01/20/21 [Colace 100Mg Capsule] Palbociclib [Ibrance] 100 mg ORAL DAILY 10/17/20 01/20/21 Morphine Sulfate [Morphine Sulf 2.5 mg PO .QAM 12/05/20 01/20/21 Oral (Roxanol)] dexAMETHasone [Decadron] 1.5 mg PO DAILY 12/05/20 01/20/21 - Allergies Allergies/Adverse Reactions: Allergies Allergy/AdvReac Type Severity Reaction Status Date / Time ibuprofen AdvReac Unknown Verified 01/20/21 13:56 Review of Systems - Constitutional Constitutional: reports: Weight loss (Last recorded weight 112lb 12/2020; 10/18/20 123.2lb; 05/21/2020 160lb). denies: Fever - Eyes Eyes: denies: Irritation - Ears, Nose & Throat Ears, Nose & Throat: denies: Dentures - Cardiovascular Cardiovascular: denies: Chest pain, Edema - Respiratory Respiratory: denies: Cough - Gastrointestinal Gastrointestinal: reports: Other (Appetite improved). denies: Abdominal pain, Constipation - Genitourinary Genitourinary: reports: Incontinence. denies: Dysuria - Musculoskeletal Musculoskeletal: reports: Back pain (improved with dexamethasone, scheduled MSIR and schedueld acetaminophen), Assistive devices, Transfer issues. denies: Joint swelling - Integumentary Integumentary: denies: Rash - Neurological Neurological: reports: General weakness - Psychiatric Psychiatric: denies: Depression - Endocrine Endocrine: denies: Diabetes type 2 - Hematologic/Lymphatic Hematologic/Lymph: reports: Recurrent infections - All Other Systems All Other Systems: reports: Reviewed and negative Physical Exam - Vital Signs Temperature: 37.0 C Pulse Rate: 89 O2 Saturation: 93 Blood Pressure: 111/65 - Physical Exam General Appearance: positive: No acute distress, Alert, Other (resting in bed, shilghtly dishelved) Eyes Bilateral: positive: Other (intermittent nystagmus) ENT: positive: No signs of dehydration Neck: positive: Trachea midline Cardiovascular: positive: Regular rate & rhythm Respiratory: positive: No respiratory distress, Diminished in bases (history of bilateral pleural effusions) Abdomen: positive: Non-tender, Soft, Nml bowel sounds Skin: positive: Pallor Extremities: positive: No pedal edema Neurologic/Psychiatric: positive: Oriented x3, Weakness Palliative Care - POLST Patient has POLST: Yes POLST Status: Full Code Pain: Pain improved (Lumbar pain controlled with dexamethasone, MSIR and acetaminophen combination.) Anorexia: Mild (1-3), Weight loss (weight 112lb) - Palliative Care Discussion: The patient has tolerated trial reduction of dexamethasone from 2 mg to 1.5 mg daily over the last 2 weeks without adverse effect. She is not noticed a change in her appetite or increase in pain. At the present time, we will continue 1 dexamethasone 1.5 mg and at next evaluation consider dose reduction again to 1 mg daily as long as the patient's symptoms are stable and controlled. She has unfortunately, refused recent weight checks and the last recorded weight was at 112 pounds. She continues to have a good appetite per her report and perceives with her consumption of food a balance between satisfaction versus being stuffed. She perceives that she "ate too much as a child." Impression and Recommendations - Palliative Care Impression: This is a 60 year-old female who is wheelchair-bound has cerebral palsy since childhood who has unfortunately developed metastatic breast cancer to the bone who is undergoing Faslodex and Ibrance therapy with reduction in her CEA. She is on Zometa with further assistance for her diffuse bone metastases. Continue dexamethasone 1.5 mg daily as patient has tolerated dose reduction and consider further reduction in the future. Palliative care to continue to build rapport, explore goals of care, provide care coordination advance care planning. Recommendations/Counseling Done: 1. Weight loss and failure to thrive. Patient received a chest wall port on 12/25/2020. She is status post dietitian consultation at [facility] on 11/21. She continues on protein supplements with mighty shakes administered with each meal as well as fortified orange juice. She has had overall improvement with her oral intake since initiation of dexamethasone. As tolerated dose reduction of dexamethasone to 1.5 mg daily. Typically will refuse her weights at the facility and last recorded weight was 112 pounds at the end of December 2020. Requested patient to allow next weight obtainment and begrudgingly agreed. At the present time, we will continue dexamethasone 1.5 mg daily and at next evaluation continued her titration down to 1 mg daily of dexamethasone based on the patient's response and will gradually taper off based on the patient's response and symptoms. Continue to monitor weight loss trends. 2. Pain of neoplastic origin. Well controlled. Lumbar pain is controlled. Continue dexamethasone 1.5 mg daily. Continue MSIR 2.5 mg in the morning. Patient remains off baclofen which she previously was on that contributed to her increased sedation. Continue MSIR 5 mg every 4 hours as needed for pain. Continue acetaminophen 500 mg 3 times daily for pain and continue IcyHot application to affected areas as ordered. Continue to monitor the patient's response and adjust pain regimen accordingly. 3. Metastatic breast cancer to the bones. Patient is on Faslodex and Ibrance therapy. She had been on anastrozole due to her history of right breast cancer previously. Oncology to continue to follow. CPT 59729 Disclaimer: The chart note was formulated using voice recognition technology and unfortunately sound alike errors may occur.
== END 2021-01-28 12:41 | disposition home or self-care (01) ==
LOC: PC 12:40
PROVIDERS: ATTEND Nurse Practitioner Family
DX: Z51.5 Encounter for palliative care (principal); C50.911 Malignant neoplasm of unspecified site of right female breast; C79.51 Secondary malignant neoplasm of bone; G89.3 Neoplasm related pain (acute) (chronic); R62.7 Adult failure to thrive; G80.9 Cerebral palsy, unspecified; K21.9 Gastro-esophageal reflux disease without esophagitis; Z90.11 Acquired absence of right breast and nipple; Z86.16 Personal history of COVID-19; Z99.3 Dependence on wheelchair; M54.9 Dorsalgia, unspecified; F41.9 Anxiety disorder, unspecified; Z79.818 Long term (current) use of other agents affecting estrogen receptors and estrogen levels
CPT/HCPCS: 99308

== ENCOUNTER 2021-02-17 11:25 | Outpatient (CLI) | payer MEDICARE, MEDICAID ==
--- NOTE | 2021-02-17 16:38 | CONSULTATION NOTE ---
Palliative Care Follow Up - Referral Referring Provider: Dr. Isacc Soto Time of Visit: Intiated 1125 Referral setting: Jail Facility Referral Reason: Weight loss/Pain of neoplasm - Information Sources Records reviewed: Previous records reviewed History/Review of Systems obtained from: Patient, Family (DPOA Ray via phone), Nursing - History of Present Illness Update Brief HPI Update: This is a 60-year-old female who was seen in follow-up today at [facility] metastatic breast cancer to the bones, failure to thrive, weight loss and pain at neoplastic origin. Patient was initiated on dexamethasone 2 mg daily starting on 12/11/2020 with overall improvement of her appetite as well as her generalized pain. Last weight check was 116 pounds on 01/30. It remains tenderness if the patient will allow the staff to weigh her. Her appetite is greatly improved. When 01/14 dexamethasone was reduced to 1.5 mg daily. She continues to tolerate this dose reduction well without increase in pain. She is also not noticed a decrease in her appetite. Today, she is reporting that she wants to have 2% and whole milk provided with meals. Will concede with having this provided during lunch. She continues on mighty shake. She also is enjoying green tea. Patient's pain continues to overall be well controlled ranging between 1-3 out of 10 per her report with receiving 2.5 mg of MSIR first thing in the morning with as needed MSIR available. Patient continues to report that she is overall comfortable. She becomes to be uncomfortable at it is typically corrected with repositioning in her bed. She previously been reporting lumbar pain. She did at a point have baclofen and MSIR congruently that resulted into increased somnolence and this was discontinued,. The patient is presently on Faslodex injection beginning 09/30/2020 and Ibrance started 10/02/2020. Due to her bone metastases she was initiated on Zometa beginning 10/28/2020 for cycle every 3 months. The patient does have a port however, she is not allowing the staff at [facility] to access her point to have lab work drawn before her appointments. The patient recognizes that by not allowing this to be done pre her appointments this is increasing her length of time at the [facility] and increasing her discomfort. However, she continues to wish to proceed with this. Patient is seen resting in bed, slightly disheveled after having received a bath. She has papers scattered about her bed that she is sorting through. No evidence of acute distress. 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 Social History - Living Situation Living arrangement: jail Support System: Patient has been wheelchair-bound due to cerebral palsy since childhood. Both of her parents are . She has been residing at [facility] since 2016. Her DPOA is a family friend/surrogate father figure, Mookie with contact number [phone]. Both of her parents are . She has no children. Now that Covid numbers have been increasing the patient's surrogate father, Mookie has no longer been able to visit on site but plans to attend oncology visits. The patient has a sister , Nay [phone] who lives in [place]. Palliative care procurement intern is following, however the last few visits the patient has been declining. Medications/Allergies - Medications Home Medications: Ambulatory Orders Medication Instructions Recorded Confirmed Calcium Carbonate [Tums (Calcium 500 mg PO Q4HR PRN 04/02/17 01/20/21 Carbonate 500mg)] Bisacodyl Supp [Dulcolax Supp] 1 supp RC DAILY PRN 06/19/19 01/20/21 Acetaminophen [Acetaminophen Extra 500 mg PO TID 10/01/20 01/20/21 Strength] Esomeprazole Magnesium [Nexium] 1 cap PO QPM 10/01/20 01/20/21 Ondansetron HCl [Zofran] 4 mg PO Q4H PRN 10/01/20 01/20/21 Menthol/Camphor [Icy Hot Advanced 1 applic TP DAILY 10/07/20 01/20/21 Relief Cream] Menthol/Camphor [Icy Hot Advanced 1 applic TP Q8H PRN 10/07/20 01/20/21 Relief Cream] Morphine Sulfate [Morphine Sulf 0.25 ml PO Q4H PRN 10/07/20 01/20/21 Oral (Roxanol)] Docusate Sodium 100Mg Capsule 100 mg PO DAILY 10/15/20 01/20/21 [Colace 100Mg Capsule] Palbociclib [Ibrance] 100 mg ORAL DAILY 10/17/20 01/20/21 Morphine Sulfate [Morphine Sulf 2.5 mg PO .QAM 12/05/20 01/20/21 Oral (Roxanol)] dexAMETHasone [Decadron] 1 mg PO DAILY 12/05/20 01/20/21 - Allergies Allergies/Adverse Reactions: Allergies Allergy/AdvReac Type Severity Reaction Status Date / Time ibuprofen AdvReac Unknown Verified 01/20/21 13:56 Review of Systems - Constitutional Constitutional: reports: Weight gain (weight 116lb 01/30/2021; 112lb 12/2020; 10/18/20 123.2lb; 05/21/2020 160lb). denies: Fever - Ears, Nose & Throat Ears, Nose & Throat: denies: Hearing aids, Dentures - Cardiovascular Cardiovascular: denies: Chest pain, Edema - Respiratory Respiratory: denies: Cough - Gastrointestinal Gastrointestinal: reports: Other (Appetite improved, see HPI, wanting milk added). denies: Constipation (doesnot want to focus or talk about her bowel movements today) - Genitourinary Genitourinary: reports: Incontinence. denies: Dysuria - Musculoskeletal Musculoskeletal: reports: Assistive devices, Transfer issues. denies: Back pain (improved with dexamethasone, scheduled MSIR and schedueld acetaminophen), Joint swelling - Integumentary Integumentary: denies: Rash - Neurological Neurological: reports: General weakness - Psychiatric Psychiatric: reports: Other (will curse and be Belligerent with staff). denies: Depression - Hematologic/Lymphatic Hematologic/Lymph: reports: Recurrent infections - All Other Systems All Other Systems: reports: Reviewed and negative Physical Exam - Vital Signs Temperature: 36.8 C Pulse Rate: 87 Blood Pressure: 115/64 - Physical Exam General Appearance: positive: No acute distress, Alert, Other (resting in bed with papers surrounding her, shilghtly dishelved) Eyes Bilateral: positive: Other (intermittent nystagmus) ENT: positive: No signs of dehydration Neck: positive: Trachea midline Cardiovascular: positive: Regular rate & rhythm Respiratory: positive: No respiratory distress, Diminished in bases (history of bilateral pleural effusions) Abdomen: positive: Non-tender, Soft, Nml bowel sounds Skin: positive: Pallor Extremities: positive: No pedal edema Neurologic/Psychiatric: positive: Oriented x3, Weakness, Other (Disgrunted in the encounter today and was short with enteraction) Palliative Care - POLST Patient has POLST: Yes POLST Status: Full Code Pain: Pain improved (Will have intermittent lumbar pain 1-08/14 that is controlled with scheduled MSIR and acetaminophen as well as PRN MSIR.) Feelings of wellbeing/Perceived Quality of Life: Fair Sleep: Sleeps well Constipation: Managed - Palliative Care Discussion: Patient has tolerated trial reduction of dexamethasone from 2 mg to 1.5 mg. She has not noticed a change in her appetite or an increase in pain. Therefore, it is appropriate to further reduce her dexamethasone to 1 mg daily. Patient is in agreement. Her weight has increased from 112 pounds to 116 pounds recorded on 01/30. The patient continues to have an improvement of her overall oral intake and is consistent about attempting to take her mighty shakes and is requesting to have milk more routinely with meals. The patient continues to have intermittent gucci with where she will be belligerent. And updating the patient's DPOA/surrogate father figure he recognizes that the patient does not always perceive her overall general decline related to her breast cancer diagnosis and ultimately, he wishes for her to be comfortable. Impression and Recommendations - Palliative Care Impression: This is a 60-year-old female who is wheelchair-bound who has cerebral palsy since childhood who has unfortunately developed metastatic breast cancer to the bone who is undergoing Faslodex and Ibrance therapy with reduction in her CEA. She is on Zometa with further assistance for her diffuse bone metastases. Reduce dexamethasone to 1 mg daily as the patient has tolerated dose reduction and has an improvement in her weight. Palliative care to continue to build rapport, explore goals of care, provide care coordination and advance care planning. Recommendations/Counseling Done: 1.Weight loss and failure to thrive She continues on protein supplements with mighty shakes administered with each meal as well as fortified orange juice. We will add milk per patient's request 2% on whole. Reduce dexamethasone to 1 mg daily. Hit or miss of the patient will allow the staff to allow her weight to be administered. We will continue to gradually taper off dexamethasone based on the patient's response and symptoms. Continue to monitor weight loss trends. 2. Pain of neoplastic origin. Well controlled. Lumbar pain controlled. Continue dexamethasone 1 mg daily. Continue MSIR 2.5 mg in the morning. Patient remains off baclofen which she was presently on that contributed to increased sedation. Continue MSIR 5 mg every 4 hours as needed for pain. Continue acetaminophen 500 mg 3 times daily for pain continue IcyHot application to affected areas as ordered. Continue to monitor the patient's response and adjust regimen accordingly. 3. Metastatic breast cancer to the bones. Patient is presently on Faslodex and Ibrance therapy. She had been on anastrozole due to her history of right breast cancer previously. Patient is not allowing [facility] facility staff to obtain her lab work prior to her [facility] visits and recognizes that this can lead to increased time at the [facility] and discomfort and vocalizes understanding and continues to request that staff at [facility] perform lab draws versus [facility]. Oncology to continue to follow. CPT 40136 Plan of care reviewed with surrogate father figure/DPOA Ray at [phone] a supportive listening provided. Ideation patient's PCP regarding dexamethasone adjustment. Disclaimer: The chart note was formulated using voice recognition technology and unfortunately sound alike errors may occur.
== END 2021-02-17 11:26 | disposition home or self-care (01) ==
LOC: PC 11:25
PROVIDERS: ATTEND Nurse Practitioner Family
DX: Z51.5 Encounter for palliative care (principal); G89.3 Neoplasm related pain (acute) (chronic); R63.4 Abnormal weight loss; R62.7 Adult failure to thrive; G80.9 Cerebral palsy, unspecified; C79.51 Secondary malignant neoplasm of bone; C50.911 Malignant neoplasm of unspecified site of right female breast; Z95.828 Presence of other vascular implants and grafts; Z79.891 Long term (current) use of opiate analgesic; Z79.52 Long term (current) use of systemic steroids; Z79.899 Other long term (current) drug therapy; Z86.16 Personal history of COVID-19; Z99.3 Dependence on wheelchair
CPT/HCPCS: 99308

== ENCOUNTER 2021-03-13 10:45 | Outpatient (CLI) | payer MEDICARE, MEDICAID ==
--- NOTE | 2021-03-13 21:34 | CONSULTATION NOTE ---
Palliative Care Follow Up - Referral Referring Provider: Dr. Isacc Soto Time of Visit: Initated 1045 Referral setting: Detention Facility Referral Reason: Pain of neoplasm/Shravan mets/Right breast Ca - Information Sources Records reviewed: Previous records reviewed History/Review of Systems obtained from: Patient, Family (DPOA Ray via phone) - History of Present Illness Update Brief HPI Update: This is a 61-year-old female who was seen in follow-up at [facility] for metastatic breast cancer to the bones, and pain of neoplastic origin. N95 and googles worn during visit. Patient was initiated on dexamethasone 2 mg starting on 12/11/2020 with overall improvement of her appetite as well as her generalized pain. Last weight check was 116 pounds on 01/30. The patient is not consistent and allowing staff to weigh her. On last evaluation on 02/17/2021 her dexamethasone was reduced to 1 mg daily. She has tolerated this dose reduction however, noted upon review of MAR that she has requested as needed MSIR 3 times this month and previously was not requesting. Therefore, would be appropriate to continue dexamethasone at 1 mg daily in addition to her 2.5 mg of MSIR first thing in the morning. She is reporting her pain range 1-3 out of 10 most days and finds this tolerable. She is consuming the milk is provided with her meals. She is also typically consuming 100% of her mighty shake that is offered. She is enjoying warm green tea that is being offered to her. Overall, she is reporting that she is feeling "quite good." Patient is presently on Faslodex injection beginning 09/30/2020 and Ibrance started 10/02/2020. Due to her bone metastases she was initiated on Zometa beginning 10/28/2020 for cycle every 3 months. She does have a left chest wall port. Patient is seen resting in bed, slightly disheveled and pending a bath. She is watching TV. She is quite conversant and in good spirits today. No evidence of acute distress. Past Medical History: Patient has a past medical history of cerebral palsy, CRUISE COORDINATOR shunt, GERD, breast cancer originally diagnosed 2016 now with right breast cancer with metastases diagnosed August 2020 paren, right modified radical mastectomy 02/2017, endometrial biopsy 04/2017, cholecystectomy 08/2017, colonoscopy, chronic back pain, history of left knee dislocations, scoliosis, osteoarthritis, anxiety, Covid 19 infection in September 2019, port placement left chestwall December 2020. Social History - Living Situation Living arrangement: shelter Support System: Patient has been wheelchair-bound due to cerebral palsy since childhood. Both of her parents are . She has been residing at [facility] since 2016. Her DPOA is a family friend/surrogate father figureMookie with contact number [phone]. Both of her parents are . She has no children. The patient has a sister , Briana [phone] who lives in [place]. Palliative care catalyst operator has attempted to follow but patient has declined in the past. She loves movies and can be quite the encyclopedia on the topic per Mookie. Medications/Allergies - Medications Home Medications: Ambulatory Orders Medication Instructions Recorded Confirmed Calcium Carbonate [Tums (Calcium 500 mg PO Q4HR PRN 04/02/17 02/18/21 Carbonate 500mg)] Bisacodyl Supp [Dulcolax Supp] 1 supp RC DAILY PRN 06/19/19 02/18/21 Acetaminophen [Acetaminophen Extra 500 mg PO TID 10/01/20 02/18/21 Strength] Esomeprazole Magnesium [Nexium] 1 cap PO QPM 10/01/20 02/18/21 Ondansetron HCl [Zofran] 4 mg PO Q4H PRN 10/01/20 02/18/21 Menthol/Camphor [Icy Hot Advanced 1 applic TP DAILY 10/07/20 02/18/21 Relief Cream] Menthol/Camphor [Icy Hot Advanced 1 applic TP Q8H PRN 10/07/20 02/18/21 Relief Cream] Morphine Sulfate [Morphine Sulf 0.25 ml PO Q4H PRN 10/07/20 02/18/21 Oral (Roxanol)] Docusate Sodium 100Mg Capsule 100 mg PO DAILY 10/15/20 02/18/21 [Colace 100Mg Capsule] Palbociclib [Ibrance] 100 mg ORAL DAILY 10/17/20 02/18/21 Morphine Sulfate [Morphine Sulf 2.5 mg PO .QAM 12/05/20 02/18/21 Oral (Roxanol)] Dexamethasone [Decadron] 1 mg PO DAILY 02/18/21 02/18/21 - Allergies Allergies/Adverse Reactions: Allergies Allergy/AdvReac Type Severity Reaction Status Date / Time ibuprofen AdvReac Unknown Verified 02/18/21 14:37 Review of Systems - Constitutional Constitutional: reports: Weight gain (weight 116lb 01/30/2021; 112lb 12/2020; 10/18/20 123.2lb; 05/21/2020 160lb). denies: Fatigue, Fever - Ears, Nose & Throat Ears, Nose & Throat: denies: Dentures - Cardiovascular Cardiovascular: denies: Edema - Respiratory Respiratory: denies: Cough, Wheezing - Gastrointestinal Gastrointestinal: reports: Other (Appetite improved and has addition of milk since last evaluation). denies: Constipation (reports bowel movement daily), Vomiting - Genitourinary Genitourinary: reports: Incontinence. denies: Dysuria - Musculoskeletal Musculoskeletal: reports: Assistive devices, Transfer issues. denies: Back pain (improved with dexamethasone, scheduled MSIR and schedueld acetaminophen), Joint swelling - Integumentary Integumentary: denies: Rash - Neurological Neurological: reports: General weakness - Psychiatric Psychiatric: reports: Other (will curse and be Belligerent with staff---today she is in good spirits and not critiquing). denies: Depression - Hematologic/Lymphatic Hematologic/Lymph: reports: Recurrent infections - All Other Systems All Other Systems: reports: Reviewed and negative Physical Exam - Vital Signs Temperature: 36.3 C Pulse Rate: 89 O2 Saturation: 96 Blood Pressure: 128/65 - Physical Exam General Appearance: positive: No acute distress, Alert, Other (shilghtly dishelved, resting in bed) Eyes Bilateral: positive: Normal inspection ENT: positive: No signs of dehydration Neck: positive: Trachea midline Cardiovascular: positive: Regular rate & rhythm Respiratory: positive: No respiratory distress, Diminished in bases (history of bilateral pleural effusions), Other (+left chestwall port) Abdomen: positive: Non-tender, Soft, Nml bowel sounds Skin: positive: Pallor Extremities: positive: No pedal edema Neurologic/Psychiatric: positive: Oriented x3, Weakness, Other (Good spirits today) Palliative Care - POLST Patient has POLST: Yes POLST Status: Full Code Pain: Comment (Pain stable but noted increased PRN MSIR use and therefore will not decrease dexamethasone dosage and this time and will continue to monitor.) Feelings of wellbeing/Perceived Quality of Life: Fair Sleep: Sleeps well Constipation: Managed - Palliative Care Discussion: Patient has further tolerated dose reduction of dexamethasone to 1 mg daily previously at 2 mg. She has had overall improvement in her appetite as well as her pain however, upon review of MAR she has requested as needed pain medication when previously this has not been in the case therefore, will not make further dose reductions of her dexamethasone at this time to not exacerbate her bony metastases. We will also continue scheduled MSIR 2.5 mg in the morning as well as standing acetaminophen. She continues to have a more robust appetite and is consuming typically 1/2% of her mighty shakes as well as milk that is being offered. Today, she is pleasant and engaged. Impression and Recommendations - Palliative Care Impression: This is a 61-year-old female who is wheelchair-bound with cerebral palsy since childhood who has unfortunately developed metastatic breast cancer to the bone who is undergoing fall Zoladex and Ibrance therapy. She is on Zometa for diffuse bone metastases. Tolerating reduction of dexamethasone to 1 mg daily however as per quired as needed dosage of MSIR and therefore will continue at present dose of dexamethasone without further reduction at this time. Appetite has improved. Palliative care to continue to build rapport, explore goals of care, provide care coordination and advance care planning. Recommendations/Counseling Done: 1. Pain of neoplastic origin. Controlled. Given noted increase of as needed MSIR will continue to hold dexamethasone at 1 mg daily. Continue MSIR 2.5 mg in the morning. Remains off baclofen which she was previously on that contributed to increased sedation. Continue MSIR 5 mg every 4 hours as needed for pain. Continue acetaminophen 500 mg 3 times daily for pain and to continue IcyHot application to affected areas as ordered. Continue to monitor the patient's response and adjust regimen accordingly. 2. Weight loss and failure to thrive. Continues on protein supplementation with mighty shakes administered with each meal, fortified orange juice and milk per the patient's request. Upon review of MAR typically consuming 100% of her meals which is an improvement overall. She does not always allow the staff to weigh her with last weight recorded in January at 116 pounds. We will continue to monitor the patient's pain response and gradually reduce dexamethasone based upon this. Continue to monitor weight loss trends as the patient allows. 3. Metastatic breast cancer to the bones. Presently on Faslodex and Ibrance therapy. She had been on anastrozole due to her history of right breast cancer previously. Continue to be followed by oncology. CPT 80294 Plan of care reviewed with surrogate father figure/DPOA Ray at [phone] with supportive listening provided. In agreement with plan of care and aware to not reduce dose of dexamethasone at this time. Disclaimer: The chart note was formulated using voice recognition technology and unfortunately sound alike errors may occur.
== END 2021-03-13 10:46 | disposition home or self-care (01) ==
LOC: PC 10:45
PROVIDERS: ATTEND Nurse Practitioner Family
DX: Z51.5 Encounter for palliative care (principal); G89.3 Neoplasm related pain (acute) (chronic); C50.919 Malignant neoplasm of unspecified site of unspecified female breast; C79.51 Secondary malignant neoplasm of bone; R63.4 Abnormal weight loss; R62.7 Adult failure to thrive; G80.9 Cerebral palsy, unspecified; Z99.3 Dependence on wheelchair; Z79.899 Other long term (current) drug therapy
CPT/HCPCS: 99308

== ENCOUNTER → 2021-03-24 | Outpatient (CLI) | payer MEDICARE, MEDICAID ==
[2021-03-24 18:19] LABS: BASOPHILS # (AUTO) 0.2 10^3/uL (0.0-0.1); BASOPHILS % (AUTO) 2.1 %; EOSINOPHILS # (AUTO) 0.2 10^3/uL (0.0-0.7); EOSINOPHILS % (AUTO) 2.3 %; HCT - HEMATOCRIT 36.7 % (37.0-47.0); LYMPHOCYTES # (AUTO) 1.8 10^3/uL (1.5-3.5); LYMPHOCYTES % (AUTO) 24.7 %; MEAN CORPUSCULAR HEMOGLOBIN 34.7 pg (27.0-31.0); MEAN CORPUSCULAR HGB CONC 32.7 g/dL (32.0-36.0); MEAN CORPUSCULAR VOLUME 106.1 fL (81.0-99.0); MEAN PLATELET VOLUME 8.6 fL (7.9-10.8); MONOCYTES # (AUTO) 0.6 10^3/uL (0.0-1.0); MONOCYTES % (AUTO) 7.6 %; NEUTROPHILS # (AUTO) 4.5 10^3/uL (1.5-6.6); NEUTROPHILS % (AUTO) 62.6 %; PLT - PLATELET COUNT 365 10^3/uL (130-450); RED BLOOD COUNT 3.46 10^6/uL (4.20-5.40); RED CELL DISTRIBUTION WIDTH 13.4 % (12.0-15.0); WHITE BLOOD COUNT 7.2 x10^3/uL (4.8-10.8)
[2021-03-24 18:37] LABS: CALCIUM 9.5 mg/dL (8.5-10.3); CREATININE 0.7 mg/dL (0.4-1.0); POTASSIUM 4.2 mmol/L (3.5-5.0)
== END ==
LOC: LAB 08:00
PROVIDERS: ATTEND Nurse Practitioner
DX: C79.51 Secondary malignant neoplasm of bone (principal); R41.82 Altered mental status, unspecified
CPT/HCPCS: 36415; 80048; 85025

== ENCOUNTER 2021-03-26 13:32 | Outpatient (CLI) | payer MEDICARE, MEDICAID ==
--- NOTE | 2021-03-26 14:31 | XRAY Report ---
PROCEDURE: Chest 2 View X-Ray INDICATIONS: Abnormal breath sounds. TECHNIQUE: 2 view(s) of the chest. COMPARISON: October 28, 2020. FINDINGS: SUPPORT DEVICES: Left CT injectable marie catheter is seen. LUNG/PLEURA: Blunting of the costophrenic sulci, compatible with pleural fluid. Prominence of the int erstitial markings. No pneumothorax. MEDIASTINUM: Retrocardiac lucency, compatible with hiatal hernia. The cardiac silhouette is obscured. BONES/SOFT TISSUES: No acute abnormality. IMPRESSION: 1.Pulmonary edema pattern with pleural fluid. Reviewed by: Raleigh Wylie MD on 03/26/2021 2:29 PM PDT Approved by: Raleigh Wylie MD on 03/26/2021 2:29 PM PDT Station ID: [id number]
== END 2021-03-26 13:33 | disposition home or self-care (01) ==
LOC: DI 13:32
PROVIDERS: ATTEND Family Medicine
DX: R63.4 Abnormal weight loss (principal); G80.9 Cerebral palsy, unspecified; R09.89 Other specified symptoms and signs involving the circulatory and respiratory systems; R53.83 Other fatigue; R06.89 Other abnormalities of breathing; J81.1 Chronic pulmonary edema; J90 Pleural effusion, not elsewhere classified

== ENCOUNTER 2021-04-14 13:30 | Outpatient (CLI) | payer MEDICARE, MEDICAID ==
--- NOTE | 2021-04-14 14:02 | CONSULTATION NOTE ---
Palliative Care Follow Up - Referral Referring Provider: Dr. Isacc Soto Time of Visit: 7785-9662 Referral setting: [facility] Referral Reason: Pain of neoplasm/Debility/Right breast Ca - Information Sources Records reviewed: Previous records reviewed History/Review of Systems obtained from: Patient, Family (sisterBriana present) - History of Present Illness Update Brief HPI Update: This is a 61-year-old female who was seen in follow-up had [facility] clinic for metastatic breast cancer to the bone, debility, and pain of neoplastic origin with sisterBriana present. Provider wore N95 mask during visit. Patient was initiated on dexamethasone 2 mg starting on 12/11/2020 with overall improvement of her appetite as well as her generalized pain. Last weight check was 116 pounds on 01/30 and has declined further weigh in the last 2 months. On last evaluation on 02/17/2021 her dexamethasone was reduced to 1 mg daily. She has tolerated this dose reduction and has not had an increase of pain per her report. Therefore, would be appropriate to reduce dexamethasone at 0.5 mg daily and continue addition to her 2.5 mg of MSIR first thing in the morning. She is reporting her pain range 1-3 out of 10 most days and finds this tolerable. She is consuming the milk is provided with her meals. She is also typically consuming 100% of her mighty shake that is offered. Continues to enjoy her breakfast sandwiches every morning. She is wanting to get up twice a week to her wheelchair. She has been working on strengthening her LE with exercsises. She is reporting intermittent discomfort to her right wrist with increased use and would benefit from a brace for support when attempting to preform activities such as writing. patient is left handed. Overall, she is reporting that she is feeling "quite good." She denies Patient is presently on Faslodex injection beginning 09/30/2020 and Ibrance started 10/02/2020. Due to her bone metastases she was initiated on Zometa beginning 10/28/2020 for cycle every 3 months. She does have a left chest wall port. Patient is seen in [facility] chair, slightly disheveled. She is quite conversant and in good spirits today. No evidence of acute distress. 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 Social History - Living Situation Living arrangement: group home Support System: Patient has been wheelchair-bound due to cerebral palsy since childhood. Both of her parents are . She has been residing at [facility] since 2016. Her DPOA is a family friend/surrogate father figureMookie with contact number [phone]. Both of her parents are . She has no children. The patient has a sister , Briana [phone] who lives in [place]. Patient wishes to have assistance with her new DVD/VCR player. Medications/Allergies - Medications Home Medications: Ambulatory Orders Medication Instructions Recorded Confirmed Calcium Carbonate [Tums (Calcium 500 mg PO Q4HR PRN 04/02/17 02/18/21 Carbonate 500mg)] Bisacodyl Supp [Dulcolax Supp] 1 supp RC DAILY PRN 06/19/19 02/18/21 Acetaminophen [Acetaminophen Extra 500 mg PO TID 10/01/20 02/18/21 Strength] Esomeprazole Magnesium [Nexium] 1 cap PO QPM 10/01/20 02/18/21 Ondansetron HCl [Zofran] 4 mg PO Q4H PRN 10/01/20 02/18/21 Menthol/Camphor [Icy Hot Advanced 1 applic TP DAILY 10/07/20 02/18/21 Relief Cream] Menthol/Camphor [Icy Hot Advanced 1 applic TP Q8H PRN 10/07/20 02/18/21 Relief Cream] Morphine Sulfate [Morphine Sulf 0.25 ml PO Q4H PRN 10/07/20 02/18/21 Oral (Roxanol)] Docusate Sodium 100Mg Capsule 100 mg PO DAILY 10/15/20 02/18/21 [Colace 100Mg Capsule] Palbociclib [Ibrance] 100 mg ORAL DAILY 10/17/20 02/18/21 Morphine Sulfate [Morphine Sulf 2.5 mg PO .QAM 12/05/20 02/18/21 Oral (Roxanol)] Dexamethasone [Decadron] 0.5 mg PO DAILY 02/18/21 02/18/21 - Allergies Allergies/Adverse Reactions: Allergies Allergy/AdvReac Type Severity Reaction Status Date / Time ibuprofen AdvReac Unknown Verified 02/18/21 14:37 Review of Systems - Constitutional Constitutional: reports: Other (weight 116lb 01/30/2021; 112lb 12/2020; 10/18/20 123.2lb; 05/21/2020 160lb--has declined recent weight obtainment). denies: Fever - Eyes Eyes: denies: Irritation - Ears, Nose & Throat Ears, Nose & Throat: denies: Dentures - Cardiovascular Cardiovascular: denies: Chest pain, Edema - Respiratory Respiratory: denies: Cough - Gastrointestinal Gastrointestinal: reports: Other (Appetite improved). denies: Constipation (reports bowel movement daily), Vomiting - Genitourinary Genitourinary: reports: Incontinence. denies: Dysuria - Musculoskeletal Musculoskeletal: reports: Assistive devices, Transfer issues. denies: Back pain (stable with dexamethasone, scheduled MSIR and schedueld acetaminophen), Joint swelling - Integumentary Integumentary: denies: Rash - Neurological Neurological: reports: General weakness - Psychiatric Psychiatric: denies: Depression - Hematologic/Lymphatic Hematologic/Lymph: reports: Recurrent infections - All Other Systems All Other Systems: reports: Reviewed and negative Physical Exam - Vital Signs Pulse Rate: 110 O2 Saturation: 98 (on RA) Blood Pressure: 122/74 (left arm) - Physical Exam General Appearance: positive: No acute distress, Alert, Other (slightly dishelved) Eyes Bilateral: positive: Normal inspection ENT: positive: No signs of dehydration Neck: positive: Trachea midline Cardiovascular: positive: Regular rate & rhythm Respiratory: positive: No respiratory distress, Diminished in bases (history of bilateral pleural effusions), Other (+left chestwall port) Abdomen: positive: Non-tender, Soft, Nml bowel sounds. negative: Distended Skin: positive: Pallor Extremities: positive: No pedal edema, Other (Negative jameel test sign b/l wrist) Neurologic/Psychiatric: positive: Oriented x3, Weakness, Other (Good spirits today and making jokes) Palliative Care - POLST Patient has POLST: Yes POLST Status: Full Code Pain: Pain improved Nausea: None Anorexia: Mild (1-3) Feelings of wellbeing/Perceived Quality of Life: Good Sleep: Sleeps well Constipation: No - Palliative Care Discussion: Patient has tolerated dose reduction of dose of dexamethasone from 2 mg to 1 mg daily with slow taper. She continues to have an overall improvement of her appe tite and no exacerbation of her pain with dose reduction of dexamethasone and therefore, appropriate to reduce further to 0.5 mg daily with goal to discontinue if patient is able to tolerate. She finds it beneficial to have MSIR 2.5 mg first thing in the morning as well as standing standing acetaminophen. Reports pain is presently well managed. She is hoping to have increased activity and getting out of bed and requesting order from palliative care PRODUCT SPECIALIST to nursing facility to be up in her wheelchair twice a week for approximately 1 hour to get out of bed. This is an appropriate request and set expectations with the patient that initially likely will become fatigue and want to return to bed quicker than she was may have been anticipating. Impression and Recommendations - Palliative Care Impression: This is a 61-year-old female who is wheelchair-bound with cerebral palsy since childhood who has unfortunately developed metastatic breast cancer to the bone who is undergoing Faslodex and Ibrance therapy. She is on Zometa for diffuse bone metastases. Benefit from further dose reduction of dexamethasone to 0.5 mg and continue to monitor as needed dosage of MSIR. Appetite is improved however, patient has not allowed obtainment of her weight and requested that she allow staff at facility to do so. Palliative care to continue to build rapport, explore goals of care, provide care coordination and advance care planning. Recommendations/Counseling Done: 1. Pain of neoplastic origin. Controlled. Given patient's report of pain being controlled will reduce dexamethasone to 0.5 mg daily. Continue MSIR 2.5 mg in the morning. Remains off baclofen which she previously been on that contributed to increased sedation. Continue MSIR 5 mg every 4 hours as needed for pain. Continue acetaminophen 500 mg 3 times daily for pain and to continue IcyHot application to affected areas as ordered. Continue to monitor the patient's response and adjust regimen accordingly. 2. Bilateral wrist pain. No evidence of carpal tunnel on examination and would benefit from support of soft wrist brace with increased activity such as writing. Patient's sister to order a wrist brace from [employer]) that have Velcro in order to allow the patient to Hernán and doff independently. 3. Weight loss and failure to thrive. Continues on protein supplementation with mighty shakes administered with each meal, fortified orange juice, and milk per the patient's request. Is consuming typically 1 high percent of her meals. However, she has not allowed staff to weigh her since January 30 at 1 and 16 pounds which is an improvement. Requested patient to allow staff to weigh her at the facility. We will continue to monitor patient's pain response and gradually continue dose reduction of dexamethasone based on her response. Continue to monitor weight loss trends as the patient allows. 4. Metastatic breast cancer to the bones. Presently on Faslodex and Ibrance therapy. She had been on anastrozole due to her history of right breast cancer previously. Continue to be followed by oncology. Patient is reluctant to transition to hospice services. Total time spent 20 minutes with greater than 50% of the spent in counseling and coordination of care with the patient and sister and [facility] nursing staff; review of last oncology note; examination of patient; review of pain and symptom management as well as anticipatory guidance. Disclaimer: The chart note was formulated using voice recognition technology and unfortunately sound alike errors may occur.
== END 2021-04-14 13:31 | disposition home or self-care (01) ==
LOC: PC 13:30
PROVIDERS: ATTEND Nurse Practitioner Family
DX: Z51.5 Encounter for palliative care (principal); G89.3 Neoplasm related pain (acute) (chronic); C50.911 Malignant neoplasm of unspecified site of right female breast; C79.51 Secondary malignant neoplasm of bone; R53.81 Other malaise; G80.9 Cerebral palsy, unspecified; K21.9 Gastro-esophageal reflux disease without esophagitis; Z90.11 Acquired absence of right breast and nipple; M54.9 Dorsalgia, unspecified; G89.29 Other chronic pain; M19.90 Unspecified osteoarthritis, unspecified site; F41.9 Anxiety disorder, unspecified; Z86.16 Personal history of COVID-19; Z99.3 Dependence on wheelchair; M25.532 Pain in left wrist; M25.531 Pain in right wrist; R63.4 Abnormal weight loss; R62.7 Adult failure to thrive
CPT/HCPCS: 99213

== ENCOUNTER 2021-05-13 13:34 | Outpatient (CLI) | payer MEDICARE, MEDICAID ==
--- NOTE | 2021-05-13 14:51 | CONSULTATION NOTE ---
Palliative Care Follow Up - Referral Referring Provider: Dr. Isacc Soto Time of Visit: [id number] Referral setting: [facility] Referral Reason: Pain of neoplasm/Right breast Ca/Bilateral wrist pain - Information Sources Records reviewed: Previous records reviewed History/Review of Systems obtained from: Patient - History of Present Illness Update Brief HPI Update: This is a 61-year-old female who was seen in follow-up today at [facility] for metastatic breast cancer to the bone, pain of neoplastic origin, and bilateral wrist pain. Provider wore N95 mask. Patient was initiated on dexamethasone 2 mg starting on 12/11/2020 with overall improvement of her appetite as well as generalized pain after noted weight loss. Last weight check was 142 on 04/23/2021 which is up from her last weight check of one and 16 pounds on 01/30/2021. When last evaluation, 04/14 the patient's dexamethasone was reduced to 0.5 mg daily. Patient has tolerated this dose adjustment well. She denies any increase of pain. She continues with MSIR 2.5 mg in the morning. She continues to express an adequate appetite. She has a preference for milk and wishes she had this more frequently despite an order being previously written to be provided with meals. She also consumes her mighty shake. Last evaluation was she was reporting bilateral wrist pain and there was no evidence of carpal tunnel on examination and her sister obtaining soft wrist braces for her to wear for additional support with increased activity such as writing. The patient has found this beneficial and she is able to do more tasks that she enjoys with implementation of this intervention. Overall, she offers up no acute medical concerns. She does offer up suggestions regarding the medical facility for which, this provider requested that she followed up with staff. Past Medical History: Patient has a past medical history of cerebral palsy, [employer] shunt, GERD, breast cancer originally diagnosed 2016 now with right breast cancer with metastases diagnosed August 2020 paren, right modified radical mastectomy 02/2017, endometri al biopsy 04/2017, cholecystectomy 08/2017, colonoscopy, chronic back pain, history of left knee dislocations, scoliosis, osteoarthritis, anxiety, Covid 19 infection in September 2019, port placement left chestwall December 2020. Social History - Living Situation Living arrangement: detention Support System: Patient has been wheelchair-bound due to cerebral palsy since childhood. Both of her parents are . She has been residing at [facility] since 2016. Her DPOA is a family friend/surrogate father figure, Mookie with contact number [phone]. Both of her parents are . She has no children. The patient has a sister , Briana [phone] who lives in [place]. Medications/Allergies - Medications Home Medications: Ambulatory Orders Medication Instructions Recorded Confirmed Calcium Carbonate [Tums (Calcium 500 mg PO Q4HR PRN 04/02/17 05/12/21 Carbonate 500mg)] Bisacodyl Supp [Dulcolax Supp] 1 supp RC DAILY PRN 06/19/19 05/12/21 Acetaminophen [Acetaminophen Extra 500 mg PO TID 10/01/20 05/12/21 Strength] Esomeprazole Magnesium [Nexium] 1 cap PO QPM 10/01/20 05/12/21 Ondansetron HCl [Zofran] 4 mg PO Q4H PRN 10/01/20 05/12/21 Menthol/Camphor [Icy Hot Advanced 1 applic TP DAILY 10/07/20 05/12/21 Relief Cream] Menthol/Camphor [Icy Hot Advanced 1 applic TP Q8H PRN 10/07/20 05/12/21 Relief Cream] Morphine Sulfate [Morphine Sulf 0.25 ml PO Q4H PRN 10/07/20 05/12/21 Oral (Roxanol)] Docusate Sodium 100Mg Capsule 100 mg PO DAILY 10/15/20 05/12/21 [Colace 100Mg Capsule] Palbociclib [Ibrance] 100 mg ORAL DAILY 10/17/20 05/12/21 Morphine Sulfate [Morphine Sulf 2.5 mg PO .QAM 12/05/20 05/12/21 Oral (Roxanol)] Dexamethasone [Decadron] 0.25 mg PO DAILY 02/18/21 05/12/21 - Allergies Allergies/Adverse Reactions: Allergies Allergy/AdvReac Type Severity Reaction Status Date / Time ibuprofen AdvReac Unknown Verified 02/18/21 14:37 Review of Systems - Constitutional Constitutional: reports: Weight gain (weight 142lb 04/23/2021; weight 116lb 01/30/2021; 112lb 12/2020; 10/18/20 123.2lb; 05/21/2020 160lb--has declined recent weight obtainment). denies: Fever, Poor appetite - Eyes Eyes: denies: Irritation - Ears, Nose & Throat Ears, Nose & Throat: denies: Dentures - Cardiovascular Cardiovascular: denies: Edema - Respiratory Respiratory: denies: Wheezing, SOB at rest - Gastrointestinal Gastrointestinal: reports: Good appetite. denies: Constipation (reports bowel movement daily), Vomiting - Genitourinary Genitourinary: reports: Incontinence. denies: Dysuria - Musculoskeletal Musculoskeletal: reports: Assistive devices, Transfer issues, Other (wrist pain--see HPI). denies: Back pain (stable with dexamethasone, scheduled MSIR and schedueld acetaminophen) - Integumentary Integumentary: denies: Rash - Neurological Neurological: reports: General weakness - Psychiatric Psychiatric: denies: Depression - Hematologic/Lymphatic Hematologic/Lymph: reports: Recurrent infections - All Other Systems All Other Systems: reports: Reviewed and negative Physical Exam - Vital Signs Pulse Rate: 97 O2 Saturation: 98 (on RA) Blood Pressure: 104/68 - Physical Exam General Appearance: positive: No acute distress, Alert, Other (slightly dishelved) Eyes Bilateral: positive: Other (intermittent nystagmus) ENT: positive: No signs of dehydration Neck: positive: Trachea midline Cardiovascular: positive: Regular rate & rhythm Respiratory: positive: No respiratory distress, Diminished in bases (history of bilateral pleural effusions) Abdomen: positive: Non-tender, Soft, Nml bowel sounds Skin: positive: Pallor Extremities: positive: No pedal edema. negative: Joint swelling Neurologic/Psychiatric: positive: Oriented x3, Weakness, Other (condescending comments regarding staff at facility today that was corrected and redirected) Palliative Care - POLST Patient has POLST: Yes POLST Status: Full Code Pain: Pain unchanged, Comment (controlled) - Palliative Care Discussion: Patient continues to tolerate dose reduction of dexamethasone from 1 mg to 0.5 mg. She has not had an increase in pain will further dose reduce her dexamethasone to 0.25 mg daily with the goal to be able to discontinue as the patient is able to tolerate. She continues to find it beneficial to have MSIR 2.5 mg in the morning as well as standing acetaminophen. Impression and Recommendations - Palliative Care Impression: This is a 61-year-old female who is wheelchair-bound with cerebral palsy since childhood who has on fortunately developed metastatic breast cancer to the bone who is undergoing Faslodex and Ibrance therapy. She is on Zometa for diffuse bone metastases. Would benefit from further dose reduction of dexamethasone to 0.25 mg daily and continue to monitor as needed dosage of MSIR. Goal is to taper off of dexamethasone as the patient is able to tolerate based on her pain response. She has also had improvement of her overall oral intake. Palliative care to continue to explore goals of care, provide care coordination, symptom management and advance care planning. Recommendations/Counseling Done: 1. 1. Pain of neoplastic origin with bony metastases. Controlled. Will further reduce dexamethasone to 0.25 mg daily with goal to taper and discontinue based on the patient's response. Continue MSIR 2.5 mg in the morning. Remains off baclofen which she previously had been on and contributed to increased sedation. Continue MSIR 5 mg every 4 hours as needed for pain. Continue acetaminophen 500 mg 3 times daily for pain and to continue IcyHot application to affected areas as ordered. Continue to monitor the patient's response and adjust regimen accordingly. 2. Bilateral wrist pain. Responded well to use of soft wrist braces with increased activity. Encouraged utilization of wrist braces. 3. History of weight loss. Weight has improved to 142 pounds as of 04/23. Will further dose reduce dexamethasone to 0.25 mg daily with goal to taper and discontinue. Consuming typically 100% of her meals. Continues on protein supplementation with mighty shakes, milk per her request, and fortified orange juice. Continue to monitor weight trends. 4. Metastatic breast cancer to the bones. Presently on Faslodex and Ibrance therapy. She had been on anastrozole due to her history of right breast cancer previously. Continue to be followed by oncology. Patient is reluctant to transition to hospice services. Total time spent 30 minutes with greater than 50% of the spent in counseling and coordination of care with the patient; review and examination of patient; review of symptom management as well as anticipatory guidance. Disclaimer: The chart note was formulated using voice recognition technology and unfortunately sound alike errors may occur.
== END 2021-05-13 13:35 | disposition home or self-care (01) ==
LOC: PC 13:34
PROVIDERS: ATTEND Nurse Practitioner Family
DX: Z51.5 Encounter for palliative care (principal); G89.3 Neoplasm related pain (acute) (chronic); C50.911 Malignant neoplasm of unspecified site of right female breast; C79.51 Secondary malignant neoplasm of bone; G80.9 Cerebral palsy, unspecified; Z99.3 Dependence on wheelchair; Z79.899 Other long term (current) drug therapy
CPT/HCPCS: 99309

== ENCOUNTER 2021-06-09 14:35 | Outpatient (CLI) | payer MEDICARE, MEDICAID ==
--- NOTE | 2021-06-09 18:19 | CONSULTATION NOTE ---
Palliative Care Follow Up - Referral Referring Provider: Dr. Isacc Soto Time of Visit: [id number] Referral setting[place] [facility] [place]erral Reason: Pain of neoplasm/Weight loss/Right breast cancer - Information Sources Records reviewed: Previous records reviewed History/Review of Systems obtained from: Patient, Family (father figure/DPOA Ray) - History of Present Illness Update Brief HPI Update: This is a 61-year-old female who was seen in follow-up today at [facility] for metastatic breast cancer to the bone, pain of neoplastic origin, and history of weight loss. Provider wore N95 mask. Patient was initiated on dexamethasone 2 mg starting on 12/11/2020 with overall improvement of her appetite as well as generalized pain after noted weight loss. She has gradually increased her weight over this time and pain has also stabilized and improved. Therefore, her dexamethasone was gradually tapered and discontinued in May 2021. She has not had any increase reports of pain. She intermittently will have lower back pain that typically resolves with repositioning. She continues on MSIR 2.5 mg in the morning as well as scheduled acetaminophen. Her weight in May 2020 was 160 pounds. She has been gradually increasing her weight with generalized improvement of her appetite with last recorded weight as 141.8 pounds. She continues to in December a supplements that are being provided most specifically her breakfast sandwich in the mornings. She offers up no acute medical concerns today Outside of intermittent pruritus to her bilateral buttocks. She is hoping to have a cream provided to reduce the itch. Denies reports of skin breakdown. Past Medical History: Patient has a past medical history of cerebral palsy, [employer]HE[employer] shunt, GERD, breast cancer originally diagnosed 2016 now with right breast cancer with metastases diagnosed August 2020 [place], right modified radical mastectomy 02/2017, endometrial biopsy 04/2017, cholecystectomy 08/2017, colonoscopy, chronic back pain, history of left knee dislocations, scoliosis, osteoarthritis, anxiety, Covid 19 infection in September 2019, port placement left chestwall December 2020. Social History - Living Situation Living arrangement: assisted Support System: Patient has been wheelchair-bound due to cerebral palsy since childhood. Both of her parents are . She has been residing at [facility] since 2016. Her DPOA is a family friend/surrogate father Mookie barlow with contact number [phone]. Both of her parents are . She has no children. The patient has a sister , Briana [phone] who lives in [place]. Medications/Allergies - Medications Home Medications: Ambulatory Orders Medication Instructions Recorded Confirmed Calcium Carbonate [Tums (Calcium 500 mg PO Q4HR PRN 04/02/17 05/12/21 Carbonate 500mg)] Bisacodyl Supp [Dulcolax Supp] 1 supp RC DAILY PRN 06/19/19 05/12/21 Acetaminophen [Acetaminophen Extra 500 mg PO TID 10/01/20 05/12/21 Strength] Esomeprazole Magnesium [Nexium] 1 cap PO QPM 10/01/20 05/12/21 Ondansetron HCl [Zofran] 4 mg PO Q4H PRN 10/01/20 05/12/21 Menthol/Camphor [Icy Hot Advanced 1 applic TP DAILY 10/07/20 05/12/21 Relief Cream] Menthol/Camphor [Icy Hot Advanced 1 applic TP Q8H PRN 10/07/20 05/12/21 Relief Cream] Morphine Sulfate [Morphine Sulf 0.25 ml PO Q4H PRN 10/07/20 05/12/21 Oral (Roxanol)] Docusate Sodium 100Mg Capsule 100 mg PO DAILY 10/15/20 05/12/21 [Colace 100Mg Capsule] Palbociclib [Ibrance] 100 mg ORAL DAILY 10/17/20 05/12/21 Morphine Sulfate [Morphine Sulf 2.5 mg PO .QAM 12/05/20 05/12/21 Oral (Roxanol)] Cod Liver Oil/Zinc Oxide [Desitin] 1 applic TP DAILY MDD buttocks 06/10/21 06/10/21 - Allergies Allergies/Adverse Reactions: Allergies Allergy/AdvReac Type Severity Reaction Status Date / Time ibuprofen AdvReac Unknown Verified 02/18/21 14:37 Review of Systems - Constitutional Constitutional: reports: Weight gain (weight 141.8lb 05/20/21; weight 142lb 04/23/2021; weight 116lb 01/30/2021; 112lb 12/2020; 10/18/20 123.2lb; 05/21/2020 160lb), Other (Less stan appearance due to dexamethasone since discontinuation.). denies: Fever, Poor appetite - Eyes Eyes: denies: Irritation - Ears, Nose & Throat Ears, Nose & Throat: denies: Dentures - Cardiovascular Cardiovascular: denies: Edema - Respiratory Respiratory: denies: Cough - Gastrointestinal Gastrointestinal: reports: Good appetite (enjoys when DPCHANDRA brings Sa[employer] chicken in when he visits). denies: Constipation (reports bowel movement daily, LBM today), Vomiting - Genitourinary Genitourinary: reports: Incontinence. denies: Dysuria - Musculoskeletal Musculoskeletal: reports: Assistive devices, Transfer issues. denies: Back pain (stable with scheduled MSIR and schedueld acetaminophen) - Integumentary Integumentary: reports: Pruritis (b/l buttocks). denies: Rash - Neurological Neurological: reports: General weakness - Psychiatric Psychiatric: denies: Depression - Hematologic/Lymphatic Hematologic/Lymph: reports: Recurrent infections - All Other Systems All Other Systems: reports: Reviewed and negative Physical Exam - Physical Exam General Appearance: positive: No acute distress, Alert, Other (OOB in tilt in space wheelchair, +loquacious) Eyes Bilateral: positive: Other (intermittent nystagmus) ENT: positive: No signs of dehydration Neck: positive: Trachea midline Cardiovascular: positive: Regular rate & rhythm Respiratory: positive: No respiratory distress, Diminished in bases (history of bilateral pleural effusions) Abdomen: positive: Non-tender, Soft, Nml bowel sounds Skin: positive: Pallor, Other (Unable to visualize buttocks and sacrum due to wheelchair status and enviroment--reports pruritis to buttocks intermittently with moisture due to incontinence) Extremities: positive: No pedal edema. negative: Joint swelling Neurologic/Psychiatric: positive: Oriented x3, Weakness Palliative Care - POLST Patient has POLST: Yes POLST Status: Full Code Pain: Pain unchanged (controlled with MSIR and acetaminophen that is scheduled) - Palliative Care Discussion: She has been off of dexamethasone since 05/19/2021 and has tolerated this discontinuation. Her pain remains well controlled with her present regimen and therefore no need to resume. She is also had gradual weight increase to 141.8 pounds. She continues to find pleasure in her meals. Impression and Recommendations - Palliative Care Impression: This is a 61-year-old female who is wheelchair-bound with cerebral palsy since childhood who is on fortunately developed metastatic breast cancer to the bone who is undergoing Faslodex and Ibrance therapy. She is on Zometa for diffuse bone metastases. She is tolerated discontinuation of dexamethasone after gradual taper. She has had weight gain. Palliative care to continue explore goals of care, provide care coordination, symptom management and advance care planning. Recommendations/Counseling Done: 1. Pain of neoplastic origin with bony metastases. Controlled. Dexamethasone was discontinued in May 2021. Patient has tolerated discontinuation of dexamethasone and pain remained stable. Continue MSIR 2.5 mg in the morning. Remains off baclofen which she had previously been on and contributed to increased sedation. Continue MSIR 5 mg every 5 4 hours as needed for pain. Continue acetaminophen 500 mg 3 times daily for pain and continue IcyHot application to affected areas as ordered. Continue to monitor the patient's response and adjust accordingly. 2. Dermatitis due to incontinence bilateral buttocks. Initiate Desitin ointment and apply to affected areas of bilateral buttocks once daily for skin protection and reduction of pruritus. 3. History of weight loss. Weight has continually improved and has increased to 141.8 pounds as of 05/20/2021. Will remain off of dexamethasone. Continues to typically consume 100% of her meals. Continues on protein supplementation with mighty shakes, milk per her request and fortified orange juice. Continue to monitor weight trends and reassess continuation of supplements in the future if weight continues to improve. 4. Metastatic breast cancer to the bones. Presently on Faslodex and Ibrance therapy. She has been on anastrozole due to her history of right breast cancer previously. She continues on Zometa for bony met pain. Continue to be followed by oncology. Has been reluctant to transition to hospice services when broached in the past. Total time spent 35 minutes with greater than 50% of the spent in counseling and coordination of care with the patient and father figure/DPOA Ray; review of medical records; supportive listening; examination of patient; review of symptom management as well as anticipatory guidance. Disclaimer: The chart note was formulated using voice recognition technology and unfortunately sound alike errors may occur.
== END 2021-06-09 14:36 | disposition home or self-care (01) ==
LOC: PC 14:35
PROVIDERS: ATTEND Nurse Practitioner Family
DX: Z51.5 Encounter for palliative care (principal); G89.3 Neoplasm related pain (acute) (chronic); C79.51 Secondary malignant neoplasm of bone; Z85.3 Personal history of malignant neoplasm of breast; L29.8 Other pruritus; L24.A2 Irritant contact dermatitis due to fecal, urinary or dual incontinence; G80.9 Cerebral palsy, unspecified; Z99.3 Dependence on wheelchair; Z79.83 Long term (current) use of bisphosphonates; Z79.891 Long term (current) use of opiate analgesic; Z79.899 Other long term (current) drug therapy; Z87.898 Personal history of other specified conditions
CPT/HCPCS: 99214; 99215

== ENCOUNTER 2021-08-06 11:00 | Outpatient (CLI) | payer MEDICARE, MEDICAID ==
--- NOTE | 2021-08-06 16:29 | CONSULTATION NOTE ---
Palliative Care Follow Up - Referral Referring Provider: Dr. Isacc Soto Time of Visit: 1130-2124 Referral setting: [facility] Referral Reason: Pain of neoplasm/Weight loss/Right breast cancer - Information Sources Records reviewed: Previous records reviewed History/Review of Systems obtained from: Patient, Nursing - History of Present Illness Update Brief HPI Update: This is a 61-year-old female who was seen in follow-up today at [facility] for metastatic breast cancer to the bone, pain of neoplastic origin and history of weight loss. Provider wore N95 mask and face shield. Patient was initiated on dexamethasone 2 mg starting on 12/11/2020 with overall improvement of her appetite as well as generalized pain after noted weight loss. She gradually increased her weight over time and her pain has stabilized and improved. Her dexamethasone was gradually tapered and discontinued in May 2021. She presently reports that her pain a has been "pretty good." She does not feel she needs an adjustment to her pain regimen at the present time. She does not feel like she needs any additional MSIR scheduled. Will rate her pain at a 1-3 out of 10 when it occurs and typically will respond to repositioning. Weight is presently at 137.4 pounds. Her weight in May 2020 was 160 pounds. She continues on fortified orange juice. She also continues to enjoy consuming whole milk as well as 2% milk. However, she prefers whole milk. Reports that bowel movements have been regular and no longer with anal irritation. She has had some discomfort to her bilateral wrists and presently controlled with utilization of her wrist brace when things become sore. She is also attributing that there is some component to the weather exacerbating her symptoms. Past Medical History: Patient has a past medical history of cerebral palsy, C[employer] shunt, GERD, breast cancer originally diagnosed 2016 now with right breast cancer with metastases diagnosed August 2020 paren, right modified radical mastectomy 02/2017, endometrial biopsy 04/2017, cholecystectomy 08/2017, colonoscopy, chronic back pain, history of left knee dislocations, scoliosis, osteoarthritis, anxiety, Covid 19 infection in September 2019, port placement left chestwall December 2020. Social History - Living Situation Living arrangement: snf Support System: Patient has been wheelchair-bound due to cerebral palsy since childhood. Both of her parents are . She has been residing at [facility] since 2016. Her DPOA is a family friend/surrogate father figureMookie with contact number [phone]. Both of her parents are . She has no children. The patient has a sister , Briana [phone] who lives in [place]. Medications/Allergies - Medications Home Medications: Ambulatory Orders Medication Instructions Recorded Confirmed Calcium Carbonate [Tums (Calcium 500 mg PO Q4HR PRN 04/02/17 07/29/21 Carbonate 500mg)] Bisacodyl Supp [Dulcolax Supp] 1 supp RC DAILY PRN 06/19/19 07/29/21 Acetaminophen [Acetaminophen Extra 500 mg PO TID 10/01/20 07/29/21 Strength] Esomeprazole Magnesium [Nexium] 1 cap PO QPM 10/01/20 07/29/21 ondansetron HCL [Zofran] 4 mg PO Q4H PRN 10/01/20 07/29/21 Menthol/Camphor [Icy Hot Advanced 1 applic TP DAILY 10/07/20 07/29/21 Relief Cream] Menthol/Camphor [Icy Hot Advanced 1 applic TP Q8H PRN 10/07/20 07/29/21 Relief Cream] Morphine Sulfate [Morphine Sulf 0.25 ml PO Q4H PRN 10/07/20 07/29/21 Oral (Roxanol)] Docusate Sodium 100Mg Capsule 100 mg PO DAILY 10/15/20 07/29/21 [Colace 100Mg Capsule] Palbociclib [Ibrance] 100 mg ORAL DAILY 10/17/20 07/29/21 Morphine Sulfate [Morphine Sulf 2.5 mg PO .QAM 12/05/20 07/29/21 Oral (Roxanol)] Cod Liver Oil/Zinc Oxide [Desitin] 1 applic TP DAILY MDD buttocks 06/10/21 07/29/21 - Allergies Allergies/Adverse Reactions: Allergies Allergy/AdvReac Type Severity Reaction Status Date / Time ibuprofen AdvReac Unknown Verified 02/18/21 14:37 Review of Systems - Constitutional Constitutional: reports: Weight stable (weight 137.4lb 07/11/2021; weigth 141.8lb 05/20/2021). denies: Fever - Eyes Eyes: denies: Irritation - Ears, Nose & Throat Ears, Nose & Throat: denies: Hearing aids, Dentures - Cardiovascular Cardiovascular: denies: Chest pain, Edema - Respiratory Respiratory: denies: Cough - Gastrointestinal Gastrointestinal: reports: Good appetite. denies: Constipation (reports bowel movement daily, LBM yesterday), Vomiting - Genitourinary Genitourinary: reports: Incontinence. denies: Dysuria - Musculoskeletal Musculoskeletal: reports: Joint pain (b/l wrists controlled with brace), Assistive devices, Transfer issues, Other - Integumentary Integumentary: denies: Pruritis (b/l buttocks) - Neurological Neurological: reports: General weakness - Psychiatric Psychiatric: denies: Depression - Hematologic/Lymphatic Hematologic/Lymph: reports: Recurrent infections - All Other Systems All Other Systems: reports: Reviewed and negative Physical Exam - Vital Signs Temperature: 36.6 C Pulse Rate: 96 O2 Saturation: 97 Blood Pressure: 110/62 - Physical Exam General Appearance: positive: No acute distress, Alert Eyes Bilateral: positive: Other (Intermittent nystagmus) ENT: positive: No signs of dehydration Neck: positive: Trachea midline Cardiovascular: positive: Regular rate & rhythm Respiratory: positive: No respiratory distress, Diminished in bases (history of bilateral pleural effusions), Other (able to speak in full sentances) Abdomen: positive: Non-tender, Soft, Nml bowel sounds Skin: positive: Pallor Extremities: positive: No pedal edema Neurologic/Psychiatric: positive: Oriented x3, Weakness Palliative Care - POLST Patient has POLST: Yes POLST Status: Full Code Pain: Comment (Controlled with scheduled MSIR and acetaminophen) - Palliative Care Discussion: Patient continues to perseverate regarding the care that she has at the facility. She reports that "this place things everything can be cured by a pill." She has in her mind that she wishes to return to living independently as she was before 2017 when she was diagnosed with breast cancer and relocated to [facility]. Reoriented the patient that she would be unable to live independently and would need 24/7 support however, the patient does not perceive this as a barrier. We will need to continue to reorient the patient regarding this uncle as she would be unable to function independently. She also shared today that she has some underlying anger regarding God. She reports that she has not "talk to God since I got cancer." She also relays that she was given a disability from and to then have cancer on top of it was further difficulty stacked against her. On a positive note, her pain remains well controlled and there is no need to change her pain regimen at this time. Impression and Recommendations - Palliative Care Impression: This is a 61-year-old female who is wheelchair-bound with cerebral palsy since childhood who has unfortunately developed metastatic breast cancer to the bone who is undergoing Faslodex and Ibrance therapy. She is on Zometa for diffuse bone metastases. Pain may slaeem well controlled. Palliative care to continue explore goals of care, provide care coordination, symptom management and advance care planning. Recommendations/Counseling Done: 1. Pain of neoplastic origin with bony metastases. Controlled. Dexamethasone continued in May 2021. Patient has tolerated discontinuation of dexamethasone and pain is remained stable. Continue MSIR 2.5 mg in the morning. Remains off baclofen which she had previously been in the morning and contributed to increased sedation. Continue MSIR 5 mg every 4 hours as needed for pain. Continue acetaminophen 500 mg 3 times daily for pain and continue IcyHot application to affected areas as ordered. Continue to monitor the patient's response and adjust accordingly. 2. History of weight loss. Weight has stabilized at 137.4 pounds on 07/11/2019. Remains off dexamethasone. Continues to enjoy her meals. Continue protein supplementation and milk per her request as well as fortified orange juice. Continue to monitor weight trends. 3. Metastatic breast cancer to the bones. Presently on Faslodex and Ibrance therapy. She had been on anastrozole due to history of right breast cancer previously. Continues on Zometa for bony met pain. Continues to be followed by oncology. Has been reluctant to transition to hospice services when broached in the past. 4. Advanced care planning. Patient continues to elect to be a full code. She is having aspirations that she would be able to return home independently and reoriented that this would not be feasible without 24/7 support and therefore appropriate to remain in facility environment given the amount of care she requires and her bedbound state. Patient did share today regarding her spiritu al feelings with God that has been altered since she was initially diagnosed with cancer. Supportive and empathetic listening provided today. Total time spent 25 minutes with greater than 50% of the spent in counseling coronation care with the patient; review of MAR; supportive listening; examination of patient; review of symptom management as well as anticipatory guidance. Disclaimer: The chart note was formulated using voice recognition technology and unfortunately sound alike errors may occur.
== END 2021-08-06 11:01 | disposition home or self-care (01) ==
LOC: PC 11:00
PROVIDERS: ATTEND Nurse Practitioner Family
DX: Z51.5 Encounter for palliative care (principal); G89.3 Neoplasm related pain (acute) (chronic); C79.51 Secondary malignant neoplasm of bone; C50.911 Malignant neoplasm of unspecified site of right female breast; G80.9 Cerebral palsy, unspecified; Z79.899 Other long term (current) drug therapy; Z79.891 Long term (current) use of opiate analgesic; Z79.818 Long term (current) use of other agents affecting estrogen receptors and estrogen levels; Z79.83 Long term (current) use of bisphosphonates; Z99.3 Dependence on wheelchair
CPT/HCPCS: 99309

== ENCOUNTER 2021-08-26 11:07 | Outpatient (CLI) | payer MEDICARE, MEDICAID ==
--- NOTE | 2021-08-26 14:30 | CONSULTATION NOTE ---
Palliative Care Follow Up - Referral Referring Provider: Dr. Isacc Soto Time of Visit: Initiated 1107 Referral setting: [facility] Referral Reason: Pain of neoplasm - Information Sources Records reviewed: Previous records reviewed History/Review of Systems obtained from: Patient, Nursing (GIANNA Bill and MIGUEL Roth) - History of Present Illness Update Brief HPI Update: This is a 61-year-old female who was seen at the request of nursing today at [facility] for metastatic breast cancer to the bone and pain of neopl astic origin. Provider wore N95 mask. Landy KATZ reporting that the patient is experiencing increased reports of pain specifically to her back. And evaluation today, the patient supports this reporting she is having increased pain to her lumbar spine that does not radiate and she denies any numbness or tingling down her legs. She is presently getting MSIR 2.5 mg in the morning as scheduled. She has been requesting with increased frequency for as needed MSIR frequently through the month of August upon review of AUG IR. The patient herself prefers to initially trial other modifications without medications such as repositioning to see if this will improve her pain. If that does not work, then she is amenable to moving forward with having pain medication. Would benefit from further dose adjustment of her MSIR to optimize her comfort. She is reporting some increased stiffness to her upper extremities. She is perceiving that she is requiring some increased assistance from staff revolving around mealtimes. Past Medical History: Patient has a past medical history of cerebral palsy, PR[employer]ED [employer] PROOF[employer]ER shunt, GERD, breast cancer originally diagnosed 2016 now with right breast cancer with metastases diagnosed August 2020 paren, right modified radical mastectomy 02/2017, endometrial biopsy 04/2017, cholecystectomy 08/2017, colonoscopy, chronic back pain, history of left knee dislocations, scoliosis, osteoarthritis, anxiety, Covid 19 infection in September 2019, port placement left chestwall December 2020. Social History - Living Situation Living arrangement: half-way Support System: Patient has been wheelchair-bound due to cerebral palsy since childhood. Both of her parents are . She has been residing at [facility] since 2016. Her DPOA is a family friend/surrogate father figureMookie with contact number [phone]. Both of her parents are . She has no children. The patient has a sister , Briana [phone] who lives in [place]. Medications/Allergies - Medications Home Medications: Ambulatory Orders Medication Instructions Recorded Confirmed Calcium Carbonate [Tums (Calcium 500 mg PO Q4HR PRN 04/02/17 07/29/21 Carbonate 500mg)] Bisacodyl Supp [Dulcolax Supp] 1 supp RC DAILY PRN 06/19/19 07/29/21 Acetaminophen [Acetaminophen Extra 500 mg PO TID 10/01/20 07/29/21 Strength] Esomeprazole Magnesium [Nexium] 1 cap PO QPM 10/01/20 07/29/21 ondansetron HCL [Zofran] 4 mg PO Q4H PRN 10/01/20 07/29/21 Menthol/Camphor [Icy Hot Advanced 1 applic TP DAILY 10/07/20 07/29/21 Relief Cream] Menthol/Camphor [Icy Hot Advanced 1 applic TP Q8H PRN 10/07/20 07/29/21 Relief Cream] Morphine Sulfate [Morphine Sulf 0.25 ml PO Q4H PRN 10/07/20 07/29/21 Oral (Roxanol)] Docusate Sodium 100Mg Capsule 100 mg PO DAILY 10/15/20 07/29/21 [Colace 100Mg Capsule] Palbociclib [Ibrance] 100 mg ORAL DAILY 10/17/20 07/29/21 Morphine Sulfate [Morphine Sulf 2.5 mg PO BID 12/05/20 07/29/21 Oral (Roxanol)] Cod Liver Oil/Zinc Oxide [Desitin] 1 applic TP DAILY MDD buttocks 06/10/21 07/29/21 - Allergies Allergies/Adverse Reactions: Allergies Allergy/AdvReac Type Severity Reaction Status Date / Time ibuprofen AdvReac Unknown Verified 02/18/21 14:37 Review of Systems - Constitutional Constitutional: reports: Weight stable (weight 137.4lb 07/11/2021; weigth 141.8lb 05/20/2021). denies: Fever - Eyes Eyes: denies: Irritation - Cardiovascular Cardiovascular: denies: Edema - Respiratory Respiratory: denies: Cough - Gastrointestinal Gastrointestinal: reports: Good appetite. denies: Abdominal pain, Constipation (reports bowel movement daily, LBM yesterday), Vomiting - Genitourinary Genitourinary: reports: Incontinence. denies: Dysuria - Musculoskeletal Musculoskeletal: reports: Back pain (lumbar, see HPI), Assistive devices, Transfer issues, Other - Neurological Neurological: reports: General weakness - Psychiatric Psychiatric: denies: Depression - Hematologic/Lymphatic Hematologic/Lymph: reports: Recurrent infections - All Other Systems All Other Systems: reports: Reviewed and negative Physical Exam - Vital Signs Temperature: 36.6 C Pulse Rate: 105 O2 Saturation: 97 (on RA) Blood Pressure: 130/80 - Physical Exam General Appearance: positive: No acute distress, Alert, Other (Sitting up in bed watching TV) Eyes Bilateral: positive: Other (Intermittent nystagmus) ENT: positive: No signs of dehydration Neck: positive: Trachea midline Cardiovascular: positive: No murmur, Tachycardia Respiratory: positive: No respiratory distress, Diminished in bases (history of bilateral pleural effusions), Other (able to speak in full sentances) Abdomen: positive: Non-tender, Soft, Nml bowel sounds Skin: positive: Pallor Extremities: positive: No pedal edema, Other (+lumbar back pain) Neurologic/Psychiatric: positive: Oriented x3, Weakness Palliative Care - POLST Patient has POLST: Yes POLST Status: Full Code Pain: Pain worsening (Reported increase to lumbar spine, increase MSIR to 2.5mg BID for management) Sleep: Sleeps well Constipation: Opoid induced, Managed - Palliative Care Discussion: Per facility staff the patient was having increased reports of pain and utilization of MSIR requesting evaluation today and patient's history supports this. Therefore after discussion with the patient will increase MSIR to 2.5 mg twice daily and set expectations that may need to titrate to 3 times daily dosing based on the patient's response. Patient is amenable however, she wishes to titrate slowly and do nonpharmacological interventions for pain before implementing increased frequency of MSIR dosing. Impression and Recommendations - Palliative Care Impression: This is a 61-year-old female who is wheelchair-bound with cerebral palsy since childhood who unfortunately developed an static breast cancer to the bone who is undergoing Faslodex and Ibrance therapy. She is on Zometa for diffuse bone metastases. She is having reports of increased pain to the lumbar spine and would benefit from dose increase of MSIR to 2.5 mg twice daily. Palliative care to continue to explore goals of care, provide care coordination, symptom management and advance care planning. Recommendations/Counseling Done: 1. Pain of neoplastic origin with bony metastases. Dexamethasone discontinued in May 2021. Increase MSIR to 2.5 mg twice daily due to increased reports of lumbar back pain. Remains off of baclofen which she had previously been on in the morning and contributed to increased sedation. Continue MSIR 5 mg every 4 hours as needed for pain. Continue acetaminophen 500 mg 3 times daily for pain and continue icy hot application to affected areas as ordered. Continue to monitor the patient's response and adjust accordingly. 2. Metastatic breast cancer to the bones. Presently on Faslodex and Ibrance therapy. She has been on anastrozole due to history of right breast cancer previously. Continues on Zometa for bony met pain. Continues to be followed by oncology with scheduled appointment later this afternoon. Has been reluctant to transition to hospice services when broached in the past. CPT 92733 Plan of care reviewed with patient, GIANNA Bill and MIGUEL Roth with all parties verbalizing understanding and agreement. Disclaimer: The chart note was formulated using voice recognition technology and unfortunately sound alike errors may occur.
== END 2021-08-26 11:08 | disposition home or self-care (01) ==
LOC: PC 11:07
PROVIDERS: ATTEND Nurse Practitioner Family
DX: Z51.5 Encounter for palliative care (principal); G89.3 Neoplasm related pain (acute) (chronic); C50.911 Malignant neoplasm of unspecified site of right female breast; C79.51 Secondary malignant neoplasm of bone; Z99.3 Dependence on wheelchair; G80.9 Cerebral palsy, unspecified
CPT/HCPCS: 99309

== ENCOUNTER 2021-09-08 15:19 | Outpatient (CLI) | payer MEDICARE, MEDICAID ==
[2021-09-08 15:28] LABS: BASOPHILS # (AUTO) 0.2 10^3/uL (0.0-0.1); BASOPHILS % (AUTO) 3.3 %; EOSINOPHILS # (AUTO) 0.1 10^3/uL (0.0-0.7); HGB - HEMOGLOBIN 12.8 g/dL (12.0-16.0); LYMPHOCYTES # (AUTO) 1.1 10^3/uL (1.5-3.5); LYMPHOCYTES % (AUTO) 22.2 %; MEAN CORPUSCULAR HEMOGLOBIN 33.3 pg (27.0-31.0); MEAN CORPUSCULAR HGB CONC 33.7 g/dL (32.0-36.0); MEAN PLATELET VOLUME 8.5 fL (7.9-10.8); MONOCYTES # (AUTO) 0.3 10^3/uL (0.0-1.0); MONOCYTES % (AUTO) 5.1 %; NEUTROPHILS # (AUTO) 3.3 10^3/uL (1.5-6.6); PLT - PLATELET COUNT 369 10^3/uL (130-450); RED BLOOD COUNT 3.84 10^6/uL (4.20-5.40); WHITE BLOOD COUNT 4.9 x10^3/uL (4.8-10.8)
[2021-09-08 15:39] LABS: ALBUMIN 3.8 g/dL (3.2-5.5); BILIRUBIN,TOTAL 0.5 mg/dL (0.2-1.0); CALCIUM 9.5 mg/dL (8.5-10.3); CREATININE 0.7 mg/dL (0.4-1.0); POTASSIUM 4.3 mmol/L (3.5-5.0); TOTAL PROTEIN 7.6 g/dL (6.7-8.2)
[2021-09-08 16:17] LABS: THYROID STIMULATING HORMONE 3.44 uIU/mL (0.34-5.60)
[2021-09-08 16:19] LABS: FREE T4 (FREE THYROXINE) 1.12 ng/dL (0.58-1.64)
[2021-09-08 21:20] LABS: ESTIMATED AVERAGE GLUCOSE 117 mg/dL (70-100); HEMOGLOBIN A1c% 5.7 % (4.27-6.07)
== END 2021-09-08 15:20 | disposition home or self-care (01) ==
LOC: LAB.R 15:19
PROVIDERS: ATTEND Hospitalist
DX: C79.51 Secondary malignant neoplasm of bone (principal)
CPT/HCPCS: 80053; 83036; 84439; 84443; 85025

== ENCOUNTER 2021-10-13 12:15 | Outpatient (CLI) | payer MEDICARE, MEDICAID ==
--- NOTE | 2021-10-13 15:47 | CONSULTATION NOTE ---
Palliative Care Follow Up - Referral Referring Provider: Dr. Isacc Soto Time of Visit: 1002-0565 Referral setting: [facility] Referral Reason: B/l wrist pain/Pain of neoplasm - Information Sources Records reviewed: Previous records reviewed History/Review of Systems obtained from: Patient - History of Present Illness Update Brief HPI Update: This is a 61-year-old female who is seen in follow-up today due to pain of neoplastic origin due to metastatic breast cancer to the bone and bilateral wrist pain. Provider wore N95 mask. When last evaluation in August 2021 the patient had been experiencing increased pain specifically to her back and her scheduled MS IR was increased to 2.5 mg twice daily. Patient has tolerated this increase with overall reporting feeling better. Upon review of MAR the patient will typically have 1-2 doses of MS IR daily to every other day. No further adjustments needed to her scheduled dosing at this time. She is reporting some increased stiffness to her upper extremities and is requesting to work with physical therapy in relation to transfers. She is also reporting continued discomfort to her bilateral wrists despite wearing braces for support to perform activities such as writing. Patient would benefit from further evaluation from occupational therapy to determine any additional modifications that may be beneficial for her. Of note, the patient is left-handed. She continues to have an overall improvement with her appetite and has had noted weight gain with last weight 142 pounds on 10/06. Past Medical History: Patient has a past medical history of cerebral palsy, BEE ROBBER shunt, GERD, breast cancer originally diagnosed 2016 now with right breast cancer with metastases diagnosed August 2020 paren, right modified radical mastectomy 02/2017, endometrial biopsy 04/2017, cholecystectomy 08/2017, colonoscopy, chronic back pain, history of left knee dislocations, scoliosis, osteoarthritis, anxiety, Covid 19 infection in September 2019, port placement left chestwall December 2020. Social History - Living Situation Living arrangement: half-way Support System: Patient has been wheelchair-bound due to cerebral palsy since childhood. Both of her parents are . She has been residing at [facility] since 2016. Her DPOA is a family friend/surrogate father Mookie barlow with contact number [phone]. Both of her parents are . She has no children. The patient has a sister , Briana [phone] who lives in [place]. Medications/Allergies - Medications Home Medications: Ambulatory Orders Medication Instructions Recorded Confirmed Calcium Carbonate [Tums (Calcium 500 mg PO Q4HR PRN 04/02/17 07/29/21 Carbonate 500mg)] Bisacodyl Supp [Dulcolax Supp] 1 supp RC DAILY PRN 06/19/19 07/29/21 Acetaminophen [Acetaminophen Extra 500 mg PO TID 10/01/20 07/29/21 Strength] Esomeprazole Magnesium [Nexium] 1 cap PO QPM 10/01/20 07/29/21 ondansetron HCL [Zofran] 4 mg PO Q4H PRN 10/01/20 07/29/21 Menthol/Camphor [Icy Hot Advanced 1 applic TP DAILY 10/07/20 07/29/21 Relief Cream] Menthol/Camphor [Icy Hot Advanced 1 applic TP Q8H PRN 10/07/20 07/29/21 Relief Cream] Morphine Sulfate [Morphine Sulf 0.25 ml PO Q4H PRN 10/07/20 07/29/21 Oral (Roxanol)] Docusate Sodium 100Mg Capsule 100 mg PO DAILY 10/15/20 07/29/21 [Colace 100Mg Capsule] Palbociclib [Ibrance] 100 mg ORAL DAILY 10/17/20 07/29/21 Morphine Sulfate [Morphine Sulf 2.5 mg PO BID 12/05/20 07/29/21 Oral (Roxanol)] Cod Liver Oil/Zinc Oxide [Desitin] 1 applic TP DAILY MDD buttocks 06/10/21 07/29/21 - Allergies Allergies/Adverse Reactions: Allergies Allergy/AdvReac Type Severity Reaction Status Date / Time ibuprofen AdvReac Unknown Verified 02/18/21 14:37 Review of Systems - Constitutional Constitutional: reports: Weight gain (weight 142lb 10/06/2021; weight 137.4lb 07/11/2021; weigth 141.8lb 05/20/2021). denies: Fever, Poor appetite - Ears, Nose & Throat Ears, Nose & Throat: denies: Hearing loss - Cardiovascular Cardiovascular: denies: Edema - Respiratory Respiratory: denies: Cough, Wheezing - Gastrointestinal Gastrointestinal: reports: Good appetite. denies: Abdominal pain, Constipation (controlled per patient report), Vomiting - Genitourinary Genitourinary: reports: Incontinence. denies: Dysuria - Musculoskeletal Musculoskeletal: reports: Joint pain (b/l wrists), Assistive devices, Transfer issues. denies: Back pain (presently controlled) - Neurological Neurological: reports: General weakness - Psychiatric Psychiatric: denies: Depression - Endocrine Endocrine: denies: Diabetes type 2 - All Other Systems All Other Systems: reports: Reviewed and negative Physical Exam - Vital Signs Temperature: 98 C Pulse Rate: 87 O2 Saturation: 96 (on RA) Blood Pressure: 112/68 - Physical Exam General Appearance: positive: No acute distress, Alert Eyes Bilateral: positive: Other (Intermittent nystagmus) ENT: positive: No signs of dehydration Neck: positive: Trachea midline Cardiovascular: positive: Regular rate & rhythm Respiratory: positive: No respiratory distress, Diminished in bases (history of bilateral pleural effusions) Abdomen: positive: Non-tender, Soft, Nml bowel sounds Skin: positive: Pallor Extremities: positive: No pedal edema, Other (+decreased strength to b/l wrists) Neurologic/Psychiatric: positive: Oriented x3, Weakness Palliative Care - POLST Patient has POLST: Yes POLST Status: Full Code Pain: Pain improved - Palliative Care Discussion: Patient has had improvement of her generalized pain specifically to her back with increase of MS IR to 2.5 mg twice daily. No need for further dose adjustments at this time. The patient has a desire to work on transfers as well as assistance with options related to decreased strength to her bilateral wrists. Therefore, would benefit from assessment from in-house physical therapy and Occupational Therapy. Impression and Recommendations - Palliative Care Impression: This is a 61-year-old female who is wheelchair-bound with cerebral palsy since childhood who unfortunately developed metastatic breast cancer to the bone who is undergoing Faslodex and Ibrance therapy. She is on Zometa for diffuse bone metastases. She is having bilateral wrist pain and debility and would benefit from onsite PT and OT at the facility. Palliative care to continue to explore goals of care, provide care coordination, symptom management and advance care planning. Recommendations/Counseling Done: 1. Failure to thrive. Continues on protein supplementation with drinks and meals. Last weighed 5 2 at 142 pounds which is increased and improvements. She continues to enjoy reminiscing about foods that she has prepared in the past. Last recorded weight 137.4 pounds on 07/11/2019. Remains off dexamethasone. Co ntinue to monitor weight trends. 2. Bilateral wrist pain. Patient has no had no evidence of carpal tunnel on examination and has been using her soft wrist brace for increased activity such as reading. Considering she continues to have persistent discomfort will request that PT and OT at the facility evaluate and treat. Patient is amenable to this. 3. Pain of neoplastic origin with bony metastases. Controlled. Dexamethasone discontinued in May 2021. Has had improvement of pain with MSR to 2.5 mg twice daily. Remains off of baclofen which she had previously been on in the morning and contributed to increased sedation. Continue MS IR 5 mg every 4 hours as needed for pain. Continue acetaminophen 500 mg 3 times daily for pain and continue IcyHot application to affected areas as ordered. Continue to monitor the patient's response and adjust accordingly. 4. Metastatic breast cancer to the bones. Presently on Faslodex and Ibrance therapy. She has been on anastrozole due to history of right breast cancer previously. Continues on Zometa for bony neck pain. Continues to be followed by oncology next scheduled 10/20/2021. Has been reluctant to transition to hospice services when broached in the past. FACE TO FACE: Patient would benefit from physical therapy evaluation for transfers to her wheelchair and strengthening. She would benefit from occupational therapy due t o bilateral wrist discomfort and assistance with any modifications to allow her to remain independent. Total time spent 20 minutes with greater than 50% of this encounter coordination of care with the patient; examination of patient; review of interventions with PT and OT; and anticipatory guidance. Disclaimer: The chart note was formulated using voice recognition technology and unfortunately sound alike errors may occur.
== END 2021-10-13 12:16 | disposition home or self-care (01) ==
LOC: PC 12:15
PROVIDERS: ATTEND Nurse Practitioner Family
DX: Z51.5 Encounter for palliative care (principal); G89.3 Neoplasm related pain (acute) (chronic); C79.51 Secondary malignant neoplasm of bone; M25.532 Pain in left wrist; M25.531 Pain in right wrist; G80.9 Cerebral palsy, unspecified; R62.7 Adult failure to thrive; Z85.3 Personal history of malignant neoplasm of breast; Z86.16 Personal history of COVID-19; Z99.3 Dependence on wheelchair; Z79.899 Other long term (current) drug therapy; Z79.891 Long term (current) use of opiate analgesic; Z79.83 Long term (current) use of bisphosphonates
CPT/HCPCS: 99308

== ENCOUNTER 2021-11-27 08:00 | Outpatient (CLI) | payer MEDICARE, MEDICAID ==
[2021-11-27 18:11] LABS: B. PARAPERTUSSIS- RESP PCR PAN NOT DETECTED; B. PERTUSSIS- RESP PCR PANEL NOT DETECTED; C. PNEUMONIAE- RESP PCR PANEL NOT DETECTED; CORONAVIRUS 229E-RESP PCR NOT DETECTED; CORONAVIRUS HKU1-RESP PCR NOT DETECTED; CORONAVIRUS NL63-RESP PCR NOT DETECTED; CORONAVIRUS OC43-RESP PCR NOT DETECTED; HUMAN METAPNEUMOVIRUS NOT DETECTED; INFLUENZA A- RESP PCR PANEL NOT DETECTED; INFLUENZA B - RESP PCR PANEL NOT DETECTED; M. PNEUMONIAE- RESP PCR PANEL NOT DETECTED; PARAINFLUENZA VIRUS 1 NOT DETECTED; PARAINFLUENZA VIRUS 2 NOT DETECTED; PARAINFLUENZA VIRUS 3 NOT DETECTED; PARAINFLUENZA VIRUS 4 NOT DETECTED; RHINOVIRUS/ENTEROVIRUS DETECTED; RSV- RESP PCR PANEL NOT DETECTED; SARS-CoV-2 -RESP PCR PANEL NOT DETECTED
== END 2021-11-27 23:59 | disposition home or self-care (01) ==
LOC: LAB.R 08:00
PROVIDERS: ATTEND Hospitalist
DX: G80.9 Cerebral palsy, unspecified (principal); R63.4 Abnormal weight loss; J44.9 Chronic obstructive pulmonary disease, unspecified; Z20.822 Contact with and (suspected) exposure to COVID-19
CPT/HCPCS: 87633

== ENCOUNTER 2022-07-06 07:57 | Outpatient (CLI) | payer MEDICARE, MEDICAID | END 2022-07-06 07:58 | disposition critical access hospital (66) | LOC: EMS 07:57 | DX: R07.89 Other chest pain (principal); R00.0 Tachycardia, unspecified | CPT/HCPCS: A0425; A0429 ==

== ENCOUNTER 2022-07-06 08:02 | Emergency (ER) | payer MEDICARE, MEDICAID ==
[2022-07-06] MEDS ORDERED: HYDROmorphone 0.5 MG/0.5 ML SYRINGE IVP STA (08:21)
--- NOTE | 2022-07-06 08:22 | ED Physician Documentation ---
PD HPI CHEST PAIN - Stated complaint Stated Complaint: CHEST SORNESS/NV - Chief complaint Chief Complaint: General - History obtained from History obtained from: Patient, EMS - History of Present Illness Timing - onset: Today Timing - onset during: Rest Timing - duration: Hours (she had onset of left chest aching pain today. Has had this intermittently, but more consistent this morning. caregivers at [facility] called [facility] Timing - details: Abrupt onset, Waxing and waning Quality: Aching, Pain Location: Left chest Radiation: Back. No: Neck, Abdominal Worsened by: Movement. No: Exertion, Inspiration Associated symptoms: No: Shortness of air, Nausea, Palpitations, Cough Similar symptoms before: No diagnosis Recently seen: Not recently seen Review of Systems Constitutional: denies: Fever, Chills Nose: denies: Rhinorrhea / runny nose, Congestion Throat: denies: Sore throat Cardiac: reports: Chest pain / pressure. denies: Palpitations, Pedal edema, Calf pain Respiratory: denies: Cough, Wheezing GI: reports: Abdominal Pain (upper). denies: Nausea, Vomiting Neurologic: reports: Generalized weakness (chronicly bed bound due to CP from .). denies: Focal weakness PD PAST MEDICAL HISTORY - Past Medical History Cardiovascular: None Respiratory: None Neuro: Cerebral palsy, Other Endocrine/Autoimmune: None GI: GERD, Chronic constipation, Cholelithiasis : Incontinence, Chronic bladder infection HEENT: Chronic vision loss Psych: Depression, Anxiety Musculoskeletal: Osteoarthritis, Osteoporosis, Chronic back pain Derm: None - Past Surgical History Past Surgical History: Yes General: Cholecystectomy, Colonoscopy Ortho: Other Neuro: C[employer]OR shunt - Present Medications Home Medications: Ambulatory Orders Medication Instructions Recorded Confirmed Calcium Carbonate [Tums (Calcium 500 mg PO Q4HR PRN 04/02/17 06/29/22 Carbonate 500mg)] Bisacodyl Supp [Dulcolax Supp] 1 supp RC DAILY PRN 06/19/19 06/29/22 Acetaminophen [Acetaminophen Extra 500 mg PO TID 10/01/20 06/29/22 Strength] Esomeprazole Magnesium [Nexium] 1 cap PO QPM 10/01/20 06/29/22 ondansetron HCL [Zofran] 4 mg PO Q4H PRN 10/01/20 06/29/22 Menthol/Camphor [Icy Hot Advanced 1 applic TP DAILY 10/07/20 06/29/22 Relief Cream] Menthol/Camphor [Icy Hot Advanced 1 applic TP Q8H PRN 10/07/20 06/29/22 Relief Cream] Morphine Sulfate [Morphine Sulf 0.25 ml PO Q4H PRN 10/07/20 06/29/22 Oral (Roxanol)] Docusate Sodium 100Mg Capsule 100 mg PO DAILY 10/15/20 06/29/22 [Colace 100Mg Capsule] Morphine Sulfate [Morphine Sulf 2.5 mg PO BID 12/05/20 06/29/22 Oral (Roxanol)] Cod Liver Oil/Zinc Oxide [Desitin] 1 applic TP DAILY MDD buttocks 06/10/21 06/29/22 Cholecalciferol [Vitamin D3] 1,000 unit PO DAILY 10/20/21 06/29/22 Folic Acid 1 mg PO DAILY 04/13/22 06/29/22 Sucralfate [Carafate] 1 gm PO TID #20 tablet 07/06/22 - Allergies Allergies/Adverse Reactions: Allergies Allergy/AdvReac Type Severity Reaction Status Date / Time ibuprofen AdvReac Unknown Verified 07/06/22 08:15 - Social History Does the pt smoke?: Yes Smoking Status: Former smoker Does the pt drink ETOH?: Yes Does the pt have substance abuse?: No - Immunizations Immunizations are current?: No - POLST Patient has POLST: Yes POLST Status: Full Code PD ED PE NORMAL - Vitals Vital signs reviewed: Yes - General General: Alert and oriented X 3, No acute distress - HEENT HEENT: Pharynx benign - Neck Neck: Supple, no meningeal sign, No adenopathy - Cardiac Cardiac: RRR, No murmur - Respiratory Respiratory: Clear bilaterally - Abdomen Abdomen: Normal bowel sounds, Soft, Non distended, Other (mild epigastric discomfort without guarding nor percussion tenderness. ) - Female Female : Deferred - Rectal Rectal: Other (soft stool in vault, brown color. Guiac negative. ) - Back Back: No CVA TTP - Derm Derm: Normal color - Extremities Extremities: No edema, No calf tenderness / cord - Neuro Neuro: Alert and oriented X 3 Results - Vitals Vitals: Vital Signs - 24 hr 07/06/22 07/06/22 07/06/22 08:10 11:38 12:23 Temperature 36.4 C L Heart Rate 118 H 120 H 116 H Respiratory 20 23 14 Rate Blood Pressure 110/84 H 93/81 H 104/73 O2 Saturation 100 100 100 07/06/22 14:00 Temperature 36.5 C Heart Rate 100 Respiratory 16 Rate Blood Pressure 106/72 O2 Saturation 100 Oxygen O2 Source Room air - EKG (time done) 09:50 Rate: Rate (enter#) (100) Rhythm: NSR Warren: Normal Intervals: Normal MD QRS: Normal Ischemia: Normal ST segments. No: ST elevation c/w ischemia, ST depression - Labs Labs: Microbiology 07/06/22 11:42 Occult Blood - Final Stool - Loose Consistency Laboratory Tests 07/06/22 07/06/22 07/06/22 09:00 09:00 09:00 WBC 2.9 L RBC 2.26 L Hgb 7.9 L Hct 23.9 L MCV 105.8 H MCH 35.0 H MCHC 33.1 RDW 18.6 H Plt Count 81 L MPV 12.6 H Neut # (Auto) Not Reportable Lymph # (Auto) Not Reportable Yates # (Auto) Not Reportable Eos # (Auto) Not Reportable Baso # (Auto) Not Reportable Absolute Nucleated RBC Not Reportable Total Counted 100 Band Neuts % (Manual) 0 Reactive Lymphs % (Man) 22 Abnorm Lymph % (Manual) 0 Myelocytes % 1 H Nucleated RBC % Not Reportable Neutrophils # (Manual) 1.2 L Lymphocytes # (Manual) 1.5 Monocytes # (Manual) 0.1 Eosinophils # (Manual) 0.1 Basophils # (Manual) 0.0 Differential Comment MANUAL DIFFERENTIAL Manual Slide Review Indicated Sodium 136 Potassium 4.1 Chloride 104 Carbon Dioxide 21 Anion Gap 11.0 BUN 16 Creatinine 0.7 Estimated GFR (MDRD) 85 L Glucose 111 H Calcium 9.1 Magnesium 2.2 Total Bilirubin 0.9 AST 55 H ALT 23 Alkaline Phosphatase 246 H Troponin I High Sens 5.8 B-Natriuretic Peptide Total Protein 7.0 Albumin 3.1 L Globulin 3.9 Albumin/Globulin Ratio 0.8 L Lipase 42 07/06/22 09:00 WBC RBC Hgb Hct MCV MCH MCHC RDW Plt Count MPV Neut # (Auto) Lymph # (Auto) Yates # (Auto) Eos # (Auto) Baso # (Auto) Absolute Nucleated RBC Total Counted Band Neuts % (Manual) Reactive Lymphs % (Man) Abnorm Lymph % (Manual) Myelocytes % Nucleated RBC % Neutrophils # (Manual) Lymphocytes # (Manual) Monocytes # (Manual) Eosinophils # (Manual) Basophils # (Manual) Differential Comment Manual Slide Review Sodium Potassium Chloride Carbon Dioxide Anion Gap BUN Creatinine Estimated GFR (MDRD) Glucose Calcium Magnesium Total Bilirubin AST ALT Alkaline Phosphatase Troponin I High Sens B-Natriuretic Peptide 46 Total Protein Albumin Globulin Albumin/Globulin Ratio Lipase - Rads (name of study) chest xray Radiology: Prelim report reviewed (vascular congestion c/w possible mild CHF. ), See rad report PD Medical Decision Making - ED course Complexity details: considered differential, d/w patient Reviewed Lab Results: has lowr chest pain and with some epigastric tenderness and normal ECG/CXR/trop, I presume her discomfort relates to gERD/esophageal discomfort. No leg tenderness nor edema. Lungs clear. Does not seem CHF. Nonpleuritic and no dyspnea, so low suspicion for PE. Has some anemia but is guaic negative. likely iron deficient although has low platelets and WBC, more c/w marrow dysfunction. No obvious meds to be causing immune supporession on her med list. Social Determinants of Health: she is resident at [facility]. Departure - Departure Disposition: 01 Home, Self Care Clinical Impression: Chest pain, GERD (gastroesophageal reflux disease), Pancytopenia, Cerebral palsy Condition: Stable Record reviewed to determine appropriate education?: Yes Prescriptions: Sucralfate [Carafate] 1 gm PO TID #20 tablet Comments: Your chest x-ray, EKG, blood tests are normal without any signs of heart attack, heart failure, pneumonia, fluid in the lungs. No signs of pancreatic or liver inflammation on blood test. Your test of the stool was negative for blood. You are anemic but your white count and platelet count are low as well suggesting likely some impaired function of your bone marrow. Continue with your current usual medicines. Follow-up with your primary care. They could decide if they feel that a rn review consult is indicated. I presume the chest pain you had is some irritation of the stomach or esophagus. Continue with your current medications including the esomeprazole. Add sacral fate 3 times daily for the next week. Add Mylanta or Maalox type antacids if needed as well. Prescription was sent to [facility]. Discharge Date/Time: 07/06/22 14:08
--- NOTE | 2022-07-06 08:48 | XRAY Report ---
PROCEDURE: Chest 1 View X-Ray INDICATIONS: Chest Pain TECHNIQUE: One view of the chest was acquired. COMPARISON: 03/26/2021 FINDINGS: Surgical changes and devices: Left tunneled port device is in place. Positioning is stable. Ventricu loperitoneal shunt tubing extends along the left lower neck and left chest wall. Distal segment appea rs to be coiled within the left upper abdomen. Lungs and pleura: Bilateral pleural effusions are present. Diffuse interstitial prominence with sugg estion of central vascular congestion. No focal consolidation. No pneumothorax. Patchy bibasilar opac ities more pronounced on the left likely representing atelectasis. Mediastinum: Mediastinal contours appear stable. Heart size is normal. Bones and chest wall: No suspicious bony lesions. Overlying soft tissues appear unremarkable. IMPRESSION: Diffuse interstitial prominence, vascular congestion, and bilateral pleural effusions likely represen ting pulmonary edema/CHF. An infectious or inflammatory process not excluded if clinically appropriat e. Reviewed by: Stevie Dodson MD on 07/06/2022 8:46 AM PST Approved by: Stevie Dodson MD on 07/06/2022 8:46 AM PST Station ID: [id number]
[2022-07-06 09:26] LABS: BASOPHILS % (AUTO) 1.7 %; EOSINOPHILS % (AUTO) 0.3 %; HCT - HEMATOCRIT 23.9 % (37.0-47.0); HGB - HEMOGLOBIN 7.9 g/dL (12.0-16.0); MEAN CORPUSCULAR HGB CONC 33.1 g/dL (32.0-36.0); MEAN CORPUSCULAR VOLUME 105.8 fL (81.0-99.0); MEAN PLATELET VOLUME 12.6 fL (7.9-10.8); MONOCYTES % (AUTO) 9.9 %; PLT - PLATELET COUNT 81 10^3/uL (130-450); RED BLOOD COUNT 2.26 10^6/uL (4.20-5.40); RED CELL DISTRIBUTION WIDTH 18.6 % (12.0-15.0); WHITE BLOOD COUNT 2.9 x10^3/uL (4.8-10.8)
[2022-07-06 09:42] LABS: ALBUMIN 3.1 g/dL (3.2-5.5); ALBUMIN/GLOBULIN RATIO 0.8 (1.0-2.2); BILIRUBIN,TOTAL 0.9 mg/dL (0.2-1.0); CALCIUM 9.1 mg/dL (8.5-10.3); CREATININE 0.7 mg/dL (0.4-1.0); MAGNESIUM 2.2 mg/dL (1.7-2.8); POTASSIUM 4.1 mmol/L (3.5-5.0)
[2022-07-06 09:52] LABS: SLIDE REVIEW? Indicated
[2022-07-06 09:53] LABS: ABNORMAL LYMPHS % (MANUAL) 0 %; BAND NEUTROPHILS % (MANUAL) 0 %
[2022-07-06 10:00] LABS: EOSINOPHILS # (MANUAL) 0.1 10^3/uL (0-0.7); LYMPHOCYTES # (MANUAL) 1.5 10^3/uL (1.5-3.5); LYMPHOCYTES % (MANUAL) 28 %; MONOCYTES # (MANUAL) 0.1 10^3/uL (0.0-1.0); MYELOCYTES % (MANUAL) 1 %; NEUTROPHILS # (MANUAL) 1.2 10^3/uL (1.5-6.6); REACTIVE LYMPHS % (MANUAL) 22 %
[2022-07-06 10:01] LABS: DIFFERENTIAL COMMENT MANUAL DIFFERENTIAL
[2022-07-06] MEDS ORDERED: MAG HYDROX/AL HYDROX/SIMETH 30 ML UDC PO STA (12:26)
[2022-07-06] MEDS ORDERED: SUCRALFATE 1 GM/10 ML UDC PO STA (12:26)
[2022-07-06 14:03] VITALS: BP 106/72
== END 2022-07-06 14:08 | disposition home or self-care (01) ==
LOC: EDUNIT# → ED 08:02
DX: K21.9 Gastro-esophageal reflux disease without esophagitis (principal); D61.818 Other pancytopenia; D64.9 Anemia, unspecified; G80.9 Cerebral palsy, unspecified; Z87.891 Personal history of nicotine dependence; Z74.01 Bed confinement status
CPT/HCPCS: 36415; 71045; 80053; 82272; 83690; 83735; 83880; 84484; 85025; 93005; 96374; 96375; 99284; 99285; A9270; J1170

== ENCOUNTER 2022-07-06 14:10 | Outpatient (CLI) | payer MEDICARE, MEDICAID | END 2022-07-06 14:11 | disposition home or self-care (01) | LOC: EMS 14:10 | PROVIDERS: ATTEND Emergency Medicine | DX: K21.9 Gastro-esophageal reflux disease without esophagitis (principal); D64.9 Anemia, unspecified; Z74.01 Bed confinement status | CPT/HCPCS: A0425; A0428 ==